=== PATIENT | male | born 1960 | race American Indian/Alaskan Native ===

== ENCOUNTER 2017-01-07 05:43 | Inpatient (IN) | payer MEDICARE ==
--- NOTE | 2017-01-07 07:24 | XRay Report ---
Single view chest: History: Shortness of breath. Findings: Cardiomegaly. Decrease in volume of left lung with airspace opacities left lower lobe. Left CP angle obscured by heart. Tracheostomy tube in normal position the trachea midline. No consolidation right lung. Impression: Probable atelectasis with or without pneumonia left lung.
[2017-01-07] MEDS ORDERED: NACL 0.9% 1000 ML 1,000 ML IV ONE ×2 (07:59→08:00)
[2017-01-07] MEDS ORDERED: PROVENTIL IH ONE (08:01)
[2017-01-07] MEDS ORDERED: VANCOMYCIN VIAL IV ONE (08:02)
--- NOTE | 2017-01-07 08:03 | Emergency Department Report ---
ED General Adult HPI - General Chief complaint: Dyspnea/Respdistress Stated complaint: DIFFICULTY BREATHING Time Seen by Provider: 01/07/17 07:54 Source: EMS Mode of arrival: Stretcher Limitations: Physical Limitation - History of Present Illness Initial comments: Patient is a 56-year-old male has a past medical history of hypertension stroke and diabetes who presents with difficulty breathing. Patient was found at home with difficulty breathing. Patient has a trach and is nonverbal. History is limited due to patient being nonverbal. She was having difficulty breathing his sat was 76% when EMS got there they did some suction and has sat went up to the 90s. Severity scale (0 -10): 0 - Related Data Home Medications Medication Instructions Recorded Confirmed Last Taken Acetaminophen 650 mg NGTUBE Q6H PRN 01/07/17 01/07/17 Unknown Acidophilus Capsule 1 cap NGTUBE BID 01/07/17 01/07/17 Unknown AtorvaSTATin 40 mg NGTUBE HS 01/07/17 01/07/17 Unknown Enoxaparin 40 mg SQ DAILY 01/07/17 01/07/17 Unknown Famotidine 20 mg NGTUBE BID 01/07/17 01/07/17 Unknown Levemir 5 units SQ HS 01/07/17 01/07/17 Unknown Levetiracetam 10 ml NGTUBE BID 01/07/17 01/07/17 Unknown Metoprolol Tartrate 50 mg NGTUBE BID 01/07/17 01/07/17 Unknown NovoLOG Flexpen 0 units SQ AC 01/07/17 01/07/17 Unknown Allergies Allergy/AdvReac Type Severity Reaction Status Date / Time No Known Allergies Allergy Verified 01/07/17 08:08 ED Review of Systems ROS: Stated complaint: DIFFICULTY BREATHING Other details as noted in HPI Comment: Unobtainable due to pts medical conditions (patient is nonverbal) ED Past Medical Hx - Past Medical History Hx Hypertension: Yes Hx CVA: Yes Hx Diabetes: Yes Hx GERD: Yes Hx Seizures: Yes Hx Psychiatric Treatment: Yes (Schizophrenia) Additional medical history: Acute Respiratory Failure, Decubitus Ulcers, Dysphagia, Chronic Pain, Hyperlipidemia - Surgical History Additional Surgical History: Colostomy, PEG, TRACH, - Social History Smoking Status: Never Smoker Substance Use Type: None - Medications Home Medications: Home Medications Medication Instructions Recorded Confirmed Last Taken Type Acetaminophen 650 mg NGTUBE Q6H PRN 01/07/17 01/07/17 Unknown History Acidophilus Capsule 1 cap NGTUBE BID 01/07/17 01/07/17 Unknown History AtorvaSTATin 40 mg NGTUBE HS 01/07/17 01/07/17 Unknown History Enoxaparin 40 mg SQ DAILY 01/07/17 01/07/17 Unknown History Famotidine 20 mg NGTUBE BID 01/07/17 01/07/17 Unknown History Levemir 5 units SQ HS 01/07/17 01/07/17 Unknown History Levetiracetam 10 ml NGTUBE BID 01/07/17 01/07/17 Unknown History Metoprolol Tartrate 50 mg NGTUBE BID 01/07/17 01/07/17 Unknown History NovoLOG Flexpen 0 units SQ AC 01/07/17 01/07/17 Unknown History ED Physical Exam - General Limitations: Physical Limitation General appearance: alert, anxious - Head Head exam: Present: atraumatic - Eye Eye exam: Present: normal appearance - ENT ENT exam: Present: other (trach collar ) - Neck Neck exam: Present: normal inspection - Respiratory Respiratory exam: Present: wheezes, other (decreased lung sounds on left lung. ) . Absent: respiratory distress - Cardiovascular Cardiovascular Exam: Present: regular rate, tachycardia. Absent: systolic murmur, diastolic murmur, rubs, gallop - GI/Abdominal GI/Abdominal exam: Present: soft, normal bowel sounds - Rectal Rectal exam: Present: deferred - Extremities Exam Extremities exam: Present: normal inspection - Back Exam Back exam: Present: normal inspection - Neurological Exam Neurological exam: Present: alert, oriented X3 - Psychiatric Psychiatric exam: Present: normal affect, normal mood - Skin Skin exam: Present: warm, dry, intact, normal color. Absent: rash ED Course Vital Signs 01/07/17 01/07/17 01/07/17 06:12 06:22 06:30 Temperature 99 F Pulse Rate 134 H 130 H 128 H Respiratory 42 H 39 H 37 H Rate Blood Pressure 129/29 Blood Pressure [Left] O2 Sat by Pulse 99 97 96 Oximetry O2 Sat by Pulse Oximetry [ Assessment] 01/07/17 01/07/17 01/07/17 06:42 06:55 07:00 Temperature Pulse Rate 125 H 123 H Respiratory 32 H 32 H Rate Blood Pressure Blood Pressure 119/75 [Left] O2 Sat by Pulse 96 98 100 Oximetry O2 Sat by Pulse Oximetry [ Assessment] 01/07/17 01/07/17 01/07/17 07:30 07:36 07:41 Temperature Pulse Rate 121 H Respiratory 32 H Rate Blood Pressure 120/72 Blood Pressure [Left] O2 Sat by Pulse 99 99 Oximetry O2 Sat by Pulse 96 Oximetry [ Assessment] 01/07/17 01/07/17 01/07/17 07:43 08:00 08:30 Temperature Pulse Rate 122 H 119 H Respiratory 26 H 33 H 31 H Rate Blood Pressure 112/71 119/75 Blood Pressure [Left] O2 Sat by Pulse 100 Oximetry O2 Sat by Pulse Oximetry [ Assessment] 01/07/17 01/07/17 01/07/17 09:00 09:30 10:00 Temperature Pulse Rate 113 H 114 H 116 H Respiratory 27 H 20 30 H Rate Blood Pressure 129/72 146/71 144/77 Blood Pressure [Left] O2 Sat by Pulse 100 100 96 Oximetry O2 Sat by Pulse Oximetry [ Assessment] 01/07/17 01/07/17 01/07/17 10:30 11:00 11:30 Temperature Pulse Rate 113 H 108 H 111 H Respiratory 25 H 25 H 26 H Rate Blood Pressure 154/82 128/73 132/77 Blood Pressure [Left] O2 Sat by Pulse 99 100 Oximetry O2 Sat by Pulse Oximetry [ Assessment] 01/07/17 01/07/17 01/07/17 12:00 12:30 13:00 Temperature Pulse Rate 111 H 107 H 111 H Respiratory 24 24 27 H Rate Blood Pressure 129/69 140/80 127/73 Blood Pressure [Left] O2 Sat by Pulse 98 99 97 Oximetry O2 Sat by Pulse Oximetry [ Assessment] 01/07/17 01/07/17 01/07/17 13:30 14:00 14:30 Temperature Pulse Rate 111 H 117 H 111 H Respiratory 27 H 27 H 31 H Rate Blood Pressure 125/76 124/79 146/86 Blood Pressure [Left] O2 Sat by Pulse 95 97 97 Oximetry O2 Sat by Pulse Oximetry [ Assessment] 01/07/17 14:38 Temperature 99.1 F Pulse Rate Respiratory Rate Blood Pressure Blood Pressure [Left] O2 Sat by Pulse Oximetry O2 Sat by Pulse Oximetry [ Assessment] ED Medical Decision Making - Lab Data Result diagrams: 01/07/17 08:39 01/07/17 08:39 Labs 01/07/17 01/07/17 01/07/17 07:45 08:39 08:39 WBC 13.2 H RBC 3.48 L Hgb 9.2 L Hct 30.2 L MCV 87 MCH 27 L MCHC 31 L RDW 19.0 H Plt Count 628 H Lymph % (Auto) 21.8 [place] % (Auto) 6.3 Eos % (Auto) 0.2 Baso % (Auto) 0.8 Lymph # 2.9 [place] # 0.8 Eos # 0.0 Baso # 0.1 Seg Neutrophils % 70.9 H Seg Neutrophils # 9.4 H Sodium 134 L Potassium 4.3 Chloride 95.2 L Carbon Dioxide 29 Anion Gap 14 BUN 15 Creatinine 0.2 L Estimated GFR > 60 BUN/Creatinine Ratio 75 Glucose 159 H Lactic Acid Calcium 8.6 Troponin T < 0.010 Urine Color Yellow Urine Turbidity Clear Urine pH 6.0 Ur Specific [place] 1.024 Urine Protein <15 mg/dl Urine Glucose (UA) Neg Urine Ketones Neg Urine Blood Neg Urine Nitrite Neg Urine Bilirubin Neg Urine Urobilinogen < 2.0 Ur Leukocyte Esterase Tr Urine WBC (Auto) 1.0 Urine RBC (Auto) 6.0 01/07/17 08:39 WBC RBC Hgb Hct MCV MCH MCHC RDW Plt Count Lymph % (Auto) [place] % (Auto) Eos % (Auto) Baso % (Auto) Lymph # [place] # Eos # Baso # Seg Neutrophils % Seg Neutrophils # Sodium Potassium Chloride Carbon Dioxide Anion Gap BUN Creatinine Estimated GFR BUN/Creatinine Ratio Glucose Lactic Acid 1.50 Calcium Troponin T Urine Color Urine Turbidity Urine pH Ur Specific [place] Urine Protein Urine Glucose (UA) Urine Ketones Urine Blood Urine Nitrite Urine Bilirubin Urine Urobilinogen Ur Leukocyte Esterase Urine WBC (Auto) Urine RBC (Auto) - EKG Data -: EKG Interpreted by Id - EKG Data 01/07/17 15:08 EKG shows sinus tachycardia rate [address] segment elevation and no T-wave inversion normal axis. - Radiology Data Radiology results: report reviewed, image reviewed Chest x-ray: Shows left lower lung pneumonia and atelectasis - Medical Decision Making Chief medical diagnosis: Pneumonia Differential medical diagnosis: Sepsis, UTI, non-STEMI, electrolyte abnormality CHEST x-ray, 30 mL per kilo bolus, blood cultures, broad-spectrum antibiotics, CBC, CMP, troponin, EKG Due to patient having potentially life-threatening condition due to his medical conditions and diagnosis of sepsis patient will be admitted to the hospitalist service. Discussed plan with hospitalist Dr. Clark he agrees with plan. Patient is currently satting 96% on trach collar. Critical Care Time: Yes (40) Critical care time in (mins) excluding proc time.: 40 Critical care attestation.: If time is entered above; I have spent that time in minutes in the direct care of this critically ill patient, excluding procedure time. Critical care time spent at patient's bedside 25 minutes Critical care time spent reviewing patient's lab findings 10 minutes critical care time spent reviewing old medical records 0 minutes Care time speaking with consultants 5 minutes Critical care time spent with patient's family members 0 minutes ED Disposition Clinical Impression: Tachycardia, Tracheostomy dependence Pneumonia Qualifiers: Pneumonia type: due to unspecified organism Laterality: left Lung location: lower lobe of lung Qualified Code(s): J18.1 - Lobar pneumonia, unspecified organism Sepsis Qualifiers: Sepsis type: sepsis due to unspecified organism Qualified Code(s): A41.9 - Sepsis, unspecified organism Disposition: OP ADMIT IP TO THIS HOSP Is pt being admited?: Yes Does the pt Need Aspirin: No Condition: Stable
[2017-01-07 08:08] LABS: Bilirubin,Urine NEG (Negative); Blood,Urine NEG (Negative); Ketones,Urine NEG (Negative); Leukocyte Esterase,Urine TR (Negative); Nitrite,Urine NEG (Negative); Protein,Urine <15 mg/dL mg/dL (Negative); Urobilinogen,Urine < 2.0 mg/dL (<2.0)
[2017-01-07 08:59] LABS: Basophils % (Auto) 0.8 % (0.0-1.8); Eosinophils % (Auto) 0.2 % (0.0-4.3); Hematocrit 30.2 % (35.5-45.6); Hemoglobin 9.2 gm/dl (11.8-15.2); Mean Corpuscular HGB Conc 31 % (32-34); Mean Corpuscular Hemoglobin 27 pg (28-32); Mean Corpuscular Volume 87 fl (84-94); Platelet Count 628 K/mm3 (140-440); Red Blood Count 3.48 M/mm3 (3.65-5.03); White Blood Count 13.2 K/mm3 (4.5-11.0)
[2017-01-07] MEDS ORDERED: VANCOMYCIN PHARMACY TO DOSE IV SCH (09:00)
[2017-01-07] MEDS ORDERED: VANCOMYCIN/NS 1 GM/250 ML 1 GM/250 ML BAG IV ONE ×2 (09:00→12:00)
[2017-01-07 09:15] LABS: Anion Gap 14 mmol/L; BUN/Creatinine Ratio 75; Blood Urea Nitrogen 15 mg/dL (9-20); Calcium 8.6 mg/dL (8.4-10.2); Carbon Dioxide 29 mmol/L (22-30); Chloride 95.2 mmol/L (98-107); Glucose 159 mg/dL (75-100); Potassium 4.3 mmol/L (3.6-5.0); Sodium 134 mmol/L (137-145)
--- NOTE | 2017-01-07 14:26 | History and Physical Report ---
<OWEN SEAMAN - Last Filed: 01/07/17 14:47> History of Present Illness Date of examination: 01/07/17 Date of admission: 01/07/17 12:42 Chief complaint: Difficulty Breathing History of present illness: Patient is a 56-year-old male has a past medical history of hypertension stroke and diabetes who presents with difficulty breathing. Patient was found at home Unable to provide full history due to endotracheal tube Past History Past Medical History: GERD, hypertension, hyperlipidemia, seizures, stroke Past Surgical History: Other (Colostomy, PEG, TRACH,) Social history: other (Never smoked) Medications and Allergies Allergies Allergy/AdvReac Type Severity Reaction Status Date / Time No Known Allergies Allergy Verified 01/07/17 08:08 Home Medications Medication Instructions Recorded Confirmed Last Taken Type Acetaminophen 650 mg NGTUBE Q6H PRN 01/07/17 01/07/17 Unknown History Acidophilus Capsule 1 cap NGTUBE BID 01/07/17 01/07/17 Unknown History AtorvaSTATin 40 mg NGTUBE HS 01/07/17 01/07/17 Unknown History Enoxaparin 40 mg SQ DAILY 01/07/17 01/07/17 Unknown History Famotidine 20 mg NGTUBE BID 01/07/17 01/07/17 Unknown History Levemir 5 units SQ HS 01/07/17 01/07/17 Unknown History Levetiracetam 10 ml NGTUBE BID 01/07/17 01/07/17 Unknown History Metoprolol Tartrate 50 mg NGTUBE BID 01/07/17 01/07/17 Unknown History NovoLOG Flexpen 0 units SQ AC 01/07/17 01/07/17 Unknown History Active Meds: Active Medications Albuterol/Ipratropium (Duoneb *Not For Prn Use*) 1 ampul IH Q3H PRN PRN Reason: Wheezing Enoxaparin Sodium (Lovenox) 50 mg SUB-Q Q12HR BERRY Piperacillin Sod/Tazobactam Sod (Zosyn/Ns 3.375gm/50ml) 3.375 gm in 50 mls @ 100 mls/hr IV Q6HR BERRY Vancomycin HCl (Vancomycin/Ns 1 Gm/250 Ml) 1 gm in 250 mls @ 167.007 mls/hr IV Q12HR B[facility] Levofloxacin/Dextrose (Levaquin 750mg/150ml) 750 mg in 150 mls @ 100 mls/hr IV Q24HR BERRY PRN Reason: Protocol Methylprednisolone Sodium Succinate (Solu-Medrol) 40 mg IV Q6H BERRY Vancomycin HCl (Vancomycin Pharmacy To Dose) 1 each IV PKCONSULT BERRY PRN Reason: Protocol Review of Systems ROS unobtainable: due to endotracheal tube (Difficulty breathing) Exam - Physical Exam Narrative exam: Unable to complete thorough PE due to physical limitations - Constitutional Vitals: Temp Pulse Resp BP Pulse Ox 99 F 119 H 31 H 119/75 100 01/07/17 06:12 01/07/17 08:30 01/07/17 08:30 01/07/17 08:30 01/07/17 08:30 General appearance: Present: no acute distress - EENT Eyes: Present: PERRL, EOM intact - Neck Neck: Present: supple, normal ROM - Respiratory Respiratory effort: normal - Cardiovascular Rhythm: regular Heart Sounds: Present: S1 & S2 - Extremities Extremities: no ischemia, No edema Peripheral Pulses: within normal limits - Abdominal Male genitourinary: Present: deferred - Rectal Rectal Exam: deferred - Integumentary Integumentary: Present: clear, warm, dry - Musculoskeletal Musculoskeletal: other (Unable to evaluate, patient not following command) - Psychiatric Psychiatric: other (Unable to evaluate) - Neurologic Neurologic: moves all extremities - Allied Health Allied health notes reviewed: nursing Results - Labs CBC & Chem 7: 01/07/17 08:39 01/07/17 08:39 Labs: Laboratory Last Values WBC 13.2 K/mm3 (4.5-11.0) H 01/07/17 08:39 RBC 3.48 M/mm3 (3.65-5.03) L 01/07/17 08:39 Hgb 9.2 gm/dl (11.8-15.2) L 01/07/17 08:39 Hct 30.2 % (35.5-45.6) L 01/07/17 08:39 MCV 87 fl (84-94) 01/07/17 08:39 MCH 27 pg (28-32) L 01/07/17 08:39 MCHC 31 % (32-34) L 01/07/17 08:39 RDW 19.0 % (13.2-15.2) H 01/07/17 08:39 Plt Count 628 K/mm3 (140-440) H 01/07/17 08:39 Lymph % (Auto) 21.8 % (13.4-35.0) 01/07/17 08:39 [place] % (Auto) 6.3 % (0.0-7.3) 01/07/17 08:39 Eos % (Auto) 0.2 % (0.0-4.3) 01/07/17 08:39 Baso % (Auto) 0.8 % (0.0-1.8) 01/07/17 08:39 Lymph # 2.9 K/mm3 (1.2-5.4) 01/07/17 08:39 [place] # 0.8 K/mm3 (0.0-0.8) 01/07/17 08:39 Eos # 0.0 K/mm3 (0.0-0.4) 01/07/17 08:39 Baso # 0.1 K/mm3 (0.0-0.1) 01/07/17 08:39 Seg Neutrophils % 70.9 % (40.0-70.0) H 01/07/17 08:39 Seg Neutrophils # 9.4 K/mm3 (1.8-7.7) H 01/07/17 08:39 Sodium 134 mmol/L (137-145) L 01/07/17 08:39 Potassium 4.3 mmol/L (3.6-5.0) 01/07/17 08:39 Chloride 95.2 mmol/L (98-107) L 01/07/17 08:39 Carbon Dioxide 29 mmol/L (22-30) 01/07/17 08:39 Anion Gap 14 mmol/L 01/07/17 08:39 BUN 15 mg/dL (9-20) 01/07/17 08:39 Creatinine 0.2 mg/dL (0.8-1.5) L 01/07/17 08:39 Estimated GFR > 60 ml/min 01/07/17 08:39 BUN/Creatinine Ratio 75 % 01/07/17 08:39 Glucose 159 mg/dL (75-100) H 01/07/17 08:39 Lactic Acid 1.50 mmol/L (0.7-2.0) 01/07/17 08:39 Calcium 8.6 mg/dL (8.4-10.2) 01/07/17 08:39 Troponin T < 0.010 ng/mL (0.00-0.029) 01/07/17 08:39 Urine Color Yellow (Yellow) 01/07/17 07:45 Urine Turbidity Clear (Clear) 01/07/17 07:45 Urine pH 6.0 (5.0-7.0) 01/07/17 07:45 Ur Specific [place] 1.024 (1.003-1.030) 01/07/17 07:45 Urine Protein <15 mg/dl mg/dL (Negative) 01/07/17 07:45 Urine Glucose (UA) Neg mg/dL (Negative) 01/07/17 07:45 Urine Ketones Neg mg/dL (Negative) 01/07/17 07:45 Urine Blood Neg (Negative) 01/07/17 07:45 Urine Nitrite Neg (Negative) 01/07/17 07:45 Urine Bilirubin Neg (Negative) 01/07/17 07:45 Urine Urobilinogen < 2.0 mg/dL (<2.0) 01/07/17 07:45 Ur Leukocyte Esterase Tr (Negative) 01/07/17 07:45 Urine WBC (Auto) 1.0 /HPF (0.0-6.0) 01/07/17 07:45 Urine RBC (Auto) 6.0 /HPF (0.0-6.0) 01/07/17 07:45 - Imaging and Cardiology EKG: report reviewed (Tracheotomy tube midline in trachea, atelectasis L lung with or without pneumonia) Assessment and Plan Assessment and plan: Patient is a 56-year-old male has a past medical history of hypertension stroke and diabetes who presents with difficulty breathing. Acute COPD Exacerbation Start Duoneb, Solumedrol and Levoquin SIRS Elevated WBC, RR, HR Blood cultures pending Epilepsy Continue Keppra Diabetes SSI Advance Directives: Yes VTE prophylaxis?: Chemical Contraindication Mechanical VTE Prophylaxis: Treatment Not Indicated Plan of care discussed with patient/family: Yes - Patient Problems (1) COPD exacerbation Current Visit: Yes Status: Acute <ROBERT ADHIKARI S - Last Filed: 01/08/17 06:14> History of Present Illness Date of admission: 01/07/17 12:42 Medications and Allergies Active Meds: Active Medications Acetaminophen (Tylenol) 650 mg PO Q4H PRN PRN Reason: Pain MILD(1-3)/Fever >100.5/MCCRAY Albuterol/Ipratropium (Duoneb *Not For Prn Use*) 1 ampul IH Q3H PRN PRN Reason: Wheezing Bisacodyl (Dulcolax) 10 mg AL QDAY PRN PRN Reason: Constipation unrelieved by MOM Dextrose (D50w (25gm) Syringe) 50 ml IV PRN PRN PRN Reason: Hypoglycemia Enoxaparin Sodium (Lovenox) 50 mg SUB-Q Q12HR [facility] Last Admin: 01/07/17 21:39 Dose: 50 mg Piperacillin Sod/Tazobactam Sod (Zosyn/Ns 3.375gm/50ml) 3.375 gm in 50 mls @ 100 mls/hr IV Q6HR [facility] Last Admin: 01/08/17 00:19 Dose: 100 mls/hr Vancomycin HCl (Vancomycin/Ns 1 Gm/250 Ml) 1 gm in 250 mls @ 167.007 mls/hr IV Q12HR [facility] Last Admin: 01/07/17 22:58 Dose: 167.007 mls/hr Levofloxacin/Dextrose (Levaquin 750mg/150ml) 750 mg in 150 mls @ 100 mls/hr IV Q24HR [facility] PRN Reason: Protocol Insulin Aspart (Novolog) 0 units SUB-Q AC BERRY PRN Reason: Protocol Last Admin: 01/07/17 18:51 Dose: Not Given Insulin Aspart (Novolog) 0 units SUB-Q QHS BERRY PRN Reason: Protocol Last Admin: 01/08/17 00:27 Dose: Not Given Magnesium Hydroxide (Milk Of Magnesia) 30 ml PO Q4H PRN PRN Reason: Constipation Methylprednisolone Sodium Succinate (Solu-Medrol) 40 mg IV Q6H [facility] Last Admin: 01/08/17 02:59 Dose: 40 mg Ondansetron HCl (Zofran) 4 mg IV Q8H PRN PRN Reason: N/V unrelieved by Reglan Vancomycin HCl (Vancomycin Pharmacy To Dose) 1 each IV PKCONSULT BERRY PRN Reason: Protocol Exam - Constitutional Vitals: Temp Pulse Resp BP Pulse Ox 98.8 F 113 H 18 132/81 95 01/08/17 03:28 01/08/17 03:28 01/08/17 03:28 01/08/17 03:28 01/08/17 03:28 Results - Labs CBC & Chem 7: 01/07/17 08:39 01/07/17 08:39 Labs: Laboratory Last Values WBC 13.2 K/mm3 (4.5-11.0) H 01/07/17 08:39 RBC 3.48 M/mm3 (3.65-5.03) L 01/07/17 08:39 Hgb 9.2 gm/dl (11.8-15.2) L 01/07/17 08:39 Hct 30.2 % (35.5-45.6) L 01/07/17 08:39 MCV 87 fl (84-94) 01/07/17 08:39 MCH 27 pg (28-32) L 01/07/17 08:39 MCHC 31 % (32-34) L 01/07/17 08:39 RDW 19.0 % (13.2-15.2) H 01/07/17 08:39 Plt Count 628 K/mm3 (140-440) H 01/07/17 08:39 Lymph % (Auto) 21.8 % (13.4-35.0) 01/07/17 08:39 [place] % (Auto) 6.3 % (0.0-7.3) 01/07/17 08:39 Eos % (Auto) 0.2 % (0.0-4.3) 01/07/17 08:39 Baso % (Auto) 0.8 % (0.0-1.8) 01/07/17 08:39 Lymph # 2.9 K/mm3 (1.2-5.4) 01/07/17 08:39 [place] # 0.8 K/mm3 (0.0-0.8) 01/07/17 08:39 Eos # 0.0 K/mm3 (0.0-0.4) 01/07/17 08:39 Baso # 0.1 K/mm3 (0.0-0.1) 01/07/17 08:39 Seg Neutrophils % 70.9 % (40.0-70.0) H 01/07/17 08:39 Seg Neutrophils # 9.4 K/mm3 (1.8-7.7) H 01/07/17 08:39 Sodium 134 mmol/L (137-145) L 01/07/17 08:39 Potassium 4.3 mmol/L (3.6-5.0) 01/07/17 08:39 Chloride 95.2 mmol/L (98-107) L 01/07/17 08:39 Carbon Dioxide 29 mmol/L (22-30) 01/07/17 08:39 Anion Gap 14 mmol/L 01/07/17 08:39 BUN 15 mg/dL (9-20) 01/07/17 08:39 Creatinine 0.2 mg/dL (0.8-1.5) L 01/07/17 08:39 Estimated GFR > 60 ml/min 01/07/17 08:39 BUN/Creatinine Ratio 75 % 01/07/17 08:39 Glucose 159 mg/dL (75-100) H 01/07/17 08:39 POC Glucose 170 (70-105) H 01/08/17 05:13 Hemoglobin A1c 6.5 % (4-6) H 01/07/17 16:54 Lactic Acid 1.50 mmol/L (0.7-2.0) 01/07/17 08:39 Calcium 8.6 mg/dL (8.4-10.2) 01/07/17 08:39 Troponin T < 0.010 ng/mL (0.00-0.029) 01/07/17 08:39 Urine Color Yellow (Yellow) 01/07/17 07:45 Urine Turbidity Clear (Clear) 01/07/17 07:45 Urine pH 6.0 (5.0-7.0) 01/07/17 07:45 Ur Specific [place] 1.024 (1.003-1.030) 01/07/17 07:45 Urine Protein <15 mg/dl mg/dL (Negative) 01/07/17 07:45 Urine Glucose (UA) Neg mg/dL (Negative) 01/07/17 07:45 Urine Ketones Neg mg/dL (Negative) 01/07/17 07:45 Urine Blood Neg (Negative) 01/07/17 07:45 Urine Nitrite Neg (Negative) 01/07/17 07:45 Urine Bilirubin Neg (Negative) 01/07/17 07:45 Urine Urobilinogen < 2.0 mg/dL (<2.0) 01/07/17 07:45 Ur Leukocyte Esterase Tr (Negative) 01/07/17 07:45 Urine WBC (Auto) 1.0 /HPF (0.0-6.0) 01/07/17 07:45 Urine RBC (Auto) 6.0 /HPF (0.0-6.0) 01/07/17 07:45 Assessment and Plan Advance Directives: Yes (full code) Plan of care discussed with patient/family: Yes - Patient Problems (1) Anemia Current Visit: Yes Status: Chronic Qualifiers: Anemia type: iron deficiency Plan to address problem: Etio unclear Irom/folic acid /B12 levels ordered (2) T2DM (type 2 diabetes mellitus) Current Visit: Yes Status: Chronic Qualifiers: Diabetes mellitus complication status: without complication Plan to address problem: A1c 6.5 Cont levemir and coverage moderate dose S/S
[2017-01-07] MEDS ORDERED: DULCOLAX PR PRN (14:48)
[2017-01-07] MEDS ORDERED: TYLENOL PO PRN (14:48)
[2017-01-07] MEDS ORDERED: ZOFRAN IV PRN (14:48)
[2017-01-07] MEDS ORDERED: MILK OF MAGNESIA PO PRN (14:48)
[2017-01-07] MEDS ORDERED: D50W (25GM) Syringe IV PRN (14:50)
[2017-01-07] MEDS: ZOSYN/NS 3.375GM/50ML 3.375 GM/50 ML BAG IV SCH ×2 (15:06→18:52)
[2017-01-07] MEDS: NOVOLOG SUB-Q SCH (18:51)
[2017-01-07] MEDS ORDERED: VANCOMYCIN/NS 1 GM/250 ML 1 GM/250 ML BAG IV SCH (22:00)
[2017-01-07] MEDS ORDERED: LOVENOX SUB-Q SCH ×2 (22:00)
[2017-01-08] MEDS: ZOSYN/NS 3.375GM/50ML 3.375 GM/50 ML BAG IV SCH ×2 (00:19→06:21)
[2017-01-08] MEDS: NOVOLOG SUB-Q SCH ×4 (00:27→17:47)
[2017-01-08] MEDS ORDERED: SODIUM BICARBONATE FEEDTUBE PRN (11:35)
[2017-01-08] MEDS ORDERED: SIMPLE SYRUP FEEDTUBE PRN ×2 (11:35)
[2017-01-08] MEDS ORDERED: PANCREAZE DR 10,500 UNIT FEEDTUBE PRN (11:35)
--- NOTE | 2017-01-08 12:47 | Progress Note ---
Assessment and Plan Assessment and plan: Patient is a 56-year-old male has a past medical history of hypertension, stroke and diabetes, chronic Respiratory failure s/p Trach and with chronic Encephalopathy, Admitted with Sepsis and Acute on Chronic Respiratory failure with Hypoxia. EMS sat was 76% Acute COPD Exacerbation * Agonal breathing with increased secretions on admission requiring suctioning. * Continue Duoneb, Solumedrol and Levaquin Left lower lobe Pneumonia * Continue Levaquin IV SIRS * Elevated WBC, RR, HR * Blood cultures pending Anemia * Iron Deficiency * Monitor closely. * Start on Iron supplementation Epilepsy Continue Keppra Chronic Encephalopathy * Awaiting records from facility Diabetes with Hyperglycemia * Controlled * Cont levemir and coverage moderate dose S/S Multiple sacral decubitus pressure Ulcers * Woundcare consult * May need debridement dvt/gi PROPHY Await family to discuss further treatment options. . History Interval history: Patient seen and examined, He is chronically on a trach and with AMS. Nurse and wound care nurse dressing patients wound today. No new complaint from Nursing staff. Hospitalist Physical - Physical exam Narrative exam: VITAL SIGNS: Reviewed. GENERAL: The patient appeared Chronically ill appearing, cachetic. Vital signs as documented. HEAD: No signs of head trauma. marked temporal wasting EYES: Pupils are equal. EARS: Hearing grossly intact. MOUTH: Oropharynx is normal. NECK: No adenopathy, no JVD. CHEST: Chest with crackles breath sounds bilaterally. No wheezes. CARDIAC: Regular rate and rhythm. S1 and S2, without murmurs, gallops, or rubs. VASCULAR: No Edema. Peripheral pulses normal and equal in all extremities. ABDOMEN: Soft, without detectable tenderness. No sign of distention. No rebound or guarding, and no masses palpated. Bowel Sounds normal. MUSCULOSKELETAL: contracted. Extremities without clubbing, cyanosis or edema. NEUROLOGIC EXAM: Confused. PSYCHIATRIC: Mood normal. SKIN: multiple decub unclers present. Unstagable at the right hip. All POA - Constitutional Vitals: Temp Pulse Resp BP Pulse Ox 99.9 F H 124 H 22 132/81 97 01/08/17 12:31 01/08/17 12:31 01/08/17 12:31 01/08/17 12:31 01/08/17 12:31 General appearance: Present: no acute distress Results - Labs CBC & Chem 7: 01/07/17 08:39 01/07/17 08:39 Labs: Laboratory Last Values WBC 13.2 K/mm3 (4.5-11.0) H 01/07/17 08:39 RBC 3.48 M/mm3 (3.65-5.03) L 01/07/17 08:39 Hgb 9.2 gm/dl (11.8-15.2) L 01/07/17 08:39 Hct 30.2 % (35.5-45.6) L 01/07/17 08:39 MCV 87 fl (84-94) 01/07/17 08:39 MCH 27 pg (28-32) L 01/07/17 08:39 MCHC 31 % (32-34) L 01/07/17 08:39 RDW 19.0 % (13.2-15.2) H 01/07/17 08:39 Plt Count 628 K/mm3 (140-440) H 01/07/17 08:39 Lymph % (Auto) 21.8 % (13.4-35.0) 01/07/17 08:39 [place] % (Auto) 6.3 % (0.0-7.3) 01/07/17 08:39 Eos % (Auto) 0.2 % (0.0-4.3) 01/07/17 08:39 Baso % (Auto) 0.8 % (0.0-1.8) 01/07/17 08:39 Lymph # 2.9 K/mm3 (1.2-5.4) 01/07/17 08:39 [place] # 0.8 K/mm3 (0.0-0.8) 01/07/17 08:39 Eos # 0.0 K/mm3 (0.0-0.4) 01/07/17 08:39 Baso # 0.1 K/mm3 (0.0-0.1) 01/07/17 08:39 Seg Neutrophils % 70.9 % (40.0-70.0) H 01/07/17 08:39 Seg Neutrophils # 9.4 K/mm3 (1.8-7.7) H 01/07/17 08:39 Sodium 134 mmol/L (137-145) L 01/07/17 08:39 Potassium 4.3 mmol/L (3.6-5.0) 01/07/17 08:39 Chloride 95.2 mmol/L (98-107) L 01/07/17 08:39 Carbon Dioxide 29 mmol/L (22-30) 01/07/17 08:39 Anion Gap 14 mmol/L 01/07/17 08:39 BUN 15 mg/dL (9-20) 01/07/17 08:39 Creatinine 0.2 mg/dL (0.8-1.5) L 01/07/17 08:39 Estimated GFR > 60 ml/min 01/07/17 08:39 BUN/Creatinine Ratio 75 % 01/07/17 08:39 Glucose 159 mg/dL (75-100) H 01/07/17 08:39 POC Glucose 176 (70-105) H 01/08/17 11:17 Hemoglobin A1c 6.5 % (4-6) H 01/07/17 16:54 Lactic Acid 1.50 mmol/L (0.7-2.0) 01/07/17 08:39 Calcium 8.6 mg/dL (8.4-10.2) 01/07/17 08:39 Iron 24 ug/dL (49-181) L 01/08/17 07:36 TIBC 168 mcg/dL (250-450) L 01/08/17 07:36 % Saturation 14.29 % 01/08/17 07:36 Transferrin 145 mg/dl (180-329) L 01/08/17 07:36 Troponin T < 0.010 ng/mL (0.00-0.029) 01/07/17 08:39 Vitamin B12 1871 pg/mL (211-911) H 01/08/17 07:36 Urine Color Yellow (Yellow) 01/07/17 07:45 Urine Turbidity Clear (Clear) 01/07/17 07:45 Urine pH 6.0 (5.0-7.0) 01/07/17 07:45 Ur Specific [place] 1.024 (1.003-1.030) 01/07/17 07:45 Urine Protein <15 mg/dl mg/dL (Negative) 01/07/17 07:45 Urine Glucose (UA) Neg mg/dL (Negative) 01/07/17 07:45 Urine Ketones Neg mg/dL (Negative) 01/07/17 07:45 Urine Blood Neg (Negative) 01/07/17 07:45 Urine Nitrite Neg (Negative) 01/07/17 07:45 Urine Bilirubin Neg (Negative) 01/07/17 07:45 Urine Urobilinogen < 2.0 mg/dL (<2.0) 01/07/17 07:45 Ur Leukocyte Esterase Tr (Negative) 01/07/17 07:45 Urine WBC (Auto) 1.0 /HPF (0.0-6.0) 01/07/17 07:45 Urine RBC (Auto) 6.0 /HPF (0.0-6.0) 01/07/17 07:45 - Imaging and Cardiology Chest x-ray: image reviewed (left lobe pneumonia)
[2017-01-08] MEDS: LEVAQUIN 750MG/150ML 750 MG/150 ML BAG IV SCH (13:30)
[2017-01-08] MEDS: KEPPRA PO SCH ×2 (13:31→21:11)
[2017-01-08] MEDS: LOPRESSOR PO SCH ×2 (13:31→22:04)
[2017-01-08] MEDS: LOVENOX SUB-Q SCH (13:31)
[2017-01-08] MEDS: PEPCID PO SCH ×2 (13:32→21:11)
[2017-01-09] MEDS: NOVOLOG SUB-Q SCH ×5 (02:59→23:17)
[2017-01-09 07:27] LABS: Hematocrit 28.5 % (35.5-45.6); Hemoglobin 9.3 gm/dl (11.8-15.2); Mean Corpuscular HGB Conc 33 % (32-34); Mean Corpuscular Hemoglobin 28 pg (28-32); Mean Corpuscular Volume 87 fl (84-94); Platelet Count 609 K/mm3 (140-440); Red Blood Count 3.29 M/mm3 (3.65-5.03); Red Cell Distribution Width 19.1 % (13.2-15.2); White Blood Count 9.4 K/mm3 (4.5-11.0)
[2017-01-09 07:43] LABS: Albumin 2.8 g/dL (3.9-5); Anion Gap 18 mmol/L; BUN/Creatinine Ratio 70; Blood Urea Nitrogen 21 mg/dL (9-20); Calcium 8.8 mg/dL (8.4-10.2); Carbon Dioxide 26 mmol/L (22-30); Glucose 274 mg/dL (75-100); Potassium 4.5 mmol/L (3.6-5.0); Sodium 137 mmol/L (137-145)
[2017-01-09] MEDS: LOVENOX SUB-Q SCH (11:08)
[2017-01-09] MEDS: LOPRESSOR PO SCH ×2 (11:09→23:17)
[2017-01-09] MEDS: KEPPRA PO SCH ×2 (11:09→23:18)
[2017-01-09] MEDS: LEVAQUIN 750MG/150ML 750 MG/150 ML BAG IV SCH (11:10)
[2017-01-09] MEDS: PEPCID PO SCH ×2 (11:10→23:19)
--- NOTE | 2017-01-09 11:51 | Progress Note ---
Assessment and Plan Assessment and plan: Patient is a 56-year-old male has a past medical history of hypertension, stroke and diabetes, chronic Respiratory failure s/p Trach and with chronic Encephalopathy, Admitted with Sepsis and Acute on Chronic Respiratory failure with Hypoxia. EMS sat was 76% Acute COPD Exacerbation * Agonal breathing with increased secretions on admission requiring suctioning. Now improved. * Continue Duoneb, and Levaquin. * Change to PO steroids via peg * Discussed with nursing staff about aggressive pulmonary toilet. * Still with Tachycardia, will monitor. No senseless fluid loss noted. Left lower lobe Pneumonia * Continue Levaquin IV SIRS * Elevated WBC, RR, HR * Blood cultures pending Anemia * Iron Deficiency * Monitor closely. * Continue on Iron supplementation Epilepsy Continue Keppra Chronic Metabolic Encephalopathy * Awaiting records from facility Diabetes with Hyperglycemia * Cont levemir added today as it was not reconciled yesterday, and coverage moderate dose S/S Multiple sacral decubitus pressure Ulcers * Woundcare consult * May need debridement dvt/gi PROPHY Await family to discuss further treatment options. . History Interval history: Patient seen and examined, He is chronically on a trach and with AMS. No new complaint from Nursing staff. Hospitalist Physical - Physical exam Narrative exam: VITAL SIGNS: Reviewed. GENERAL: The patient appeared Chronically ill appearing, cachetic. Vital signs as documented. HEAD: No signs of head trauma. marked temporal wasting EYES: Pupils are equal. EARS: Hearing grossly intact. MOUTH: Oropharynx is normal. NECK: No adenopathy, no JVD. CHEST: Chest with crackles breath sounds bilaterally. No wheezes. CARDIAC: Regular rate and rhythm. S1 and S2, without murmurs, gallops, or rubs. VASCULAR: No Edema. Peripheral pulses normal and equal in all extremities. ABDOMEN: Soft, without detectable tenderness. No sign of distention. No rebound or guarding, and no masses palpated. Bowel Sounds normal. MUSCULOSKELETAL: contracted. Extremities without clubbing, cyanosis or edema. NEUROLOGIC EXAM: Confused. PSYCHIATRIC: Mood normal. SKIN: multiple decub unclers present. Unstagable at the right hip. All POA - Constitutional Vitals: Temp Pulse Resp BP Pulse Ox 98.4 F 116 H 22 123/75 87 01/09/17 08:14 01/09/17 08:14 01/09/17 08:14 01/09/17 08:14 01/09/17 08:14 General appearance: Present: no acute distress Results - Labs CBC & Chem 7: 01/09/17 06:53 01/09/17 06:53 Labs: Laboratory Last Values WBC 9.4 K/mm3 (4.5-11.0) 01/09/17 06:53 RBC 3.29 M/mm3 (3.65-5.03) L 01/09/17 06:53 Hgb 9.3 gm/dl (11.8-15.2) L 01/09/17 06:53 Hct 28.5 % (35.5-45.6) L 01/09/17 06:53 MCV 87 fl (84-94) 01/09/17 06:53 MCH 28 pg (28-32) 01/09/17 06:53 MCHC 33 % (32-34) 01/09/17 06:53 RDW 19.1 % (13.2-15.2) H 01/09/17 06:53 Plt Count 609 K/mm3 (140-440) H 01/09/17 06:53 Lymph % (Auto) 21.8 % (13.4-35.0) 01/07/17 08:39 [place] % (Auto) 6.3 % (0.0-7.3) 01/07/17 08:39 Eos % (Auto) 0.2 % (0.0-4.3) 01/07/17 08:39 Baso % (Auto) 0.8 % (0.0-1.8) 01/07/17 08:39 Lymph # 2.9 K/mm3 (1.2-5.4) 01/07/17 08:39 [place] # 0.8 K/mm3 (0.0-0.8) 01/07/17 08:39 Eos # 0.0 K/mm3 (0.0-0.4) 01/07/17 08:39 Baso # 0.1 K/mm3 (0.0-0.1) 01/07/17 08:39 Seg Neutrophils % 70.9 % (40.0-70.0) H 01/07/17 08:39 Seg Neutrophils # 9.4 K/mm3 (1.8-7.7) H 01/07/17 08:39 Sodium 137 mmol/L (137-145) 01/09/17 06:53 Potassium 4.5 mmol/L (3.6-5.0) 01/09/17 06:53 Chloride 98.0 mmol/L (98-107) 01/09/17 06:53 Carbon Dioxide 26 mmol/L (22-30) 01/09/17 06:53 Anion Gap 18 mmol/L 01/09/17 06:53 BUN 21 mg/dL (9-20) H 01/09/17 06:53 Creatinine 0.3 mg/dL (0.8-1.5) L 01/09/17 06:53 Estimated GFR > 60 ml/min 01/09/17 06:53 BUN/Creatinine Ratio 70 % 01/09/17 06:53 Glucose 274 mg/dL (75-100) H 01/09/17 06:53 POC Glucose 312 (70-105) H 01/09/17 06:36 Hemoglobin A1c 6.5 % (4-6) H 01/07/17 16:54 Lactic Acid 1.50 mmol/L (0.7-2.0) 01/07/17 08:39 Calcium 8.8 mg/dL (8.4-10.2) 01/09/17 06:53 Phosphorus 2.60 mg/dL (2.5-4.5) 01/09/17 06:53 Magnesium 1.80 mg/dL (1.7-2.3) 01/09/17 06:53 Iron 24 ug/dL (49-181) L 01/08/17 07:36 TIBC 168 mcg/dL (250-450) L 01/08/17 07:36 % Saturation 14.29 % 01/08/17 07:36 Transferrin 145 mg/dl (180-329) L 01/08/17 07:36 Troponin T < 0.010 ng/mL (0.00-0.029) 01/07/17 08:39 Albumin 2.8 g/dL (3.9-5) L 01/09/17 06:53 Vitamin B12 1871 pg/mL (211-911) H 01/08/17 07:36 Urine Color Yellow (Yellow) 01/07/17 07:45 Urine Turbidity Clear (Clear) 01/07/17 07:45 Urine pH 6.0 (5.0-7.0) 01/07/17 07:45 Ur Specific [place] 1.024 (1.003-1.030) 01/07/17 07:45 Urine Protein <15 mg/dl mg/dL (Negative) 01/07/17 07:45 Urine Glucose (UA) Neg mg/dL (Negative) 01/07/17 07:45 Urine Ketones Neg mg/dL (Negative) 01/07/17 07:45 Urine Blood Neg (Negative) 01/07/17 07:45 Urine Nitrite Neg (Negative) 01/07/17 07:45 Urine Bilirubin Neg (Negative) 01/07/17 07:45 Urine Urobilinogen < 2.0 mg/dL (<2.0) 01/07/17 07:45 Ur Leukocyte Esterase Tr (Negative) 01/07/17 07:45 Urine WBC (Auto) 1.0 /HPF (0.0-6.0) 01/07/17 07:45 Urine RBC (Auto) 6.0 /HPF (0.0-6.0) 01/07/17 07:45
[2017-01-09] MEDS ORDERED: LEVEMIR SUB-Q SCH (22:00)
[2017-01-10] MEDS: NOVOLOG SUB-Q SCH ×4 (07:56→22:26)
[2017-01-10] MEDS: LEVEMIR SUB-Q SCH ×2 (10:30→22:25)
[2017-01-10] MEDS: LEVAQUIN 750MG/150ML 750 MG/150 ML BAG IV SCH (10:47)
[2017-01-10] MEDS: LOVENOX SUB-Q SCH (10:47)
[2017-01-10] MEDS: DELTASONE PO SCH (10:48)
[2017-01-10] MEDS: KEPPRA PO SCH ×2 (10:48→22:27)
[2017-01-10] MEDS: PEPCID PO SCH ×2 (10:48→22:28)
[2017-01-10] MEDS: LOPRESSOR PO SCH ×2 (10:48→22:28)
--- NOTE | 2017-01-10 12:56 | Progress Note ---
Assessment and Plan Assessment and plan: Patient is a 56-year-old male has a past medical history of hypertension, stroke and diabetes, chronic Respiratory failure s/p Trach and with chronic Encephalopathy, Admitted with Sepsis and Acute on Chronic Respiratory failure with Hypoxia. EMS sat was 76% Acute COPD Exacerbation * Agonal breathing with increased secretions on admission requiring suctioning. Now improved. * Continue Duoneb, and Levaquin. * Change to PO steroids via peg * chest physiotherapy * Discussed with nursing staff about aggressive pulmonary toilet. * Still with Tachycardia, will monitor. No senseless fluid loss noted. Left lower lobe Pneumonia * Continue Levaquin IV SIRS * Elevated WBC, RR, HR * Blood cultures pending no growth Anemia * Iron Deficiency * Monitor closely. * Continue on Iron supplementation Epilepsy Continue Keppra Chronic Metabolic Encephalopathy * Awaiting records from facility Diabetes with Hyperglycemia * Cont levemir Increased dose and coverage moderate dose S/S Multiple sacral decubitus pressure Ulcers * Woundcare consult * May need debridement dvt/gi PROPHY Await family to discuss further treatment options. . History Interval history: Patient seen and examined, He is chronically on a trach and with AMS. No new complaint from Nursing staff Except still with copious amount of secretion on suctioning Hospitalist Physical - Physical exam Narrative exam: VITAL SIGNS: Reviewed. GENERAL: The patient appeared Chronically ill appearing, cachetic. Vital signs as documented. HEAD: No signs of head trauma. marked temporal wasting EYES: Pupils are equal. EARS: Hearing grossly intact. MOUTH: Oropharynx is normal. NECK: No adenopathy, no JVD. CHEST: Chest with crackles breath sounds bilaterally. No wheezes. CARDIAC: Regular rate and rhythm. S1 and S2, without murmurs, gallops, or rubs. VASCULAR: No Edema. Peripheral pulses normal and equal in all extremities. ABDOMEN: Soft, without detectable tenderness. No sign of distention. No rebound or guarding, and no masses palpated. Bowel Sounds normal. MUSCULOSKELETAL: contracted. Extremities without clubbing, cyanosis or edema. NEUROLOGIC EXAM: Confused. PSYCHIATRIC: Mood normal. SKIN: multiple decub unclers present. Unstagable at the right hip. All POA - Constitutional Vitals: Temp Pulse Resp BP Pulse Ox 100.4 F H 105 H 26 H 111/72 98 01/10/17 12:08 01/10/17 12:08 01/10/17 12:08 01/10/17 12:08 01/10/17 12:08 General appearance: Present: no acute distress Results - Labs CBC & Chem 7: 01/09/17 06:53 01/09/17 06:53 Labs: Laboratory Last Values WBC 9.4 K/mm3 (4.5-11.0) 01/09/17 06:53 RBC 3.29 M/mm3 (3.65-5.03) L 01/09/17 06:53 Hgb 9.3 gm/dl (11.8-15.2) L 01/09/17 06:53 Hct 28.5 % (35.5-45.6) L 01/09/17 06:53 MCV 87 fl (84-94) 01/09/17 06:53 MCH 28 pg (28-32) 01/09/17 06:53 MCHC 33 % (32-34) 01/09/17 06:53 RDW 19.1 % (13.2-15.2) H 01/09/17 06:53 Plt Count 609 K/mm3 (140-440) H 01/09/17 06:53 Lymph % (Auto) 21.8 % (13.4-35.0) 01/07/17 08:39 [place] % (Auto) 6.3 % (0.0-7.3) 01/07/17 08:39 Eos % (Auto) 0.2 % (0.0-4.3) 01/07/17 08:39 Baso % (Auto) 0.8 % (0.0-1.8) 01/07/17 08:39 Lymph # 2.9 K/mm3 (1.2-5.4) 01/07/17 08:39 [place] # 0.8 K/mm3 (0.0-0.8) 01/07/17 08:39 Eos # 0.0 K/mm3 (0.0-0.4) 01/07/17 08:39 Baso # 0.1 K/mm3 (0.0-0.1) 01/07/17 08:39 Seg Neutrophils % 70.9 % (40.0-70.0) H 01/07/17 08:39 Seg Neutrophils # 9.4 K/mm3 (1.8-7.7) H 01/07/17 08:39 Sodium 137 mmol/L (137-145) 01/09/17 06:53 Potassium 4.5 mmol/L (3.6-5.0) 01/09/17 06:53 Chloride 98.0 mmol/L (98-107) 01/09/17 06:53 Carbon Dioxide 26 mmol/L (22-30) 01/09/17 06:53 Anion Gap 18 mmol/L 01/09/17 06:53 BUN 21 mg/dL (9-20) H 01/09/17 06:53 Creatinine 0.3 mg/dL (0.8-1.5) L 01/09/17 06:53 Estimated GFR > 60 ml/min 01/09/17 06:53 BUN/Creatinine Ratio 70 % 01/09/17 06:53 Glucose 274 mg/dL (75-100) H 01/09/17 06:53 POC Glucose 193 (70-105) H 01/10/17 12:10 Hemoglobin A1c 6.5 % (4-6) H 01/07/17 16:54 Lactic Acid 1.50 mmol/L (0.7-2.0) 01/07/17 08:39 Calcium 8.8 mg/dL (8.4-10.2) 01/09/17 06:53 Phosphorus 2.60 mg/dL (2.5-4.5) 01/09/17 06:53 Magnesium 1.80 mg/dL (1.7-2.3) 01/09/17 06:53 Iron 24 ug/dL (49-181) L 01/08/17 07:36 TIBC 168 mcg/dL (250-450) L 01/08/17 07:36 % Saturation 14.29 % 01/08/17 07:36 Transferrin 145 mg/dl (180-329) L 01/08/17 07:36 Troponin T < 0.010 ng/mL (0.00-0.029) 01/07/17 08:39 Albumin 2.8 g/dL (3.9-5) L 01/09/17 06:53 Vitamin B12 1871 pg/mL (211-911) H 01/08/17 07:36 RBC Folic Acid 886 ng/mL (>280) 01/08/17 07:36 Urine Color Yellow (Yellow) 01/07/17 07:45 Urine Turbidity Clear (Clear) 01/07/17 07:45 Urine pH 6.0 (5.0-7.0) 01/07/17 07:45 Ur Specific [place] 1.024 (1.003-1.030) 01/07/17 07:45 Urine Protein <15 mg/dl mg/dL (Negative) 01/07/17 07:45 Urine Glucose (UA) Neg mg/dL (Negative) 01/07/17 07:45 Urine Ketones Neg mg/dL (Negative) 01/07/17 07:45 Urine Blood Neg (Negative) 01/07/17 07:45 Urine Nitrite Neg (Negative) 01/07/17 07:45 Urine Bilirubin Neg (Negative) 01/07/17 07:45 Urine Urobilinogen < 2.0 mg/dL (<2.0) 01/07/17 07:45 Ur Leukocyte Esterase Tr (Negative) 01/07/17 07:45 Urine WBC (Auto) 1.0 /HPF (0.0-6.0) 01/07/17 07:45 Urine RBC (Auto) 6.0 /HPF (0.0-6.0) 01/07/17 07:45
[2017-01-11 07:35] LABS: Hematocrit 28.7 % (35.5-45.6); Mean Corpuscular HGB Conc 32 % (32-34); Mean Corpuscular Hemoglobin 27 pg (28-32); Mean Corpuscular Volume 87 fl (84-94); Platelet Count 509 K/mm3 (140-440); Red Cell Distribution Width 19.5 % (13.2-15.2); White Blood Count 15.7 K/mm3 (4.5-11.0)
[2017-01-11 07:43] LABS: Anion Gap 14 mmol/L; BUN/Creatinine Ratio 85; Blood Urea Nitrogen 17 mg/dL (9-20); Calcium 8.6 mg/dL (8.4-10.2); Carbon Dioxide 31 mmol/L (22-30); Chloride 98.7 mmol/L (98-107); Glucose 148 mg/dL (75-100); Potassium 3.4 mmol/L (3.6-5.0); Sodium 140 mmol/L (137-145)
[2017-01-11] MEDS: DUONEB *Not for PRN Use IH ×2 (07:58→15:29)
[2017-01-11] MEDS: NOVOLOG SUB-Q SCH ×3 (08:38→17:21)
[2017-01-11] MEDS ORDERED: POTASSIUM CHLORIDE FEEDTUBE ONE (10:21)
[2017-01-11] MEDS: LOVENOX SUB-Q SCH (11:17)
[2017-01-11] MEDS: LEVAQUIN 750MG/150ML 750 MG/150 ML BAG IV SCH (11:50)
[2017-01-11] MEDS: KEPPRA PO SCH (11:51)
[2017-01-11] MEDS: LOPRESSOR PO SCH (11:52)
[2017-01-11] MEDS: PEPCID PO SCH (11:52)
[2017-01-11] MEDS: DELTASONE PO SCH (11:52)
--- NOTE | 2017-01-11 13:34 | Query- Pneumonia Documented ---
Boone Lezama___Tamika Date:_01/11/2017 Slag Mixer/CDS:___Cheryl Phone#:__[phone] Exercise your independent professional judgment when responding to query. Questions asked do not imply a particular answer is desired or expected. We greatly appreciate your clarification on this issue. Clinical Documentation States: 56 Year old male was admitted on 01/07/2017 with Sepsis and Acute on Chronic Respiratory failure with Hypoxia. The Hospitalist (Dr. Lundberg) progress note on 01/10/2017 states "Left lower lobe Pneumonia * Continue Levaquin IV." Please further specify known or suspected Etiology: [ ] Aspiration Pneumonia [ ] Gram Negative Pneumonia [ ] Gram Positive Pneumonia [ ] Pseudomonas Pneumonia [ ] MRSA - related Pneumonia [ ] Viral Pneumonia [ ] Candidal Pneumonia [ ] Other: [ ] Unable to determine Present on Admission: [ ] Yes (Y) [ ] Clinically undeterminable (W) [ ] No (N) Please also document response in your Progress Notes and/or Discharge Summary and indicate if the condition was present on admission. LUISANAD
--- NOTE | 2017-01-11 13:42 | Query-Infection ---
Dear _Tamika Date:__01/11/2017 Wordpress Developer/CDS:___Cheryl Phone#:__[phone] Exercise your independent professional judgment when responding to this query. Questions asked do not imply a particular answer is desired or expected. We greatly appreciate your clarification on this issue. Clinical Documentation States: 56 Year old male was admitted on 01/07/2017 with Sepsis and Acute on Chronic Respiratory failure with Hypoxia. The Hospitalist (Dr. Lundberg) progress note on 01/10/2017 states "-Admitted with Sepsis and Acute on Chronic Respiratory failure with Hypoxia. -SIRS * Elevated WBC, RR, HR * Blood cultures pending no growth." Clinical findings show: (please check applicable parameters) [place]: 134 RR: 42 WBC: 13.2 Infection, known /suspected, with some of the following indicators; Specify the infection: 3 General parameters [ ] Fever (core temp >38.30C or 100.40F) [ ] Hypothermia (core temp <36C) [X] Heart rate >90 bpm [X] Tachypnea: >20 bpm or pCO2 < 32 mmHg [X] Altered mental status [ ] Significant edema / +ve fluid balance (>20 ml/kg 24 h) [ ] Hyperglycemia (Bl. glucose >110 mg/dl) w/o diabetes Inflammatory parameters [X] Leukocytosis (white blood cell count >12,000/l) [ ] Leukopenia (white blood cell count <4,000/l) [ ] Bandemia (immature WBC > 10%) [ ] Leucocyte Left Shift [ ] Plasma procalcitonin>2 SD above the normal value Hemodynamic and tissue perfusion parameters [ ] Arterial hypotension(SBP <90 mmHg, MAP <70 mmHg,or a SBP drop >40 mmHg in adults) [ ] Hyperlactatemia (>3 mmol/l) [ ] Anion Gap (> 11mEG/l) [ ] Decreased capillary refill or mottling Organ dysfunction parameters [ ] Arterial hypoxemia (PaO2/FIO2 <300) [ ] Creatinine increase =0.5 mg/dl [ ] Acute oliguria (urine output <0.5 ml | kg |h or 45 mM/l for at least 2 hrs) [ ] Coagulation abnormalities (INR >1.5 or activated partial thromboplastin time >60 s) [ ] Ileus (absent wan wel sounds) [ ] Thrombocytopenia (platelet count <100,000/l) [ ] Hyperbilirubinemia (plasma total bilirubin >4 mg/dl) According to the clinical indications above, can Bacteremia be further specified? If so, please indicate below and in your Progress Notes and/ or Discharge Summary. Indicate if the condition was present on admission. PHYSICIAN RESPONSE: [ ] Sepsis [ ] Severe Sepsis [ ] Septic Shock [ ] Septicemia [ ] Sepsis now resolved [ ] SIRS due to non-infectious cause with organ dysfunction [ ] SIRS due to non-infectious cause without organ dysfunction [ ] Other: [ ] Comment/Explanation: Present on Admission: [ ] Yes (Y) [ ] Clinically undeterminable (W) [ ] No ( N) [ ] Ruled Out Please also document response in your Progress Notes and/or Discharge Summary and indicate if the condition was present on admission Notes: SIRS/ SIRS WITH ORGAN DYSFUNCTION Systemic inflammatory response syndrome (SIRS) generally refers to the systemic response to trauma/tam or other insult such as Acute Myocardial Infarction, Acute Pancreatitis, and Major Surgery with symptoms including fever, tachycardia , tachypnea, and leukocytosis (1). BACTEREMIA Presence of viable bacteria in the circulating blood (2). This term is reserved for patients that do not manifest above SIRS response. SEPTICEMIA Generally refers to a systemic disease associated with the presence of pathological microorganisms or toxins in the blood, which can include bacteria, viruses, fungi or other organisms (1). SEPSIS Generally refers to SIRS due infection (1). SEVERE SEPSIS Generally refers to sepsis associated with acute organ dysfunction (1). SEPTIC SHOCK Generally refers to circulatory failure associated with severe sepsis (2), and defined as hypotension or hypoperfusion despite adequate fluid resuscitation (1 hour) (3). REFERENCES: 1. [place] [employer]/Society of Critical Care Medicine Consensus Conference. Definitions for sepsis and organ failure and guidelines for the use of innovative therapies in sepsis. Critical Care Med 1992;20:864 - 74. 2. Derek duff MM, Nadira MP, Taran ADAN, Ron E, Bello D, Yosvany D, Herbert J, Alley SM , Tacos JL, Farnaz G; International Sepsis Definitions Conference. 2001 SCCM/ESICM/ACCP/ATS/SIS International Sepsis Definitions Conference. Intensive Care Med. 2002;29(4):530-8. Epub 2002May 19. Review. PubMed PMID:[id number] 3. ICD-9-CM Official Guidelines for Coding and Reporting 4. Medscape Drugs, Diseases and Procedures references 5. [employer] Textbook of Internal Medicine. 18th Edition MTDD
--- NOTE | 2017-01-11 15:49 | Progress Note ---
Assessment and Plan Assessment and plan: Patient is a 56-year-old man from [facility] with a history of stroke with hemiparesis, functional quadriplegia, htn, DM 2, chronic Respiratory failure s/ p Trach Admitted with Sepsis and Acute on Chronic Respiratory failure with Hypoxia. EMS sat was 76% Acute COPD Exacerbation with acute on chronic hypoxic respiratory failure, poa * Agonal breathing with increased secretions on admission requiring suctioning. Now improved. * Continue Duoneb, and Levaquin. * Change to PO steroids via peg * chest physiotherapy * Discussed with nursing staff about aggressive pulmonary toilet. * Still with Tachycardia, will monitor. Left lower lobe Pneumonia * Continue Levaquin IV Sepsis due to pneumonia vs infected sacral decubiti, not SIRS poa * consulted ID * consulted Dr. Stoney Rey if he is available, await wound care recommendations * Blood cultures pending no growth Severe Malnutrition, poa: consult Hand Stamper Anemia * Iron Deficiency * Monitor closely. * Continue on Iron supplementation Epilepsy Continue Keppra Acute oon Chronic Metabolic Encephalopathy, poa * Awaiting records from facility Diabetes with Hyperglycemia * Cont levemir Increased dose and coverage moderate dose S/S Multiple sacral decubitus pressure Ulcers * Woundcare consult * May need debridement dvt/gi PROPHY . Hospitalist Physical - Physical exam Narrative exam: GEN: Chronic debilitated, awake alert, nonverbal HEENT: NCAT, EOMI, PERRL, trach in place NECK: supple, no adenopathy, no thyromegaly, no JVD CVS/HEART: Regular tachycardia, NORMAL S1S2, NO JVD, pulses present bilaterally CHEST/LUNGS: bibasilar crackles, Symmetrical chest expansion, good air entry bilaterally GI/Abdomen: soft, NT, peg in place, colostomy in place, good bowel sounds, no guarding or rebound /Bladder: no suprapubic tenderness, no CVA or paraspinal tenderness EXT/Skin: multiple sacral unstageable decubitus with yellow drainage MSK: quadiplegic Neuro: CN 2-12 grossly intact, no new focal deficits Psych: calm - Constitutional Vitals: Temp Pulse Resp BP Pulse Ox 97.8 F 127 H 20 126/68 98 01/11/17 07:25 01/11/17 07:25 01/11/17 07:25 01/11/17 11:52 01/11/17 09:41 General appearance: Present: no acute distress Results - Labs CBC & Chem 7: 01/11/17 06:40 01/11/17 06:40 Labs: Laboratory Last Values WBC 15.7 K/mm3 (4.5-11.0) H 01/11/17 06:40 RBC 3.30 M/mm3 (3.65-5.03) L 01/11/17 06:40 Hgb 9.0 gm/dl (11.8-15.2) L 01/11/17 06:40 Hct 28.7 % (35.5-45.6) L 01/11/17 06:40 MCV 87 fl (84-94) 01/11/17 06:40 MCH 27 pg (28-32) L 01/11/17 06:40 MCHC 32 % (32-34) 01/11/17 06:40 RDW 19.5 % (13.2-15.2) H 01/11/17 06:40 Plt Count 509 K/mm3 (140-440) H 01/11/17 06:40 Lymph % (Auto) 21.8 % (13.4-35.0) 01/07/17 08:39 [place] % (Auto) 6.3 % (0.0-7.3) 01/07/17 08:39 Eos % (Auto) 0.2 % (0.0-4.3) 01/07/17 08:39 Baso % (Auto) 0.8 % (0.0-1.8) 01/07/17 08:39 Lymph # 2.9 K/mm3 (1.2-5.4) 01/07/17 08:39 [place] # 0.8 K/mm3 (0.0-0.8) 01/07/17 08:39 Eos # 0.0 K/mm3 (0.0-0.4) 01/07/17 08:39 Baso # 0.1 K/mm3 (0.0-0.1) 01/07/17 08:39 Seg Neutrophils % 70.9 % (40.0-70.0) H 01/07/17 08:39 Seg Neutrophils # 9.4 K/mm3 (1.8-7.7) H 01/07/17 08:39 Sodium 140 mmol/L (137-145) 01/11/17 06:40 Potassium 3.4 mmol/L (3.6-5.0) L D 01/11/17 06:40 Chloride 98.7 mmol/L (98-107) 01/11/17 06:40 Carbon Dioxide 31 mmol/L (22-30) H 01/11/17 06:40 Anion Gap 14 mmol/L 01/11/17 06:40 BUN 17 mg/dL (9-20) 01/11/17 06:40 Creatinine 0.2 mg/dL (0.8-1.5) L 01/11/17 06:40 Estimated GFR > 60 ml/min 01/11/17 06:40 BUN/Creatinine Ratio 85 % 01/11/17 06:40 Glucose 148 mg/dL (75-100) H 01/11/17 06:40 POC Glucose 158 (70-105) H 01/11/17 06:39 Hemoglobin A1c 6.5 % (4-6) H 01/07/17 16:54 Lactic Acid 1.50 mmol/L (0.7-2.0) 01/07/17 08:39 Calcium 8.6 mg/dL (8.4-10.2) 01/11/17 06:40 Phosphorus 2.60 mg/dL (2.5-4.5) 01/09/17 06:53 Magnesium 1.80 mg/dL (1.7-2.3) 01/09/17 06:53 Iron 24 ug/dL (49-181) L 01/08/17 07:36 TIBC 168 mcg/dL (250-450) L 01/08/17 07:36 % Saturation 14.29 % 01/08/17 07:36 Transferrin 145 mg/dl (180-329) L 01/08/17 07:36 Troponin T < 0.010 ng/mL (0.00-0.029) 01/07/17 08:39 Albumin 2.8 g/dL (3.9-5) L 01/09/17 06:53 Vitamin B12 1871 pg/mL (211-911) H 01/08/17 07:36 RBC Folic Acid 886 ng/mL (>280) 01/08/17 07:36 Urine Color Yellow (Yellow) 01/07/17 07:45 Urine Turbidity Clear (Clear) 01/07/17 07:45 Urine pH 6.0 (5.0-7.0) 01/07/17 07:45 Ur Specific [place] 1.024 (1.003-1.030) 01/07/17 07:45 Urine Protein <15 mg/dl mg/dL (Negative) 01/07/17 07:45 Urine Glucose (UA) Neg mg/dL (Negative) 01/07/17 07:45 Urine Ketones Neg mg/dL (Negative) 01/07/17 07:45 Urine Blood Neg (Negative) 01/07/17 07:45 Urine Nitrite Neg (Negative) 01/07/17 07:45 Urine Bilirubin Neg (Negative) 01/07/17 07:45 Urine Urobilinogen < 2.0 mg/dL (<2.0) 01/07/17 07:45 Ur Leukocyte Esterase Tr (Negative) 01/07/17 07:45 Urine WBC (Auto) 1.0 /HPF (0.0-6.0) 01/07/17 07:45 Urine RBC (Auto) 6.0 /HPF (0.0-6.0) 01/07/17 07:45
[2017-01-11] MEDS: DUONEB *Not for PRN Use IH SCH (20:30)
[2017-01-12] MEDS: LOPRESSOR PO SCH ×2 (01:00→12:12)
[2017-01-12] MEDS: KEPPRA PO SCH ×2 (01:00→12:12)
[2017-01-12] MEDS: PEPCID PO SCH ×2 (01:00→12:11)
[2017-01-12] MEDS: NOVOLOG SUB-Q SCH ×3 (02:25→16:52)
[2017-01-12] MEDS: DUONEB *Not for PRN Use IH SCH ×4 (02:26→20:01)
[2017-01-12] MEDS: LEVEMIR SUB-Q SCH (02:41)
[2017-01-12 06:03] LABS: Hematocrit 27.9 % (35.5-45.6); Hemoglobin 8.7 gm/dl (11.8-15.2); Mean Corpuscular HGB Conc 31 % (32-34); Mean Corpuscular Hemoglobin 28 pg (28-32); Mean Corpuscular Volume 88 fl (84-94); Platelet Count 444 K/mm3 (140-440); Red Blood Count 3.18 M/mm3 (3.65-5.03); Red Cell Distribution Width 19.6 % (13.2-15.2); White Blood Count 17.5 K/mm3 (4.5-11.0)
[2017-01-12 06:26] LABS: Anion Gap 13 mmol/L; BUN/Creatinine Ratio 80; Blood Urea Nitrogen 16 mg/dL (9-20); Calcium 8.7 mg/dL (8.4-10.2); Carbon Dioxide 29 mmol/L (22-30); Chloride 98.1 mmol/L (98-107); Glucose 144 mg/dL (75-100); Potassium 3.7 mmol/L (3.6-5.0); Sodium 136 mmol/L (137-145)
--- NOTE | 2017-01-12 10:52 | Consultation ---
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 I have been asked to evaluate the pt re his bilateral hip and sacral decubiti. Past History Past Medical History: GERD, hypertension, hyperlipidemia, seizures, stroke Past Surgical History: Other (Colostomy, PEG, TRACH,) Social history: other (Never smoked) Medications and Allergies Allergies Allergy/AdvReac Type Severity Reaction Status Date / Time No Known Allergies Allergy Verified 01/07/17 08:08 Home Medications Medication Instructions Recorded Confirmed Last Taken Type Acetaminophen 650 mg NGTUBE Q6H PRN 01/07/17 01/07/17 Unknown History Acidophilus Capsule 1 cap NGTUBE BID 01/07/17 01/07/17 Unknown History AtorvaSTATin 40 mg NGTUBE HS 01/07/17 01/07/17 Unknown History Enoxaparin 40 mg SQ DAILY 01/07/17 01/07/17 Unknown History Famotidine 20 mg NGTUBE BID 01/07/17 01/07/17 Unknown History Levemir 5 units SQ HS 01/07/17 01/07/17 Unknown History Levetiracetam 10 ml NGTUBE BID 01/07/17 01/07/17 Unknown History Metoprolol Tartrate 50 mg NGTUBE BID 01/07/17 01/07/17 Unknown History NovoLOG Flexpen 0 units SQ AC 01/07/17 01/07/17 Unknown History Active Meds: Active Medications Acetaminophen (Tylenol) 650 mg PO Q4H PRN PRN Reason: Pain MILD(1-3)/Fever >100.5/MCCRAY Last Admin: 01/10/17 14:04 Dose: 650 mg Albuterol/Ipratropium (Duoneb *Not For Prn Use*) 1 ampul IH Q6HRT [facility] Last Admin: 01/12/17 07:38 Dose: 1 ampul Lipase/Protease/Amylase (Pop Gonzalez 10,500 Unit) 1 each FEEDTUBE PRN PRN PRN Reason: For Clogged Feeding Tube Atorvastatin Calcium (Lipitor) 40 mg PO HS [facility] Last Admin: 01/12/17 01:00 Dose: 40 mg Bisacodyl (Dulcolax) 10 mg OK QDAY PRN PRN Reason: Constipation unrelieved by MOM Dextrose (D50w (25gm) Syringe) 50 ml IV PRN PRN PRN Reason: Hypoglycemia Enoxaparin Sodium (Lovenox) 40 mg SUB-Q DAILY [facility] Last Admin: 01/11/17 11:17 Dose: 40 mg Famotidine (Pepcid) 20 mg PO BID [facility] Last Admin: 01/12/17 01:00 Dose: 20 mg Levofloxacin/Dextrose (Levaquin 750mg/150ml) 750 mg in 150 mls @ 100 mls/hr IV Q24HR BERRY PRN Reason: Protocol Stop: 01/17/17 23:59 Last Admin: 01/11/17 11:50 Dose: 100 mls/hr Insulin Aspart (Novolog) 0 units SUB-Q AC [facility] PRN Reason: Protocol Last Admin: 01/11/17 17:21 Dose: 2 units Insulin Aspart (Novolog) 0 units SUB-Q QHS [facility] PRN Reason: Protocol Last Admin: 01/12/17 02:25 Dose: 3 units Insulin Detemir (Levemir) 15 units SUB-Q QHS [facility] Last Admin: 01/12/17 02:41 Dose: 15 units Levetiracetam (Keppra) 1,000 mg PO BID [facility] Last Admin: 01/12/17 01:00 Dose: 1,000 mg Magnesium Hydroxide (Milk Of Magnesia) 30 ml PO Q4H PRN PRN Reason: Constipation Metoprolol Tartrate (Lopressor) 50 mg PO BID [facility] Last Admin: 01/12/17 01:00 Dose: 50 mg Ondansetron HCl (Zofran) 4 mg IV Q8H PRN PRN Reason: N/V unrelieved by Reglan Prednisone (Deltasone) 40 mg PO QDAY [facility] Last Admin: 01/11/17 11:52 Dose: 40 mg Simple Syrup (Simple Syrup) 15 ml FEEDTUBE PRN PRN PRN Reason: Hypoglycemia Simple Syrup (Simple Syrup) 30 ml FEEDTUBE PRN PRN PRN Reason: Hypoglycemia Sodium Bicarbonate (Sodium Bicarbonate) 325 mg FEEDTUBE PRN PRN PRN Reason: For Clogged Feeding Tube Review of Systems ROS unobtainable: due to mental status Exam Vital Signs Temp Pulse Resp BP Pulse Ox 99 F 134 H 42 H 129/29 99 11/16/17 06:12 01/07/17 06:12 01/07/17 06:12 01/07/17 06:12 01/07/17 06:12 - General physical appearance Positive: well developed, well nourished, no distress - Eyes Positive: PERRL, normal occular movement - ENT Positive: normal pinna, normal nares, normal mucosa, no hearing loss, no congestion - Neck Positive: no masses, no bruits, trachea midline, no venous distension, other ( Tracheostomy in place.) - Respiratory Positive: normal expansion, normal respiratory effort, clear to auscultation - Cardiovascular Rhythm: regular Heart Sounds: Present: S1 & S2. Absent: rub, click - Extremities Extremities: no ischemia, pulses symmetrical, No edema - Breasts Breasts: deferred - Abdomen Abdomen: Present: soft, bowel sounds normal, other (PEG and colostomy). Absent : tender, distended Hernia: none - Genitourinary Male Genitourinary: deferred - Integumentary other (There is a stage 4 sacral pressure ulcer measuring 7 X 9 cm with exposed coccyx and necrotic skin, SQ and fascia. His right hip decubitus measures 4.5 X 9 cm and is covered with a moist eschar. His left hip decubitus measures 4.5 X 3 cm and is also covered with a moist eschar.) - Psychiatric Psychiatric: other (unresponsive) Results - Labs 01/12/17 05:46 01/12/17 05:46 Abnormal lab results 01/11/17 01/11/17 01/11/17 Range/Units 12:05 16:29 22:45 WBC (4.5-11.0) K/mm3 RBC (3.65-5.03) M/mm3 Hgb (11.8-15.2) gm/dl Hct (35.5-45.6) % MCHC (32-34) % RDW (13.2-15.2) % Plt Count (140-440) K/mm3 Sodium (137-145) mmol/L Creatinine (0.8-1.5) mg/dL Glucose (75-100) mg/dL POC Glucose 110 H 198 H 229 H (70-105) 01/12/17 01/12/17 01/12/17 Range/Units 05:46 05:46 06:01 WBC 17.5 H (4.5-11.0) K/mm3 RBC 3.18 L (3.65-5.03) M/mm3 Hgb 8.7 L (11.8-15.2) gm/dl Hct 27.9 L (35.5-45.6) % MCHC 31 L (32-34) % RDW 19.6 H (13.2-15.2) % Plt Count 444 H (140-440) K/mm3 Sodium 136 L (137-145) mmol/L Creatinine < 0.2 L (0.8-1.5) mg/dL Glucose 144 H (75-100) mg/dL POC Glucose 142 H (70-105) Diabetes panel 01/12/17 Range/Units 05:46 Sodium 136 L (137-145) mmol/L Potassium 3.7 (3.6-5.0) mmol/L Chloride 98.1 (98-107) mmol/L Carbon Dioxide 29 (22-30) mmol/L BUN 16 (9-20) mg/dL Creatinine < 0.2 L (0.8-1.5) mg/dL Glucose 144 H (75-100) mg/dL Calcium 8.7 (8.4-10.2) mg/dL Calcium panel 01/12/17 Range/Units 05:46 Calcium 8.7 (8.4-10.2) mg/dL Pituitary panel 01/12/17 Range/Units 05:46 Sodium 136 L (137-145) mmol/L Potassium 3.7 (3.6-5.0) mmol/L Chloride 98.1 (98-107) mmol/L Carbon Dioxide 29 (22-30) mmol/L BUN 16 (9-20) mg/dL Creatinine < 0.2 L (0.8-1.5) mg/dL Glucose 144 H (75-100) mg/dL Calcium 8.7 (8.4-10.2) mg/dL Adrenal panel 01/12/17 Range/Units 05:46 Sodium 136 L (137-145) mmol/L Potassium 3.7 (3.6-5.0) mmol/L Chloride 98.1 (98-107) mmol/L Carbon Dioxide 29 (22-30) mmol/L BUN 16 (9-20) mg/dL Creatinine < 0.2 L (0.8-1.5) mg/dL Glucose 144 H (75-100) mg/dL Calcium 8.7 (8.4-10.2) mg/dL Assessment and Plan - Patient Problems (1) Pressure ulcer of sacral region, stage 4 Current Visit: Yes Status: Acute Plan to address problem: 1) Will take pt to the OR today for debridement of his sacral and bilateral hip decubiti. 2) Pressure avoidance 3) Specialty bed 4) Intense nutritional support via his PEG 5) Wound care nurse consult (done) (2) Pressure ulcer of unspecified hip, unstageable Current Visit: Yes Status: Acute
[2017-01-12] MEDS: LEVAQUIN 750MG/150ML 750 MG/150 ML BAG IV SCH (11:53)
--- NOTE | 2017-01-12 12:06 | Progress Note ---
Assessment and Plan Assessment and plan: Patient is a 56-year-old man from [facility] with a history of anoxic brain injury, functional quadriplegia, htn, DM 2, chronic Respiratory failure s/p Trach Admitted with Sepsis and Acute on Chronic Respiratory failure with Hypoxia. EMS sat was 76% Acute COPD Exacerbation with acute on chronic hypoxic respiratory failure, poa * Agonal breathing with increased secretions on admission requiring suctioning. Now improved. * Continue Duoneb, and Levaquin. * Change to PO steroids via peg * chest physiotherapy * Discussed with nursing staff about aggressive pulmonary toilet. * Still with Tachycardia, will monitor. Left lower lobe Pneumonia * Continue Levaquin IV Sepsis due to pneumonia vs infected sacral decubiti, not SIRS poa * consulted ID * consulted Dr. Stoney Rey if he is available, await wound care recommendations * Blood cultures pending no growth Severe Malnutrition, poa: consult Pulley Maintainer Anemia * Iron Deficiency * Monitor closely. * Continue on Iron supplementation Epilepsy Continue Keppra Acute oon Chronic Metabolic Encephalopathy, poa * Awaiting records from facility Diabetes with Hyperglycemia * Cont levemir Increased dose and coverage moderate dose S/S Multiple sacral decubitus pressure Ulcers * Woundcare consult * May need debridement dvt/gi PROPHY Patient for surgery today per Dr. Rey: "Assessment and Plan - Patient Problems (1) Pressure ulcer of sacral region, stage 4 Current Visit: Yes Status: Acute Plan to address problem: 1) Will take pt to the OR today for debridement of his sacral and bilateral hip decubiti. 2) Pressure avoidance 3) Specialty bed 4) Intense nutritional support via his PEG 5) Wound care nurse consult (done) (2) Pressure ulcer of unspecified hip, unstageable Current Visit: Yes Status: Acute " . History Interval history: GEN: Chronic debilitated, awake alert, nonverbal HEENT: NCAT, EOMI, PERRL, trach in place NECK: supple, no adenopathy, no thyromegaly, no JVD CVS/HEART: RRR, NORMAL S1S2, NO JVD, pulses present bilaterally CHEST/LUNGS: CTA B, Symmetrical chest expansion, good air entry bilaterally GI/Abdomen: soft, NTND, peg in place, good bowel sounds, no guarding or rebound /Bladder: no suprapubic tenderness, no CVA or paraspinal tenderness EXT/Skin: no c/c/e, no obvious rash MSK: FROM x 4 Neuro: CN 2-12 grossly intact, no new focal deficits Psych: calm Hospitalist Physical - Physical exam Narrative exam: GEN: Chronic debilitated, awake alert, nonverbal HEENT: NCAT, EOMI, PERRL, trach in place NECK: supple, no adenopathy, no thyromegaly, no JVD CVS/HEART: Regular tachycardia, NORMAL S1S2, NO JVD, pulses present bilaterally CHEST/LUNGS: bibasilar crackles, Symmetrical chest expansion, good air entry bilaterally GI/Abdomen: soft, NT, peg in place, colostomy in place, good bowel sounds, no guarding or rebound /Bladder: no suprapubic tenderness, no CVA or paraspinal tenderness EXT/Skin: There is a stage 4 sacral pressure ulcer measuring 7 X 9 cm with exposed coccyx and necrotic skin, SQ and fascia. His right hip decubitus measures 4.5 X 9 cm and is covered with a moist eschar. His left hip decubitus measures 4.5 X 3 cm and is also covered with a moist eschar.) MSK: quadiplegic Neuro: CN 2-12 grossly intact, no new focal deficits Psych: calm - Constitutional Vitals: Temp Pulse Resp BP Pulse Ox 98.7 F 96 H 17 108/66 95 01/12/17 07:34 01/12/17 07:39 01/12/17 07:39 01/12/17 07:34 01/12/17 07:40 General appearance: Present: no acute distress Results - Labs CBC & Chem 7: 01/12/17 05:46 01/12/17 05:46 Labs: Laboratory Last Values WBC 17.5 K/mm3 (4.5-11.0) H 01/12/17 05:46 RBC 3.18 M/mm3 (3.65-5.03) L 01/12/17 05:46 Hgb 8.7 gm/dl (11.8-15.2) L 01/12/17 05:46 Hct 27.9 % (35.5-45.6) L 01/12/17 05:46 MCV 88 fl (84-94) 01/12/17 05:46 MCH 28 pg (28-32) 01/12/17 05:46 MCHC 31 % (32-34) L 01/12/17 05:46 RDW 19.6 % (13.2-15.2) H 01/12/17 05:46 Plt Count 444 K/mm3 (140-440) H 01/12/17 05:46 Lymph % (Auto) 21.8 % (13.4-35.0) 01/07/17 08:39 [place] % (Auto) 6.3 % (0.0-7.3) 01/07/17 08:39 Eos % (Auto) 0.2 % (0.0-4.3) 01/07/17 08:39 Baso % (Auto) 0.8 % (0.0-1.8) 01/07/17 08:39 Lymph # 2.9 K/mm3 (1.2-5.4) 01/07/17 08:39 [place] # 0.8 K/mm3 (0.0-0.8) 01/07/17 08:39 Eos # 0.0 K/mm3 (0.0-0.4) 01/07/17 08:39 Baso # 0.1 K/mm3 (0.0-0.1) 01/07/17 08:39 Seg Neutrophils % 70.9 % (40.0-70.0) H 01/07/17 08:39 Seg Neutrophils # 9.4 K/mm3 (1.8-7.7) H 01/07/17 08:39 Sodium 136 mmol/L (137-145) L 01/12/17 05:46 Potassium 3.7 mmol/L (3.6-5.0) 01/12/17 05:46 Chloride 98.1 mmol/L (98-107) 01/12/17 05:46 Carbon Dioxide 29 mmol/L (22-30) 01/12/17 05:46 Anion Gap 13 mmol/L 01/12/17 05:46 BUN 16 mg/dL (9-20) 01/12/17 05:46 Creatinine < 0.2 mg/dL (0.8-1.5) L 01/12/17 05:46 Estimated GFR > 60 ml/min 01/12/17 05:46 BUN/Creatinine Ratio 80 % 01/12/17 05:46 Glucose 144 mg/dL (75-100) H 01/12/17 05:46 POC Glucose 142 (70-105) H 01/12/17 06:01 Hemoglobin A1c 6.5 % (4-6) H 01/07/17 16:54 Lactic Acid 1.50 mmol/L (0.7-2.0) 01/07/17 08:39 Calcium 8.7 mg/dL (8.4-10.2) 01/12/17 05:46 Phosphorus 2.60 mg/dL (2.5-4.5) 01/09/17 06:53 Magnesium 1.70 mg/dL (1.7-2.3) 01/12/17 05:46 Iron 24 ug/dL (49-181) L 01/08/17 07:36 TIBC 168 mcg/dL (250-450) L 01/08/17 07:36 % Saturation 14.29 % 01/08/17 07:36 Transferrin 145 mg/dl (180-329) L 01/08/17 07:36 Troponin T < 0.010 ng/mL (0.00-0.029) 01/07/17 08:39 Albumin 2.8 g/dL (3.9-5) L 01/09/17 06:53 Vitamin B12 1871 pg/mL (211-911) H 01/08/17 07:36 RBC Folic Acid 886 ng/mL (>280) 01/08/17 07:36 Urine Color Yellow (Yellow) 01/07/17 07:45 Urine Turbidity Clear (Clear) 01/07/17 07:45 Urine pH 6.0 (5.0-7.0) 01/07/17 07:45 Ur Specific [place] 1.024 (1.003-1.030) 01/07/17 07:45 Urine Protein <15 mg/dl mg/dL (Negative) 01/07/17 07:45 Urine Glucose (UA) Neg mg/dL (Negative) 01/07/17 07:45 Urine Ketones Neg mg/dL (Negative) 01/07/17 07:45 Urine Blood Neg (Negative) 01/07/17 07:45 Urine Nitrite Neg (Negative) 01/07/17 07:45 Urine Bilirubin Neg (Negative) 01/07/17 07:45 Urine Urobilinogen < 2.0 mg/dL (<2.0) 01/07/17 07:45 Ur Leukocyte Esterase Tr (Negative) 01/07/17 07:45 Urine WBC (Auto) 1.0 /HPF (0.0-6.0) 01/07/17 07:45 Urine RBC (Auto) 6.0 /HPF (0.0-6.0) 01/07/17 07:45
--- NOTE | 2017-01-12 12:11 | Consultation ---
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 Patient has a trach, colostomy and Giles catheter in place. He is non verbal. History taken from review of records. Upon admission, initial white count was 13.2, temperature 99. HR 134. Hemoglobin was 9.2. creatinine 0.2. Lactic acid 1.5. Urinalysis was negative. Chest x-ray showed atelectasis with ? left sided infiltrate. He was found to have bilateral hip and sacral decubiti stage IV. Microbiology: Blood cultures: 01/07 ngtd Urine cultures: Respiratory cultures: Other:Current Antimicrobials: Levaquin 01/08 Previous Antimicrobials: Past History Past Medical History: GERD, hypertension, hyperlipidemia, seizures, stroke Past Surgical History: Other (Colostomy, PEG, TRACH,) Social history: other (Never smoked) Medications and Allergies Allergies Allergy/AdvReac Type Severity Reaction Status Date / Time No Known Allergies Allergy Verified 01/07/17 08:08 Home Medications Medication Instructions Recorded Confirmed Last Taken Type Acetaminophen 650 mg NGTUBE Q6H PRN 01/07/17 01/07/17 Unknown History Acidophilus Capsule 1 cap NGTUBE BID 01/07/17 01/07/17 Unknown History AtorvaSTATin 40 mg NGTUBE HS 01/07/17 01/07/17 Unknown History Enoxaparin 40 mg SQ DAILY 01/07/17 01/07/17 Unknown History Famotidine 20 mg NGTUBE BID 01/07/17 01/07/17 Unknown History Levemir 5 units SQ HS 01/07/17 01/07/17 Unknown History Levetiracetam 10 ml NGTUBE BID 01/07/17 01/07/17 Unknown History Metoprolol Tartrate 50 mg NGTUBE BID 01/07/17 01/07/17 Unknown History NovoLOG Flexpen 0 units SQ AC 01/07/17 01/07/17 Unknown History Active Meds: Active Medications Acetaminophen (Tylenol) 650 mg PO Q4H PRN PRN Reason: Pain MILD(1-3)/Fever >100.5/MCCRAY Last Admin: 01/10/17 14:04 Dose: 650 mg Albuterol/Ipratropium (Duoneb *Not For Prn Use*) 1 ampul IH Q6HRT [facility] Last Admin: 01/12/17 07:38 Dose: 1 ampul Lipase/Protease/Amylase (Pop Gonzalez 10,500 Unit) 1 each FEEDTUBE PRN PRN PRN Reason: For Clogged Feeding Tube Atorvastatin Calcium (Lipitor) 40 mg PO HS [facility] Last Admin: 01/12/17 01:00 Dose: 40 mg Bisacodyl (Dulcolax) 10 mg VA QDAY PRN PRN Reason: Constipation unrelieved by MOM Dextrose (D50w (25gm) Syringe) 50 ml IV PRN PRN PRN Reason: Hypoglycemia Enoxaparin Sodium (Lovenox) 40 mg SUB-Q DAILY [facility] Last Admin: 01/11/17 11:17 Dose: 40 mg Famotidine (Pepcid) 20 mg PO BID [facility] Last Admin: 01/12/17 01:00 Dose: 20 mg Levofloxacin/Dextrose (Levaquin 750mg/150ml) 750 mg in 150 mls @ 100 mls/hr IV Q24HR [facility] PRN Reason: Protocol Stop: 01/17/17 23:59 Last Admin: 01/12/17 11:53 Dose: 100 mls/hr Insulin Aspart (Novolog) 0 units SUB-Q AC [facility] PRN Reason: Protocol Last Admin: 01/11/17 17:21 Dose: 2 units Insulin Aspart (Novolog) 0 units SUB-Q QHS [facility] PRN Reason: Protocol Last Admin: 01/12/17 02:25 Dose: 3 units Insulin Detemir (Levemir) 15 units SUB-Q QHS [facility] Last Admin: 01/12/17 02:41 Dose: 15 units Levetiracetam (Keppra) 1,000 mg PO BID [facility] Last Admin: 01/12/17 01:00 Dose: 1,000 mg Magnesium Hydroxide (Milk Of Magnesia) 30 ml PO Q4H PRN PRN Reason: Constipation Metoprolol Tartrate (Lopressor) 50 mg PO BID [facility] Last Admin: 01/12/17 01:00 Dose: 50 mg Ondansetron HCl (Zofran) 4 mg IV Q8H PRN PRN Reason: N/V unrelieved by Reglan Prednisone (Deltasone) 40 mg PO QDAY [facility] Last Admin: 01/11/17 11:52 Dose: 40 mg Simple Syrup (Simple Syrup) 15 ml FEEDTUBE PRN PRN PRN Reason: Hypoglycemia Simple Syrup (Simple Syrup) 30 ml FEEDTUBE PRN PRN PRN Reason: Hypoglycemia Sodium Bicarbonate (Sodium Bicarbonate) 325 mg FEEDTUBE PRN PRN PRN Reason: For Clogged Feeding Tube Review of Systems ROS unobtainable: due to mental status Physical Examination - Physical Exam Narrative exam: General appearance: Alert in NAD, non conversant Eyes: anicteric sclerae, moist conjunctivae; no lid-lag; PERRLA HENT: Atraumatic; oropharynx clear Neck: Trach in place Lungs: CTA CV: RRR Abdomen: Soft,+colostomy Extremities: contracted Skin: sacral decubiti Stage 4 pressure ulcer with some necrotic tissue to the wound bed. Wound measures 9x8x2.7 with yellow drainage and no odor. Right hip unstageable pressure ulcer with an intact eschar. No drainage or odor noted. Wound measures 4.4x7.8x0.2cm. +linda heel eschars. Psych: non verbal. Neuro: non verbal quadriplegic Lines: - Constitutional Vitals: Vital Signs Temp Pulse Resp BP Pulse Ox 98.7 F 96 H 17 108/66 95 01/12/17 07:34 01/12/17 07:39 01/12/17 07:39 01/12/17 07:34 01/12/17 07:40 Temperature -Last 24 Hours Temperature 98.7 F Temperature 98.3 F Temperature 98.4 F Temperature 97.9 F Temperature 97.7 F Results - Labs CBC & Chem 7: 01/12/17 05:46 01/12/17 05:46 Labs: Abnormal lab results 01/11/17 01/11/17 01/11/17 Range/Units 12:05 16:29 22:45 WBC (4.5-11.0) K/mm3 RBC (3.65-5.03) M/mm3 Hgb (11.8-15.2) gm/dl Hct (35.5-45.6) % MCHC (32-34) % RDW (13.2-15.2) % Plt Count (140-440) K/mm3 Sodium (137-145) mmol/L Creatinine (0.8-1.5) mg/dL Glucose (75-100) mg/dL POC Glucose 110 H 198 H 229 H (70-105) 01/12/17 01/12/17 01/12/17 Range/Units 05:46 05:46 06:01 WBC 17.5 H (4.5-11.0) K/mm3 RBC 3.18 L (3.65-5.03) M/mm3 Hgb 8.7 L (11.8-15.2) gm/dl Hct 27.9 L (35.5-45.6) % MCHC 31 L (32-34) % RDW 19.6 H (13.2-15.2) % Plt Count 444 H (140-440) K/mm3 Sodium 136 L (137-145) mmol/L Creatinine < 0.2 L (0.8-1.5) mg/dL Glucose 144 H (75-100) mg/dL POC Glucose 142 H (70-105) Assessment and Plan Assessment: 1) Sepsis: Present on admission, manifested by low grade fever, tachycardia, leukocytosis. Etiology - multifactorial Infected sacral decubiti +/- pneumonia. 2) Infected sacral stage IV decubitus and right hip unstageable pressure ulcer with an intact eschar 3) Presumed Left sided pneumonia 4) DM 5) GERD, 6) Hypertension 7) Anoxic brain injury Plan: -follow-up blood cultures -obtain respiratory cultures, C-reactive protein (CRP) -agree with OR surgical debridement -stop levaquin -start vanco and zosyn -contact isolation until MRSA is r/o -poor prognosis Thank you Dr Gillespie for your consultation, will follow up with you. Carrie Hernandez MD Infectious Diseases Specialist [facility] ([facility]) M [phone] O [phone]
[2017-01-12] MEDS: LOVENOX SUB-Q SCH (12:12)
[2017-01-12] MEDS: DELTASONE PO SCH (12:12)
[2017-01-12] MEDS ORDERED: VANCOMYCIN VIAL 1,000 MG in NACL 0.9% 100 ML IV SCH (13:00)
[2017-01-12] MEDS ORDERED: VANCOMYCIN PHARMACY TO DOSE IV SCH (13:00)
[2017-01-12] MEDS: ZOSYN/NS 4.5GM/100ML 4.5 GM/100 ML VIAL IV SCH (13:59)
[2017-01-12] MEDS: VANCOMYCIN/NS 1 GM/250 ML 1 GM/250 ML BAG IV SCH (16:47)
[2017-01-12] MEDS ORDERED: DIPRIVAN 10 MG/ML IV ONE (18:42)
[2017-01-12] MEDS ORDERED: XYLOCAINE MPF 2% ONE (18:44)
[2017-01-12] MEDS ORDERED: SUBLIMAZE ONE (19:21)
[2017-01-12] MEDS ORDERED: PEPCID IV ONE (19:39)
[2017-01-12] MEDS ORDERED: VERSED ONE (19:39)
[2017-01-12] MEDS ORDERED: NACL 0.9% 1000 ML 1,000 ML ONE ×3 (19:39→22:52)
--- NOTE | 2017-01-12 19:42 | Anesthesia Consultation ---
Anesthesia Consult and Med Hx Date of service: 01/12/17 - Airway Anesthetic Teeth Evaluation: Poor, Edentulous ROM Head & Neck: Adequate Mental/Hyoid Distance: Inadequate Mallampati Class: Class III Intubation Access Assessment: Possibly Difficult - Pulmonary Exam CTA: No - Cardiac Exam Cardiac Exam: RRR - Pre-Operative Health Status ASA Pre-Surgery Classification: ASA4 Proposed Anesthetic Plan: General - Pulmonary Hx Respiratory Symptoms: Yes - Cardiovascular System Hx Hypertension: Yes - Central Nervous System Hx Seizures: Yes - Endocrine Hx Insulin Dependent Diabetes: Yes - Additional Comments Anesthesia Medical History Comments: brain anoxia vagetative state.
[2017-01-12] MEDS ORDERED: NACL 0.9% IR ONE (19:47)
[2017-01-12] MEDS ORDERED: DILAUDID ONE (20:38)
[2017-01-12] MEDS ORDERED: DECADRON ONE (20:39)
[2017-01-12] MEDS ORDERED: ZOFRAN ONE (20:39)
[2017-01-12] MEDS ORDERED: NACL 0.9% 100 ML ONE (20:39)
[2017-01-12] MEDS ORDERED: NEO SYNEPHRINE ONE (20:39)
--- NOTE | 2017-01-12 21:17 | Post Operative Note ---
Pre-op diagnosis: Stage 4 sacral and bilateral hip (unstageable) decubitus ulcers Post-op diagnosis: same (Bilateral hip ulcers were stage 3.) Procedure: 1) Debridement including necrotic bone - sacrum with final wound measurements being 9 X 8 X 3 cm 2) Debridement including necrotic muscle and fascia - bilateral hips with final wound measurements being: right hip 10 X 7.7 X 2 cm and left hip 7 X 6 X 1.8 cm Anesthesia: other (General via tracheostomy tube) Surgeon: LUKASZ HADDAD Estimated blood loss: 50-100ml Pathology: list (C&S of right hip wound) Specimen disposition: to lab Condition: stable Disposition: PACU
[2017-01-12 22:13] LABS: ISTAT Base Excess 4; ISTAT HCO3 28.1; ISTAT PCO2 40.1 (35-45); ISTAT PH 7.454 (7.35-7.45); ISTAT PO2 82 (80-105); ISTAT SO2 97; ISTAT TCO2 29
[2017-01-13] MEDS: NOVOLOG SUB-Q SCH ×6 (00:13→23:15)
[2017-01-13] MEDS: PEPCID PO SCH ×3 (00:14→23:53)
[2017-01-13] MEDS: LEVEMIR SUB-Q SCH ×2 (00:17→23:13)
[2017-01-13] MEDS: LOPRESSOR PO SCH ×3 (00:18→23:15)
[2017-01-13] MEDS: ZOSYN/NS 4.5GM/100ML 4.5 GM/100 ML VIAL IV SCH ×4 (00:25→23:18)
[2017-01-13] MEDS: KEPPRA PO SCH ×3 (00:25→23:16)
[2017-01-13] MEDS ORDERED: PANCREAZE DR 10,500 UNIT FEEDTUBE PRN (02:10)
[2017-01-13] MEDS ORDERED: SIMPLE SYRUP FEEDTUBE PRN ×2 (02:10)
[2017-01-13] MEDS ORDERED: SODIUM BICARBONATE FEEDTUBE PRN (02:10)
[2017-01-13] MEDS: DUONEB *Not for PRN Use IH SCH ×4 (02:20→20:12)
[2017-01-13] MEDS: VANCOMYCIN/NS 1 GM/250 ML 1 GM/250 ML BAG IV SCH ×2 (04:07→18:08)
[2017-01-13 05:41] LABS: Hematocrit 27.1 % (35.5-45.6); Hemoglobin 8.5 gm/dl (11.8-15.2); Mean Corpuscular HGB Conc 31 % (32-34); Mean Corpuscular Hemoglobin 28 pg (28-32); Mean Corpuscular Volume 89 fl (84-94); Platelet Count 437 K/mm3 (140-440); Red Blood Count 3.05 M/mm3 (3.65-5.03); Red Cell Distribution Width 19.6 % (13.2-15.2); White Blood Count 13.8 K/mm3 (4.5-11.0)
[2017-01-13 05:52] LABS: BUN/Creatinine Ratio 70; Blood Urea Nitrogen 14 mg/dL (9-20); Calcium 6.9 mg/dL (8.4-10.2); Carbon Dioxide 22 mmol/L (22-30); Chloride 107.1 mmol/L (98-107); Glucose 99 mg/dL (75-100); Potassium 4.2 mmol/L (3.6-5.0); Sodium 141 mmol/L (137-145)
[2017-01-13 05:55] LABS: Anion Gap 16 mmol/L
--- NOTE | 2017-01-13 09:13 | Procedure Note ---
Date of procedure: 01/12/17 Pre-op diagnosis: 1) Stage 4 sacral decubitus ulcer 2) Bilat hip decubit ulcers , unstageable Post-op diagnosis: same (The bilateral hip decubitus ulcers were stage 3.) Procedure: 1) Debridement of necrotic skin, SQ tissue, muscle and bone, sacral ulcer with a final wound size of 9 X 8 X 3 cm. 2) Debridement of necrotic skin, SQ tissue and muscle, right hip ulcer with a final wound size of 10 X 7.7 X 2 cm. 3) Debridement of necrotic skin, SQ tissue and muscle, left hip ulcer with a final wound size of 7 X 6 X 1.8 cm Description of procedure: Pt was placed supine on his bed in the OR. General anesthesia was administered via his tracheostomy tube. He was repositioned with his right side up. The sacral and right hip areas were prepped and draped. The right hip decubitus ulcer was debrided with the cutting current of the Bovie. Hemostasis was obtained with the coagulating current of the Bovie. The wound was packed open with a dilute Betadine moistened Kerlix roll followed by an ABD. Necrotic skin, SQ tissue and muscle from the sacral ulcer were debrided with the cutting current of the Bovie. The exposed, dessicated coccyx was excised with the curved Adame scissors. Hemostasis was obtained with the coagulating current of the Bovie. The wound was packed open with a dilute, Betadine moistened Kerlix roll followed by an ABD. The sacral and right hip ABD 's were then secured with large sheets of Medipore tape. The pt was repositioned with his left side up. The left hip decubitus ulcer was prepped and draped. Necrotic skin, SQ tissue and muscle was debrided with the cutting current of the Bovie. Hemostasis was obtained with the coagulating current of the Bovie. The left hip wound was packed with a dilute, Betadine moistened Kerlix roll followed by an ABD and a large sheet of Medipore tape. Pt tolerated the procedure well.
[2017-01-13] MEDS: DELTASONE PO SCH (10:38)
[2017-01-13] MEDS: LOVENOX SUB-Q SCH (10:39)
--- NOTE | 2017-01-13 11:21 | Progress Note ---
Assessment and Plan Assessment: 1) Sepsis: better. Etiology - multifactorial - Infected sacral decubiti +/- pneumonia. 2) Infected sacral stage IV decubitus and right hip unstageable pressure ulcer with an intact eschar. -S/P Debridement including necrotic bone - sacrum with final wound measurements being 9 X 8 X 3 cm -S/P Debridement including necrotic muscle and fascia - bilateral hips with final wound measurements being: right hip 10 X 7.7 X 2 cm and left hip 7 X 6 X 1.8 cm -OR cultures so far negative -CRP=15 3) Presumed Left sided pneumonia - tracheal asp poor sample 4) DM 5) GERD, 6) Hypertension 7) Anoxic brain injury Plan: -follow-up OR wound cx -repeat respiratory cultures -continue vanco and zosyn for now -contact isolation until MRSA is r/o -poor prognosis -upon discharge will do zosyn 4.5 g IV q 8h total 6 weeks from 01/[address] Singletary for your consultation, will follow up with you. Carrie Hernandez MD Infectious Diseases Specialist [facility] [place] M [phone] O [phone] Subjective Date of service: 01/13/17 Interval history: Remains non verbal temp 100.7 Microbiology: Blood cultures: 01/07 ngtd Respiratory cultures: 01/12 poor sample Wound culture: 01/12 ngtd Current Antimicrobials: zosyn 01/12 vanco 01/12 Previous Antimicrobials: Levaquin 01/08 Objective - Exam Narrative Exam: General appearance: Alert in NAD, non conversant Eyes: anicteric sclerae, moist conjunctivae; no lid-lag; PERRLA HENT: Atraumatic; oropharynx clear Neck: Trach in place Lungs: CTA CV: RRR Abdomen: Soft,+colostomy Extremities: contracted Skin: sacral decubiti Stage 4 pressure ulcer with some necrotic tissue to the wound bed. Wound measures 9x8x2.7 with yellow drainage and no odor. Right hip unstageable pressure ulcer with an intact eschar. No drainage or odor noted. Wound measures 4.4x7.8x0.2cm. +linda heel eschars. Psych: non verbal. Neuro: non verbal quadriplegic Lines: - Constitutional Vitals: Vital Signs General appearance: Present: no acute distress, well-nourished - Labs CBC & Chem 7: 01/13/17 05:06 01/13/17 05:06 Labs: Abnormal lab results 01/12/17 01/12/17 01/12/17 Range/Units 05:42 11:47 22:03 WBC (4.5-11.0) K/mm3 RBC (3.65-5.03) M/mm3 Hgb (11.8-15.2) gm/dl Hct (35.5-45.6) % MCHC (32-34) % RDW (13.2-15.2) % POC ABG pH 7.454 H (7.35-7.45) Chloride (98-107) mmol/L Creatinine (0.8-1.5) mg/dL POC Glucose 119 H (70-105) Calcium (8.4-10.2) mg/dL C-Reactive Protein 15.40 H (0.00-1.30) mg/dL 01/13/17 01/13/17 01/13/17 Range/Units 05:06 05:06 06:23 WBC 13.8 H (4.5-11.0) K/mm3 RBC 3.05 L (3.65-5.03) M/mm3 Hgb 8.5 L (11.8-15.2) gm/dl Hct 27.1 L (35.5-45.6) % MCHC 31 L (32-34) % RDW 19.6 H (13.2-15.2) % POC ABG pH (7.35-7.45) Chloride 107.1 H (98-107) mmol/L Creatinine < 0.2 L (0.8-1.5) mg/dL POC Glucose 121 H (70-105) Calcium 6.9 L D (8.4-10.2) mg/dL C-Reactive Protein (0.00-1.30) mg/dL
--- NOTE | 2017-01-13 15:13 | Progress Note ---
Assessment and Plan Assessment and plan: Patient is a 56-year-old man from [facility] with a history of anoxic brain injury, functional quadriplegia, htn, DM 2, chronic Respiratory failure s/p Trach Admitted with Sepsis and Acute on Chronic Respiratory failure with Hypoxia. EMS sat was 76% Acute COPD Exacerbation with acute on chronic hypoxic respiratory failure, poa * Agonal breathing with increased secretions on admission requiring suctioning. Now improved. * Continue Duoneb, and Levaquin. * Change to PO steroids via peg * chest physiotherapy * Discussed with nursing staff about aggressive pulmonary toilet. * Still with Tachycardia, will monitor. Left lower lobe Pneumonia * Continue Levaquin IV Sepsis due to pneumonia vs infected sacral decubiti, not SIRS poa * consulted ID * consulted Dr. Stoney Rey if he is available, await wound care recommendations * Blood cultures pending no growth Severe Malnutrition, poa: consult [facility] Worker Anemia * Iron Deficiency * Monitor closely. * Continue on Iron supplementation Epilepsy Continue Keppra Acute oon Chronic Metabolic Encephalopathy, poa * Awaiting records from facility Diabetes with Hyperglycemia * Cont levemir Increased dose and coverage moderate dose S/S Multiple sacral decubitus pressure Ulcers * Woundcare consult * May need debridement dvt/gi PROPHY Patient for surgery 01/12/[address] Rey: "Assessment and Plan - Patient Problems (1) Pressure ulcer of sacral region, stage 4 Current Visit: Yes Status: Acute Plan to address problem: 1) Will take pt to the OR today for debridement of his sacral and bilateral hip decubiti. 2) Pressure avoidance 3) Specialty bed 4) Intense nutritional support via his PEG 5) Wound care nurse consult (done) (2) Pressure ulcer of unspecified hip, unstageable Current Visit: Yes Status: Acute " 01/13/17: The 1 sacral ulcer and 2 bilateral hip ulcers look very good with clean edges and no necrotic tissue anymore, fantastic surgical debridement. I was going to discharge today but wound culture not back and he has mild low grade temp of 100.7 F History Interval history: GEN: Chronic debilitated, awake alert, nonverbal HEENT: NCAT, EOMI, PERRL, trach in place NECK: supple, no adenopathy, no thyromegaly, no JVD CVS/HEART: RRR, NORMAL S1S2, NO JVD, pulses present bilaterally CHEST/LUNGS: CTA B, Symmetrical chest expansion, good air entry bilaterally GI/Abdomen: soft, NTND, peg in place, good bowel sounds, no guarding or rebound /Bladder: no suprapubic tenderness, no CVA or paraspinal tenderness EXT/Skin: no c/c/e, no obvious rash MSK: FROM x 4 Neuro: CN 2-12 grossly intact, no new focal deficits Psych: calm Hospitalist Physical - Physical exam Narrative exam: GEN: Chronic debilitated, awake alert, nonverbal HEENT: NCAT, EOMI, PERRL, trach in place NECK: supple, no adenopathy, no thyromegaly, no JVD CVS/HEART: Regular tachycardia, NORMAL S1S2, NO JVD, pulses present bilaterally CHEST/LUNGS: bibasilar crackles, Symmetrical chest expansion, good air entry bilaterally GI/Abdomen: soft, NT, peg in place, colostomy in place, good bowel sounds, no guarding or rebound /Bladder: no suprapubic tenderness, no CVA or paraspinal tenderness EXT/Skin: There is a stage 4 sacral pressure ulcer measuring 7 X 9 cm with exposed coccyx and necrotic skin, SQ and fascia. His right hip decubitus measures 4.5 X 9 cm and is covered with a moist eschar. His left hip decubitus measures 4.5 X 3 cm and is also covered with a moist eschar.) MSK: quadiplegic Neuro: CN 2-12 grossly intact, no new focal deficits Psych: calm - Constitutional Vitals: Temp Pulse Resp BP Pulse Ox 98.3 F 73 18 106/72 95 01/13/17 11:23 01/13/17 11:23 01/13/17 11:23 01/13/17 11:23 01/13/17 11:23 General appearance: Present: no acute distress, well-nourished Results - Labs CBC & Chem 7: 01/13/17 05:06 01/13/17 05:06 Labs: Laboratory Last Values WBC 13.8 K/mm3 (4.5-11.0) H 01/13/17 05:06 RBC 3.05 M/mm3 (3.65-5.03) L 01/13/17 05:06 Hgb 8.5 gm/dl (11.8-15.2) L 01/13/17 05:06 Hct 27.1 % (35.5-45.6) L 01/13/17 05:06 MCV 89 fl (84-94) 01/13/17 05:06 MCH 28 pg (28-32) 01/13/17 05:06 MCHC 31 % (32-34) L 01/13/17 05:06 RDW 19.6 % (13.2-15.2) H 01/13/17 05:06 Plt Count 437 K/mm3 (140-440) 01/13/17 05:06 Lymph % (Auto) 21.8 % (13.4-35.0) 01/07/17 08:39 Sequoyah % (Auto) 6.3 % (0.0-7.3) 01/07/17 08:39 Eos % (Auto) 0.2 % (0.0-4.3) 01/07/17 08:39 Baso % (Auto) 0.8 % (0.0-1.8) 01/07/17 08:39 Lymph # 2.9 K/mm3 (1.2-5.4) 01/07/17 08:39 Sequoyah # 0.8 K/mm3 (0.0-0.8) 01/07/17 08:39 Eos # 0.0 K/mm3 (0.0-0.4) 01/07/17 08:39 Baso # 0.1 K/mm3 (0.0-0.1) 01/07/17 08:39 Seg Neutrophils % 70.9 % (40.0-70.0) H 01/07/17 08:39 Seg Neutrophils # 9.4 K/mm3 (1.8-7.7) H 01/07/17 08:39 POC ABG pH 7.454 (7.35-7.45) H 01/12/17 22:03 POC ABG pCO2 40.1 (35-45) 01/12/17 22:03 POC ABG pO2 82 (80-105) 01/12/17 22:03 POC ABG HCO3 28.1 01/12/17 22:03 POC ABG Total CO2 29 01/12/17 22:03 POC ABG O2 Sat 97 01/12/17 22:03 POC ABG Base Excess 4 01/12/17 22:03 FiO2 50 % 01/12/17 22:03 Sodium 141 mmol/L (137-145) 01/13/17 05:06 Potassium 4.2 mmol/L (3.6-5.0) 01/13/17 05:06 Chloride 107.1 mmol/L (98-107) H 01/13/17 05:06 Carbon Dioxide 22 mmol/L (22-30) D 01/13/17 05:06 Anion Gap 16 mmol/L 01/13/17 05:06 BUN 14 mg/dL (9-20) 01/13/17 05:06 Creatinine < 0.2 mg/dL (0.8-1.5) L 01/13/17 05:06 Estimated GFR > 60 ml/min 01/13/17 05:06 BUN/Creatinine Ratio 70 % 01/13/17 05:06 Glucose 99 mg/dL (75-100) 01/13/17 05:06 POC Glucose 172 (70-105) H 01/13/17 11:31 Hemoglobin A1c 6.5 % (4-6) H 01/07/17 16:54 Lactic Acid 1.50 mmol/L (0.7-2.0) 01/07/17 08:39 Calcium 6.9 mg/dL (8.4-10.2) L D 01/13/17 05:06 Phosphorus 2.60 mg/dL (2.5-4.5) 01/09/17 06:53 Magnesium 1.70 mg/dL (1.7-2.3) 01/12/17 05:46 Iron 24 ug/dL (49-181) L 01/08/17 07:36 TIBC 168 mcg/dL (250-450) L 01/08/17 07:36 % Saturation 14.29 % 01/08/17 07:36 Transferrin 145 mg/dl (180-329) L 01/08/17 07:36 Troponin T < 0.010 ng/mL (0.00-0.029) 01/07/17 08:39 C-Reactive Protein 15.40 mg/dL (0.00-1.30) H 01/12/17 05:42 Albumin 2.8 g/dL (3.9-5) L 01/09/17 06:53 Vitamin B12 1871 pg/mL (211-911) H 01/08/17 07:36 RBC Folic Acid 886 ng/mL (>280) 01/08/17 07:36 Urine Color Yellow (Yellow) 01/07/17 07:45 Urine Turbidity Clear (Clear) 01/07/17 07:45 Urine pH 6.0 (5.0-7.0) 01/07/17 07:45 Ur Specific [place] 1.024 (1.003-1.030) 01/07/17 07:45 Urine Protein <15 mg/dl mg/dL (Negative) 01/07/17 07:45 Urine Glucose (UA) Neg mg/dL (Negative) 01/07/17 07:45 Urine Ketones Neg mg/dL (Negative) 01/07/17 07:45 Urine Blood Neg (Negative) 01/07/17 07:45 Urine Nitrite Neg (Negative) 01/07/17 07:45 Urine Bilirubin Neg (Negative) 01/07/17 07:45 Urine Urobilinogen < 2.0 mg/dL (<2.0) 01/07/17 07:45 Ur Leukocyte Esterase Tr (Negative) 01/07/17 07:45 Urine WBC (Auto) 1.0 /HPF (0.0-6.0) 01/07/17 07:45 Urine RBC (Auto) 6.0 /HPF (0.0-6.0) 01/07/17 07:45
--- NOTE | 2017-01-13 15:32 | XRay Report ---
AP CHEST: 01/13/17 15:06 CLINICAL: PICC line insertion. FINDINGS: Since 01/07/17, a right PICC line has been inserted and the PICC line tip is in the lower SVC. A tracheostomy tube is satisfactory. Continued left basal lung opacities but improvement since the last exam. The left heart border is now distinct. The right lung is normally expanded and clear. The heart is normal size. Normal pulmonary vessels. No pneumothorax. IMPRESSION: Satisfactory placement of right PICC line. Interval improvement with decrease left lower lobe airspace disease or atelectasis.
[2017-01-14] MEDS: DUONEB *Not for PRN Use IH SCH ×4 (02:51→19:30)
[2017-01-14] MEDS: ZOSYN/NS 4.5GM/100ML 4.5 GM/100 ML VIAL IV SCH ×2 (05:26→13:08)
[2017-01-14] MEDS: VANCOMYCIN/NS 1 GM/250 ML 1 GM/250 ML BAG IV SCH ×2 (05:26→17:11)
[2017-01-14 06:57] LABS: Hematocrit 29.7 % (35.5-45.6); Red Blood Count 3.3 M/mm3 (3.65-5.03)
[2017-01-14 06:58] LABS: Mean Platelet Volume 8.7 fl (6-12)
[2017-01-14 07:10] LABS: Anion Gap 18 mmol/L; BUN/Creatinine Ratio 60; Blood Urea Nitrogen 12 mg/dL (9-20); Calcium 8.2 mg/dL (8.4-10.2); Carbon Dioxide 27 mmol/L (22-30); Chloride 100.9 mmol/L (98-107); Glucose 126 mg/dL (75-100); Potassium 4.6 mmol/L (3.6-5.0); Sodium 141 mmol/L (137-145)
[2017-01-14] MEDS: NOVOLOG SUB-Q SCH ×3 (07:30→17:12)
--- NOTE | 2017-01-14 10:20 | Progress Note ---
Assessment and Plan Assessment: 1) Sepsis: better. Etiology - multifactorial - Infected sacral decubiti +/- pneumonia. 2) Infected sacral stage IV decubitus and right hip unstageable pressure ulcer with an intact eschar. -S/P Debridement including necrotic bone - sacrum with final wound measurements being 9 X 8 X 3 cm -S/P Debridement including necrotic muscle and fascia - bilateral hips with final wound measurements being: right hip 10 X 7.7 X 2 cm and left hip 7 X 6 X 1.8 cm -OR cultures so far negative -CRP=15 3) Presumed Left sided pneumonia - tracheal asp poor sample 4) DM 5) GERD, 6) Hypertension 7) Anoxic brain injury Plan: -follow-up OR wound cx -repeat respiratory cultures -continue vanco and zosyn for now -contact isolation until MRSA is r/o -poor prognosis -upon discharge will do zosyn 4.5 g IV q 8h total 6 weeks from 01/12 until I will be off tomorrow, available on the phone and will be back rounding on the weekend Thank you Dr Singletary for your consultation, will follow up with you. Carrie Henrandez MD Infectious Diseases Specialist [facility] ([facility]) M [phone] O [phone] Subjective Date of service: 01/14/17 Interval history: Remains non verbal no fever Microbiology: Blood cultures: 01/07 ngtd Respiratory cultures: 01/12 poor sample Wound culture: 01/12 ngtd Current Antimicrobials: zosyn 01/12 vanco 01/12 Previous Antimicrobials: Levaquin 01/08 Objective - Exam Narrative Exam: General appearance: Alert in NAD, non conversant Eyes: anicteric sclerae, moist conjunctivae; no lid-lag; PERRLA HENT: Atraumatic; oropharynx clear Neck: Trach in place Lungs: CTA CV: RRR Abdomen: Soft,+colostomy Extremities: contracted Skin: sacral decubiti Stage 4 pressure ulcer with some necrotic tissue to the wound bed. Wound measures 9x8x2.7 with yellow drainage and no odor. Right hip unstageable pressure ulcer with an intact eschar. No drainage or odor noted. Wound measures 4.4x7.8x0.2cm. +linda heel eschars. Psych: non verbal. Neuro: non verbal quadriplegic Lines: - Constitutional Vitals: Vital Signs Temp Pulse Resp BP Pulse Ox 97.8 F 119 H 18 132/71 99 01/14/17 08:37 01/14/17 08:37 01/14/17 08:37 01/14/17 08:37 01/14/17 08:37 Temperature -Last 24 Hours Temperature 97.8 F Temperature 97.5 F Temperature 98.1 F Temperature 98.3 F - Labs CBC & Chem 7: 01/14/17 06:20 01/14/17 06:20 Labs: Abnormal lab results 01/13/17 01/13/17 01/13/17 Range/Units 11:31 16:43 21:55 WBC (4.5-11.0) K/mm3 RBC (3.65-5.03) M/mm3 Hgb (11.8-15.2) gm/dl Hct (35.5-45.6) % MCH (28-32) pg MCHC (32-34) % RDW (13.2-15.2) % Creatinine (0.8-1.5) mg/dL Glucose (75-100) mg/dL POC Glucose 172 H 213 H 236 H (70-105) Calcium (8.4-10.2) mg/dL 01/14/17 01/14/17 01/14/17 Range/Units 06:20 06:20 06:35 WBC 13.0 H (4.5-11.0) K/mm3 RBC 3.30 L (3.65-5.03) M/mm3 Hgb 9.0 L (11.8-15.2) gm/dl Hct 29.7 L (35.5-45.6) % MCH 27 L (28-32) pg MCHC 30 L (32-34) % RDW 20.0 H (13.2-15.2) % Creatinine 0.2 L (0.8-1.5) mg/dL Glucose 126 H (75-100) mg/dL POC Glucose 141 H (70-105) Calcium 8.2 L D (8.4-10.2) mg/dL
[2017-01-14] MEDS: DELTASONE PO SCH (10:24)
[2017-01-14] MEDS: PEPCID PO SCH (10:24)
[2017-01-14] MEDS: LOPRESSOR PO SCH (10:24)
[2017-01-14] MEDS: KEPPRA PO SCH (10:24)
[2017-01-14] MEDS: LOVENOX SUB-Q SCH (10:24)
--- NOTE | 2017-01-14 10:57 | Progress Note ---
Assessment and Plan Assessment and plan: Patient is a 56-year-old man from [facility] with a history of anoxic brain injury, functional quadriplegia, htn, DM 2, chronic Respiratory failure s/p Trach Admitted with Sepsis and Acute on Chronic Respiratory failure with Hypoxia. EMS sat was 76% Acute COPD Exacerbation with acute on chronic hypoxic respiratory failure, poa * Agonal breathing with increased secretions on admission requiring suctioning. Now improved. * Continue Duoneb, and Levaquin. * Change to PO steroids via peg * chest physiotherapy * Discussed with nursing staff about aggressive pulmonary toilet. * Still with Tachycardia, will monitor. Left lower lobe Pneumonia * Continue Levaquin IV Sepsis due to pneumonia vs infected sacral decubiti, not SIRS poa * consulted ID * consulted Dr. Stoney Rey if he is available, await wound care recommendations * Blood cultures pending no growth Severe Malnutrition, poa: consult Fiber Machine Tender Anemia * Iron Deficiency * Monitor closely. * Continue on Iron supplementation Epilepsy Continue Keppra Acute oon Chronic Metabolic Encephalopathy, poa * Awaiting records from facility Diabetes with Hyperglycemia * Cont levemir Increased dose and coverage moderate dose S/S Multiple sacral decubitus pressure Ulcers * Woundcare consult * May need debridement dvt/gi PROPHY Patient for surgery 01/12/[address] Rey: "Assessment and Plan - Patient Problems (1) Pressure ulcer of sacral region, stage 4 Current Visit: Yes Status: Acute Plan to address problem: 1) Will take pt to the OR today for debridement of his sacral and bilateral hip decubiti. 2) Pressure avoidance 3) Specialty bed 4) Intense nutritional support via his PEG 5) Wound care nurse consult (done) (2) Pressure ulcer of unspecified hip, unstageable Current Visit: Yes Status: Acute " 01/13/17: The 1 sacral ulcer and 2 bilateral hip ulcers look very good with clean edges and no necrotic tissue anymore, fantastic surgical debridement. I was going to discharge today but wound culture not back and he has mild low grade temp of 100.7 F 01/14/17: Afebrile now, doing better, [place] facility unable to take patient today b /c Thanksgiving and low staff, possible d/c tomorrow. History Interval history: GEN: Chronic debilitated, awake alert, nonverbal HEENT: NCAT, EOMI, PERRL, trach in place NECK: supple, no adenopathy, no thyromegaly, no JVD CVS/HEART: RRR, NORMAL S1S2, NO JVD, pulses present bilaterally CHEST/LUNGS: CTA B, Symmetrical chest expansion, good air entry bilaterally GI/Abdomen: soft, NTND, peg in place, good bowel sounds, no guarding or rebound /Bladder: no suprapubic tenderness, no CVA or paraspinal tenderness EXT/Skin: no c/c/e, no obvious rash MSK: FROM x 4 Neuro: CN 2-12 grossly intact, no new focal deficits Psych: calm Hospitalist Physical - Physical exam Narrative exam: GEN: Chronic debilitated, awake alert, nonverbal HEENT: NCAT, EOMI, PERRL, trach in place NECK: supple, no adenopathy, no thyromegaly, no JVD CVS/HEART: Regular tachycardia, NORMAL S1S2, NO JVD, pulses present bilaterally CHEST/LUNGS: bibasilar crackles, Symmetrical chest expansion, good air entry bilaterally GI/Abdomen: soft, NT, peg in place, colostomy in place, good bowel sounds, no guarding or rebound /Bladder: no suprapubic tenderness, no CVA or paraspinal tenderness EXT/Skin: There is a stage 4 sacral pressure ulcer measuring 7 X 9 cm with exposed coccyx and necrotic skin, SQ and fascia. His right hip decubitus measures 4.5 X 9 cm and is covered with a moist eschar. His left hip decubitus measures 4.5 X 3 cm and is also covered with a moist eschar.) MSK: quadiplegic Neuro: CN 2-12 grossly intact, no new focal deficits Psych: calm - Constitutional Vitals: Temp Pulse Resp BP Pulse Ox 97.8 F 119 H 18 132/71 99 01/14/17 08:37 01/14/17 08:37 01/14/17 08:37 01/14/17 08:37 01/14/17 08:37 General appearance: Present: no acute distress, well-nourished Results - Labs CBC & Chem 7: 01/14/17 06:20 01/14/17 06:20 Labs: Laboratory Last Values WBC 13.0 K/mm3 (4.5-11.0) H 01/14/17 06:20 RBC 3.30 M/mm3 (3.65-5.03) L 01/14/17 06:20 Hgb 9.0 gm/dl (11.8-15.2) L 01/14/17 06:20 Hct 29.7 % (35.5-45.6) L 01/14/17 06:20 MCV 90 fl (84-94) 01/14/17 06:20 MCH 27 pg (28-32) L 01/14/17 06:20 MCHC 30 % (32-34) L 01/14/17 06:20 RDW 20.0 % (13.2-15.2) H 01/14/17 06:20 Plt Count 200 K/mm3 (140-440) 01/14/17 06:20 Lymph % (Auto) 21.8 % (13.4-35.0) 01/07/17 08:39 Henry % (Auto) 6.3 % (0.0-7.3) 01/07/17 08:39 Eos % (Auto) 0.2 % (0.0-4.3) 01/07/17 08:39 Baso % (Auto) 0.8 % (0.0-1.8) 01/07/17 08:39 Lymph # 2.9 K/mm3 (1.2-5.4) 01/07/17 08:39 Henry # 0.8 K/mm3 (0.0-0.8) 01/07/17 08:39 Eos # 0.0 K/mm3 (0.0-0.4) 01/07/17 08:39 Baso # 0.1 K/mm3 (0.0-0.1) 01/07/17 08:39 Seg Neutrophils % 70.9 % (40.0-70.0) H 01/07/17 08:39 Seg Neutrophils # 9.4 K/mm3 (1.8-7.7) H 01/07/17 08:39 POC ABG pH 7.454 (7.35-7.45) H 01/12/17 22:03 POC ABG pCO2 40.1 (35-45) 01/12/17 22:03 POC ABG pO2 82 (80-105) 01/12/17 22:03 POC ABG HCO3 28.1 01/12/17 22:03 POC ABG Total CO2 29 01/12/17 22:03 POC ABG O2 Sat 97 01/12/17 22:03 POC ABG Base Excess 4 01/12/17 22:03 FiO2 50 % 01/12/17 22:03 Sodium 141 mmol/L (137-145) 01/14/17 06:20 Potassium 4.6 mmol/L (3.6-5.0) 01/14/17 06:20 Chloride 100.9 mmol/L (98-107) 01/14/17 06:20 Carbon Dioxide 27 mmol/L (22-30) 01/14/17 06:20 Anion Gap 18 mmol/L 01/14/17 06:20 BUN 12 mg/dL (9-20) 01/14/17 06:20 Creatinine 0.2 mg/dL (0.8-1.5) L 01/14/17 06:20 Estimated GFR > 60 ml/min 01/14/17 06:20 BUN/Creatinine Ratio 60 % 01/14/17 06:20 Glucose 126 mg/dL (75-100) H 01/14/17 06:20 POC Glucose 141 (70-105) H 01/14/17 06:35 Hemoglobin A1c 6.5 % (4-6) H 01/07/17 16:54 Lactic Acid 1.50 mmol/L (0.7-2.0) 01/07/17 08:39 Calcium 8.2 mg/dL (8.4-10.2) L D 01/14/17 06:20 Phosphorus 2.60 mg/dL (2.5-4.5) 01/09/17 06:53 Magnesium 1.70 mg/dL (1.7-2.3) 01/12/17 05:46 Iron 24 ug/dL (49-181) L 01/08/17 07:36 TIBC 168 mcg/dL (250-450) L 01/08/17 07:36 % Saturation 14.29 % 01/08/17 07:36 Transferrin 145 mg/dl (180-329) L 01/08/17 07:36 Troponin T < 0.010 ng/mL (0.00-0.029) 01/14/17 00:27 C-Reactive Protein 15.40 mg/dL (0.00-1.30) H 01/12/17 05:42 Albumin 2.8 g/dL (3.9-5) L 01/09/17 06:53 Vitamin B12 1871 pg/mL (211-911) H 01/08/17 07:36 RBC Folic Acid 886 ng/mL (>280) 01/08/17 07:36 Urine Color Yellow (Yellow) 01/07/17 07:45 Urine Turbidity Clear (Clear) 01/07/17 07:45 Urine pH 6.0 (5.0-7.0) 01/07/17 07:45 Ur Specific [place] 1.024 (1.003-1.030) 01/07/17 07:45 Urine Protein <15 mg/dl mg/dL (Negative) 01/07/17 07:45 Urine Glucose (UA) Neg mg/dL (Negative) 01/07/17 07:45 Urine Ketones Neg mg/dL (Negative) 01/07/17 07:45 Urine Blood Neg (Negative) 01/07/17 07:45 Urine Nitrite Neg (Negative) 01/07/17 07:45 Urine Bilirubin Neg (Negative) 01/07/17 07:45 Urine Urobilinogen < 2.0 mg/dL (<2.0) 01/07/17 07:45 Ur Leukocyte Esterase Tr (Negative) 01/07/17 07:45 Urine WBC (Auto) 1.0 /HPF (0.0-6.0) 01/07/17 07:45 Urine RBC (Auto) 6.0 /HPF (0.0-6.0) 01/07/17 07:45
[2017-01-15] MEDS: ZOSYN/NS 4.5GM/100ML 4.5 GM/100 ML VIAL IV SCH ×2 (00:08→06:30)
[2017-01-15] MEDS: LOPRESSOR PO SCH ×2 (00:08→10:56)
[2017-01-15] MEDS: KEPPRA PO SCH ×2 (00:08→10:55)
[2017-01-15] MEDS: PEPCID PO SCH ×2 (00:09→10:55)
[2017-01-15] MEDS: LEVEMIR SUB-Q SCH (00:10)
[2017-01-15] MEDS: NOVOLOG SUB-Q SCH ×3 (00:27→11:30)
[2017-01-15] MEDS: DUONEB *Not for PRN Use IH SCH ×3 (02:38→13:38)
[2017-01-15] MEDS: VANCOMYCIN/NS 1 GM/250 ML 1 GM/250 ML BAG IV SCH (04:17)
[2017-01-15 08:29] VITALS: BP 122/74
[2017-01-15] MEDS: LOVENOX SUB-Q SCH (10:55)
[2017-01-15] MEDS: DELTASONE PO SCH (10:56)
--- NOTE | 2017-01-15 13:03 | Discharge Summary ---
Providers - Providers Date of Admission: 01/07/17 12:42 Date of discharge: 01/15/17 Attending physician: ORI GILLESPIE 01/08/17 09:27 Consult to Dietitian/Nutrition [CONS] Routine Physician Instructions: Reason For Exam: Reason for Consult: Write/Manage Tube Feeding 01/08/17 09:30 Consult to Wound/ET Nurse [CONS] Routine Reason For Exam: wound eval 01/11/17 15:56 Consult to Physician [CONS] Routine Consulting Provider: CARRIE BAEZ Reason For Exam: sepsis, infected decubiti Place consult to:: Dr Gannon Notified:: Patti Phone number called:: [phone] If yes, spoke with:: Patti Time called:: 16:30 Comment:: message left with service 01/11/17 15:58 Consult to Physician [CONS] Routine Consulting Provider: LUKASZ REY Reason For Exam: necrotic sacral decubitus Place consult to:: Dr Rey Notified:: Dr Rey Was contact made?: Yes If yes, spoke with:: Dr Rey 01/13/17 02:16 Consult to Dietitian/Nutrition [CONS] Routine Physician Instructions: Assess nutrtn needs, initiate, modify, manage TF Reason For Exam: Reason for Consult: Write/Manage Tube Feeding Reason for Consult: Write/Manage Tube Feeding 01/13/17 11:24 Consult to Case Management [CONS] Stat Services Needed at Discharge: Other Notified:: pianos and organs salesperson Phone number called:: [phone] Was contact made?: Yes If yes, spoke with:: Beatrice Time called:: 11:30 Additional Physician Instructions: [facility] MD Lupis Nunez [phone] O [phone] OUTPATIENT PARENTERAL ANTIBIOTIC THERAPY ORDERS Diagnoses: sacral decubitus infected with sacral osteomyelitis Antimicrobial administration: zosyn 4.5 g IV q 8h total 6 weeks from 01/12 until 02/22/17 Lines: PICC Lab monitoring: CBC, CMP, CRP, once a week preferly on Wednesday morning. Please fax results to [phone] and call [phone] for critical lab results. Carrie Gannon Date: 01/13/17 01/13/17 11:25 Consult to PICC Line RN [CONS] Routine Reason For Exam: iv abx for 6 weeks Type Line:: PICC Primary care physician: LEAD JAVASCRIPT ENGINEER Hospitalization Condition: Fair Hospital course: Patient is a 56-year-old man from [facility] with a history of anoxic brain injury, functional quadriplegia, htn, DM 2, chronic Respiratory failure s/p Trach Admitted with Sepsis and Acute on Chronic Respiratory failure with Hypoxia. EMS sat was 76% Acute COPD Exacerbation with acute on chronic hypoxic respiratory failure, poa * Agonal breathing with increased secretions on admission requiring suctioning. Now improved. * Continue Duoneb, and Levaquin. * Change to PO steroids via peg * chest physiotherapy * Discussed with nursing staff about aggressive pulmonary toilet. * Still with Tachycardia, will monitor. Left lower lobe Pneumonia * Continue Levaquin IV Sepsis due to pneumonia + infected MRSA/GNR sacral decubiti, not SIRS poa * consulted ID * consulted Dr. Lukasz Rey if he is available, await wound care recommendations * Blood cultures pending no growth Severe Malnutrition, poa: consult Associate Technician Anemia * Iron Deficiency * Monitor closely. * Continue on Iron supplementation Epilepsy Continue Keppra Acute oon Chronic Metabolic Encephalopathy, poa * Awaiting records from facility Diabetes with Hyperglycemia * Cont levemir Increased dose and coverage moderate dose S/S Multiple sacral decubitus pressure Ulcers * Woundcare consult * May need debridement dvt/gi PROPHY Patient for surgery 01/12/[address] Rey: "Assessment and Plan - Patient Problems (1) Pressure ulcer of sacral region, stage 4 Current Visit: Yes Status: Acute Plan to address problem: 1) Will take pt to the OR today for debridement of his sacral and bilateral hip decubiti. 2) Pressure avoidance 3) Specialty bed 4) Intense nutritional support via his PEG 5) Wound care nurse consult (done) (2) Pressure ulcer of unspecified hip, unstageable Current Visit: Yes Status: Acute " 01/13/17: The 1 sacral ulcer and 2 bilateral hip ulcers look very good with clean edges and no necrotic tissue anymore, fantastic surgical debridement. I was going to discharge today but wound culture not back and he has mild low grade temp of 100.7 F 01/14/17: Afebrile now, doing better, [place] facility unable to take patient today b /c Thanksgiving and low staff, possible d/c tomorrow. 01/15/17: Wound ctx grewing MRSA and gnr, d.w dr. Gannon. Need iv vanc and iv zosyn. Then I D/w Beatrice, case management Disposition: [id number] SNF W [facility]BEY CERT Time spent for discharge: 36 minutes Core Measure Documentation - Palliative Care Palliative Care/ Comfort Measures: Palliative Care/Comfort Measures - Core Measures Any of the following diagnoses?: none - VTE Discharge Requirements Deep Vein Thrombosis/Pulmonary Embolism Present on Admission: No Has pt received <5 days of overlap therapy or INR<2.0: No Anticoagulant overlap therapy prescribed at discharge: No Contraindication No Overlap Therapy order at DC: Not Indicated Exam - Physical Exam Narrative exam: GEN: Chronic debilitated, awake alert, nonverbal HEENT: NCAT, EOMI, PERRL, trach in place NECK: supple, no adenopathy, no thyromegaly, no JVD CVS/HEART: Regular tachycardia, NORMAL S1S2, NO JVD, pulses present bilaterally CHEST/LUNGS: bibasilar crackles, Symmetrical chest expansion, good air entry bilaterally GI/Abdomen: soft, NT, peg in place, colostomy in place, good bowel sounds, no guarding or rebound /Bladder: no suprapubic tenderness, no CVA or paraspinal tenderness EXT/Skin: There is a stage 4 sacral pressure ulcer measuring 7 X 9 cm with exposed coccyx and necrotic skin, SQ and fascia. His right hip decubitus measures 4.5 X 9 cm and is covered with a moist eschar. His left hip decubitus measures 4.5 X 3 cm and is also covered with a moist eschar.) MSK: quadiplegic Neuro: CN 2-12 grossly intact, no new focal deficits Psych: calm - Constitutional Vitals: Temp Pulse Resp BP Pulse Ox 98.4 F 108 H 20 122/74 97 01/15/17 08:26 01/15/17 08:26 01/15/17 08:26 01/15/17 08:26 01/15/17 08:26 Plan Activity: up only with assistance, fall precautions, other (Q2 hours turns off back. ) Additional Instructions: Patient needs a Zero pressure mattress Follow up with: PRIMARY CARE,MD [Primary Care Provider] - 3-5 Days Prescriptions: oxyCODONE /ACETAMINOPHEN [Percocet 5/325] 1 tab PO Q4HR PRN #30 tab PRN Reason: Pain , Severe (7-10) [id number],Iso [Zosyn 4.5 gm/100 ml Galaxy Bag] 4.5 gm IV Q8H # 1 bag Vancomycin/0.9 % Sod Chloride [Vanco 1 Gram/250 ml-0.9% NaCl] 1 gm IV Q12H #1 plast..bag
== END 2017-01-15 14:15 | disposition home or self-care (01) | DRG 853 ==
LOC: ED 05:43 → 4A 12:42 → 3A 14:15
PROVIDERS: ADMIT Internal Medicine; ATTEND Internal Medicine
PROC: 0QB10ZZ Excision of Sacrum, Open Approach (ICD-10-PCS; principal; 2017-01-12)
PROC: 0KBP0ZZ Excision of Left Hip Muscle, Open Approach (ICD-10-PCS; 2017-01-12)
PROC: 0KBN0ZZ Excision of Right Hip Muscle, Open Approach (ICD-10-PCS; 2017-01-12)
PROC: 5A1935Z Respiratory Ventilation, Less than 24 Consecutive Hours (ICD-10-PCS; 2017-01-12)
PROC: 4A033R1 Measurement of Arterial Saturation, Peripheral, Percutaneous Approach (ICD-10-PCS; 2017-01-12)
PROC: 02HV33Z Insertion of Infusion Device into Superior Vena Cava, Percutaneous Approach (ICD-10-PCS; 2017-01-13)
DX: A41.9 Sepsis, unspecified organism (principal); G93.41 Metabolic encephalopathy; L89.154 Pressure ulcer of sacral region, stage 4; E43 Unspecified severe protein-calorie malnutrition; J96.21 Acute and chronic respiratory failure with hypoxia; J18.1 Lobar pneumonia, unspecified organism; L89.213 Pressure ulcer of right hip, stage 3; L89.223 Pressure ulcer of left hip, stage 3; R53.2 Functional quadriplegia; J44.1 Chronic obstructive pulmonary disease with (acute) exacerbation; J44.0 Chronic obstructive pulmonary disease with (acute) lower respiratory infection; G93.1 Anoxic brain damage, not elsewhere classified; G40.909 Epilepsy, unspecified, not intractable, without status epilepticus; D64.9 Anemia, unspecified; E11.65 Type 2 diabetes mellitus with hyperglycemia; K21.9 Gastro-esophageal reflux disease without esophagitis; F20.9 Schizophrenia, unspecified; E78.5 Hyperlipidemia, unspecified; G89.29 Other chronic pain; Z93.0 Tracheostomy status; Z68.21 Body mass index [BMI] 21.0-21.9, adult; Z86.73 Personal history of transient ischemic attack (TIA), and cerebral infarction without residual deficits; Z79.899 Other long term (current) drug therapy
CPT/HCPCS: 36415; 36600; 71010; 80048; 81001; 82040; 82140; 82607; 82747; 82803; 82962; 83036; 83550; 83735; 84100; 84484; 85025; 85027; 86140; 86403; 87040; 87075; 87076; 87116; 87186; 87205; 93005; 93010; 94002; 94640; 94760; 96361; 96365; A9270-GY; J1100; J1170; J1650; J1815; J1818; J1956; J2250; J2370; J2405; J2543; J2704; J2920; J3010; J3370; J7030; J7512

== ENCOUNTER 2017-01-21 06:57 | Inpatient (IN) | payer MEDICARE ==
[2017-01-21] MEDS ORDERED: NACL 0.9% 1000 ML 1,000 ML ONE (07:17)
[2017-01-21 07:26] LABS: ISTAT Base Excess 2; ISTAT HCO3 26.9; ISTAT PCO2 44.3 (35-45); ISTAT PH 7.391 (7.35-7.45); ISTAT PO2 72 (80-105); ISTAT SO2 94; ISTAT TCO2 28
[2017-01-21] MEDS ORDERED: TYLENOL PR STA (07:34)
[2017-01-21] MEDS ORDERED: NACL 0.9% 1000 ML 1,000 ML IV ONE ×4 (07:36→13:22)
--- NOTE | 2017-01-21 07:50 | XRay Report ---
AP CHEST: HISTORY: Difficulty in breathing Large areas of opacification have developed throughout of the left lung most consistent with near complete left lung atelectasis. Superimposed infiltrate or mass cannot be excluded. The right lung is hyperaerated and generally clear. The cardiac silhouette is obscured by left lung atelectasis. The tracheostomy and right arm PICC remain in adequate position. IMPRESSION: Large areas of opacification have developed in the left lung most consistent with atelectasis since 01/13/17.
[2017-01-21 07:51] LABS: Basophils % (Auto) 0.3 % (0.0-1.8); Eosinophils % (Auto) 1.7 % (0.0-4.3); Mean Corpuscular HGB Conc 30 % (32-34); Mean Corpuscular Hemoglobin 26 pg (28-32); Mean Corpuscular Volume 88 fl (84-94); Platelet Count 386 K/mm3 (140-440); Red Blood Count 4.19 M/mm3 (3.65-5.03); White Blood Count 12.2 K/mm3 (4.5-11.0)
[2017-01-21 07:53] LABS: Red Cell Distribution Width 20.6 % (13.2-15.2)
[2017-01-21 07:59] LABS: INR 1.22 (0.87-1.13)
[2017-01-21 08:00] LABS: Partial Thromboplastin Time 32.1 Sec. (24.2-36.6)
[2017-01-21 08:10] LABS: Anion Gap 19 mmol/L; BUN/Creatinine Ratio 30; Blood Urea Nitrogen 15 mg/dL (9-20); Calcium 8.5 mg/dL (8.4-10.2); Carbon Dioxide 25 mmol/L (22-30); Chloride 96.9 mmol/L (98-107); Glucose 281 mg/dL (75-100); Potassium 4.2 mmol/L (3.6-5.0); Sodium 137 mmol/L (137-145)
[2017-01-21 08:15] LABS: Alanine Aminotransferase 47 units/L (7-56); Albumin 2.3 g/dL (3.9-5); Albumin/Globulin Ratio 0.5 %; Alkaline Phosphatase 117 units/L (35-129); Total Protein 7.2 g/dL (6.3-8.2)
[2017-01-21] MEDS ORDERED: ZOSYN/NS 4.5GM/100ML 4.5 GM/100 ML VIAL IV ONE (08:15)
[2017-01-21] MEDS ORDERED: LEVAQUIN 750MG/150ML 750 MG/150 ML BAG IV ONE (08:15)
--- NOTE | 2017-01-21 08:22 | Emergency Department Report ---
ED General Adult HPI - General Chief complaint: Dyspnea/Respdistress Stated complaint: RESP ARREST Time Seen by Provider: 01/21/17 07:07 Source: EMS Mode of arrival: Stretcher Limitations: Altered Mental Status, Physical Limitation - History of Present Illness Initial comments: The patient presents via EMS from [facility]. Apparently he suffered respiratory distress. He was suctioned on crossing watchman arrival. They state that he improved. He was initially quite hypoxic but arrives without distress and reasonably alert. He is status post tracheotomy. He was here recently. -: unknown - Related Data Home Medications Medication Instructions Recorded Confirmed Last Taken Acetaminophen 650 mg NGTUBE Q6H PRN 01/07/17 01/21/17 Unknown Acidophilus Capsule 1 cap NGTUBE BID 01/07/17 01/21/17 Unknown AtorvaSTATin 40 mg NGTUBE HS 01/07/17 01/21/17 Unknown Famotidine 20 mg NGTUBE BID 01/07/17 01/21/17 Unknown Levemir 5 units SQ HS 01/07/17 01/21/17 Unknown Previous Rx's Medication Instructions Recorded Last Taken Type Bisacodyl [Dulcolax suppos] 10 mg AR QDAY PRN supp.rect 01/15/17 Unknown Rx Ipratropium/Albuterol Sulfate 1 ampul IH Q6HRT #30 ampul.neb 01/15/17 Unknown Rx [DUONEB *Not for PRN Use*] Levetiracetam 10 ml NGTUBE BID #30 01/15/17 Unknown Rx Lipase/Protease/Amylase [Pancreaze 1 each FEEDTUBE PRN PRN #30 capsule 01/15/17 Unknown Rx 10,500 Unit] Metoprolol [Lopressor TAB] 50 mg PO BID tablet 01/15/17 Unknown Rx NovoLOG Flexpen 1 dose SQ AC #30 01/15/17 Unknown Rx Fnbutqxzspaa-Puvb-Atbjbntl,Iso 4.5 gm IV Q8H #1 bag 01/15/17 Unknown Rx [Zosyn 4.5 gm/100 ml Galaxy Bag] Simple Syrup 15 ml FEEDTUBE PRN PRN oral.liqd 01/15/17 Unknown Rx Simple Syrup 30 ml FEEDTUBE PRN PRN oral.liqd 01/15/17 Unknown Rx Sodium Bicarbonate 325 mg FEEDTUBE PRN PRN tablet 01/15/17 Unknown Rx Vancomycin/0.9 % Sod Chloride 1 gm IV Q12H #1 plast..bag 01/15/17 Unknown Rx [Vanco 1 Gram/250 ml-0.9% NaCl] oxyCODONE /ACETAMINOPHEN [Percocet 1 tab PO Q4HR PRN #30 tab 01/15/17 Unknown Rx 5/325] predniSONE [Deltasone] 40 mg PO QDAY tablet 01/15/17 Unknown Rx Allergies Allergy/AdvReac Type Severity Reaction Status Date / Time No Known Allergies Allergy Verified 01/07/17 08:08 ED Review of Systems ROS: Stated complaint: RESP ARREST Other details as noted in HPI Comment: Unobtainable due to pts medical conditions ED Past Medical Hx - Past Medical History Previous Medical History?: Yes Hx Hypertension: Yes Hx CVA: Yes Hx Diabetes: Yes Hx Deep Vein Thrombosis: No Hx GERD: Yes Hx Seizures: Yes Hx Psychiatric Treatment: Yes (Schizophrenia) Additional medical history: Acute Respiratory Failure, Decubitus Ulcers, Dysphagia, Chronic Pain, Hyperlipidemia - Surgical History Past Surgical History?: Yes Hx Pacemaker: No Hx Internal Defibrillator: No Additional Surgical History: Colostomy, PEG, TRACH, - Social History Smoking Status: Unknown if ever smoked - Medications Home Medications: Home Medications Medication Instructions Recorded Confirmed Last Taken Type Acetaminophen 650 mg NGTUBE Q6H PRN 01/07/17 01/21/17 Unknown History Acidophilus Capsule 1 cap NGTUBE BID 01/07/17 01/21/17 Unknown History AtorvaSTATin 40 mg NGTUBE HS 01/07/17 01/21/17 Unknown History Famotidine 20 mg NGTUBE BID 01/07/17 01/21/17 Unknown History Levemir 5 units SQ HS 01/07/17 01/21/17 Unknown History Bisacodyl [Dulcolax suppos] 10 mg AR QDAY PRN supp.rect 01/15/17 01/21/17 Unknown Rx Ipratropium/Albuterol Sulfate 1 ampul IH Q6HRT #30 ampul.neb 01/15/17 01/21/17 Unknown Rx [DUONEB *Not for PRN Use*] Levetiracetam 10 ml NGTUBE BID #30 01/15/17 01/21/17 Unknown Rx Lipase/Protease/Amylase [Pancreaze 1 each FEEDTUBE PRN PRN #30 capsule 01/15/17 01/21/17 Unknown Rx 10,500 Unit] Metoprolol [Lopressor TAB] 50 mg PO BID tablet 01/15/17 01/21/17 Unknown Rx NovoLOG Flexpen 1 dose SQ AC #30 01/15/17 01/21/17 Unknown Rx Soeixknkcpna-Pxrl-Krifqpod,Iso 4.5 gm IV Q8H #1 bag 01/15/17 01/21/17 Unknown Rx [Zosyn 4.5 gm/100 ml Galaxy Bag] Simple Syrup 15 ml FEEDTUBE PRN PRN oral.liqd 01/15/17 01/21/17 Unknown Rx Simple Syrup 30 ml FEEDTUBE PRN PRN oral.liqd 01/15/17 01/21/17 Unknown Rx Sodium Bicarbonate 325 mg FEEDTUBE PRN PRN tablet 01/15/17 01/21/17 Unknown Rx Vancomycin/0.9 % Sod Chloride 1 gm IV Q12H #1 plast..bag 01/15/17 01/21/17 Unknown Rx [Vanco 1 Gram/250 ml-0.9% NaCl] oxyCODONE /ACETAMINOPHEN [Percocet 1 tab PO Q4HR PRN #30 tab 01/15/17 01/21/17 Unknown Rx 5/325] predniSONE [Deltasone] 40 mg PO QDAY tablet 01/15/17 01/21/17 Unknown Rx ED Physical Exam - General Limitations: Altered Mental Status, Physical Limitation General appearance: alert, in no apparent distress - Head Head exam: Present: atraumatic, normocephalic - Eye Eye exam: Present: normal appearance. Absent: scleral icterus - ENT ENT exam: Present: mucous membranes moist - Neck Neck exam: Present: other (tracheostomy without significant secretions) - Respiratory Respiratory exam: Present: normal lung sounds bilaterally. Absent: respiratory distress - Cardiovascular Cardiovascular Exam: Present: regular rate, normal rhythm. Absent: systolic murmur, diastolic murmur, rubs, gallop - GI/Abdominal GI/Abdominal exam: Present: soft, normal bowel sounds. Absent: distended, tenderness, guarding, rebound - Rectal Rectal exam: Present: deferred - Extremities Exam Extremities exam: Present: normal inspection - Back Exam Back exam: Present: normal inspection - Neurological Exam Neurological exam: Present: other (no acute focal deficit) - Psychiatric Psychiatric exam: Present: normal mood, flat affect - Skin Skin exam: Present: warm, dry, intact, normal color. Absent: rash ED Course Vital Signs 01/21/17 01/21/17 01/21/17 07:05 07:11 07:17 Temperature 100.3 F H Pulse Rate 121 H Respiratory 40 H Rate Blood Pressure 81/56 81/56 Blood Pressure [Left] O2 Sat by Pulse 91 80 L 97 Oximetry O2 Sat by Pulse Oximetry [ Assessment] 01/21/17 01/21/17 01/21/17 07:21 07:31 07:41 Temperature Pulse Rate 118 H 123 H 115 H Respiratory 38 H 43 H 39 H Rate Blood Pressure 87/60 87/60 100/63 Blood Pressure [Left] O2 Sat by Pulse 98 Oximetry O2 Sat by Pulse Oximetry [ Assessment] 01/21/17 01/21/17 01/21/17 07:51 08:00 08:08 Temperature Pulse Rate 116 H 114 H Respiratory 22 10 L Rate Blood Pressure 105/67 111/67 Blood Pressure [Left] O2 Sat by Pulse Oximetry O2 Sat by Pulse 95 Oximetry [ Assessment] 01/21/17 01/21/17 01/21/17 08:09 08:11 08:21 Temperature Pulse Rate 112 H 110 H Respiratory 25 H 33 H Rate Blood Pressure 111/67 102/65 Blood Pressure [Left] O2 Sat by Pulse 98 Oximetry O2 Sat by Pulse Oximetry [ Assessment] 01/21/17 01/21/17 01/21/17 08:30 08:41 08:51 Temperature Pulse Rate 108 H 107 H 108 H Respiratory 36 H 35 H 41 H Rate Blood Pressure 100/63 100/63 95/61 Blood Pressure [Left] O2 Sat by Pulse Oximetry O2 Sat by Pulse Oximetry [ Assessment] 01/21/17 01/21/17 01/21/17 09:00 09:11 09:21 Temperature Pulse Rate 103 H 102 H 100 H Respiratory 34 H 32 H 30 H Rate Blood Pressure 94/62 94/62 97/62 Blood Pressure [Left] O2 Sat by Pulse Oximetry O2 Sat by Pulse Oximetry [ Assessment] 01/21/17 01/21/17 01/21/17 09:31 09:41 09:51 Temperature Pulse Rate 101 H 98 H 98 H Respiratory 28 H 30 H 28 H Rate Blood Pressure 97/62 107/63 104/65 Blood Pressure [Left] O2 Sat by Pulse Oximetry O2 Sat by Pulse Oximetry [ Assessment] 01/21/17 01/21/17 01/21/17 10:00 10:04 10:11 Temperature Pulse Rate 102 H 99 H Respiratory 35 H 31 H Rate Blood Pressure 102/58 102/58 Blood Pressure [Left] O2 Sat by Pulse 100 Oximetry O2 Sat by Pulse Oximetry [ Assessment] 01/21/17 01/21/17 01/21/17 10:21 10:30 10:41 Temperature Pulse Rate 99 H 101 H 96 H Respiratory 31 H 30 H 33 H Rate Blood Pressure 100/63 105/67 105/67 Blood Pressure [Left] O2 Sat by Pulse Oximetry O2 Sat by Pulse Oximetry [ Assessment] 01/21/17 01/21/17 01/21/17 10:51 11:00 11:11 Temperature Pulse Rate 97 H 98 H 99 H Respiratory 32 H 33 H 33 H Rate Blood Pressure 100/66 106/67 106/67 Blood Pressure [Left] O2 Sat by Pulse Oximetry O2 Sat by Pulse Oximetry [ Assessment] 01/21/17 01/21/17 01/21/17 11:21 11:30 11:41 Temperature Pulse Rate 98 H 98 H 95 H Respiratory 32 H 29 H 27 H Rate Blood Pressure 103/67 110/66 110/66 Blood Pressure [Left] O2 Sat by Pulse Oximetry O2 Sat by Pulse Oximetry [ Assessment] 01/21/17 01/21/17 01/21/17 11:51 12:00 12:11 Temperature Pulse Rate 87 90 92 H Respiratory 29 H 29 H 29 H Rate Blood Pressure 88/61 85/53 85/53 Blood Pressure [Left] O2 Sat by Pulse Oximetry O2 Sat by Pulse Oximetry [ Assessment] 01/21/17 01/21/17 01/21/17 12:21 12:30 12:41 Temperature Pulse Rate 96 H 96 H 96 H Respiratory 32 H 30 H 30 H Rate Blood Pressure 85/54 83/54 83/54 Blood Pressure [Left] O2 Sat by Pulse Oximetry O2 Sat by Pulse Oximetry [ Assessment] 01/21/17 01/21/17 01/21/17 12:51 13:00 13:11 Temperature Pulse Rate 95 H 97 H 104 H Respiratory 29 H 30 H 27 H Rate Blood Pressure 89/58 87/56 89/58 Blood Pressure [Left] O2 Sat by Pulse Oximetry O2 Sat by Pulse Oximetry [ Assessment] 01/21/17 01/21/17 01/21/17 13:21 13:30 13:41 Temperature Pulse Rate 88 88 91 H Respiratory 34 H 30 H 27 H Rate Blood Pressure 92/52 98/57 98/57 Blood Pressure [Left] O2 Sat by Pulse Oximetry O2 Sat by Pulse Oximetry [ Assessment] 01/21/17 01/21/17 01/21/17 13:51 14:00 14:11 Temperature Pulse Rate 83 90 91 H Respiratory 25 H 26 H 24 Rate Blood Pressure 97/60 103/59 97/60 Blood Pressure [Left] O2 Sat by Pulse Oximetry O2 Sat by Pulse Oximetry [ Assessment] 01/21/17 01/21/17 14:21 14:26 Temperature 97.9 F Pulse Rate 88 89 Respiratory 28 H 26 H Rate Blood Pressure 104/67 Blood Pressure 104/67 [Left] O2 Sat by Pulse 100 Oximetry O2 Sat by Pulse Oximetry [ Assessment] - Reevaluation(s) Reevaluation #1: Patient was suctioned and was stable in the emergency department. He was found to have an elevated lactic acid level. Chest x-ray showed substantial atelectasis I cannot exclude pneumonia. He was treated with intravenous antibiotics and admitted to the hospitalist service. I did drop a consult to pulmonary as I wonder if the patient has substantial mucus plugging or other causes for major atelectasis. 01/21/17 14:42 01/21/17 15:00 ED Medical Decision Making - Lab Data Result diagrams: 01/21/17 Unknown 01/21/17 Unknown Laboratory Results - last 24 hr 01/21/17 01/21/17 01/21/17 07:22 Unknown Unknown WBC RBC Hgb Hct MCV MCH MCHC RDW Plt Count Lymph % (Auto) [place] % (Auto) Eos % (Auto) Baso % (Auto) Lymph # [place] # Eos # Baso # Seg Neutrophils % Seg Neutrophils # PT 16.0 H INR 1.22 H APTT 32.1 POC ABG pH 7.391 POC ABG pCO2 44.3 POC ABG pO2 72 L POC ABG HCO3 26.9 POC ABG Total CO2 28 POC ABG O2 Sat 94 POC ABG Base Excess 2 VBG pH FiO2 60 Sodium 137 Potassium 4.2 Chloride 96.9 L Carbon Dioxide 25 Anion Gap 19 BUN 15 Creatinine 0.5 L Estimated GFR > 60 BUN/Creatinine Ratio 30 Glucose 281 H Lactic Acid Calcium 8.5 Troponin T 0.016 01/21/17 01/21/17 01/21/17 Unknown Unknown Unknown WBC 12.2 H RBC 4.19 Hgb 11.0 L Hct 37.0 MCV 88 MCH 26 L MCHC 30 L RDW 20.6 H Plt Count 386 Lymph % (Auto) 6.9 L [place] % (Auto) 4.9 Eos % (Auto) 1.7 Baso % (Auto) 0.3 Lymph # 0.8 L [place] # 0.6 Eos # 0.2 Baso # 0.0 Seg Neutrophils % 86.2 H Seg Neutrophils # 10.5 H PT INR APTT POC ABG pH POC ABG pCO2 POC ABG pO2 POC ABG HCO3 POC ABG Total CO2 POC ABG O2 Sat POC ABG Base Excess VBG pH 7.386 FiO2 Sodium Potassium Chloride Carbon Dioxide Anion Gap BUN Creatinine Estimated GFR BUN/Creatinine Ratio Glucose Lactic Acid 3.80 H* Calcium Troponin T Laboratory Results - last 24 hr 01/21/17 01/21/17 01/21/17 07:22 08:15 09:43 WBC RBC Hgb Hct MCV MCH MCHC RDW Plt Count Lymph % (Auto) [place] % (Auto) Eos % (Auto) Baso % (Auto) Lymph # [place] # Eos # Baso # Seg Neutrophils % Seg Neutrophils # PT INR APTT POC ABG pH 7.391 POC ABG pCO2 44.3 POC ABG pO2 72 L POC ABG HCO3 26.9 POC ABG Total CO2 28 POC ABG O2 Sat 94 POC ABG Base Excess 2 VBG pH FiO2 60 Sodium Potassium Chloride Carbon Dioxide Anion Gap BUN Creatinine Estimated GFR BUN/Creatinine Ratio Glucose POC Glucose Hemoglobin A1c Lactic Acid 1.20 Calcium Total Bilirubin Direct Bilirubin AST ALT Alkaline Phosphatase Troponin T Total Protein Albumin Albumin/Globulin Ratio Urine Color Yellow Urine Turbidity Clear Urine pH 6.0 Ur Specific [place] 1.016 Urine Protein 30 mg/dl Urine Glucose (UA) 50 Urine Ketones Neg Urine Blood Neg Urine Nitrite Neg Urine Bilirubin Neg Urine Urobilinogen < 2.0 Ur Leukocyte Esterase Sm Urine WBC (Auto) 6.0 Urine RBC (Auto) 5.0 U Epithel Cells (Auto) < 1.0 Urine Bacteria (Auto) 1+ 01/21/17 01/21/17 01/21/17 13:06 13:10 Unknown WBC RBC Hgb Hct MCV MCH MCHC RDW Plt Count Lymph % (Auto) [place] % (Auto) Eos % (Auto) Baso % (Auto) Lymph # [place] # Eos # Baso # Seg Neutrophils % Seg Neutrophils # PT INR APTT POC ABG pH 7.420 POC ABG pCO2 42.0 POC ABG pO2 65 L POC ABG HCO3 27.2 POC ABG Total CO2 28 POC ABG O2 Sat 93 POC ABG Base Excess 3 VBG pH FiO2 60 Sodium 137 Potassium 4.2 Chloride 96.9 L Carbon Dioxide 25 Anion Gap 19 BUN 15 Creatinine 0.5 L Estimated GFR > 60 BUN/Creatinine Ratio 30 Glucose 281 H POC Glucose 206 H Hemoglobin A1c Lactic Acid Calcium 8.5 Total Bilirubin Direct Bilirubin AST ALT Alkaline Phosphatase Troponin T 0.016 Total Protein Albumin Albumin/Globulin Ratio Urine Color Urine Turbidity Urine pH Ur Specific [place] Urine Protein Urine Glucose (UA) Urine Ketones Urine Blood Urine Nitrite Urine Bilirubin Urine Urobilinogen Ur Leukocyte Esterase Urine WBC (Auto) Urine RBC (Auto) U Epithel Cells (Auto) Urine Bacteria (Auto) 01/21/17 01/21/17 01/21/17 Unknown Unknown Unknown WBC 12.2 H RBC 4.19 Hgb 11.0 L Hct 37.0 MCV 88 MCH 26 L MCHC 30 L RDW 20.6 H Plt Count 386 Lymph % (Auto) 6.9 L [place] % (Auto) 4.9 Eos % (Auto) 1.7 Baso % (Auto) 0.3 Lymph # 0.8 L [place] # 0.6 Eos # 0.2 Baso # 0.0 Seg Neutrophils % 86.2 H Seg Neutrophils # 10.5 H PT 16.0 H INR 1.22 H APTT 32.1 POC ABG pH POC ABG pCO2 POC ABG pO2 POC ABG HCO3 POC ABG Total CO2 POC ABG O2 Sat POC ABG Base Excess VBG pH FiO2 Sodium Potassium Chloride Carbon Dioxide Anion Gap BUN Creatinine Estimated GFR BUN/Creatinine Ratio Glucose POC Glucose Hemoglobin A1c Lactic Acid Calcium Total Bilirubin 0.20 Direct Bilirubin < 0.2 AST 53 H ALT 47 Alkaline Phosphatase 117 Troponin T Total Protein 7.2 Albumin 2.3 L Albumin/Globulin Ratio 0.5 Urine Color Urine Turbidity Urine pH Ur Specific [place] Urine Protein Urine Glucose (UA) Urine Ketones Urine Blood Urine Nitrite Urine Bilirubin Urine Urobilinogen Ur Leukocyte Esterase Urine WBC (Auto) Urine RBC (Auto) U Epithel Cells (Auto) Urine Bacteria (Auto) 01/21/17 01/21/17 01/21/17 Unknown Unknown Unknown WBC RBC Hgb Hct MCV MCH MCHC RDW Plt Count Lymph % (Auto) [place] % (Auto) Eos % (Auto) Baso % (Auto) Lymph # [place] # Eos # Baso # Seg Neutrophils % Seg Neutrophils # PT INR APTT POC ABG pH POC ABG pCO2 POC ABG pO2 POC ABG HCO3 POC ABG Total CO2 POC ABG O2 Sat POC ABG Base Excess VBG pH 7.386 FiO2 Sodium Potassium Chloride Carbon Dioxide Anion Gap BUN Creatinine Estimated GFR BUN/Creatinine Ratio Glucose POC Glucose Hemoglobin A1c 6.8 H Lactic Acid 3.80 H* Calcium Total Bilirubin Direct Bilirubin AST ALT Alkaline Phosphatase Troponin T Total Protein Albumin Albumin/Globulin Ratio Urine Color Urine Turbidity Urine pH Ur Specific [place] Urine Protein Urine Glucose (UA) Urine Ketones Urine Blood Urine Nitrite Urine Bilirubin Urine Urobilinogen Ur Leukocyte Esterase Urine WBC (Auto) Urine RBC (Auto) U Epithel Cells (Auto) Urine Bacteria (Auto) - EKG Data -: EKG Interpreted by Me EKG shows normal: sinus rhythm Rate: tachycardia - EKG Data Interpretation: nonspecific ST-T wave jael - Radiology Data interpreted by me: Atelectasis see report Critical care attestation.: If time is entered above; I have spent that time in minutes in the direct care of this critically ill patient, excluding procedure time. ED Disposition Clinical Impression: Tracheostomy malfunction, Atelectasis of left lung, Hypoxia, Elevated lactic acid level Pneumonia Qualifiers: Pneumonia type: due to unspecified organism Laterality: left Lung location: unspecified part of lung Qualified Code(s): J18.9 - Pneumonia, unspecified organism T2DM (type 2 diabetes mellitus) Qualifiers: Diabetes mellitus complication status: with other specified complication Diabetes mellitus [employer] insulin use: unspecified [employer] insulin use status Qualified Code(s): E11.69 - Type 2 diabetes mellitus with other specified complication Disposition: OP ADMIT IP TO THIS HOSP Is pt being admited?: Yes Does the pt Need Aspirin: Yes Condition: Stable Time of Disposition: 14:59
[2017-01-21 08:28] LABS: Bilirubin,Direct < 0.2 mg/dL (0-0.2)
[2017-01-21 08:40] LABS: Bacteria,Urine 1+ /HPF (Negative); Bilirubin,Urine NEG (Negative); Blood,Urine NEG (Negative); Ketones,Urine NEG (Negative); Leukocyte Esterase,Urine SM (Negative); Nitrite,Urine NEG (Negative); Urobilinogen,Urine < 2.0 mg/dL (<2.0)
[2017-01-21] MEDS ORDERED: VANCOMYCIN PHARMACY TO DOSE IV SCH (09:30)
[2017-01-21] MEDS ORDERED: VANCOMYCIN 1,500 MG in NACL 0.9% 500 ML 500 ML IV ONE (09:30)
[2017-01-21] MEDS ORDERED: MILK OF MAGNESIA PO PRN (09:36)
[2017-01-21] MEDS ORDERED: DULCOLAX PR PRN (09:36)
[2017-01-21] MEDS ORDERED: ZOFRAN IV PRN (09:36)
[2017-01-21] MEDS ORDERED: SIMPLE SYRUP FEEDTUBE PRN (09:59)
[2017-01-21] MEDS ORDERED: LEVETIRACETAM NGTUBE SCH (10:00)
[2017-01-21] MEDS ORDERED: NON-FORMULARY (Famotidine 20 MG) NGTUBE SCH (10:00)
[2017-01-21] MEDS ORDERED: D50W (25GM) Syringe IV PRN (10:03)
[2017-01-21] MEDS: NACL 0.9% 1000 ML 1,000 ML IV SCH ×2 (10:53→21:52)
[2017-01-21] MEDS ORDERED: SODIUM BICARBONATE FEEDTUBE PRN (11:51)
[2017-01-21] MEDS ORDERED: LOPRESSOR PO SCH (13:00)
[2017-01-21 13:19] LABS: ISTAT Base Excess 3; ISTAT HCO3 27.2; ISTAT PO2 65 (80-105); ISTAT SO2 93; ISTAT TCO2 28
[2017-01-21] MEDS: NOVOLOG SUB-Q SCH ×3 (13:28→23:06)
[2017-01-21] MEDS: DUONEB *Not for PRN Use IH SCH ×2 (13:55→21:13)
--- NOTE | 2017-01-21 15:04 | Event Note ---
Date: 01/21/17 See H/P for full documentation Septic shock Acute on Chronic Respiratory Failure with Hypoxia Diabetes Mellitus Pneumonia possible secondary to GNR Severe mild protein calorie malnutrition Plan: Admit to [facility] Sepsis protocol Blood Cultures, sputum before Abx Pulmonary and ID consult is Give bolus fluids Insulin sliding scale Nutrition consult DVT/GI prophy
--- NOTE | 2017-01-21 16:09 | History and Physical Report ---
<CELELUIS MANUELLEIDY SCHERER - Last Filed: 01/21/17 17:05> History of Present Illness Date of examination: 01/21/17 Date of admission: 01/21/17 09:36 Chief complaint: Acute on Chronic Respiratory Failure History of present illness: Patient is a 56 year old Male with Past Medical History of COPD, DM 2, CVA, Seizure Disorder, GERD, Hyperlipidemia, Chronic Pain, and Schizophrenia, Peg, Colostomy and Trach who resides in [facility] arrive to the ER via Ambulance after suffering Respiratory Distress. According to EMS, patient was suctioned enrounte to hospital in which distress improved. Patient with Tracheotomy which was recently place here at [facility]. Respiratory Distress noted at [facility]. According to EMS, patient was suctioned enrounte to hospital in which distress improved. Patient with Tracheotomy which was recently place here at [facility]. Patient is unable to participate in history due to mental status and presence of Tracheotomy. No family members present currently. Past History Past Medical History: COPD, diabetes, GERD, hypertension, hyperlipidemia, seizures, stroke, other (Chronic Pain, Schizophrenia, Multiple Decubitus Ulcers) Past Surgical History: Other (Tracheotomy, Peg Tube Placement) Social history: other (Resides in [facility] ([facility])) Family history: other (Unable to answer, Patient Non-Verbal) Medications and Allergies Allergies Allergy/AdvReac Type Severity Reaction Status Date / Time No Known Allergies Allergy Verified 01/07/17 08:08 Home Medications Medication Instructions Recorded Confirmed Last Taken Type Acetaminophen 650 mg NGTUBE Q6H PRN 01/07/17 01/21/17 Unknown History Acidophilus Capsule 1 cap NGTUBE BID 01/07/17 01/21/17 Unknown History AtorvaSTATin 40 mg NGTUBE HS 01/07/17 01/21/17 Unknown History Famotidine 20 mg NGTUBE BID 01/07/17 01/21/17 Unknown History Levemir 5 units SQ HS 01/07/17 01/21/17 Unknown History Bisacodyl [Dulcolax suppos] 10 mg CA QDAY PRN supp.rect 01/15/17 01/21/17 Unknown Rx Ipratropium/Albuterol Sulfate 1 ampul IH Q6HRT #30 ampul.neb 01/15/17 01/21/17 Unknown Rx [DUONEB *Not for PRN Use*] Levetiracetam 10 ml NGTUBE BID #30 01/15/17 01/21/17 Unknown Rx Lipase/Protease/Amylase [Pancreaze 1 each FEEDTUBE PRN PRN #30 capsule 01/15/17 01/21/17 Unknown Rx 10,500 Unit] Metoprolol [Lopressor TAB] 50 mg PO BID tablet 01/15/17 01/21/17 Unknown Rx NovoLOG Flexpen 1 dose SQ AC #30 01/15/17 01/21/17 Unknown Rx Buqkmxkpljgk-Xbrz-Qxsbbemn,Iso 4.5 gm IV Q8H #1 bag 01/15/17 01/21/17 Unknown Rx [Zosyn 4.5 gm/100 ml Galaxy Bag] Simple Syrup 15 ml FEEDTUBE PRN PRN oral.liqd 01/15/17 01/21/17 Unknown Rx Simple Syrup 30 ml FEEDTUBE PRN PRN oral.liqd 01/15/17 01/21/17 Unknown Rx Sodium Bicarbonate 325 mg FEEDTUBE PRN PRN tablet 01/15/17 01/21/17 Unknown Rx Vancomycin/0.9 % Sod Chloride 1 gm IV Q12H #1 plast..bag 01/15/17 01/21/17 Unknown Rx [Vanco 1 Gram/250 ml-0.9% NaCl] oxyCODONE /ACETAMINOPHEN [Percocet 1 tab PO Q4HR PRN #30 tab 01/15/17 01/21/17 Unknown Rx 5/325] predniSONE [Deltasone] 40 mg PO QDAY tablet 01/15/17 01/21/17 Unknown Rx Active Meds: Active Medications Acetaminophen (Tylenol) 650 mg PO Q4H PRN PRN Reason: Pain MILD(1-3)/Fever >100.5/MCCRAY Albuterol/Ipratropium (Duoneb *Not For Prn Use*) 1 ampul IH Q6HRT [facility] Last Admin: 01/21/17 13:55 Dose: 1 ampul Aspirin (Baby Aspirin) 81 mg PO QDAY [facility]Y Atorvastatin Calcium (Lipitor) 40 mg FEEDTUBE QHS BERRY Bisacodyl (Dulcolax) 10 mg CA QDAY PRN PRN Reason: Constipation unrelieved by MOM Dextrose (D50w (25gm) Syringe) 50 ml IV PRN PRN PRN Reason: Hypoglycemia Enoxaparin Sodium (Lovenox) 40 mg SUB-Q QDAY@2200 [facility] Famotidine (Pepcid) 20 mg FEEDTUBE BID B[facility]Y Vancomycin HCl 1,250 mg/ (Sodium Chloride) 262.5 mls @ 166.667 mls/hr IV Q12H [facility] Levofloxacin/Dextrose (Levaquin 750mg/150ml) 750 mg in 150 mls @ 100 mls/hr IV Q24H [facility] PRN Reason: Protocol Sodium Chloride (Nacl 0.9% 1000 Ml) 1,000 mls @ 100 mls/hr IV DIRECT [facility] Last Admin: 01/21/17 10:53 Dose: 100 mls/hr Insulin Aspart (Novolog) 0 units SUB-Q AC [facility] PRN Reason: Protocol Last Admin: 01/21/17 13:28 Dose: Not Given Insulin Aspart (Novolog) 0 units SUB-Q QHS [facility] PRN Reason: Protocol Insulin Detemir (Levemir) 5 units SUB-Q QHS [facility] Magnesium Hydroxide (Milk Of Magnesia) 30 ml PO Q4H PRN PRN Reason: Constipation Methylprednisolone Sodium Succinate (Solu-Medrol) 40 mg IV Q8H [facility] Last Admin: 01/21/17 15:03 Dose: Not Given Miscellaneous Medication (Levetiracetam) 10 ml NGTUBE BID B[facility]Y Ondansetron HCl (Zofran) 4 mg IV Q8H PRN PRN Reason: N/V unrelieved by Reglan Simple Syrup (Simple Syrup) 15 ml FEEDTUBE PRN PRN PRN Reason: Hypoglycemia Sodium Bicarbonate (Sodium Bicarbonate) 325 mg FEEDTUBE PRN PRN PRN Reason: For Clogged Feeding Tube Vancomycin HCl (Vancomycin Pharmacy To Dose) 1 each IV PKCONSULT [facility] PRN Reason: Protocol Review of Systems ROS unobtainable: due to mental status (and presence of trach) Constitutional: anorexia, weakness (Peg and Trach), other Exam - Constitutional Vitals: Temp Pulse Resp BP Pulse Ox 97.6 F 94 H 18 108/65 98 01/21/17 15:32 01/21/17 15:32 01/21/17 15:32 01/21/17 15:32 01/21/17 15:32 General appearance: Present: no acute distress (Appears comfortable, no acute distress. With Trach with FiO2 40%), cachectic (and contracted) - EENT Eyes: Present: PERRL ENT: other (Patient open eyes to voice) - Neck Neck: Present: supple, other (Trach Present, No JVD Noted or adenopathy). Absent: masses or JVD - Respiratory Respiratory effort: normal, other (Currently no apparent distress, appears comfortable. FiO2 40%) Respiratory: bilateral: rhonchi (Upper lobes and diminished in the bases) - Cardiovascular Rhythm: regular Heart Sounds: Present: S1 & S2. Absent: gallop, systolic murmur, diastolic murmur, rub - Extremities Extremities: No edema, normal temperature, abnormal (Bilateral lower extremities contracted) - Abdominal General gastrointestinal: Present: soft, non-distended, hypoactive bowel sounds , other (PEG noted to Mid-Abdomen, and Rt Quadrant Colostomy) Male genitourinary: Present: deferred - Rectal Rectal Exam: deferred - Integumentary Integumentary: Present: warm, decreased turgor (multiple Decubitus Ulcers) - Musculoskeletal Musculoskeletal: generalized weakness - Psychiatric Psychiatric: no agitated, other (is awake) Results - Labs CBC & Chem 7: 01/21/17 Unknown 01/21/17 Unknown Labs: Laboratory Last Values WBC 12.2 K/mm3 (4.5-11.0) H 01/21/17 Unknown RBC 4.19 M/mm3 (3.65-5.03) 01/21/17 Unknown Hgb 11.0 gm/dl (11.8-15.2) L 01/21/17 Unknown Hct 37.0 % (35.5-45.6) 01/21/17 Unknown MCV 88 fl (84-94) 01/21/17 Unknown MCH 26 pg (28-32) L 01/21/17 Unknown MCHC 30 % (32-34) L 01/21/17 Unknown RDW 20.6 % (13.2-15.2) H 01/21/17 Unknown Plt Count 386 K/mm3 (140-440) 01/21/17 Unknown Lymph % (Auto) 6.9 % (13.4-35.0) L 01/21/17 Unknown [place] % (Auto) 4.9 % (0.0-7.3) 01/21/17 Unknown Eos % (Auto) 1.7 % (0.0-4.3) 01/21/17 Unknown Baso % (Auto) 0.3 % (0.0-1.8) 01/21/17 Unknown Lymph # 0.8 K/mm3 (1.2-5.4) L 01/21/17 Unknown [place] # 0.6 K/mm3 (0.0-0.8) 01/21/17 Unknown Eos # 0.2 K/mm3 (0.0-0.4) 01/21/17 Unknown Baso # 0.0 K/mm3 (0.0-0.1) 01/21/17 Unknown Seg Neutrophils % 86.2 % (40.0-70.0) H 01/21/17 Unknown Seg Neutrophils # 10.5 K/mm3 (1.8-7.7) H 01/21/17 Unknown PT 16.0 Sec. (12.2-14.9) H 01/21/17 Unknown INR 1.22 (0.87-1.13) H 01/21/17 Unknown APTT 32.1 Sec. (24.2-36.6) 01/21/17 Unknown POC ABG pH 7.420 (7.35-7.45) 01/21/17 13:10 POC ABG pCO2 42.0 (35-45) 01/21/17 13:10 POC ABG pO2 65 (80-105) L 01/21/17 13:10 POC ABG HCO3 27.2 01/21/17 13:10 POC ABG Total CO2 28 01/21/17 13:10 POC ABG O2 Sat 93 01/21/17 13:10 POC ABG Base Excess 3 01/21/17 13:10 VBG pH 7.386 (7.320-7.420) 01/21/17 Unknown FiO2 60 % 01/21/17 13:10 Sodium 137 mmol/L (137-145) 01/21/17 Unknown Potassium 4.2 mmol/L (3.6-5.0) 01/21/17 Unknown Chloride 96.9 mmol/L (98-107) L 01/21/17 Unknown Carbon Dioxide 25 mmol/L (22-30) 01/21/17 Unknown Anion Gap 19 mmol/L 01/21/17 Unknown BUN 15 mg/dL (9-20) 01/21/17 Unknown Creatinine 0.5 mg/dL (0.8-1.5) L 01/21/17 Unknown Estimated GFR > 60 ml/min 01/21/17 Unknown BUN/Creatinine Ratio 30 % 01/21/17 Unknown Glucose 281 mg/dL (75-100) H 01/21/17 Unknown POC Glucose 206 (70-105) H 01/21/17 13:06 Hemoglobin A1c 6.8 % (4-6) H 01/21/17 Unknown Lactic Acid 3.80 mmol/L (0.7-2.0) H* 01/21/17 Unknown Calcium 8.5 mg/dL (8.4-10.2) 01/21/17 Unknown Total Bilirubin 0.20 mg/dL (0.1-1.2) 01/21/17 Unknown Direct Bilirubin < 0.2 mg/dL (0-0.2) 01/21/17 Unknown AST 53 units/L (5-40) H 01/21/17 Unknown ALT 47 units/L (7-56) 01/21/17 Unknown Alkaline Phosphatase 117 units/L (35-129) 01/21/17 Unknown Troponin T 0.016 ng/mL (0.00-0.029) 01/21/17 Unknown Total Protein 7.2 g/dL (6.3-8.2) 01/21/17 Unknown Albumin 2.3 g/dL (3.9-5) L 01/21/17 Unknown Albumin/Globulin Ratio 0.5 % 01/21/17 Unknown Urine Color Yellow (Yellow) 01/21/17 08:15 Urine Turbidity Clear (Clear) 01/21/17 08:15 Urine pH 6.0 (5.0-7.0) 01/21/17 08:15 Ur Specific [place] 1.016 (1.003-1.030) 01/21/17 08:15 Urine Protein 30 mg/dl mg/dL (Negative) 01/21/17 08:15 Urine Glucose (UA) 50 mg/dL (Negative) 01/21/17 08:15 Urine Ketones Neg mg/dL (Negative) 01/21/17 08:15 Urine Blood Neg (Negative) 01/21/17 08:15 Urine Nitrite Neg (Negative) 01/21/17 08:15 Urine Bilirubin Neg (Negative) 01/21/17 08:15 Urine Urobilinogen < 2.0 mg/dL (<2.0) 01/21/17 08:15 Ur Leukocyte Esterase Sm (Negative) 01/21/17 08:15 Urine WBC (Auto) 6.0 /HPF (0.0-6.0) 01/21/17 08:15 Urine RBC (Auto) 5.0 /HPF (0.0-6.0) 01/21/17 08:15 U Epithel Cells (Auto) < 1.0 /HPF (0-13.0) 01/21/17 08:15 Urine Bacteria (Auto) 1+ /HPF (Negative) 01/21/17 08:15 Assessment and Plan Assessment and plan: Assessment: Patient is a 56 year old Male with Past Medical History of COPD , DM 2, CVA, Seizure Disorder, GERD, Hyperlipidemia, Chronic Pain, and Schizophrenia, Peg, Colostomy and Trach who resides in [facility] arrive to the ER via Ambulance after suffering Respiratory Distress. According to EMS, patient was suctioned enrounte to hospital in which distress improved. Patient with Tracheotomy which was recently place here at [facility]. Respiratory Distress noted at [facility]. According to EMS, patient was suctioned enrounte to hospital in which distress improved. Patient with Tracheotomy which was recently place here at [facility]. Patient seen and evaluated in the ER, appears malnourished with dry mucous membranes and cachexic. Is awake and open eyes to voice but no verbal response due to presence of trach. Patient is no acute distress. Pupils equal and reactive to light and accommodation. Neck is without jugular vein distension and adenopathy but Trach present with FiO2 40%, O2 Sat 96%. Lungs auscultated and noted with Rhonchi in the upper lobes and diminished in the bases. Noted with normal heart sound, regular with S1 S2, no murmur or gallop noted. No edema noted to extremities. Abdomen noted to be soft, non-distended, and non-tender with active bowel sounds throughout. Colostomy noted to right lower quadrant in which clean and intact. Skin warm to touch but noted with multiple decubitus ulcers. Plan: Acute on Chronic Respiratory failure with Hypoxia Oxygen supplement via Trach Monitor O2 Sat Malicious Suctioning Solumedrol 40 mg Monitor ABGs Nebulizer Treatments Septic Shock Antibiotic Therapy Monitor lactic Acid Fluid Resuscitation Monitor Temp Blood Cultures and Urine Cultures Diabetes Mellitus Accuchecks Q6H Sliding Scale Insulin/Novolog-Low Tube Feeds with Glucerna HgA1C Malnutrition Nutrition Consult Tube Feeds Decubitus Ulcers Wound care Consult Turn and Position q2h Padding to bony prominences DVT Prophylaxis Lovenox 40 mg PUD Prophylaxis Famotidine 20 mg Patient has been seen in conjunction with Dr. Lundberg who agree with treatment regimen and current plan of care. VTE prophylaxis?: Chemical Plan of care discussed with patient/family: Yes <KSENIA LUNDBERG - Last Filed: 01/22/17 11:14> History of Present Illness Date of admission: 01/21/17 09:36 Medications and Allergies Active Meds: Active Medications Acetaminophen (Tylenol) 650 mg PO Q4H PRN PRN Reason: Pain MILD(1-3)/Fever >100.5/MCCRAY Albuterol/Ipratropium (Duoneb *Not For Prn Use*) 1 ampul IH Q6HRT [facility] Last Admin: 01/22/17 10:33 Dose: 1 ampul Aspirin (Baby Aspirin) 81 mg PO QDAY [facility] Last Admin: 01/22/17 09:42 Dose: 81 mg Atorvastatin Calcium (Lipitor) 40 mg FEEDTUBE QHS [facility] Last Admin: 01/21/17 21:46 Dose: 40 mg Bisacodyl (Dulcolax) 10 mg CA QDAY PRN PRN Reason: Constipation unrelieved by MOM Dextrose (D50w (25gm) Syringe) 50 ml IV PRN PRN PRN Reason: Hypoglycemia Enoxaparin Sodium (Lovenox) 40 mg SUB-Q QDAY@2200 [facility] Last Admin: 01/21/17 21:44 Dose: 40 mg Famotidine (Pepcid) 20 mg FEEDTUBE BID [facility] Last Admin: 01/22/17 09:42 Dose: 20 mg Vancomycin HCl 1,250 mg/ (Sodium Chloride) 262.5 mls @ 166.667 mls/hr IV Q12H [facility] Last Admin: 01/21/17 22:02 Dose: 166.667 mls/hr Levofloxacin/Dextrose (Levaquin 750mg/150ml) 750 mg in 150 mls @ 100 mls/hr IV Q24H [facility] PRN Reason: Protocol Last Admin: 01/22/17 09:42 Dose: 100 mls/hr Sodium Chloride (Nacl 0.9% 1000 Ml) 1,000 mls @ 100 mls/hr IV DIRECT [facility] Last Admin: 01/22/17 09:42 Dose: 100 mls/hr Sodium Chloride (Nacl 0.9% 500 Ml) 500 mls @ 0 mls/hr IV ONCE ONE PRN Reason: As Directed Stop: 01/22/17 14:01 Influenza Virus Vaccine Quadrival (Fluarix Quad [id number](36 Mos+) 0.5 ml IM .ONCE ONE Stop: 01/22/17 12:01 Insulin Aspart (Novolog) 0 units SUB-Q AC [facility] PRN Reason: Protocol Last Admin: 01/22/17 09:43 Dose: 1 units Insulin Aspart (Novolog) 0 units SUB-Q QHS [facility] PRN Reason: Protocol Last Admin: 01/21/17 23:06 Dose: Not Given Insulin Detemir (Levemir) 5 units SUB-Q QHS [facility] Last Admin: 01/21/17 23:05 Dose: Not Given Levetiracetam (Keppra) 1,000 mg PO BID [facility] Last Admin: 01/22/17 09:42 Dose: 1,000 mg Magnesium Hydroxide (Milk Of Magnesia) 30 ml PO Q4H PRN PRN Reason: Constipation Methylprednisolone Sodium Succinate (Solu-Medrol) 40 mg IV Q8H [facility] Last Admin: 01/22/17 06:04 Dose: 40 mg Ondansetron HCl (Zofran) 4 mg IV Q8H PRN PRN Reason: N/V unrelieved by Reglan Pneumococcal Polyvalent Vaccine (Pneumovax 23) 0.5 ml IM .ONCE ONE Stop: 01/22/17 12:01 Simple Syrup (Simple Syrup) 15 ml FEEDTUBE PRN PRN PRN Reason: Hypoglycemia Sodium Bicarbonate (Sodium Bicarbonate) 325 mg FEEDTUBE PRN PRN PRN Reason: For Clogged Feeding Tube Vancomycin HCl (Vancomycin Pharmacy To Dose) 1 each IV PKCONSULT [facility] PRN Reason: Protocol Exam - Constitutional Vitals: Temp Pulse Resp BP Pulse Ox 98.1 F 86 18 112/70 98 01/22/17 08:51 01/22/17 10:45 01/22/17 10:45 01/22/17 08:51 01/22/17 10:43 Results - Labs CBC & Chem 7: 01/22/17 09:37 01/22/17 05:00 Labs: Laboratory Last Values WBC 11.4 K/mm3 (4.5-11.0) H 01/22/17 09:37 RBC 2.39 M/mm3 (3.65-5.03) L 01/22/17 09:37 Hgb 6.3 gm/dl (11.8-15.2) L D 01/22/17 09:37 Hct 21.1 % (35.5-45.6) L D 01/22/17 09:37 MCV 88 fl (84-94) 01/22/17 09:37 MCH 27 pg (28-32) L 01/22/17 09:37 MCHC 30 % (32-34) L 01/22/17 09:37 RDW 19.1 % (13.2-15.2) H 01/22/17 09:37 Plt Count 402 K/mm3 (140-440) 01/22/17 09:37 Lymph % (Auto) 10.4 % (13.4-35.0) L 01/22/17 09:37 [place] % (Auto) 1.2 % (0.0-7.3) 01/22/17 09:37 Eos % (Auto) 0.0 % (0.0-4.3) 01/22/17 09:37 Baso % (Auto) 0.1 % (0.0-1.8) 01/22/17 09:37 Lymph # 1.2 K/mm3 (1.2-5.4) 01/22/17 09:37 [place] # 0.1 K/mm3 (0.0-0.8) 01/22/17 09:37 Eos # 0.0 K/mm3 (0.0-0.4) 01/22/17 09:37 Baso # 0.0 K/mm3 (0.0-0.1) 01/22/17 09:37 Add Manual Diff TNR 01/22/17 05:00 Seg Neutrophils % 88.3 % (40.0-70.0) H 01/22/17 09:37 Seg Neutrophils # 10.1 K/mm3 (1.8-7.7) H 01/22/17 09:37 PT 16.0 Sec. (12.2-14.9) H 01/21/17 Unknown INR 1.22 (0.87-1.13) H 01/21/17 Unknown APTT 32.1 Sec. (24.2-36.6) 01/21/17 Unknown POC ABG pH 7.420 (7.35-7.45) 01/21/17 13:10 POC ABG pCO2 42.0 (35-45) 01/21/17 13:10 POC ABG pO2 65 (80-105) L 01/21/17 13:10 POC ABG HCO3 27.2 01/21/17 13:10 POC ABG Total CO2 28 01/21/17 13:10 POC ABG O2 Sat 93 01/21/17 13:10 POC ABG Base Excess 3 01/21/17 13:10 VBG pH 7.386 (7.320-7.420) 01/21/17 Unknown FiO2 60 % 01/21/17 13:10 Sodium 137 mmol/L (137-145) 01/22/17 05:00 Potassium 3.8 mmol/L (3.6-5.0) 01/22/17 05:00 Chloride 104.1 mmol/L (98-107) 01/22/17 05:00 Carbon Dioxide 23 mmol/L (22-30) 01/22/17 05:00 Anion Gap 14 mmol/L 01/22/17 05:00 BUN 12 mg/dL (9-20) 01/22/17 05:00 Creatinine 0.3 mg/dL (0.8-1.5) L 01/22/17 05:00 Estimated GFR > 60 ml/min 01/22/17 05:00 BUN/Creatinine Ratio 40 % 01/22/17 05:00 Glucose 154 mg/dL (75-100) H 01/22/17 05:00 POC Glucose 186 (70-105) H 01/22/17 06:31 Hemoglobin A1c 6.8 % (4-6) H 01/21/17 Unknown Lactic Acid 0.80 mmol/L (0.7-2.0) 01/22/17 09:37 Calcium 8.0 mg/dL (8.4-10.2) L 01/22/17 05:00 Total Bilirubin 0.20 mg/dL (0.1-1.2) 01/21/17 Unknown Direct Bilirubin < 0.2 mg/dL (0-0.2) 01/21/17 Unknown AST 53 units/L (5-40) H 01/21/17 Unknown ALT 47 units/L (7-56) 01/21/17 Unknown Alkaline Phosphatase 117 units/L (35-129) 01/21/17 Unknown Troponin T 0.016 ng/mL (0.00-0.029) 01/21/17 Unknown Total Protein 7.2 g/dL (6.3-8.2) 01/21/17 Unknown Albumin 2.3 g/dL (3.9-5) L 01/21/17 Unknown Albumin/Globulin Ratio 0.5 % 01/21/17 Unknown Urine Color Yellow (Yellow) 01/21/17 08:15 Urine Turbidity Clear (Clear) 01/21/17 08:15 Urine pH 6.0 (5.0-7.0) 01/21/17 08:15 Ur Specific [place] 1.016 (1.003-1.030) 01/21/17 08:15 Urine Protein 30 mg/dl mg/dL (Negative) 01/21/17 08:15 Urine Glucose (UA) 50 mg/dL (Negative) 01/21/17 08:15 Urine Ketones Neg mg/dL (Negative) 01/21/17 08:15 Urine Blood Neg (Negative) 01/21/17 08:15 Urine Nitrite Neg (Negative) 01/21/17 08:15 Urine Bilirubin Neg (Negative) 01/21/17 08:15 Urine Urobilinogen < 2.0 mg/dL (<2.0) 01/21/17 08:15 Ur Leukocyte Esterase Sm (Negative) 01/21/17 08:15 Urine WBC (Auto) 6.0 /HPF (0.0-6.0) 01/21/17 08:15 Urine RBC (Auto) 5.0 /HPF (0.0-6.0) 01/21/17 08:15 U Epithel Cells (Auto) < 1.0 /HPF (0-13.0) 01/21/17 08:15 Urine Bacteria (Auto) 1+ /HPF (Negative) 01/21/17 08:15 Assessment and Plan Assessment and plan: I saw and evaluated the patient. I agree with the findings and the plan of care as documented in the Nurse Practitioner's~note, with the following corrections and additions. Advance Directives: Yes
[2017-01-21] MEDS: BABY ASPIRIN PO SCH (17:21)
[2017-01-21] MEDS: KEPPRA PO SCH (21:46)
[2017-01-21] MEDS ORDERED: LOVENOX SUB-Q SCH (22:00)
[2017-01-21] MEDS ORDERED: NON-FORMULARY (Atorvastatin 40 MG) NGTUBE SCH (22:00)
[2017-01-21] MEDS ORDERED: LEVEMIR SQ SCH (22:00)
[2017-01-21] MEDS: VANCOMYCIN 1,250 MG in NACL 0.9% 250ML 250 ML IV SCH (22:02)
[2017-01-21] MEDS: LEVEMIR SUB-Q SCH (23:05)
[2017-01-21] MEDS: PEPCID FEEDTUBE SCH (23:24)
[2017-01-22] MEDS: DUONEB *Not for PRN Use IH SCH ×4 (02:20→20:06)
[2017-01-22 05:40] LABS: Mean Corpuscular Volume TNR fl (84-94); Red Blood Count TNR M/mm3 (3.65-5.03); White Blood Count TNR K/mm3 (4.5-11.0)
[2017-01-22 05:41] LABS: Hematocrit TNR % (35.5-45.6); Hemoglobin TNR gm/dl (11.8-15.2); Mean Corpuscular HGB Conc TNR % (32-34); Mean Corpuscular Hemoglobin TNR pg (28-32); Mean Platelet Volume TNR fl (6-12); Platelet Count TNR K/mm3 (140-440); Red Cell Distribution Width TNR % (13.2-15.2)
[2017-01-22 05:42] LABS: Basophils % (Auto) TNR % (0.0-1.8); Eosinophils % (Auto) TNR % (0.0-4.3)
[2017-01-22 05:43] LABS: Diff Status TNR
[2017-01-22 05:54] LABS: Anion Gap 14 mmol/L; BUN/Creatinine Ratio 40; Blood Urea Nitrogen 12 mg/dL (9-20); Carbon Dioxide 23 mmol/L (22-30); Chloride 104.1 mmol/L (98-107); Glucose 154 mg/dL (75-100); Potassium 3.8 mmol/L (3.6-5.0); Sodium 137 mmol/L (137-145)
--- NOTE | 2017-01-22 08:27 | Progress Note ---
<IBETH SHANNON - Last Filed: 01/22/17 11:05> Assessment and Plan Assessment and plan: Patient is a 56 year old Male with Past Medical History of COPD, DM 2, CVA, Seizure Disorder, GERD, Hyperlipidemia, Chronic Pain, and Schizophrenia, Peg, colostomy and Trach who resides in [facility] who presents to the Emergency department for respiratory distress and found to have septic shock. Acute on chronic respiratory failure with hypoxia Patient oxygen saturation improved Trach with FiO2 28%; currently on Trach collar FiO2 28% with SPO2 98%. No acute respiratory distress noted. Aggressive Nebulizers/Inhalers Steroids ABG when necessary Oxygen supplement Supportive care Acute blood loss Anemia Etiology unknown Most likely upper GI Patient drop H&H from 11.0/37 to 6.3/21.1 Transfuse Stat 2 units of PRBC Consult GI for possible EGD Closely monitor H&H Septic Shock improved with treatment of antibiotic and IV fluid Follow blood cultures Continue on IV fluid Continue on empiric IV Levaquin and Vancomycin Diabetes mellitus Accu-Chek Every 6 hours Sliding scale insulin/NovoLog Nutrition consult for tube feeding Severe malnutrition Nutrition consulted Possible tube feeding toady Decubitus Ulcers Wound care Consulted DVT/PUD prophylaxis Lovenox History Interval history: Patient nonverbal with trach, no sign of respiratory distress. Labs and nursing notes reviewed. Hospitalist Physical - Constitutional Vitals: Temp Pulse Resp BP Pulse Ox 98.6 F 102 H 21 108/68 94 01/22/17 04:46 01/22/17 04:46 01/22/17 04:46 01/22/17 04:46 01/22/17 04:46 General appearance: Present: no acute distress (, no acute distress. With Trach with FiO2 28%), cachectic (and contracted) - EENT Eyes: Present: PERRL ENT: hearing intact - Neck Neck: Present: supple - Respiratory Respiratory effort: normal Respiratory: bilateral: CTA, rhonchi - Cardiovascular Rhythm: regular Heart Sounds: Present: S1 & S2 - Extremities Extremity abnormal: other (bilateral LE contracted) - Abdominal General gastrointestinal: soft, non-tender, other (PEG RQ colostomy) - Integumentary Integumentary: Present: clear (multiple decubitus ulcers), warm, dry - Psychiatric Psychiatric: other (impaired judgment ) - Neurologic Neurologic: moves all extremities - Allied Health Allied health notes reviewed: nursing Results - Labs CBC & Chem 7: 01/22/17 09:37 01/22/17 05:00 Labs: Laboratory Last Values WBC TNR 01/22/17 05:00 RBC TNR 01/22/17 05:00 Hgb TNR 01/22/17 05:00 Hct TNR 01/22/17 05:00 MCV TNR 01/22/17 05:00 MCH TNR 01/22/17 05:00 MCHC TNR 01/22/17 05:00 RDW TNR 01/22/17 05:00 Plt Count TNR 01/22/17 05:00 Lymph % (Auto) TNR 01/22/17 05:00 Henderson % (Auto) TNR 01/22/17 05:00 Eos % (Auto) TNR 01/22/17 05:00 Baso % (Auto) TNR 01/22/17 05:00 Lymph # TNR 01/22/17 05:00 Henderson # TNR 01/22/17 05:00 Eos # TNR 01/22/17 05:00 Baso # TNR 01/22/17 05:00 Add Manual Diff TNR 01/22/17 05:00 Seg Neutrophils % TNR 01/22/17 05:00 Seg Neutrophils # TNR 01/22/17 05:00 PT 16.0 Sec. (12.2-14.9) H 01/21/17 Unknown INR 1.22 (0.87-1.13) H 01/21/17 Unknown APTT 32.1 Sec. (24.2-36.6) 01/21/17 Unknown POC ABG pH 7.420 (7.35-7.45) 01/21/17 13:10 POC ABG pCO2 42.0 (35-45) 01/21/17 13:10 POC ABG pO2 65 (80-105) L 01/21/17 13:10 POC ABG HCO3 27.2 01/21/17 13:10 POC ABG Total CO2 28 01/21/17 13:10 POC ABG O2 Sat 93 01/21/17 13:10 POC ABG Base Excess 3 01/21/17 13:10 VBG pH 7.386 (7.320-7.420) 01/21/17 Unknown FiO2 60 % 01/21/17 13:10 Sodium 137 mmol/L (137-145) 01/22/17 05:00 Potassium 3.8 mmol/L (3.6-5.0) 01/22/17 05:00 Chloride 104.1 mmol/L (98-107) 01/22/17 05:00 Carbon Dioxide 23 mmol/L (22-30) 01/22/17 05:00 Anion Gap 14 mmol/L 01/22/17 05:00 BUN 12 mg/dL (9-20) 01/22/17 05:00 Creatinine 0.3 mg/dL (0.8-1.5) L 01/22/17 05:00 Estimated GFR > 60 ml/min 01/22/17 05:00 BUN/Creatinine Ratio 40 % 01/22/17 05:00 Glucose 154 mg/dL (75-100) H 01/22/17 05:00 POC Glucose 186 (70-105) H 01/22/17 06:31 Hemoglobin A1c 6.8 % (4-6) H 01/21/17 Unknown Lactic Acid 3.80 mmol/L (0.7-2.0) H* 01/21/17 Unknown Calcium 8.0 mg/dL (8.4-10.2) L 01/22/17 05:00 Total Bilirubin 0.20 mg/dL (0.1-1.2) 01/21/17 Unknown Direct Bilirubin < 0.2 mg/dL (0-0.2) 01/21/17 Unknown AST 53 units/L (5-40) H 01/21/17 Unknown ALT 47 units/L (7-56) 01/21/17 Unknown Alkaline Phosphatase 117 units/L (35-129) 01/21/17 Unknown Troponin T 0.016 ng/mL (0.00-0.029) 01/21/17 Unknown Total Protein 7.2 g/dL (6.3-8.2) 01/21/17 Unknown Albumin 2.3 g/dL (3.9-5) L 01/21/17 Unknown Albumin/Globulin Ratio 0.5 % 01/21/17 Unknown Urine Color Yellow (Yellow) 01/21/17 08:15 Urine Turbidity Clear (Clear) 01/21/17 08:15 Urine pH 6.0 (5.0-7.0) 01/21/17 08:15 Ur Specific Prospect 1.016 (1.003-1.030) 01/21/17 08:15 Urine Protein 30 mg/dl mg/dL (Negative) 01/21/17 08:15 Urine Glucose (UA) 50 mg/dL (Negative) 01/21/17 08:15 Urine Ketones Neg mg/dL (Negative) 01/21/17 08:15 Urine Blood Neg (Negative) 01/21/17 08:15 Urine Nitrite Neg (Negative) 01/21/17 08:15 Urine Bilirubin Neg (Negative) 01/21/17 08:15 Urine Urobilinogen < 2.0 mg/dL (<2.0) 01/21/17 08:15 Ur Leukocyte Esterase Sm (Negative) 01/21/17 08:15 Urine WBC (Auto) 6.0 /HPF (0.0-6.0) 01/21/17 08:15 Urine RBC (Auto) 5.0 /HPF (0.0-6.0) 01/21/17 08:15 U Epithel Cells (Auto) < 1.0 /HPF (0-13.0) 01/21/17 08:15 Urine Bacteria (Auto) 1+ /HPF (Negative) 01/21/17 08:15 <KSENIA NAZARIO E - Last Filed: 01/23/17 09:25> Assessment and Plan Assessment and plan: I saw and evaluated the patient. I agree with the findings and the plan of care as documented in the Nurse Practitioner's~note, with the following corrections and additions. Hospitalist Physical - Constitutional Vitals: Temp Pulse Resp BP Pulse Ox 98.3 F 102 H 18 134/69 100 01/23/17 06:37 01/23/17 09:05 01/23/17 09:05 01/23/17 06:37 01/23/17 09:04 Results - Labs CBC & Chem 7: 01/22/17 20:00 01/22/17 05:00 Labs: Laboratory Last Values WBC 11.4 K/mm3 (4.5-11.0) H 01/22/17 09:37 RBC 2.39 M/mm3 (3.65-5.03) L 01/22/17 09:37 Hgb 7.2 gm/dl (11.8-15.2) L 01/22/17 20:00 Hct 23.4 % (35.5-45.6) L 01/22/17 20:00 MCV 88 fl (84-94) 01/22/17 09:37 MCH 27 pg (28-32) L 01/22/17 09:37 MCHC 30 % (32-34) L 01/22/17 09:37 RDW 19.1 % (13.2-15.2) H 01/22/17 09:37 Plt Count 402 K/mm3 (140-440) 01/22/17 09:37 Lymph % (Auto) 10.4 % (13.4-35.0) L 01/22/17 09:37 Henderson % (Auto) 1.2 % (0.0-7.3) 01/22/17 09:37 Eos % (Auto) 0.0 % (0.0-4.3) 01/22/17 09:37 Baso % (Auto) 0.1 % (0.0-1.8) 01/22/17 09:37 Lymph # 1.2 K/mm3 (1.2-5.4) 01/22/17 09:37 Henderson # 0.1 K/mm3 (0.0-0.8) 01/22/17 09:37 Eos # 0.0 K/mm3 (0.0-0.4) 01/22/17 09:37 Baso # 0.0 K/mm3 (0.0-0.1) 01/22/17 09:37 Add Manual Diff TNR 01/22/17 05:00 Seg Neutrophils % 88.3 % (40.0-70.0) H 01/22/17 09:37 Seg Neutrophils # 10.1 K/mm3 (1.8-7.7) H 01/22/17 09:37 PT 16.0 Sec. (12.2-14.9) H 01/21/17 Unknown INR 1.22 (0.87-1.13) H 01/21/17 Unknown APTT 32.1 Sec. (24.2-36.6) 01/21/17 Unknown POC ABG pH 7.420 (7.35-7.45) 01/21/17 13:10 POC ABG pCO2 42.0 (35-45) 01/21/17 13:10 POC ABG pO2 65 (80-105) L 01/21/17 13:10 POC ABG HCO3 27.2 01/21/17 13:10 POC ABG Total CO2 28 01/21/17 13:10 POC ABG O2 Sat 93 01/21/17 13:10 POC ABG Base Excess 3 01/21/17 13:10 VBG pH 7.386 (7.320-7.420) 01/21/17 Unknown FiO2 60 % 01/21/17 13:10 Sodium 137 mmol/L (137-145) 01/22/17 05:00 Potassium 3.8 mmol/L (3.6-5.0) 01/22/17 05:00 Chloride 104.1 mmol/L (98-107) 01/22/17 05:00 Carbon Dioxide 23 mmol/L (22-30) 01/22/17 05:00 Anion Gap 14 mmol/L 01/22/17 05:00 BUN 12 mg/dL (9-20) 01/22/17 05:00 Creatinine 0.3 mg/dL (0.8-1.5) L 01/22/17 05:00 Estimated GFR > 60 ml/min 01/22/17 05:00 BUN/Creatinine Ratio 40 % 01/22/17 05:00 Glucose 154 mg/dL (75-100) H 01/22/17 05:00 POC Glucose 105 (70-105) 01/23/17 05:30 Hemoglobin A1c 6.8 % (4-6) H 01/21/17 Unknown Lactic Acid 0.80 mmol/L (0.7-2.0) 01/22/17 09:37 Calcium 8.0 mg/dL (8.4-10.2) L 01/22/17 05:00 Total Bilirubin 0.20 mg/dL (0.1-1.2) 01/21/17 Unknown Direct Bilirubin < 0.2 mg/dL (0-0.2) 01/21/17 Unknown AST 53 units/L (5-40) H 01/21/17 Unknown ALT 47 units/L (7-56) 01/21/17 Unknown Alkaline Phosphatase 117 units/L (35-129) 01/21/17 Unknown Troponin T 0.016 ng/mL (0.00-0.029) 01/21/17 Unknown Total Protein 7.2 g/dL (6.3-8.2) 01/21/17 Unknown Albumin 2.3 g/dL (3.9-5) L 01/21/17 Unknown Albumin/Globulin Ratio 0.5 % 01/21/17 Unknown Urine Color Yellow (Yellow) 01/21/17 08:15 Urine Turbidity Clear (Clear) 01/21/17 08:15 Urine pH 6.0 (5.0-7.0) 01/21/17 08:15 Ur Specific Prospect 1.016 (1.003-1.030) 01/21/17 08:15 Urine Protein 30 mg/dl mg/dL (Negative) 01/21/17 08:15 Urine Glucose (UA) 50 mg/dL (Negative) 01/21/17 08:15 Urine Ketones Neg mg/dL (Negative) 01/21/17 08:15 Urine Blood Neg (Negative) 01/21/17 08:15 Urine Nitrite Neg (Negative) 01/21/17 08:15 Urine Bilirubin Neg (Negative) 01/21/17 08:15 Urine Urobilinogen < 2.0 mg/dL (<2.0) 01/21/17 08:15 Ur Leukocyte Esterase Sm (Negative) 01/21/17 08:15 Urine WBC (Auto) 6.0 /HPF (0.0-6.0) 01/21/17 08:15 Urine RBC (Auto) 5.0 /HPF (0.0-6.0) 01/21/17 08:15 U Epithel Cells (Auto) < 1.0 /HPF (0-13.0) 01/21/17 08:15 Urine Bacteria (Auto) 1+ /HPF (Negative) 01/21/17 08:15 Blood Type O POSITIVE 01/22/17 12:06 Antibody Screen Negative 01/22/17 12:06 Crossmatch See Detail 01/22/17 12:06
[2017-01-22] MEDS: BABY ASPIRIN PO SCH (09:42)
[2017-01-22] MEDS: KEPPRA PO SCH ×2 (09:42→21:58)
[2017-01-22] MEDS: NACL 0.9% 1000 ML 1,000 ML IV SCH (09:42)
[2017-01-22] MEDS: PEPCID FEEDTUBE SCH ×2 (09:42→21:58)
[2017-01-22] MEDS: LEVAQUIN 750MG/150ML 750 MG/150 ML BAG IV SCH (09:42)
[2017-01-22] MEDS: NOVOLOG SUB-Q SCH ×4 (09:43→22:02)
[2017-01-22 09:53] LABS: Basophils % (Auto) 0.1 % (0.0-1.8); Mean Corpuscular HGB Conc 30 % (32-34); Mean Corpuscular Hemoglobin 27 pg (28-32); Mean Corpuscular Volume 88 fl (84-94); Platelet Count 402 K/mm3 (140-440); Red Blood Count 2.39 M/mm3 (3.65-5.03); Red Cell Distribution Width 19.1 % (13.2-15.2); White Blood Count 11.4 K/mm3 (4.5-11.0)
[2017-01-22 09:59] LABS: Hematocrit 21.1 % (35.5-45.6); Hemoglobin 6.3 gm/dl (11.8-15.2)
[2017-01-22] MEDS: VANCOMYCIN 1,250 MG in NACL 0.9% 250ML 250 ML IV SCH ×2 (11:41→22:04)
[2017-01-22] MEDS ORDERED: Fluarix Quad 2017-2018(36 MOS+ IM ONE (12:00)
[2017-01-22] MEDS ORDERED: PNEUMOVAX 23 IM ONE (12:00)
[2017-01-22 12:40] LABS: Hematocrit 20.8 % (35.5-45.6); Hemoglobin 6.5 gm/dl (11.8-15.2)
--- NOTE | 2017-01-22 13:33 | Consultation ---
History of Present Illness Consult date: 01/22/17 Requesting physician: KSENIA NAZARIO Reason for consult: pneumonia History of present illness: 56 yo with hx of CVA and chronic trach, developed increased work of breathing and hypoxia at [place], improved with suctioning by EMS en route. Had some hypotension and low-grade fevers on admit as well, better now s/p IVF boluses. His eyes are open and he is nonverbal, not following commands, so hx is not obtainable except via chart review. Active Medications Acetaminophen (Tylenol) 650 mg PO Q4H PRN PRN Reason: Pain MILD(1-3)/Fever >100.5/MCCRAY Acetylcysteine (Mucomyst Inhalation) 200 mg INHALATION Q12HRT [facility] Albuterol/Ipratropium (Duoneb *Not For Prn Use*) 1 ampul IH Q6HRT [facility] Last Admin: 01/22/17 10:33 Dose: 1 ampul Aspirin (Baby Aspirin) 81 mg PO QDAY [facility] Last Admin: 01/22/17 09:42 Dose: 81 mg Atorvastatin Calcium (Lipitor) 40 mg FEEDTUBE QHS [facility] Last Admin: 01/21/17 21:46 Dose: 40 mg Bisacodyl (Dulcolax) 10 mg [place] QDAY PRN PRN Reason: Constipation unrelieved by MOM Dextrose (D50w (25gm) Syringe) 50 ml IV PRN PRN PRN Reason: Hypoglycemia Enoxaparin Sodium (Lovenox) 40 mg SUB-Q QDAY@2200 [facility] Last Admin: 01/21/17 21:44 Dose: 40 mg Famotidine (Pepcid) 20 mg FEEDTUBE BID [facility] Last Admin: 01/22/17 09:42 Dose: 20 mg Guaifenesin (Robitussin) 200 mg PO Q4H [facility] Vancomycin HCl 1,250 mg/ (Sodium Chloride) 262.5 mls @ 166.667 mls/hr IV Q12H [facility] Last Admin: 01/22/17 11:41 Dose: 166.667 mls/hr Levofloxacin/Dextrose (Levaquin 750mg/150ml) 750 mg in 150 mls @ 100 mls/hr IV Q24H [facility] PRN Reason: Protocol Last Admin: 01/22/17 09:42 Dose: 100 mls/hr Sodium Chloride (Nacl 0.9% 1000 Ml) 1,000 mls @ 100 mls/hr IV DIRECT [facility] Last Admin: 01/22/17 09:42 Dose: 100 mls/hr Sodium Chloride (Nacl 0.9% 500 Ml) 500 mls @ 0 mls/hr IV ONCE ONE PRN Reason: As Directed Stop: 01/22/17 14:01 Insulin Aspart (Novolog) 0 units SUB-Q AC [facility] PRN Reason: Protocol Last Admin: 01/22/17 09:43 Dose: 1 units Insulin Aspart (Novolog) 0 units SUB-Q QHS [facility] PRN Reason: Protocol Last Admin: 01/21/17 23:06 Dose: Not Given Insulin Detemir (Levemir) 5 units SUB-Q QHS [facility] Last Admin: 01/21/17 23:05 Dose: Not Given Levetiracetam (Keppra) 1,000 mg PO BID [facility] Last Admin: 01/22/17 09:42 Dose: 1,000 mg Magnesium Hydroxide (Milk Of Magnesia) 30 ml PO Q4H PRN PRN Reason: Constipation Methylprednisolone Sodium Succinate (Solu-Medrol) 20 mg IV Q8H [facility] Ondansetron HCl (Zofran) 4 mg IV Q8H PRN PRN Reason: N/V unrelieved by Reglan Simple Syrup (Simple Syrup) 15 ml FEEDTUBE PRN PRN PRN Reason: Hypoglycemia Sodium Bicarbonate (Sodium Bicarbonate) 325 mg FEEDTUBE PRN PRN PRN Reason: For Clogged Feeding Tube Vancomycin HCl (Vancomycin Pharmacy To Dose) 1 each IV PKCONSULT [facility] PRN Reason: Protocol Past History Past Medical History: COPD, diabetes, GERD, hypertension, hyperlipidemia, seizures, stroke, other (Chronic Pain, Schizophrenia, Multiple Decubitus Ulcers) Past Surgical History: Other (Tracheotomy, Peg Tube Placement) Social history: other (Resides in [place] ([facility] Family history: other (Unable to answer, Patient Non-Verbal) Medications and Allergies Allergies Allergy/AdvReac Type Severity Reaction Status Date / Time No Known Allergies Allergy Verified 01/07/17 08:08 Home Medications Medication Instructions Recorded Confirmed Last Taken Type Acetaminophen 650 mg NGTUBE Q6H PRN 01/07/17 01/21/17 Unknown History Acidophilus Capsule 1 cap NGTUBE BID 01/07/17 01/21/17 Unknown History AtorvaSTATin 40 mg NGTUBE HS 01/07/17 01/21/17 Unknown History Famotidine 20 mg NGTUBE BID 01/07/17 01/21/17 Unknown History Levemir 5 units SQ HS 01/07/17 01/21/17 Unknown History Bisacodyl [Dulcolax suppos] 10 mg [place] QDAY PRN supp.rect 01/15/17 01/21/17 Unknown Rx Ipratropium/Albuterol Sulfate 1 ampul IH Q6HRT #30 ampul.neb 01/15/17 01/21/17 Unknown Rx [DUONEB *Not for PRN Use*] Levetiracetam 10 ml NGTUBE BID #30 01/15/17 01/21/17 Unknown Rx Lipase/Protease/Amylase [Pancreaze 1 each FEEDTUBE PRN PRN #30 capsule 01/15/17 01/21/[address] 10,500 Unit] Metoprolol [Lopressor TAB] 50 mg PO BID tablet 01/15/17 01/21/17 Unknown Rx NovoLOG Flexpen 1 dose SQ AC #30 01/15/17 01/21/17 Unknown Rx Fmbbtezuikuc-Opvr-Ynztdmiy,Iso 4.5 gm IV Q8H #1 bag 01/15/17 01/21/17 Unknown Rx [Zosyn 4.5 gm/100 ml Galaxy Bag] Simple Syrup 15 ml FEEDTUBE PRN PRN oral.liqd 01/15/17 01/21/17 Unknown Rx Simple Syrup 30 ml FEEDTUBE PRN PRN oral.liqd 01/15/17 01/21/17 Unknown Rx Sodium Bicarbonate 325 mg FEEDTUBE PRN PRN tablet 01/15/17 01/21/17 Unknown Rx Vancomycin/0.9 % Sod Chloride 1 gm IV Q12H #1 plast..bag 01/15/17 01/21/17 Unknown Rx [Vanco 1 Gram/250 ml-0.9% NaCl] oxyCODONE /ACETAMINOPHEN [Percocet 1 tab PO Q4HR PRN #30 tab 01/15/17 01/21/17 Unknown Rx 5/325] predniSONE [Deltasone] 40 mg PO QDAY tablet 01/15/17 01/21/17 Unknown Rx Active Meds: Active Medications Acetaminophen (Tylenol) 650 mg PO Q4H PRN PRN Reason: Pain MILD(1-3)/Fever >100.5/MCCRAY Acetylcysteine (Mucomyst Inhalation) 200 mg INHALATION Q12HRT [facility] Albuterol/Ipratropium (Duoneb *Not For Prn Use*) 1 ampul IH Q6HRT [facility] Last Admin: 01/22/17 10:33 Dose: 1 ampul Aspirin (Baby Aspirin) 81 mg PO QDAY [facility] Last Admin: 01/22/17 09:42 Dose: 81 mg Atorvastatin Calcium (Lipitor) 40 mg FEEDTUBE QHS [facility] Last Admin: 01/21/17 21:46 Dose: 40 mg Bisacodyl (Dulcolax) 10 mg [place] QDAY PRN PRN Reason: Constipation unrelieved by MOM Dextrose (D50w (25gm) Syringe) 50 ml IV PRN PRN PRN Reason: Hypoglycemia Enoxaparin Sodium (Lovenox) 40 mg SUB-Q QDAY@2200 [facility] Last Admin: 01/21/17 21:44 Dose: 40 mg Famotidine (Pepcid) 20 mg FEEDTUBE BID [facility] Last Admin: 01/22/17 09:42 Dose: 20 mg Guaifenesin (Robitussin) 200 mg PO Q4H [facility] Vancomycin HCl 1,250 mg/ (Sodium Chloride) 262.5 mls @ 166.667 mls/hr IV Q12H [facility] Last Admin: 01/22/17 11:41 Dose: 166.667 mls/hr Levofloxacin/Dextrose (Levaquin 750mg/150ml) 750 mg in 150 mls @ 100 mls/hr IV Q24H [facility] PRN Reason: Protocol Last Admin: 01/22/17 09:42 Dose: 100 mls/hr Sodium Chloride (Nacl 0.9% 1000 Ml) 1,000 mls @ 100 mls/hr IV DIRECT [facility] Last Admin: 01/22/17 09:42 Dose: 100 mls/hr Sodium Chloride (Nacl 0.9% 500 Ml) 500 mls @ 0 mls/hr IV ONCE ONE PRN Reason: As Directed Stop: 01/22/17 14:01 Insulin Aspart (Novolog) 0 units SUB-Q AC [facility] PRN Reason: Protocol Last Admin: 01/22/17 09:43 Dose: 1 units Insulin Aspart (Novolog) 0 units SUB-Q QHS [facility] PRN Reason: Protocol Last Admin: 01/21/17 23:06 Dose: Not Given Insulin Detemir (Levemir) 5 units SUB-Q QHS [facility] Last Admin: 01/21/17 23:05 Dose: Not Given Levetiracetam (Keppra) 1,000 mg PO BID [facility] Last Admin: 01/22/17 09:42 Dose: 1,000 mg Magnesium Hydroxide (Milk Of Magnesia) 30 ml PO Q4H PRN PRN Reason: Constipation Methylprednisolone Sodium Succinate (Solu-Medrol) 20 mg IV Q8H [facility] Ondansetron HCl (Zofran) 4 mg IV Q8H PRN PRN Reason: N/V unrelieved by Reglan Simple Syrup (Simple Syrup) 15 ml FEEDTUBE PRN PRN PRN Reason: Hypoglycemia Sodium Bicarbonate (Sodium Bicarbonate) 325 mg FEEDTUBE PRN PRN PRN Reason: For Clogged Feeding Tube Vancomycin HCl (Vancomycin Pharmacy To Dose) 1 each IV PKCONSULT [facility] PRN Reason: Protocol Review of Systems ROS unobtainable: due to mental status Physical Examination Vital signs: Vital Signs Pulse Ox 91 01/21/17 07:05 General appearance: no acute distress, other (eyes open, appears to be comatose and nonresponsive, NAD) Eyes: non-icteric ENT: oropharynx moist Neck: supple Effort: normal Ascultation: Right: clear, Left: diminished breath sounds (hemithorax) Cardiovascular: regular rate and rhythm (no mrg) Gastrointestinal: normoactive bowel sounds, soft, non-tender, non-distended Integumentary: normal (did not examine sacrum) Extremities: no cyanosis, no edema, pink and warm CN II-XII normal, other (nonverbal, not responsive, no spontaneous movements) other (unable to assess) Results - Laboratory Findings CBC and BMP: 01/22/17 12:06 01/22/17 05:00 ABG POC ABG pH 7.420 (7.35-7.45) 01/21/17 13:10 POC ABG pCO2 42.0 (35-45) 01/21/17 13:10 POC ABG pO2 65 (80-105) L 01/21/17 13:10 POC ABG HCO3 27.2 01/21/17 13:10 POC ABG Total CO2 28 01/21/17 13:10 POC ABG O2 Sat 93 01/21/17 13:10 PT/INR, D-dimer PT 16.0 Sec. (12.2-14.9) H 01/21/17 Unknown INR 1.22 (0.87-1.13) H 01/21/17 Unknown Abnormal lab findings: Abnormal Labs 01/21/17 01/21/17 01/21/17 07:22 13:06 13:10 WBC RBC Hgb Hct MCH MCHC RDW Lymph % (Auto) Lymph # Seg Neutrophils % Seg Neutrophils # PT INR POC ABG pO2 72 L 65 L Chloride Creatinine Glucose POC Glucose 206 H Hemoglobin A1c Lactic Acid Calcium AST Albumin Crossmatch 01/21/17 01/21/17 01/21/17 16:43 21:06 Unknown WBC RBC Hgb Hct MCH MCHC RDW Lymph % (Auto) Lymph # Seg Neutrophils % Seg Neutrophils # PT INR POC ABG pO2 Chloride 96.9 L Creatinine 0.5 L Glucose 281 H POC Glucose 146 H 180 H Hemoglobin A1c Lactic Acid Calcium AST Albumin Crossmatch 01/21/17 01/21/17 01/21/17 Unknown Unknown Unknown WBC 12.2 H RBC Hgb 11.0 L Hct MCH 26 L MCHC 30 L RDW 20.6 H Lymph % (Auto) 6.9 L Lymph # 0.8 L Seg Neutrophils % 86.2 H Seg Neutrophils # 10.5 H PT 16.0 H INR 1.22 H POC ABG pO2 Chloride Creatinine Glucose POC Glucose Hemoglobin A1c Lactic Acid Calcium AST 53 H Albumin 2.3 L Crossmatch 01/21/17 01/21/17 01/22/17 Unknown Unknown 05:00 WBC RBC Hgb Hct MCH MCHC RDW Lymph % (Auto) Lymph # Seg Neutrophils % Seg Neutrophils # PT INR POC ABG pO2 Chloride Creatinine 0.3 L Glucose 154 H POC Glucose Hemoglobin A1c 6.8 H Lactic Acid 3.80 H* Calcium 8.0 L AST Albumin Crossmatch 01/22/17 01/22/17 01/22/17 06:31 09:37 12:06 WBC 11.4 H RBC 2.39 L Hgb 6.3 L D Hct 21.1 L D MCH 27 L MCHC 30 L RDW 19.1 H Lymph % (Auto) 10.4 L Lymph # Seg Neutrophils % 88.3 H Seg Neutrophils # 10.1 H PT INR POC ABG pO2 Chloride Creatinine Glucose POC Glucose 186 H Hemoglobin A1c Lactic Acid Calcium AST Albumin Crossmatch See Detail 01/22/17 01/22/17 12:06 12:23 WBC RBC Hgb 6.5 L Hct 20.8 L MCH MCHC RDW Lymph % (Auto) Lymph # Seg Neutrophils % Seg Neutrophils # PT INR POC ABG pO2 Chloride Creatinine Glucose POC Glucose 212 H Hemoglobin A1c Lactic Acid Calcium AST Albumin Crossmatch - Diagnostic Findings Chest x-ray: report reviewed, image reviewed (near complete atelectasis on L) Assessment and Plan Imp: 1. HCAP 2. L Lung atelectasis due to mucous plugging 3. A/C respiratory failure, hypoxia 2/2 above 4. Sepsis 5. S/p Trach 6. Normocytic anemia; drop in H/H may in part be dilutional from IVFs Rec: 1. Chest PT, Mucinex, and Mucomyst nebs; CXR again in AM; if unable to aerate L lung with conservative measures consider bronch next week 2. Cont. current ABX; re-send sputum culture 3. Transfusion of PRBCs per primary 4. No bronchospasm on exam; stop steroids 5. SCDs and Pepcid 6. No family present Thanks for the consult. Will follow closely.
[2017-01-22] MEDS ORDERED: NACL 0.9% 500 ML 500 ML IV ONE (14:00)
--- NOTE | 2017-01-22 15:24 | Event Note ---
Date: 01/22/17 Patient seen and examined today remains nonverbal and not following commands although spontaneous breathing which she, in place no wheezing on exam. Hemoglobin is 6. 1 repeat 6.5. We'll check stool for occult blood were transfuse 2 units prb Cells were also obtain a GI evaluation. will hold ASA, LOVONEX, I did speak to the sister who stated that the patient has not truly been able to follow commands since the original insult and anytime the patient begins to improve he will have a recurrent problem leading to hospitalization and appears to start fro "square one" Use SCD for Dvt prophy
--- NOTE | 2017-01-22 17:17 | Gastroenterology Consultation ---
History of Present Illness - Reason for Consult Consult date: 01/22/17 anemia Requesting physician: KSENIA NAZARIO - History of Present Illness Mr Womack is a 56 yo male with h/o respiratory failure/CVA s/p trach/peg who GI has been consulted for acute on chronic anemia. [facility] admitted [facility] with respiratory distress and concern for possible sepsis. Pt noted to have significant drop in H/H since yesterday. Labs were repeated which showed similar decreased levels. He has a colostomy and G-tube for feedings. His ostomy has light brown stool and there have been no signs of overt gi bleeding. Pt non-verbal, unable to provide history (gathered from pt's nurse and chart review). Past History Past Medical History: COPD, diabetes, GERD, hypertension, hyperlipidemia, seizures, stroke, other (Chronic Pain, Schizophrenia, Multiple Decubitus Ulcers) Past Surgical History: Other (Tracheotomy, Peg Tube Placement) Social history: other (Resides in [place] ([facility] Family history: other (Unable to answer, Patient Non-Verbal) Medications and Allergies Allergies Allergy/AdvReac Type Severity Reaction Status Date / Time No Known Allergies Allergy Verified 01/07/17 08:08 Home Medications Medication Instructions Recorded Confirmed Last Taken Type Acetaminophen 650 mg NGTUBE Q6H PRN 01/07/17 01/21/17 Unknown History Acidophilus Capsule 1 cap NGTUBE BID 01/07/17 01/21/17 Unknown History AtorvaSTATin 40 mg NGTUBE HS 01/07/17 01/21/17 Unknown History Famotidine 20 mg NGTUBE BID 01/07/17 01/21/17 Unknown History Levemir 5 units SQ HS 01/07/17 01/21/17 Unknown History Bisacodyl [Dulcolax suppos] 10 mg [place] QDAY PRN supp.rect 01/15/17 01/21/17 Unknown Rx Ipratropium/Albuterol Sulfate 1 ampul IH Q6HRT #30 ampul.neb 01/15/17 01/21/17 Unknown Rx [DUONEB *Not for PRN Use*] Levetiracetam 10 ml NGTUBE BID #30 01/15/17 01/21/17 Unknown Rx Lipase/Protease/Amylase [Pancreaze 1 each FEEDTUBE PRN PRN #30 capsule 01/15/17 01/21/17 Unknown Rx 10,500 Unit] Metoprolol [Lopressor TAB] 50 mg PO BID tablet 01/15/17 01/21/17 Unknown Rx NovoLOG Flexpen 1 dose SQ AC #30 01/15/17 01/21/17 Unknown Rx Pvckyswsmlxa-Ryqh-Zhgugyrr,Iso 4.5 gm IV Q8H #1 bag 01/15/17 01/21/17 Unknown Rx [Zosyn 4.5 gm/100 ml Galaxy Bag] Simple Syrup 15 ml FEEDTUBE PRN PRN oral.liqd 01/15/17 01/21/17 Unknown Rx Simple Syrup 30 ml FEEDTUBE PRN PRN oral.liqd 01/15/17 01/21/17 Unknown Rx Sodium Bicarbonate 325 mg FEEDTUBE PRN PRN tablet 01/15/17 01/21/17 Unknown Rx Vancomycin/0.9 % Sod Chloride 1 gm IV Q12H #1 plast..bag 01/15/17 01/21/17 Unknown Rx [Vanco 1 Gram/250 ml-0.9% NaCl] oxyCODONE /ACETAMINOPHEN [Percocet 1 tab PO Q4HR PRN #30 tab 01/15/17 01/21/17 Unknown Rx 5/325] predniSONE [Deltasone] 40 mg PO QDAY tablet 01/15/17 01/21/17 Unknown Rx Active Meds: Active Medications Acetaminophen (Tylenol) 650 mg PO Q4H PRN PRN Reason: Pain MILD(1-3)/Fever >100.5/MCCRAY Acetylcysteine (Mucomyst Inhalation) 200 mg INHALATION Q12HRT [facility] Albuterol/Ipratropium (Duoneb *Not For Prn Use*) 1 ampul IH Q6HRT [facility] Last Admin: 01/22/17 16:02 Dose: 1 ampul Atorvastatin Calcium (Lipitor) 40 mg FEEDTUBE QHS [facility] Last Admin: 01/21/17 21:46 Dose: 40 mg Bisacodyl (Dulcolax) 10 mg [place] QDAY PRN PRN Reason: Constipation unrelieved by MOM Dextrose (D50w (25gm) Syringe) 50 ml IV PRN PRN PRN Reason: Hypoglycemia Famotidine (Pepcid) 20 mg FEEDTUBE BID [facility] Last Admin: 01/22/17 09:42 Dose: 20 mg Guaifenesin (Robitussin) 200 mg PO Q4H [facility] Vancomycin HCl 1,250 mg/ (Sodium Chloride) 262.5 mls @ 166.667 mls/hr IV Q12H [facility] Last Admin: 01/22/17 11:41 Dose: 166.667 mls/hr Levofloxacin/Dextrose (Levaquin 750mg/150ml) 750 mg in 150 mls @ 100 mls/hr IV Q24H [facility] PRN Reason: Protocol Last Admin: 01/22/17 09:42 Dose: 100 mls/hr Sodium Chloride (Nacl 0.9% 1000 Ml) 1,000 mls @ 100 mls/hr IV DIRECT [facility] Last Admin: 01/22/17 09:42 Dose: 100 mls/hr Insulin Aspart (Novolog) 0 units SUB-Q AC [facility] PRN Reason: Protocol Last Admin: 01/22/17 09:43 Dose: 1 units Insulin Aspart (Novolog) 0 units SUB-Q QHS [facility] PRN Reason: Protocol Last Admin: 01/21/17 23:06 Dose: Not Given Insulin Detemir (Levemir) 5 units SUB-Q QHS [facility] Last Admin: 01/21/17 23:05 Dose: Not Given Levetiracetam (Keppra) 1,000 mg PO BID [facility] Last Admin: 01/22/17 09:42 Dose: 1,000 mg Magnesium Hydroxide (Milk Of Magnesia) 30 ml PO Q4H PRN PRN Reason: Constipation Ondansetron HCl (Zofran) 4 mg IV Q8H PRN PRN Reason: N/V unrelieved by Reglan Pantoprazole Sodium (Protonix) 40 mg PO BID [facility] Simple Syrup (Simple Syrup) 15 ml FEEDTUBE PRN PRN PRN Reason: Hypoglycemia Sodium Bicarbonate (Sodium Bicarbonate) 325 mg FEEDTUBE PRN PRN PRN Reason: For Clogged Feeding Tube Vancomycin HCl (Vancomycin Pharmacy To Dose) 1 each IV PKCONSULT [facility] PRN Reason: Protocol Review of Systems - Review of Systems ROS unobtainable: due to mental status Exam - Exam Narrative Exam: Gen: chronically ill appearing, non verbal Head: nc/at Mouth: dry mucous membranes Neck: + trach CV: RRR lungs: CTAB, non labored Abd: soft, nt, nd, + ostomy with brown stool, + g tube site c/d/i Neuro: oriented x 0 - Constitutional Vital Signs: Temp Pulse Resp BP Pulse Ox 98.5 F 80 18 113/68 98 01/22/17 16:30 01/22/17 16:30 01/22/17 16:30 01/22/17 16:30 01/22/17 16:30 - Labs CBC & Chem 7: 01/22/17 20:00 01/22/17 05:00 Lab Results: Laboratory Results - last 24 hr 01/21/17 01/22/17 01/22/17 21:06 05:00 05:00 WBC TNR RBC TNR Hgb TNR Hct TNR MCV TNR MCH TNR MCHC TNR RDW TNR Plt Count TNR Lymph % (Auto) TNR [place] % (Auto) TNR Eos % (Auto) TNR Baso % (Auto) TNR Lymph # TNR [place] # TNR Eos # TNR Baso # TNR Add Manual Diff TNR Seg Neutrophils % TNR Seg Neutrophils # TNR Sodium 137 Potassium 3.8 Chloride 104.1 Carbon Dioxide 23 Anion Gap 14 BUN 12 Creatinine 0.3 L Estimated GFR > 60 BUN/Creatinine Ratio 40 Glucose 154 H POC Glucose 180 H Lactic Acid Calcium 8.0 L Blood Type Antibody Screen Crossmatch 01/22/17 01/22/17 01/22/17 06:31 09:37 09:37 WBC 11.4 H RBC 2.39 L Hgb 6.3 L D Hct 21.1 L D MCV 88 MCH 27 L MCHC 30 L RDW 19.1 H Plt Count 402 Lymph % (Auto) 10.4 L [place] % (Auto) 1.2 Eos % (Auto) 0.0 Baso % (Auto) 0.1 Lymph # 1.2 [place] # 0.1 Eos # 0.0 Baso # 0.0 Add Manual Diff Seg Neutrophils % 88.3 H Seg Neutrophils # 10.1 H Sodium Potassium Chloride Carbon Dioxide Anion Gap BUN Creatinine Estimated GFR BUN/Creatinine Ratio Glucose POC Glucose 186 H Lactic Acid 0.80 Calcium Blood Type Antibody Screen Crossmatch 01/22/17 01/22/17 01/22/17 12:06 12:06 12:23 WBC RBC Hgb 6.5 L Hct 20.8 L MCV MCH MCHC RDW Plt Count Lymph % (Auto) [place] % (Auto) Eos % (Auto) Baso % (Auto) Lymph # [place] # Eos # Baso # Add Manual Diff Seg Neutrophils % Seg Neutrophils # Sodium Potassium Chloride Carbon Dioxide Anion Gap BUN Creatinine Estimated GFR BUN/Creatinine Ratio Glucose POC Glucose 212 H Lactic Acid Calcium Blood Type O POSITIVE Antibody Screen Negative Crossmatch See Detail Assessment and Plan 1. Acute on chronic anemia - unclear etiology but no signs of overt gi bleeding (ostomy with light brown stool). given significant drop in 24 hours, would be difficult to explain by GI source without overt bleeding, although will need to monitor closely for signs of bleeding. -hold off on endoscopy unless overt bleeding develops -work-up for other causes of worsening anemia per primary team -PPI daily for ppx.
[2017-01-22] MEDS: ROBITUSSIN PO SCH ×3 (18:10→22:09)
[2017-01-22] MEDS: MUCOMYST INHALATION INHALATION SCH (20:06)
[2017-01-22 20:21] LABS: Hematocrit 23.4 % (35.5-45.6); Hemoglobin 7.2 gm/dl (11.8-15.2)
[2017-01-22] MEDS: PROTONIX PO SCH (21:58)
[2017-01-22] MEDS: LEVEMIR SUB-Q SCH (22:02)
[2017-01-23] MEDS: DUONEB *Not for PRN Use IH SCH ×4 (01:46→20:22)
[2017-01-23] MEDS: ROBITUSSIN PO SCH ×7 (02:28→22:20)
[2017-01-23] MEDS: NACL 0.9% 1000 ML 1,000 ML IV SCH (07:25)
[2017-01-23] MEDS: NOVOLOG SUB-Q SCH ×4 (07:32→22:00)
--- NOTE | 2017-01-23 09:11 | XRay Report ---
AP CHEST: HISTORY: Followup atelectasis Resolution of the left upper lobe atelectasis is demonstrated since 01/21/17. Partial atelectasis in the left lower lobe remains. The right lung remains mildly hyperexpanded but clear. Heart size is at the upper limits of normal. IMPRESSION: 50% decrease in the left lung atelectasis since 01/21/17.
[2017-01-23] MEDS: MUCOMYST INHALATION INHALATION SCH (10:32)
[2017-01-23] MEDS: PEPCID FEEDTUBE SCH (10:35)
[2017-01-23] MEDS: KEPPRA PO SCH ×2 (10:35→22:21)
[2017-01-23] MEDS: LEVAQUIN 750MG/150ML 750 MG/150 ML BAG IV SCH (10:35)
[2017-01-23] MEDS: VANCOMYCIN 1,250 MG in NACL 0.9% 250ML 250 ML IV SCH (10:40)
--- NOTE | 2017-01-23 10:54 | Progress Note ---
Assessment and Plan Assessment and plan: Patient is a 56 year old Male with Past Medical History of COPD , DM 2, CVA, Seizure Disorder, GERD, Hyperlipidemia, Chronic Pain, and Schizophrenia, Peg, colostomy and Trach who resides in [facility] who presents to the Emergency department for respiratory distress, fever at the facility prior to transfer. Of note patient is chronically non verbal per family. Acute on chronic respiratory failure with hypoxia Patient oxygen saturation improved Trach with FiO2 28%; currently on Trach collar FiO2 28% with SPO2 98%. No acute respiratory distress noted. Aggressive Nebulizers/Inhalers Steroids ABG when necessary Oxygen supplement Supportive care Acute blood loss Anemia Etiology unknown Most likely upper GI Patient drop H&H from 11.0/37 to 6.3/21.1 Transfused Stat 2 units of PRBC Occult blood negative. GI eval noted MVI AND Protonix Septic Shock improved with treatment of antibiotic and IV fluid Follow blood cultures Continue on IV fluid Noted very loose stool. Patient with recent abx prior to this admission Will switch to PO flagyl Check stool for C.diff Probiotic Diabetes mellitus Accu-Chek Every 6 hours Sliding scale insulin/NovoLog Nutrition consult for tube feeding Severe malnutrition Nutrition consulted Possible tube feeding toady Atalaectasis Aggressive pulmonary toilet Decubitus Ulcers Wound care Consulted DVT/PUD prophylaxis Lovenox History Interval history: Patient seen and examined this morning, remains non verbal, this is echoed as chronic per family. Continues to have increased fluid output from the ostomy site. No fever documented by Nursing staff. No family at bedside at this time. Hospitalist Physical - Physical exam Narrative exam: General appearance: Present: no acute distress, no acute distress. With Trach with FiO2 28%, cachectic (and contracted) - EENT Eyes: Present: PERRL ENT: hearing intact - Neck Neck: Present: supple - Respiratory Respiratory effort: normal Respiratory: bilateral: CTA, rhonchi - Cardiovascular Rhythm: regular Heart Sounds: Present: S1 & S2 - Extremities Extremity abnormal: other (bilateral LE contracted) - Abdominal General gastrointestinal: soft, non-tender, other (PEG RQ colostomy) - Integumentary Integumentary: Present: clear (multiple decubitus ulcers), warm, dry - Psychiatric Psychiatric: unable to assess) - Neurologic Neurologic: moves all extremities, non verbal - Allied Health Allied health notes reviewed: nursing - Constitutional Vitals: Temp Pulse Resp BP Pulse Ox 98.5 F 102 H 18 137/77 100 01/23/17 07:56 01/23/17 09:05 01/23/17 09:05 01/23/17 07:56 01/23/17 09:04 General appearance: Present: no acute distress (, no acute distress. With Trach with FiO2 28%), cachectic (and contracted) Results - Labs CBC & Chem 7: 01/23/17 04:00 01/23/17 04:00 Labs: Laboratory Last Values WBC 11.4 K/mm3 (4.5-11.0) H 01/22/17 09:37 RBC 2.39 M/mm3 (3.65-5.03) L 01/22/17 09:37 Hgb 7.2 gm/dl (11.8-15.2) L 01/22/17 20:00 Hct 23.4 % (35.5-45.6) L 01/22/17 20:00 MCV 88 fl (84-94) 01/22/17 09:37 MCH 27 pg (28-32) L 01/22/17 09:37 MCHC 30 % (32-34) L 01/22/17 09:37 RDW 19.1 % (13.2-15.2) H 01/22/17 09:37 Plt Count 402 K/mm3 (140-440) 01/22/17 09:37 Lymph % (Auto) 10.4 % (13.4-35.0) L 01/22/17 09:37 [place] % (Auto) 1.2 % (0.0-7.3) 01/22/17 09:37 Eos % (Auto) 0.0 % (0.0-4.3) 01/22/17 09:37 Baso % (Auto) 0.1 % (0.0-1.8) 01/22/17 09:37 Lymph # 1.2 K/mm3 (1.2-5.4) 01/22/17 09:37 [place] # 0.1 K/mm3 (0.0-0.8) 01/22/17 09:37 Eos # 0.0 K/mm3 (0.0-0.4) 01/22/17 09:37 Baso # 0.0 K/mm3 (0.0-0.1) 01/22/17 09:37 Add Manual Diff TNR 01/22/17 05:00 Seg Neutrophils % 88.3 % (40.0-70.0) H 01/22/17 09:37 Seg Neutrophils # 10.1 K/mm3 (1.8-7.7) H 01/22/17 09:37 PT 16.0 Sec. (12.2-14.9) H 01/21/17 Unknown INR 1.22 (0.87-1.13) H 01/21/17 Unknown APTT 32.1 Sec. (24.2-36.6) 01/21/17 Unknown POC ABG pH 7.420 (7.35-7.45) 01/21/17 13:10 POC ABG pCO2 42.0 (35-45) 01/21/17 13:10 POC ABG pO2 65 (80-105) L 01/21/17 13:10 POC ABG HCO3 27.2 01/21/17 13:10 POC ABG Total CO2 28 01/21/17 13:10 POC ABG O2 Sat 93 01/21/17 13:10 POC ABG Base Excess 3 01/21/17 13:10 VBG pH 7.386 (7.320-7.420) 01/21/17 Unknown FiO2 60 % 01/21/17 13:10 Sodium 137 mmol/L (137-145) 01/22/17 05:00 Potassium 3.8 mmol/L (3.6-5.0) 01/22/17 05:00 Chloride 104.1 mmol/L (98-107) 01/22/17 05:00 Carbon Dioxide 23 mmol/L (22-30) 01/22/17 05:00 Anion Gap 14 mmol/L 01/22/17 05:00 BUN 12 mg/dL (9-20) 01/22/17 05:00 Creatinine 0.3 mg/dL (0.8-1.5) L 01/22/17 05:00 Estimated GFR > 60 ml/min 01/22/17 05:00 BUN/Creatinine Ratio 40 % 01/22/17 05:00 Glucose 154 mg/dL (75-100) H 01/22/17 05:00 POC Glucose 105 (70-105) 01/23/17 05:30 Hemoglobin A1c 6.8 % (4-6) H 01/21/17 Unknown Lactic Acid 0.80 mmol/L (0.7-2.0) 01/22/17 09:37 Calcium 8.0 mg/dL (8.4-10.2) L 01/22/17 05:00 Total Bilirubin 0.20 mg/dL (0.1-1.2) 01/21/17 Unknown Direct Bilirubin < 0.2 mg/dL (0-0.2) 01/21/17 Unknown AST 53 units/L (5-40) H 01/21/17 Unknown ALT 47 units/L (7-56) 01/21/17 Unknown Alkaline Phosphatase 117 units/L (35-129) 01/21/17 Unknown Troponin T 0.016 ng/mL (0.00-0.029) 01/21/17 Unknown Total Protein 7.2 g/dL (6.3-8.2) 01/21/17 Unknown Albumin 2.3 g/dL (3.9-5) L 01/21/17 Unknown Albumin/Globulin Ratio 0.5 % 01/21/17 Unknown Urine Color Yellow (Yellow) 01/21/17 08:15 Urine Turbidity Clear (Clear) 01/21/17 08:15 Urine pH 6.0 (5.0-7.0) 01/21/17 08:15 Ur Specific [place] 1.016 (1.003-1.030) 01/21/17 08:15 Urine Protein 30 mg/dl mg/dL (Negative) 01/21/17 08:15 Urine Glucose (UA) 50 mg/dL (Negative) 01/21/17 08:15 Urine Ketones Neg mg/dL (Negative) 01/21/17 08:15 Urine Blood Neg (Negative) 01/21/17 08:15 Urine Nitrite Neg (Negative) 01/21/17 08:15 Urine Bilirubin Neg (Negative) 01/21/17 08:15 Urine Urobilinogen < 2.0 mg/dL (<2.0) 01/21/17 08:15 Ur Leukocyte Esterase Sm (Negative) 01/21/17 08:15 Urine WBC (Auto) 6.0 /HPF (0.0-6.0) 01/21/17 08:15 Urine RBC (Auto) 5.0 /HPF (0.0-6.0) 01/21/17 08:15 U Epithel Cells (Auto) < 1.0 /HPF (0-13.0) 01/21/17 08:15 Urine Bacteria (Auto) 1+ /HPF (Negative) 01/21/17 08:15 Blood Type O POSITIVE 01/22/17 12:06 Antibody Screen Negative 01/22/17 12:06 Crossmatch See Detail 01/22/17 12:06 - Imaging and Cardiology Chest x-ray: image reviewed (atalectasis)
[2017-01-23] MEDS ORDERED: PROTONIX FEEDTUBE SCH (11:00)
[2017-01-23 11:05] LABS: Hematocrit 28.5 % (35.5-45.6); Hemoglobin 8.9 gm/dl (11.8-15.2); Mean Corpuscular HGB Conc 31 % (32-34); Mean Corpuscular Hemoglobin 27 pg (28-32); Mean Corpuscular Volume 88 fl (84-94); Platelet Count 420 K/mm3 (140-440); Red Blood Count 3.24 M/mm3 (3.65-5.03); White Blood Count 12.2 K/mm3 (4.5-11.0)
--- NOTE | 2017-01-23 11:07 | Gastroenterology Progress Note ---
Assessment and Plan - Patient Problems (1) Diarrhea Current Visit: Yes Status: Acute Plan to address problem: - Recent treatment last month with abx, and persistent elevated WBC/ institutional living status. - Agree with C diff check, and empiric flagyl. - Avoid other abx unless culture proven data. - Will add probiotics. (2) Anemia Current Visit: No Status: Chronic Qualifiers: Anemia type: iron deficiency Plan to address problem: - Chronic anemia, and no gross bleeding. - Will add MVI, and protonix. - Endoscopy if overt bleeding, but avoid at present due to other medical issues including possible C diff. - Avoid excess NSAIDs, but daily ASA or DVT PPY is OK unless gross bleeding. - Add liquid MVI. Subjective Date of service: 01/23/17 Principal diagnosis: Anemia, Diarrhea Interval history: The patient has had no gross bleeding in the ostomy bag (yellow brown stool only ; he has had increased ostomy output with very liquid stool). No fevers, but mild elevation of WBC. No obvious distress, but generally nonverbal. Objective - Constitutional Vitals: Temp Pulse Resp BP Pulse Ox 98.5 F 102 H 18 137/77 100 01/23/17 07:56 01/23/17 09:05 01/23/17 09:05 01/23/17 07:56 01/23/17 09:04 General appearance: no acute distress - EENT Eyes: PERRL, EOM intact - Neck Neck: other (Trach) - Respiratory Respiratory effort: normal Respiratory: bilateral: CTA - Cardiovascular Rhythm: regular Heart Sounds: Present: S1 & S2 - Gastrointestinal General gastrointestinal: Present: soft, non-tender, other (PEG tube ( functioning well) and ostomy RLQ (yellow liquid stool)) - Labs CBC & Chem 7: 01/22/17 20:00 01/22/17 05:00 Labs: Laboratory Results - last 24 hr 01/22/17 01/22/17 01/22/17 12:06 12:06 12:23 Hgb 6.5 L Hct 20.8 L POC Glucose 212 H Blood Type O POSITIVE Antibody Screen Negative Crossmatch See Detail 01/22/17 01/22/17 01/22/17 17:26 20:00 22:02 Hgb 7.2 L Hct 23.4 L POC Glucose 140 H 138 H Blood Type Antibody Screen Crossmatch 01/23/17 05:30 Hgb Hct POC Glucose 105 Blood Type Antibody Screen Crossmatch
[2017-01-23 11:22] LABS: Anion Gap 16 mmol/L; BUN/Creatinine Ratio 33; Blood Urea Nitrogen 13 mg/dL (9-20); Calcium 8.3 mg/dL (8.4-10.2); Carbon Dioxide 24 mmol/L (22-30); Chloride 109.5 mmol/L (98-107); Glucose 90 mg/dL (75-100); Potassium 3.1 mmol/L (3.6-5.0); Sodium 146 mmol/L (137-145)
--- NOTE | 2017-01-23 11:50 | Progress Note ---
Assessment and Plan - Patient Problems (1) Chronic respiratory failure Current Visit: Yes Status: Acute (2) Atelectasis of left lung Current Visit: Yes Status: Acute (3) T2DM (type 2 diabetes mellitus) Current Visit: Yes Status: Chronic Qualifiers: Diabetes mellitus complication status: with other specified complication Diabetes mellitus correction insulin use: unspecified terminal system operator insulin use status Qualified Code(s): E11.69 - Type 2 diabetes mellitus with other specified complication (4) COPD exacerbation Current Visit: No Status: Acute (5) Pressure ulcer of sacral region, stage 4 Current Visit: No Status: Acute (6) Tracheostomy dependence Current Visit: No Status: Acute Subjective Principal diagnosis: Anemia, Diarrhea Interval history: no change Objective Vital Signs - 12hr 01/23/17 01/23/17 01/23/17 00:00 00:24 01:46 Temperature 98.3 F Pulse Rate 93 H Pulse Rate [ 85 Anterior Bilateral Throughout] Respiratory 16 22 Rate Respiratory 20 Rate [Anterior Bilateral Throughout] Blood Pressure 126/72 O2 Sat by Pulse 95 Oximetry 01/23/17 01/23/17 01/23/17 01:54 03:07 03:22 Temperature 97.8 F 97.6 F Pulse Rate 80 94 H Pulse Rate [ 87 Anterior Bilateral Throughout] Respiratory 16 18 Rate Respiratory 20 Rate [Anterior Bilateral Throughout] Blood Pressure 127/74 122/67 O2 Sat by Pulse 96 100 Oximetry 01/23/17 01/23/17 01/23/17 03:52 03:55 04:22 Temperature 98.3 F 98.3 F 98.2 F Pulse Rate 83 83 80 Pulse Rate [ Anterior Bilateral Throughout] Respiratory 16 16 18 Rate Respiratory Rate [Anterior Bilateral Throughout] Blood Pressure 123/69 123/69 127/73 O2 Sat by Pulse 94 94 100 Oximetry 01/23/17 01/23/17 01/23/17 04:52 05:22 05:52 Temperature 98.0 F 98.4 F 97.6 F Pulse Rate 74 72 67 Pulse Rate [ Anterior Bilateral Throughout] Respiratory 18 18 18 Rate Respiratory Rate [Anterior Bilateral Throughout] Blood Pressure 127/73 126/70 134/69 O2 Sat by Pulse 100 100 100 Oximetry 01/23/17 01/23/17 01/23/17 06:22 06:37 07:56 Temperature 97.8 F 98.3 F 98.5 F Pulse Rate 92 H 84 96 H Pulse Rate [ Anterior Bilateral Throughout] Respiratory 20 16 18 Rate Respiratory Rate [Anterior Bilateral Throughout] Blood Pressure 132/75 134/69 137/77 O2 Sat by Pulse 100 100 95 Oximetry 01/23/17 01/23/17 01/23/17 08:45 09:04 09:05 Temperature Pulse Rate Pulse Rate [ 89 102 H Anterior Bilateral Throughout] Respiratory Rate Respiratory 20 18 Rate [Anterior Bilateral Throughout] Blood Pressure O2 Sat by Pulse 100 Oximetry Constitutional: no acute distress, other (eyes open, appears to be comatose and nonresponsive, NAD) Eyes: non-icteric ENT: oropharynx moist Neck: supple Effort: normal Ascultation: Right: clear, Left: diminished breath sounds (hemithorax) Cardiovascular: regular rate and rhythm (no mrg) Gastrointestinal: normoactive bowel sounds, soft, non-tender, non-distended Integumentary: normal (did not examine sacrum) Extremities: no cyanosis, no edema, pink and warm Neurologic: CN II-XII normal, other (nonverbal, not responsive, no spontaneous movements) Psychiatric: other (unable to assess) CBC and BMP: 01/23/17 04:00 01/23/17 04:00 ABG, PT/INR, D-dimer: ABG POC ABG pH 7.420 (7.35-7.45) 01/21/17 13:10 POC ABG pCO2 42.0 (35-45) 01/21/17 13:10 POC ABG pO2 65 (80-105) L 01/21/17 13:10 POC ABG HCO3 27.2 01/21/17 13:10 POC ABG Total CO2 28 01/21/17 13:10 POC ABG O2 Sat 93 01/21/17 13:10 PT/INR, D-dimer PT 16.0 Sec. (12.2-14.9) H 01/21/17 Unknown INR 1.22 (0.87-1.13) H 01/21/17 Unknown Abnormal lab findings: Abnormal Labs 01/21/17 01/21/17 01/21/17 07:22 13:06 13:10 WBC RBC Hgb Hct MCH MCHC RDW Lymph % (Auto) Lymph # Seg Neutrophils % Seg Neutrophils # PT INR POC ABG pO2 72 L 65 L Sodium Potassium Chloride Creatinine Glucose POC Glucose 206 H Hemoglobin A1c Lactic Acid Calcium AST Albumin Crossmatch 01/21/17 01/21/17 01/21/17 16:43 21:06 Unknown WBC RBC Hgb Hct MCH MCHC RDW Lymph % (Auto) Lymph # Seg Neutrophils % Seg Neutrophils # PT INR POC ABG pO2 Sodium Potassium Chloride 96.9 L Creatinine 0.5 L Glucose 281 H POC Glucose 146 H 180 H Hemoglobin A1c Lactic Acid Calcium AST Albumin Crossmatch 01/21/17 01/21/17 01/21/17 Unknown Unknown Unknown WBC 12.2 H RBC Hgb 11.0 L Hct MCH 26 L MCHC 30 L RDW 20.6 H Lymph % (Auto) 6.9 L Lymph # 0.8 L Seg Neutrophils % 86.2 H Seg Neutrophils # 10.5 H PT 16.0 H INR 1.22 H POC ABG pO2 Sodium Potassium Chloride Creatinine Glucose POC Glucose Hemoglobin A1c Lactic Acid Calcium AST 53 H Albumin 2.3 L Crossmatch 01/21/17 01/21/17 01/22/17 Unknown Unknown 05:00 WBC RBC Hgb Hct MCH MCHC RDW Lymph % (Auto) Lymph # Seg Neutrophils % Seg Neutrophils # PT INR POC ABG pO2 Sodium Potassium Chloride Creatinine 0.3 L Glucose 154 H POC Glucose Hemoglobin A1c 6.8 H Lactic Acid 3.80 H* Calcium 8.0 L AST Albumin Crossmatch 01/22/17 01/22/17 01/22/17 06:31 09:37 12:06 WBC 11.4 H RBC 2.39 L Hgb 6.3 L D Hct 21.1 L D MCH 27 L MCHC 30 L RDW 19.1 H Lymph % (Auto) 10.4 L Lymph # Seg Neutrophils % 88.3 H Seg Neutrophils # 10.1 H PT INR POC ABG pO2 Sodium Potassium Chloride Creatinine Glucose POC Glucose 186 H Hemoglobin A1c Lactic Acid Calcium AST Albumin Crossmatch See Detail 01/22/17 01/22/17 01/22/17 12:06 12:23 17:26 WBC RBC Hgb 6.5 L Hct 20.8 L MCH MCHC RDW Lymph % (Auto) Lymph # Seg Neutrophils % Seg Neutrophils # PT INR POC ABG pO2 Sodium Potassium Chloride Creatinine Glucose POC Glucose 212 H 140 H Hemoglobin A1c Lactic Acid Calcium AST Albumin Crossmatch 01/22/17 01/22/17 01/23/17 20:00 22:02 04:00 WBC 12.2 H RBC 3.24 L Hgb 7.2 L 8.9 L Hct 23.4 L 28.5 L MCH 27 L MCHC 31 L RDW 18.0 H Lymph % (Auto) Lymph # Seg Neutrophils % Seg Neutrophils # PT INR POC ABG pO2 Sodium Potassium Chloride Creatinine Glucose POC Glucose 138 H Hemoglobin A1c Lactic Acid Calcium AST Albumin Crossmatch 01/23/17 04:00 WBC RBC Hgb Hct MCH MCHC RDW Lymph % (Auto) Lymph # Seg Neutrophils % Seg Neutrophils # PT INR POC ABG pO2 Sodium 146 H D Potassium 3.1 L Chloride 109.5 H Creatinine 0.4 L Glucose POC Glucose Hemoglobin A1c Lactic Acid Calcium 8.3 L AST Albumin Crossmatch
[2017-01-23] MEDS ORDERED: FLAGYL 250 MG/50 ML 250 MG in VIAFLEX EMPTY CONTAINER 0 ML IV SCH (14:00)
[2017-01-23] MEDS ORDERED: POTASSIUM CHLORIDE FEEDTUBE ONE (15:45)
[2017-01-23 16:30] LABS: Iron 35 ug/dL (49-181); Total Iron Binding Capacity 133 mcg/dL (250-450)
[2017-01-23] MEDS: Centrum Liq PO SCH (16:32)
[2017-01-23] MEDS: PROTONIX FEEDTUBE SCH (16:32)
[2017-01-23] MEDS: FLAGYL PO SCH ×2 (16:33→22:21)
[2017-01-23] MEDS: PROTONIX PO SCH (21:30)
[2017-01-23] MEDS: LEVEMIR SUB-Q SCH (22:23)
[2017-01-24] MEDS: MUCOMYST INHALATION INHALATION SCH ×3 (02:17→20:22)
[2017-01-24] MEDS: DUONEB *Not for PRN Use IH SCH ×4 (02:21→20:20)
[2017-01-24] MEDS: ROBITUSSIN PO SCH ×6 (02:40→21:35)
[2017-01-24] MEDS: FLAGYL PO SCH ×3 (06:12→21:31)
[2017-01-24] MEDS: NOVOLOG SUB-Q SCH ×4 (07:31→23:47)
[2017-01-24] MEDS: Centrum Liq PO SCH (09:03)
[2017-01-24] MEDS: KEPPRA PO SCH ×2 (09:03→21:30)
[2017-01-24] MEDS: PROTONIX FEEDTUBE SCH (09:03)
[2017-01-24] MEDS: NACL 0.9% 1000 ML 1,000 ML IV SCH (09:03)
[2017-01-24 09:36] LABS: Basophils % (Auto) 0.5 % (0.0-1.8); Eosinophils % (Auto) 0.3 % (0.0-4.3); Hematocrit 26.9 % (35.5-45.6); Hemoglobin 8.7 gm/dl (11.8-15.2); Mean Corpuscular HGB Conc 32 % (32-34); Mean Corpuscular Hemoglobin 28 pg (28-32); Mean Corpuscular Volume 87 fl (84-94); Platelet Count 380 K/mm3 (140-440); Red Blood Count 3.08 M/mm3 (3.65-5.03); Red Cell Distribution Width 18.2 % (13.2-15.2); White Blood Count 10.8 K/mm3 (4.5-11.0)
[2017-01-24 09:52] LABS: Anion Gap 15 mmol/L; BUN/Creatinine Ratio 33; Blood Urea Nitrogen 13 mg/dL (9-20); Calcium 8.2 mg/dL (8.4-10.2); Carbon Dioxide 26 mmol/L (22-30); Chloride 110.4 mmol/L (98-107); Glucose 121 mg/dL (75-100); Potassium 3.4 mmol/L (3.6-5.0); Sodium 148 mmol/L (137-145)
--- NOTE | 2017-01-24 13:24 | Progress Note ---
Assessment and Plan - Patient Problems (1) Chronic respiratory failure Current Visit: Yes Status: Acute (2) Atelectasis of left lung Current Visit: Yes Status: Acute (3) T2DM (type 2 diabetes mellitus) Current Visit: Yes Status: Chronic Qualifiers: Diabetes mellitus complication status: with other specified complication Diabetes mellitus care home insulin use: unspecified oil heaterman insulin use status Qualified Code(s): E11.69 - Type 2 diabetes mellitus with other specified complication (4) COPD exacerbation Current Visit: No Status: Acute (5) Pressure ulcer of sacral region, stage 4 Current Visit: No Status: Acute (6) Tracheostomy dependence Current Visit: No Status: Acute Subjective Principal diagnosis: Anemia, Diarrhea Interval history: no change, tpiece Objective Vital Signs - 12hr 01/24/17 01/24/17 01/24/17 02:22 02:33 05:13 Temperature 98.5 F Pulse Rate 79 Pulse Rate [ 79 86 Anterior Bilateral Throughout] Respiratory 20 Rate Respiratory 15 19 Rate [Anterior Bilateral Throughout] Blood Pressure 132/74 O2 Sat by Pulse 99 Oximetry O2 Sat by Pulse Oximetry [ Assessment] 01/24/17 01/24/17 01/24/17 07:17 07:27 07:31 Temperature 98.1 F Pulse Rate 86 Pulse Rate [ 90 88 Anterior Bilateral Throughout] Respiratory 20 Rate Respiratory 20 20 Rate [Anterior Bilateral Throughout] Blood Pressure 138/76 O2 Sat by Pulse 99 98 Oximetry O2 Sat by Pulse Oximetry [ Assessment] 01/24/17 01/24/17 08:00 12:31 Temperature 98.6 F Pulse Rate 92 H Pulse Rate [ Anterior Bilateral Throughout] Respiratory 20 Rate Respiratory Rate [Anterior Bilateral Throughout] Blood Pressure 142/81 O2 Sat by Pulse 92 Oximetry O2 Sat by Pulse 99 Oximetry [ Assessment] Constitutional: no acute distress, other (eyes open, appears to be comatose and nonresponsive, NAD) Eyes: non-icteric ENT: oropharynx moist Neck: supple Effort: normal Ascultation: Right: clear, Left: diminished breath sounds (hemithorax), rhonchi Cardiovascular: regular rate and rhythm (no mrg) Gastrointestinal: normoactive bowel sounds, soft, non-tender, non-distended Integumentary: normal (did not examine sacrum) Extremities: no cyanosis, no edema, pink and warm Neurologic: CN II-XII normal, other (nonverbal, not responsive, no spontaneous movements) Psychiatric: other (unable to assess) CBC and BMP: 01/24/17 09:22 01/24/17 09:22 ABG, PT/INR, D-dimer: ABG POC ABG pH 7.420 (7.35-7.45) 01/21/17 13:10 POC ABG pCO2 42.0 (35-45) 01/21/17 13:10 POC ABG pO2 65 (80-105) L 01/21/17 13:10 POC ABG HCO3 27.2 01/21/17 13:10 POC ABG Total CO2 28 01/21/17 13:10 POC ABG O2 Sat 93 01/21/17 13:10 PT/INR, D-dimer PT 16.0 Sec. (12.2-14.9) H 01/21/17 Unknown INR 1.22 (0.87-1.13) H 01/21/17 Unknown Abnormal lab findings: Abnormal Labs 01/21/17 01/21/17 01/21/17 07:22 13:06 13:10 WBC RBC Hgb Hct MCH MCHC RDW Lymph % (Auto) Lymph # Seg Neutrophils % Seg Neutrophils # PT INR POC ABG pO2 72 L 65 L Sodium Potassium Chloride Creatinine Glucose POC Glucose 206 H Hemoglobin A1c Lactic Acid Calcium Iron TIBC AST Albumin Crossmatch 01/21/17 01/21/17 01/21/17 16:43 21:06 Unknown WBC RBC Hgb Hct MCH MCHC RDW Lymph % (Auto) Lymph # Seg Neutrophils % Seg Neutrophils # PT INR POC ABG pO2 Sodium Potassium Chloride 96.9 L Creatinine 0.5 L Glucose 281 H POC Glucose 146 H 180 H Hemoglobin A1c Lactic Acid Calcium Iron TIBC AST Albumin Crossmatch 01/21/17 01/21/17 01/21/17 Unknown Unknown Unknown WBC 12.2 H RBC Hgb 11.0 L Hct MCH 26 L MCHC 30 L RDW 20.6 H Lymph % (Auto) 6.9 L Lymph # 0.8 L Seg Neutrophils % 86.2 H Seg Neutrophils # 10.5 H PT 16.0 H INR 1.22 H POC ABG pO2 Sodium Potassium Chloride Creatinine Glucose POC Glucose Hemoglobin A1c Lactic Acid Calcium Iron TIBC AST 53 H Albumin 2.3 L Crossmatch 01/21/17 01/21/17 01/22/17 Unknown Unknown 05:00 WBC RBC Hgb Hct MCH MCHC RDW Lymph % (Auto) Lymph # Seg Neutrophils % Seg Neutrophils # PT INR POC ABG pO2 Sodium Potassium Chloride Creatinine 0.3 L Glucose 154 H POC Glucose Hemoglobin A1c 6.8 H Lactic Acid 3.80 H* Calcium 8.0 L Iron TIBC AST Albumin Crossmatch 01/22/17 01/22/17 01/22/17 06:31 09:37 12:06 WBC 11.4 H RBC 2.39 L Hgb 6.3 L D Hct 21.1 L D MCH 27 L MCHC 30 L RDW 19.1 H Lymph % (Auto) 10.4 L Lymph # Seg Neutrophils % 88.3 H Seg Neutrophils # 10.1 H PT INR POC ABG pO2 Sodium Potassium Chloride Creatinine Glucose POC Glucose 186 H Hemoglobin A1c Lactic Acid Calcium Iron TIBC AST Albumin Crossmatch See Detail 01/22/17 01/22/17 01/22/17 12:06 12:23 17:26 WBC RBC Hgb 6.5 L Hct 20.8 L MCH MCHC RDW Lymph % (Auto) Lymph # Seg Neutrophils % Seg Neutrophils # PT INR POC ABG pO2 Sodium Potassium Chloride Creatinine Glucose POC Glucose 212 H 140 H Hemoglobin A1c Lactic Acid Calcium Iron TIBC AST Albumin Crossmatch 01/22/17 01/22/17 01/23/17 20:00 22:02 04:00 WBC 12.2 H RBC 3.24 L Hgb 7.2 L 8.9 L Hct 23.4 L 28.5 L MCH 27 L MCHC 31 L RDW 18.0 H Lymph % (Auto) Lymph # Seg Neutrophils % Seg Neutrophils # PT INR POC ABG pO2 Sodium Potassium Chloride Creatinine Glucose POC Glucose 138 H Hemoglobin A1c Lactic Acid Calcium Iron TIBC AST Albumin Crossmatch 01/23/17 01/23/17 01/23/17 04:00 09:24 12:12 WBC RBC Hgb Hct MCH MCHC RDW Lymph % (Auto) Lymph # Seg Neutrophils % Seg Neutrophils # PT INR POC ABG pO2 Sodium 146 H D Potassium 3.1 L Chloride 109.5 H Creatinine 0.4 L Glucose POC Glucose 124 H Hemoglobin A1c Lactic Acid Calcium 8.3 L Iron 35 L TIBC 133 L AST Albumin Crossmatch 01/23/17 01/24/17 01/24/17 23:49 05:49 09:22 WBC RBC 3.08 L Hgb 8.7 L Hct 26.9 L MCH MCHC RDW 18.2 H Lymph % (Auto) Lymph # Seg Neutrophils % 75.0 H Seg Neutrophils # 8.1 H PT INR POC ABG pO2 Sodium Potassium Chloride Creatinine Glucose POC Glucose 126 H 115 H Hemoglobin A1c Lactic Acid Calcium Iron TIBC AST Albumin Crossmatch 01/24/17 01/24/17 09:22 11:27 WBC RBC Hgb Hct MCH MCHC RDW Lymph % (Auto) Lymph # Seg Neutrophils % Seg Neutrophils # PT INR POC ABG pO2 Sodium 148 H Potassium 3.4 L Chloride 110.4 H Creatinine 0.4 L Glucose 121 H POC Glucose 135 H Hemoglobin A1c Lactic Acid Calcium 8.2 L Iron TIBC AST Albumin Crossmatch
--- NOTE | 2017-01-24 18:53 | Gastroenterology Progress Note ---
Assessment and Plan - Patient Problems (1) Diarrhea Current Visit: Yes Status: Acute Plan to address problem: - Recent treatment last month with abx, and persistent elevated WBC/ institutional living status. - Agree with C diff check, and empiric flagyl. - Avoid other abx unless culture proven data. - Will add probiotics. (2) Anemia Current Visit: No Status: Chronic Qualifiers: Anemia type: iron deficiency Plan to address problem: - Chronic anemia, and no gross bleeding. - Will add MVI, and protonix. - Endoscopy if overt bleeding, but avoid at present due to other medical issues including possible C diff. - Avoid excess NSAIDs, but daily ASA or DVT PPY is OK unless gross bleeding. - Add liquid MVI. Subjective Date of service: 01/24/17 Principal diagnosis: Anemia, Diarrhea Interval history: The patient is tolerating tube feeds without N/V/abdominal pain. Still no blood via the ostomy. Sacral wound not oozing blood per the nurses. No fevers and chills, and the diarrhea is much less prominant in ostomy. Objective - Constitutional Vitals: Temp Pulse Resp BP Pulse Ox 98.8 F 114 H 20 129/82 100 01/24/17 15:34 01/24/17 15:34 01/24/17 15:34 01/24/17 15:34 01/24/17 17:30 General appearance: no acute distress - Respiratory Respiratory effort: normal Respiratory: bilateral: CTA (Trach) - Cardiovascular Rhythm: regular Heart Sounds: Present: S1 & S2 - Gastrointestinal General gastrointestinal: Present: soft, non-tender, non-distended, other (PEG/ Ostomy without change) - Labs CBC & Chem 7: 01/24/17 09:22 01/24/17 09:22 Labs: Laboratory Results - last 24 hr 01/23/17 01/24/17 01/24/17 23:49 05:49 09:22 WBC 10.8 RBC 3.08 L Hgb 8.7 L Hct 26.9 L MCV 87 MCH 28 MCHC 32 RDW 18.2 H Plt Count 380 Lymph % (Auto) 17.4 [place] % (Auto) 6.8 Eos % (Auto) 0.3 Baso % (Auto) 0.5 Lymph # 1.9 [place] # 0.7 Eos # 0.0 Baso # 0.0 Seg Neutrophils % 75.0 H Seg Neutrophils # 8.1 H Sodium Potassium Chloride Carbon Dioxide Anion Gap BUN Creatinine Estimated GFR BUN/Creatinine Ratio Glucose POC Glucose 126 H 115 H Calcium 01/24/17 01/24/17 01/24/17 09:22 11:27 16:31 WBC RBC Hgb Hct MCV MCH MCHC RDW Plt Count Lymph % (Auto) [place] % (Auto) Eos % (Auto) Baso % (Auto) Lymph # [place] # Eos # Baso # Seg Neutrophils % Seg Neutrophils # Sodium 148 H Potassium 3.4 L Chloride 110.4 H Carbon Dioxide 26 Anion Gap 15 BUN 13 Creatinine 0.4 L Estimated GFR > 60 BUN/Creatinine Ratio 33 Glucose 121 H POC Glucose 135 H 143 H Calcium 8.2 L
[2017-01-24] MEDS: FLORANEX PO SCH (21:31)
[2017-01-24] MEDS: TYLENOL PO PRN (21:31)
[2017-01-24] MEDS: LEVEMIR SUB-Q SCH (21:36)
--- NOTE | 2017-01-24 21:37 | Progress Note ---
Assessment and Plan Assessment and Plan Assessment and plan: Patient is a 56 year old Male with Past Medical History of COPD , DM 2, CVA, Seizure Disorder, GERD, Hyperlipidemia, Chronic Pain, and Schizophrenia, Peg, colostomy and Trach who resides in [facility] who presents to the Emergency department for respiratory distress, fever at the facility prior to transfer. Of note patient is chronically non verbal per family. Acute on chronic respiratory failure with hypoxia Patient oxygen saturation improved Trach with FiO2 28%; currently on Trach collar FiO2 28% with SPO2 98%. No acute respiratory distress noted. Aggressive Nebulizers/Inhalers Steroids ABG when necessary Oxygen supplement Supportive care Acute blood loss Anemia Etiology unknown Most likely upper GI Patient drop H&H from 11.0/37 to 6.3/21.1 Transfused Stat 2 units of PRBC Occult blood negative. GI eval noted MVI AND Protonix Septic Shock improved with treatment of antibiotic and IV fluid Follow blood cultures Continue on IV fluid Noted very loose stool. Patient with recent abx prior to this admission Will switch to PO flagyl Check stool for C.diff Probiotic Diabetes mellitus Accu-Chek Every 6 hours Sliding scale insulin/NovoLog Nutrition consult for tube feeding Severe malnutrition Nutrition consulted Possible tube feeding toady Atalaectasis Aggressive pulmonary toilet Decubitus Ulcers Wound care Consulted DVT/PUD prophylaxis Lovenox From [facility]-St[facility].Nearly baseline. Probable discharge in 1 to 2 days Subjective Date of service: 01/24/17 Principal diagnosis: Anemia, Diarrhea Objective - Constitutional Vitals: Vital Signs - 12hr 01/24/17 01/24/17 01/24/17 12:31 13:11 13:22 Temperature 98.6 F Pulse Rate 92 H Pulse Rate [ 87 89 Anterior Bilateral Throughout] Respiratory 20 Rate Respiratory 20 20 Rate [Anterior Bilateral Throughout] Blood Pressure 142/81 O2 Sat by Pulse 92 Oximetry O2 Sat by Pulse Oximetry [ Assessment] 01/24/17 01/24/17 01/24/17 15:34 17:30 19:45 Temperature 98.8 F 100.4 F H Pulse Rate 114 H 111 H Pulse Rate [ Anterior Bilateral Throughout] Respiratory 20 22 Rate Respiratory Rate [Anterior Bilateral Throughout] Blood Pressure 129/82 142/83 O2 Sat by Pulse 92 90 Oximetry O2 Sat by Pulse 100 Oximetry [ Assessment] 01/24/17 01/24/17 01/24/17 20:23 20:24 20:56 Temperature Pulse Rate Pulse Rate [ 75 89 Anterior Bilateral Throughout] Respiratory Rate Respiratory 16 25 H Rate [Anterior Bilateral Throughout] Blood Pressure O2 Sat by Pulse 99 Oximetry O2 Sat by Pulse Oximetry [ Assessment] General appearance: Present: mild distress, well-nourished - EENT Eyes: PERRL, EOM intact ENT: hearing intact, clear oral mucosa Ears: bilateral: normal - Neck Neck: supple, normal ROM, other (Trach in place) - Respiratory Respiratory effort: normal Respiratory: bilateral: CTA - Breasts Breasts: normal - Cardiovascular Heart rate: 80 Rhythm: regular Heart Sounds: Present: S1 & S2. Absent: gallop, rub Extremities: no ischemia, pulses intact, No edema, normal color, Full ROM - Gastrointestinal General gastrointestinal: Present: soft, non-tender, non-distended, normal bowel sounds - Genitourinary Male genitourinary: normal - Integumentary Integumentary: clear, warm, dry - Musculoskeletal Musculoskeletal: 1, strength equal bilaterally - Neurologic Neurologic: moves all extremities - Psychiatric Psychiatric: memory intact, appropriate mood/affect, intact judgment & insight - Labs CBC & Chem 7: 01/24/17 09:22 01/24/17 09:22 Labs: Abnormal lab results 01/23/17 01/24/17 01/24/17 Range/Units 23:49 05:49 09:22 RBC 3.08 L (3.65-5.03) M/mm3 Hgb 8.7 L (11.8-15.2) gm/dl Hct 26.9 L (35.5-45.6) % RDW 18.2 H (13.2-15.2) % Seg Neutrophils % 75.0 H (40.0-70.0) % Seg Neutrophils # 8.1 H (1.8-7.7) K/mm3 Sodium (137-145) mmol/L Potassium (3.6-5.0) mmol/L Chloride (98-107) mmol/L Creatinine (0.8-1.5) mg/dL Glucose (75-100) mg/dL POC Glucose 126 H 115 H (70-105) Calcium (8.4-10.2) mg/dL 01/24/17 01/24/17 01/24/17 Range/Units 09:22 11:27 16:31 RBC (3.65-5.03) M/mm3 Hgb (11.8-15.2) gm/dl Hct (35.5-45.6) % RDW (13.2-15.2) % Seg Neutrophils % (40.0-70.0) % Seg Neutrophils # (1.8-7.7) K/mm3 Sodium 148 H (137-145) mmol/L Potassium 3.4 L (3.6-5.0) mmol/L Chloride 110.4 H (98-107) mmol/L Creatinine 0.4 L (0.8-1.5) mg/dL Glucose 121 H (75-100) mg/dL POC Glucose 135 H 143 H (70-105) Calcium 8.2 L (8.4-10.2) mg/dL
[2017-01-25] MEDS: DUONEB *Not for PRN Use IH SCH ×4 (02:18→20:57)
[2017-01-25] MEDS: ROBITUSSIN PO SCH ×6 (03:00→22:22)
[2017-01-25] MEDS: NACL 0.9% 1000 ML 1,000 ML IV SCH (04:44)
[2017-01-25] MEDS: FLAGYL PO SCH ×3 (06:25→22:03)
[2017-01-25] MEDS: MUCOMYST INHALATION INHALATION SCH ×2 (07:29→20:57)
[2017-01-25] MEDS: NOVOLOG SUB-Q SCH ×4 (07:30→22:10)
--- NOTE | 2017-01-25 08:47 | XRay Report ---
AP CHEST: HISTORY: Followup atelectasis Increased left lung atelectasis is demonstrated since 01/23/17. Only a small area in the left upper lobe is aerated. The right lung is hyperexpanded but clear. Heart size is grossly normal. Lines and tubes remain in adequate position. IMPRESSION: Increased left lung atelectasis.
[2017-01-25] MEDS: KEPPRA PO SCH ×2 (10:00→22:03)
[2017-01-25] MEDS: FLORANEX PO SCH ×2 (10:00→22:03)
[2017-01-25] MEDS: Centrum Liq PO SCH (10:00)
[2017-01-25] MEDS: PROTONIX FEEDTUBE SCH (11:16)
--- NOTE | 2017-01-25 12:07 | Progress Note ---
Assessment and Plan 56 y/o male with chronic respiratory failure secondary to left lung atelectasis , likely inability to clear secretions 1. Will attempt to contact relatives for consent for bronch 2. Attempt bronch with airway inspection 3. Continue bronchodilator therapy Subjective Date of service: 01/25/17 Principal diagnosis: Anemia, Diarrhea Interval history: Still on T-Piece. Rpt CXR shows left lung atelectasis, still not improved. Objective Vital Signs - 12hr 01/25/17 01/25/17 01/25/17 04:45 07:29 07:34 Temperature 98.7 F Pulse Rate 99 H Pulse Rate [ 106 H Anterior Bilateral Throughout] Respiratory 24 Rate Respiratory 18 Rate [Anterior Bilateral Throughout] Blood Pressure 142/80 Blood Pressure [Left] O2 Sat by Pulse 85 96 Oximetry O2 Sat by Pulse Oximetry [ Assessment] 01/25/17 01/25/17 01/25/17 07:51 08:46 11:28 Temperature 97.4 F L 98.9 F Pulse Rate 109 H 72 Pulse Rate [ 108 H Anterior Bilateral Throughout] Respiratory 26 H 18 Rate Respiratory 20 Rate [Anterior Bilateral Throughout] Blood Pressure Blood Pressure 137/82 132/93 [Left] O2 Sat by Pulse 96 98 Oximetry O2 Sat by Pulse Oximetry [ Assessment] 01/25/17 01/25/17 11:40 11:51 Temperature 98.5 F Pulse Rate 129 H Pulse Rate [ Anterior Bilateral Throughout] Respiratory 18 Rate Respiratory Rate [Anterior Bilateral Throughout] Blood Pressure 146/90 Blood Pressure [Left] O2 Sat by Pulse 94 Oximetry O2 Sat by Pulse 98 Oximetry [ Assessment] Constitutional: no acute distress, other (eyes open, appears to be comatose and nonresponsive, NAD) Eyes: non-icteric ENT: oropharynx moist Neck: supple Effort: normal Ascultation: Right: clear, Left: diminished breath sounds (hemithorax), rhonchi Cardiovascular: regular rate and rhythm (no mrg) Gastrointestinal: normoactive bowel sounds, soft, non-tender, non-distended Integumentary: normal (did not examine sacrum) Extremities: no cyanosis, no edema, pink and warm Neurologic: CN II-XII normal, other (nonverbal, not responsive, no spontaneous movements) Psychiatric: other (unable to assess) CBC and BMP: 01/24/17 09:22 01/24/17 09:22 ABG, PT/INR, D-dimer: ABG POC ABG pH 7.420 (7.35-7.45) 01/21/17 13:10 POC ABG pCO2 42.0 (35-45) 01/21/17 13:10 POC ABG pO2 65 (80-105) L 01/21/17 13:10 POC ABG HCO3 27.2 01/21/17 13:10 POC ABG Total CO2 28 01/21/17 13:10 POC ABG O2 Sat 93 01/21/17 13:10 PT/INR, D-dimer PT 16.0 Sec. (12.2-14.9) H 01/21/17 Unknown INR 1.22 (0.87-1.13) H 01/21/17 Unknown Abnormal lab findings: Abnormal Labs 01/21/17 01/21/17 01/21/17 07:22 13:06 13:10 WBC RBC Hgb Hct MCH MCHC RDW Lymph % (Auto) Lymph # Seg Neutrophils % Seg Neutrophils # PT INR POC ABG pO2 72 L 65 L Sodium Potassium Chloride Creatinine Glucose POC Glucose 206 H Hemoglobin A1c Lactic Acid Calcium Iron TIBC AST Albumin Crossmatch 01/21/17 01/21/17 01/21/17 16:43 21:06 Unknown WBC RBC Hgb Hct MCH MCHC RDW Lymph % (Auto) Lymph # Seg Neutrophils % Seg Neutrophils # PT INR POC ABG pO2 Sodium Potassium Chloride 96.9 L Creatinine 0.5 L Glucose 281 H POC Glucose 146 H 180 H Hemoglobin A1c Lactic Acid Calcium Iron TIBC AST Albumin Crossmatch 01/21/17 01/21/17 01/21/17 Unknown Unknown Unknown WBC 12.2 H RBC Hgb 11.0 L Hct MCH 26 L MCHC 30 L RDW 20.6 H Lymph % (Auto) 6.9 L Lymph # 0.8 L Seg Neutrophils % 86.2 H Seg Neutrophils # 10.5 H PT 16.0 H INR 1.22 H POC ABG pO2 Sodium Potassium Chloride Creatinine Glucose POC Glucose Hemoglobin A1c Lactic Acid Calcium Iron TIBC AST 53 H Albumin 2.3 L Crossmatch 01/21/17 01/21/17 01/22/17 Unknown Unknown 05:00 WBC RBC Hgb Hct MCH MCHC RDW Lymph % (Auto) Lymph # Seg Neutrophils % Seg Neutrophils # PT INR POC ABG pO2 Sodium Potassium Chloride Creatinine 0.3 L Glucose 154 H POC Glucose Hemoglobin A1c 6.8 H Lactic Acid 3.80 H* Calcium 8.0 L Iron TIBC AST Albumin Crossmatch 01/22/17 01/22/17 01/22/17 06:31 09:37 12:06 WBC 11.4 H RBC 2.39 L Hgb 6.3 L D Hct 21.1 L D MCH 27 L MCHC 30 L RDW 19.1 H Lymph % (Auto) 10.4 L Lymph # Seg Neutrophils % 88.3 H Seg Neutrophils # 10.1 H PT INR POC ABG pO2 Sodium Potassium Chloride Creatinine Glucose POC Glucose 186 H Hemoglobin A1c Lactic Acid Calcium Iron TIBC AST Albumin Crossmatch See Detail 01/22/17 01/22/17 01/22/17 12:06 12:23 17:26 WBC RBC Hgb 6.5 L Hct 20.8 L MCH MCHC RDW Lymph % (Auto) Lymph # Seg Neutrophils % Seg Neutrophils # PT INR POC ABG pO2 Sodium Potassium Chloride Creatinine Glucose POC Glucose 212 H 140 H Hemoglobin A1c Lactic Acid Calcium Iron TIBC AST Albumin Crossmatch 01/22/17 01/22/17 01/23/17 20:00 22:02 04:00 WBC 12.2 H RBC 3.24 L Hgb 7.2 L 8.9 L Hct 23.4 L 28.5 L MCH 27 L MCHC 31 L RDW 18.0 H Lymph % (Auto) Lymph # Seg Neutrophils % Seg Neutrophils # PT INR POC ABG pO2 Sodium Potassium Chloride Creatinine Glucose POC Glucose 138 H Hemoglobin A1c Lactic Acid Calcium Iron TIBC AST Albumin Crossmatch 01/23/17 01/23/17 01/23/17 04:00 09:24 12:12 WBC RBC Hgb Hct MCH MCHC RDW Lymph % (Auto) Lymph # Seg Neutrophils % Seg Neutrophils # PT INR POC ABG pO2 Sodium 146 H D Potassium 3.1 L Chloride 109.5 H Creatinine 0.4 L Glucose POC Glucose 124 H Hemoglobin A1c Lactic Acid Calcium 8.3 L Iron 35 L TIBC 133 L AST Albumin Crossmatch 01/23/17 01/24/17 01/24/17 23:49 05:49 09:22 WBC RBC 3.08 L Hgb 8.7 L Hct 26.9 L MCH MCHC RDW 18.2 H Lymph % (Auto) Lymph # Seg Neutrophils % 75.0 H Seg Neutrophils # 8.1 H PT INR POC ABG pO2 Sodium Potassium Chloride Creatinine Glucose POC Glucose 126 H 115 H Hemoglobin A1c Lactic Acid Calcium Iron TIBC AST Albumin Crossmatch 01/24/17 01/24/17 01/24/17 09:22 11:27 16:31 WBC RBC Hgb Hct MCH MCHC RDW Lymph % (Auto) Lymph # Seg Neutrophils % Seg Neutrophils # PT INR POC ABG pO2 Sodium 148 H Potassium 3.4 L Chloride 110.4 H Creatinine 0.4 L Glucose 121 H POC Glucose 135 H 143 H Hemoglobin A1c Lactic Acid Calcium 8.2 L Iron TIBC AST Albumin Crossmatch 01/24/17 01/25/17 23:48 06:12 WBC RBC Hgb Hct MCH MCHC RDW Lymph % (Auto) Lymph # Seg Neutrophils % Seg Neutrophils # PT INR POC ABG pO2 Sodium Potassium Chloride Creatinine Glucose POC Glucose 136 H 133 H Hemoglobin A1c Lactic Acid Calcium Iron TIBC AST Albumin Crossmatch
--- NOTE | 2017-01-25 19:57 | Gastroenterology Progress Note ---
Assessment and Plan - Patient Problems (1) Diarrhea Current Visit: Yes Status: Acute Plan to address problem: - Recent treatment last month with abx, and persistent elevated WBC/ institutional living status. - Agree with C diff check, and empiric flagyl (OK to stop after 10 days). - Avoid other abx unless culture proven data. - Will continue probiotics. (2) Anemia Current Visit: No Status: Chronic Qualifiers: Anemia type: iron deficiency Plan to address problem: - Chronic anemia, and no gross bleeding. - Will add MVI, and protonix. - Endoscopy if overt bleeding, but avoid at present due to other medical issues including possible C diff. - Avoid excess NSAIDs, but daily ASA or DVT PPY is OK unless gross bleeding. - Will sign off since no gross bleeding; please call if needed. Subjective Date of service: 01/25/17 Principal diagnosis: Anemia, Diarrhea Interval history: The patient is without clinical change. Awaiting placement back to facility. No blood in stool, no N/V, and tolerating tube feeds. Objective - Constitutional Vitals: Temp Pulse Resp BP Pulse Ox 99.9 F H 121 H 18 121/79 90 01/25/17 17:13 01/25/17 17:13 01/25/17 17:13 01/25/17 17:13 01/25/17 17:13 General appearance: no acute distress - Respiratory Respiratory effort: normal Respiratory: bilateral: CTA (Trach) - Cardiovascular Rhythm: regular Heart Sounds: Present: S1 & S2 - Gastrointestinal General gastrointestinal: Present: soft, non-tender, non-distended (Ostomy and PEG) - Labs CBC & Chem 7: 01/24/17 09:22 01/24/17 09:22 Labs: Laboratory Results - last 24 hr 01/24/17 01/25/17 01/25/17 23:48 06:12 12:00 POC Glucose 136 H 133 H 107 H 01/25/17 16:01 POC Glucose 143 H
[2017-01-25] MEDS ORDERED: NACL 0.9% 500 ML 500 ML IV SCH (20:00)
[2017-01-25] MEDS: LEVEMIR SUB-Q SCH (22:03)
[2017-01-26] MEDS: DUONEB *Not for PRN Use IH SCH ×4 (02:05→20:29)
[2017-01-26] MEDS: ROBITUSSIN PO SCH ×6 (02:53→22:28)
[2017-01-26] MEDS: FLAGYL PO SCH ×3 (05:59→22:29)
[2017-01-26] MEDS: NACL 0.9% 1000 ML 1,000 ML IV SCH (06:03)
[2017-01-26 06:25] LABS: Basophils % (Auto) 0.4 % (0.0-1.8); Eosinophils % (Auto) 0.3 % (0.0-4.3); Hematocrit 28.5 % (35.5-45.6); Hemoglobin 8.8 gm/dl (11.8-15.2); Mean Corpuscular HGB Conc 31 % (32-34); Mean Corpuscular Hemoglobin 27 pg (28-32); Mean Corpuscular Volume 86 fl (84-94); Platelet Count 369 K/mm3 (140-440); Red Blood Count 3.31 M/mm3 (3.65-5.03); Red Cell Distribution Width 18.5 % (13.2-15.2); White Blood Count 14.4 K/mm3 (4.5-11.0)
[2017-01-26 06:49] LABS: Anion Gap 15 mmol/L; BUN/Creatinine Ratio 33; Blood Urea Nitrogen 13 mg/dL (9-20); Carbon Dioxide 28 mmol/L (22-30); Glucose 153 mg/dL (75-100); Sodium 144 mmol/L (137-145)
[2017-01-26 07:09] LABS: Potassium 2.6 mmol/L (3.6-5.0)
[2017-01-26] MEDS: NOVOLOG SUB-Q SCH ×3 (08:18→19:15)
[2017-01-26] MEDS: MUCOMYST INHALATION INHALATION SCH ×2 (08:50→20:29)
[2017-01-26] MEDS: KEPPRA PO SCH ×2 (09:28→22:29)
[2017-01-26] MEDS: FLORANEX PO SCH ×2 (09:28→22:29)
[2017-01-26] MEDS: Centrum Liq PO SCH (09:28)
[2017-01-26] MEDS: PROTONIX FEEDTUBE SCH (09:30)
[2017-01-26] MEDS ORDERED: MAGNESIUM SULFATE 2GM/50ML 2 GM/50 ML BAG IV ONE (10:00)
[2017-01-26] MEDS: KCL 10MEQ/100ML 10 MEQ/100 ML BAG IV SCH ×4 (10:32→18:23)
--- NOTE | 2017-01-26 12:04 | Progress Note ---
Assessment and Plan 56 y/o male with chronic respiratory failure secondary to left lung atelectasis , likely inability to clear secretions 1. bronch for tomorrow. May do today if I can perform at the bedside Subjective Date of service: 01/26/17 Principal diagnosis: Anemia, Diarrhea Interval history: obtained phone consent from sister for bronch with mucous plug removal. Objective Vital Signs - 12hr 01/26/17 01/26/17 01/26/17 00:19 02:00 02:08 Temperature 99.1 F Pulse Rate 114 H Pulse Rate [ 82 100 H Anterior Bilateral Throughout] Respiratory 20 Rate Respiratory 18 18 Rate [Anterior Bilateral Throughout] Blood Pressure 143/83 Blood Pressure [Left] O2 Sat by Pulse 94 Oximetry O2 Sat by Pulse Oximetry [ Assessment] 01/26/17 01/26/17 01/26/17 02:30 04:02 07:35 Temperature 98.0 F 98.0 F Pulse Rate 114 H 122 H Pulse Rate [ Anterior Bilateral Throughout] Respiratory 20 18 Rate Respiratory Rate [Anterior Bilateral Throughout] Blood Pressure 112/71 Blood Pressure 123/70 [Left] O2 Sat by Pulse 94 87 Oximetry O2 Sat by Pulse 98 Oximetry [ Assessment] 01/26/17 08:58 Temperature 97.7 F Pulse Rate 129 H Pulse Rate [ Anterior Bilateral Throughout] Respiratory 18 Rate Respiratory Rate [Anterior Bilateral Throughout] Blood Pressure Blood Pressure 112/71 [Left] O2 Sat by Pulse 88 Oximetry O2 Sat by Pulse Oximetry [ Assessment] Constitutional: no acute distress, other (eyes open, appears to be comatose and nonresponsive, NAD) Eyes: non-icteric ENT: oropharynx moist Neck: supple Effort: normal Ascultation: Right: clear, Left: diminished breath sounds (hemithorax), rhonchi Cardiovascular: regular rate and rhythm (no mrg) Gastrointestinal: normoactive bowel sounds, soft, non-tender, non-distended Integumentary: normal (did not examine sacrum) Extremities: no cyanosis, no edema, pink and warm Neurologic: CN II-XII normal, other (nonverbal, not responsive, no spontaneous movements) Psychiatric: other (unable to assess) CBC and BMP: 01/26/17 Unknown 01/26/17 Unknown ABG, PT/INR, D-dimer: ABG POC ABG pH 7.420 (7.35-7.45) 01/21/17 13:10 POC ABG pCO2 42.0 (35-45) 01/21/17 13:10 POC ABG pO2 65 (80-105) L 01/21/17 13:10 POC ABG HCO3 27.2 01/21/17 13:10 POC ABG Total CO2 28 01/21/17 13:10 POC ABG O2 Sat 93 01/21/17 13:10 PT/INR, D-dimer PT 16.0 Sec. (12.2-14.9) H 01/21/17 Unknown INR 1.22 (0.87-1.13) H 01/21/17 Unknown Abnormal lab findings: Abnormal Labs 01/21/17 01/21/17 01/21/17 07:22 13:06 13:10 WBC RBC Hgb Hct MCH MCHC RDW Lymph % (Auto) Lymph # Seg Neutrophils % Seg Neutrophils # PT INR POC ABG pO2 72 L 65 L Sodium Potassium Chloride Creatinine Glucose POC Glucose 206 H Hemoglobin A1c Lactic Acid Calcium Magnesium Iron TIBC AST Albumin Crossmatch 01/21/17 01/21/17 01/21/17 16:43 21:06 Unknown WBC RBC Hgb Hct MCH MCHC RDW Lymph % (Auto) Lymph # Seg Neutrophils % Seg Neutrophils # PT INR POC ABG pO2 Sodium Potassium Chloride 96.9 L Creatinine 0.5 L Glucose 281 H POC Glucose 146 H 180 H Hemoglobin A1c Lactic Acid Calcium Magnesium Iron TIBC AST Albumin Crossmatch 01/21/17 01/21/17 01/21/17 Unknown Unknown Unknown WBC 12.2 H RBC Hgb 11.0 L Hct MCH 26 L MCHC 30 L RDW 20.6 H Lymph % (Auto) 6.9 L Lymph # 0.8 L Seg Neutrophils % 86.2 H Seg Neutrophils # 10.5 H PT 16.0 H INR 1.22 H POC ABG pO2 Sodium Potassium Chloride Creatinine Glucose POC Glucose Hemoglobin A1c Lactic Acid Calcium Magnesium Iron TIBC AST 53 H Albumin 2.3 L Crossmatch 01/21/17 01/21/17 01/22/17 Unknown Unknown 05:00 WBC RBC Hgb Hct MCH MCHC RDW Lymph % (Auto) Lymph # Seg Neutrophils % Seg Neutrophils # PT INR POC ABG pO2 Sodium Potassium Chloride Creatinine 0.3 L Glucose 154 H POC Glucose Hemoglobin A1c 6.8 H Lactic Acid 3.80 H* Calcium 8.0 L Magnesium Iron TIBC AST Albumin Crossmatch 01/22/17 01/22/17 01/22/17 06:31 09:37 12:06 WBC 11.4 H RBC 2.39 L Hgb 6.3 L D Hct 21.1 L D MCH 27 L MCHC 30 L RDW 19.1 H Lymph % (Auto) 10.4 L Lymph # Seg Neutrophils % 88.3 H Seg Neutrophils # 10.1 H PT INR POC ABG pO2 Sodium Potassium Chloride Creatinine Glucose POC Glucose 186 H Hemoglobin A1c Lactic Acid Calcium Magnesium Iron TIBC AST Albumin Crossmatch See Detail 01/22/17 01/22/17 01/22/17 12:06 12:23 17:26 WBC RBC Hgb 6.5 L Hct 20.8 L MCH MCHC RDW Lymph % (Auto) Lymph # Seg Neutrophils % Seg Neutrophils # PT INR POC ABG pO2 Sodium Potassium Chloride Creatinine Glucose POC Glucose 212 H 140 H Hemoglobin A1c Lactic Acid Calcium Magnesium Iron TIBC AST Albumin Crossmatch 01/22/17 01/22/17 01/23/17 20:00 22:02 04:00 WBC 12.2 H RBC 3.24 L Hgb 7.2 L 8.9 L Hct 23.4 L 28.5 L MCH 27 L MCHC 31 L RDW 18.0 H Lymph % (Auto) Lymph # Seg Neutrophils % Seg Neutrophils # PT INR POC ABG pO2 Sodium Potassium Chloride Creatinine Glucose POC Glucose 138 H Hemoglobin A1c Lactic Acid Calcium Magnesium Iron TIBC AST Albumin Crossmatch 01/23/17 01/23/17 01/23/17 04:00 09:24 12:12 WBC RBC Hgb Hct MCH MCHC RDW Lymph % (Auto) Lymph # Seg Neutrophils % Seg Neutrophils # PT INR POC ABG pO2 Sodium 146 H D Potassium 3.1 L Chloride 109.5 H Creatinine 0.4 L Glucose POC Glucose 124 H Hemoglobin A1c Lactic Acid Calcium 8.3 L Magnesium Iron 35 L TIBC 133 L AST Albumin Crossmatch 01/23/17 01/24/17 01/24/17 23:49 05:49 09:22 WBC RBC 3.08 L Hgb 8.7 L Hct 26.9 L MCH MCHC RDW 18.2 H Lymph % (Auto) Lymph # Seg Neutrophils % 75.0 H Seg Neutrophils # 8.1 H PT INR POC ABG pO2 Sodium Potassium Chloride Creatinine Glucose POC Glucose 126 H 115 H Hemoglobin A1c Lactic Acid Calcium Magnesium Iron TIBC AST Albumin Crossmatch 01/24/17 01/24/17 01/24/17 09:22 11:27 16:31 WBC RBC Hgb Hct MCH MCHC RDW Lymph % (Auto) Lymph # Seg Neutrophils % Seg Neutrophils # PT INR POC ABG pO2 Sodium 148 H Potassium 3.4 L Chloride 110.4 H Creatinine 0.4 L Glucose 121 H POC Glucose 135 H 143 H Hemoglobin A1c Lactic Acid Calcium 8.2 L Magnesium Iron TIBC AST Albumin Crossmatch 01/24/17 01/25/17 01/25/17 23:48 06:12 12:00 WBC RBC Hgb Hct MCH MCHC RDW Lymph % (Auto) Lymph # Seg Neutrophils % Seg Neutrophils # PT INR POC ABG pO2 Sodium Potassium Chloride Creatinine Glucose POC Glucose 136 H 133 H 107 H Hemoglobin A1c Lactic Acid Calcium Magnesium Iron TIBC AST Albumin Crossmatch 01/25/17 01/25/17 01/26/17 16:01 22:05 Unknown WBC 14.4 H RBC 3.31 L Hgb 8.8 L Hct 28.5 L MCH 27 L MCHC 31 L RDW 18.5 H Lymph % (Auto) 12.6 L Lymph # Seg Neutrophils % 81.8 H Seg Neutrophils # 11.8 H PT INR POC ABG pO2 Sodium Potassium Chloride Creatinine Glucose POC Glucose 143 H 168 H Hemoglobin A1c Lactic Acid Calcium Magnesium Iron TIBC AST Albumin Crossmatch 01/26/17 Unknown WBC RBC Hgb Hct MCH MCHC RDW Lymph % (Auto) Lymph # Seg Neutrophils % Seg Neutrophils # PT INR POC ABG pO2 Sodium Potassium 2.6 L* D Chloride Creatinine 0.4 L Glucose 153 H POC Glucose Hemoglobin A1c Lactic Acid Calcium 8.0 L Magnesium 1.40 L Iron TIBC AST Albumin Crossmatch
--- NOTE | 2017-01-26 22:26 | Progress Note ---
Assessment and Plan Assessment and plan: 56 yo AAM with COPD, DM, HPL, CVA, nonverbal, bedbound, s/p trach and PEG, SZ, admitted from custodial for respiratory distress, fever Acute on chronic respiratory failure with hypoxia Currently on Trach collar Inhaled bronchodilators, Mucomyst, supplemental oxygen Due to atelectasis and inability to clear secretions Atelectasis Aggressive pulmonary toilet Pulmonary plans bronchoscopy Sepsis Completed antibiotic course and IV fluids, then started to have loose stools; C. difficile obtained and started empirically on Flagyl Anemia Transfused 2 units PRBCs Chronic, with no obvious bleeding Evaluated by GI; no procedure planned Started on Protonix and vitamins Monitor H&H Hypokalemia Replete, monitor Diabetes mellitus Accu-Cheks and SSI CVA Nonverbal, bedbound On antiplatelet and statin Seizure disorder On Keppra Severe malnutrition Acoustics Teacher consulted for tube feeding adjustments Decubitus Ulcers Wound care consulted DVT/PUD prophylaxis History Interval history: tolerating tube feeds, no clinical change; having thick, yellow secretions Hospitalist Physical - Constitutional Vitals: Temp Pulse Resp BP Pulse Ox 97.6 F 115 H 20 111/69 94 01/26/17 21:52 01/26/17 21:52 01/26/17 21:52 01/26/17 21:52 01/26/17 21:52 General appearance: Present: mild distress - EENT Eyes: Present: PERRL, EOM intact ENT: other (trach) - Neck Neck: Present: supple. Absent: masses or JVD, carotid bruits - Respiratory Respiratory effort: other (trach collar) Respiratory: bilateral: diminished, rhonchi, negative: wheezing - Cardiovascular Rhythm: regular Heart Sounds: Present: S1 & S2. Absent: systolic murmur - Extremities Extremities: no ischemia - Abdominal General gastrointestinal: soft, non-tender, non-distended, normal bowel sounds, other (PEG) - Neurologic Neurologic: other Results - Labs CBC & Chem 7: 01/28/17 05:30 01/29/17 05:45 Labs: Laboratory Last Values WBC 14.4 K/mm3 (4.5-11.0) H 01/26/17 Unknown RBC 3.31 M/mm3 (3.65-5.03) L 01/26/17 Unknown Hgb 8.8 gm/dl (11.8-15.2) L 01/26/17 Unknown Hct 28.5 % (35.5-45.6) L 01/26/17 Unknown MCV 86 fl (84-94) 01/26/17 Unknown MCH 27 pg (28-32) L 01/26/17 Unknown MCHC 31 % (32-34) L 01/26/17 Unknown RDW 18.5 % (13.2-15.2) H 01/26/17 Unknown Plt Count 369 K/mm3 (140-440) 01/26/17 Unknown Lymph % (Auto) 12.6 % (13.4-35.0) L 01/26/17 Unknown [place] % (Auto) 4.9 % (0.0-7.3) 01/26/17 Unknown Eos % (Auto) 0.3 % (0.0-4.3) 01/26/17 Unknown Baso % (Auto) 0.4 % (0.0-1.8) 01/26/17 Unknown Lymph # 1.8 K/mm3 (1.2-5.4) 01/26/17 Unknown [place] # 0.7 K/mm3 (0.0-0.8) 01/26/17 Unknown Eos # 0.0 K/mm3 (0.0-0.4) 01/26/17 Unknown Baso # 0.1 K/mm3 (0.0-0.1) 01/26/17 Unknown Add Manual Diff TNR 01/22/17 05:00 Seg Neutrophils % 81.8 % (40.0-70.0) H 01/26/17 Unknown Seg Neutrophils # 11.8 K/mm3 (1.8-7.7) H 01/26/17 Unknown PT 16.0 Sec. (12.2-14.9) H 01/21/17 Unknown INR 1.22 (0.87-1.13) H 01/21/17 Unknown APTT 32.1 Sec. (24.2-36.6) 01/21/17 Unknown POC ABG pH 7.420 (7.35-7.45) 01/21/17 13:10 POC ABG pCO2 42.0 (35-45) 01/21/17 13:10 POC ABG pO2 65 (80-105) L 01/21/17 13:10 POC ABG HCO3 27.2 01/21/17 13:10 POC ABG Total CO2 28 01/21/17 13:10 POC ABG O2 Sat 93 01/21/17 13:10 POC ABG Base Excess 3 01/21/17 13:10 VBG pH 7.386 (7.320-7.420) 01/21/17 Unknown FiO2 60 % 01/21/17 13:10 Sodium 144 mmol/L (137-145) 01/26/17 Unknown Potassium 2.6 mmol/L (3.6-5.0) L* D 01/26/17 Unknown Chloride 104.0 mmol/L (98-107) 01/26/17 Unknown Carbon Dioxide 28 mmol/L (22-30) 01/26/17 Unknown Anion Gap 15 mmol/L 01/26/17 Unknown BUN 13 mg/dL (9-20) 01/26/17 Unknown Creatinine 0.4 mg/dL (0.8-1.5) L 01/26/17 Unknown Estimated GFR > 60 ml/min 01/26/17 Unknown BUN/Creatinine Ratio 33 % 01/26/17 Unknown Glucose 153 mg/dL (75-100) H 01/26/17 Unknown POC Glucose 133 (70-105) H 01/26/17 16:59 Hemoglobin A1c 6.8 % (4-6) H 01/21/17 Unknown Lactic Acid 0.80 mmol/L (0.7-2.0) 01/22/17 09:37 Calcium 8.0 mg/dL (8.4-10.2) L 01/26/17 Unknown Magnesium 1.40 mg/dL (1.7-2.3) L 01/26/17 Unknown Iron 35 ug/dL (49-181) L 01/23/17 09:24 TIBC 133 mcg/dL (250-450) L 01/23/17 09:24 Total Bilirubin 0.20 mg/dL (0.1-1.2) 01/21/17 Unknown Direct Bilirubin < 0.2 mg/dL (0-0.2) 01/21/17 Unknown AST 53 units/L (5-40) H 01/21/17 Unknown ALT 47 units/L (7-56) 01/21/17 Unknown Alkaline Phosphatase 117 units/L (35-129) 01/21/17 Unknown Troponin T 0.016 ng/mL (0.00-0.029) 01/21/17 Unknown Total Protein 7.2 g/dL (6.3-8.2) 01/21/17 Unknown Albumin 2.3 g/dL (3.9-5) L 01/21/17 Unknown Albumin/Globulin Ratio 0.5 % 01/21/17 Unknown Urine Color Yellow (Yellow) 01/21/17 08:15 Urine Turbidity Clear (Clear) 01/21/17 08:15 Urine pH 6.0 (5.0-7.0) 01/21/17 08:15 Ur Specific [place] 1.016 (1.003-1.030) 01/21/17 08:15 Urine Protein 30 mg/dl mg/dL (Negative) 01/21/17 08:15 Urine Glucose (UA) 50 mg/dL (Negative) 01/21/17 08:15 Urine Ketones Neg mg/dL (Negative) 01/21/17 08:15 Urine Blood Neg (Negative) 01/21/17 08:15 Urine Nitrite Neg (Negative) 01/21/17 08:15 Urine Bilirubin Neg (Negative) 01/21/17 08:15 Urine Urobilinogen < 2.0 mg/dL (<2.0) 01/21/17 08:15 Ur Leukocyte Esterase Sm (Negative) 01/21/17 08:15 Urine WBC (Auto) 6.0 /HPF (0.0-6.0) 01/21/17 08:15 Urine RBC (Auto) 5.0 /HPF (0.0-6.0) 01/21/17 08:15 U Epithel Cells (Auto) < 1.0 /HPF (0-13.0) 01/21/17 08:15 Urine Bacteria (Auto) 1+ /HPF (Negative) 01/21/17 08:15 Blood Type O POSITIVE 01/22/17 12:06 Antibody Screen Negative 01/22/17 12:06 Crossmatch See Detail 01/22/17 12:06
--- NOTE | 2017-01-26 22:26 | Progress Note ---
Assessment and Plan Assessment and plan: 56 yo AAM with COPD, DM, HPL, CVA, nonverbal, bedbound, s/p trach and PEG, SZ, admitted from snf for respiratory distress, fever Acute on chronic respiratory failure with hypoxia Currently on Trach collar Inhaled bronchodilators, Mucomyst, supplemental oxygen Due to atelectasis and inability to clear secretions Atelectasis Aggressive pulmonary toilet Pulmonary plans bronchoscopy Sepsis Completed antibiotic course and IV fluids, then started to have loose stools; C. difficile obtained and started empirically on Flagyl Anemia Transfused 2 units PRBCs Chronic, with no obvious bleeding Evaluated by GI; no procedure planned Started on Protonix and vitamins Monitor H&H Hypokalemia Replete, monitor Diabetes mellitus Accu-Cheks and SSI CVA On antiplatelet and statin Seizure disorder On Keppra Severe malnutrition Trust Mail Clerk consulted for tube feeding adjustments Decubitus Ulcers Wound care consulted DVT/PUD prophylaxis History Interval history: tolerating tube feeds, no clinical change Hospitalist Physical - Constitutional Vitals: Temp Pulse Resp BP Pulse Ox 97.6 F 115 H 20 111/69 94 01/26/17 21:52 01/26/17 21:52 01/26/17 21:52 01/26/17 21:52 01/26/17 21:52 General appearance: Present: mild distress - EENT Eyes: Present: PERRL, EOM intact - Neck Neck: Present: supple, other (trach). Absent: masses or JVD - Respiratory Respiratory: bilateral: diminished, rhonchi, negative: wheezing - Cardiovascular Rhythm: other (tachycardic) Heart Sounds: Present: S1 & S2. Absent: systolic murmur - Extremities Extremities: no ischemia - Abdominal General gastrointestinal: soft, non-tender, non-distended, normal bowel sounds Results - Labs CBC & Chem 7: 01/28/17 05:30 01/29/17 05:45 Labs: Laboratory Last Values WBC 14.4 K/mm3 (4.5-11.0) H 01/26/17 Unknown RBC 3.31 M/mm3 (3.65-5.03) L 01/26/17 Unknown Hgb 8.8 gm/dl (11.8-15.2) L 01/26/17 Unknown Hct 28.5 % (35.5-45.6) L 01/26/17 Unknown MCV 86 fl (84-94) 01/26/17 Unknown MCH 27 pg (28-32) L 01/26/17 Unknown MCHC 31 % (32-34) L 01/26/17 Unknown RDW 18.5 % (13.2-15.2) H 01/26/17 Unknown Plt Count 369 K/mm3 (140-440) 01/26/17 Unknown Lymph % (Auto) 12.6 % (13.4-35.0) L 01/26/17 Unknown [place] % (Auto) 4.9 % (0.0-7.3) 01/26/17 Unknown Eos % (Auto) 0.3 % (0.0-4.3) 01/26/17 Unknown Baso % (Auto) 0.4 % (0.0-1.8) 01/26/17 Unknown Lymph # 1.8 K/mm3 (1.2-5.4) 01/26/17 Unknown [place] # 0.7 K/mm3 (0.0-0.8) 01/26/17 Unknown Eos # 0.0 K/mm3 (0.0-0.4) 01/26/17 Unknown Baso # 0.1 K/mm3 (0.0-0.1) 01/26/17 Unknown Add Manual Diff TNR 01/22/17 05:00 Seg Neutrophils % 81.8 % (40.0-70.0) H 01/26/17 Unknown Seg Neutrophils # 11.8 K/mm3 (1.8-7.7) H 01/26/17 Unknown PT 16.0 Sec. (12.2-14.9) H 01/21/17 Unknown INR 1.22 (0.87-1.13) H 01/21/17 Unknown APTT 32.1 Sec. (24.2-36.6) 01/21/17 Unknown POC ABG pH 7.420 (7.35-7.45) 01/21/17 13:10 POC ABG pCO2 42.0 (35-45) 01/21/17 13:10 POC ABG pO2 65 (80-105) L 01/21/17 13:10 POC ABG HCO3 27.2 01/21/17 13:10 POC ABG Total CO2 28 01/21/17 13:10 POC ABG O2 Sat 93 01/21/17 13:10 POC ABG Base Excess 3 01/21/17 13:10 VBG pH 7.386 (7.320-7.420) 01/21/17 Unknown FiO2 60 % 01/21/17 13:10 Sodium 144 mmol/L (137-145) 01/26/17 Unknown Potassium 2.6 mmol/L (3.6-5.0) L* D 01/26/17 Unknown Chloride 104.0 mmol/L (98-107) 01/26/17 Unknown Carbon Dioxide 28 mmol/L (22-30) 01/26/17 Unknown Anion Gap 15 mmol/L 01/26/17 Unknown BUN 13 mg/dL (9-20) 01/26/17 Unknown Creatinine 0.4 mg/dL (0.8-1.5) L 01/26/17 Unknown Estimated GFR > 60 ml/min 01/26/17 Unknown BUN/Creatinine Ratio 33 % 01/26/17 Unknown Glucose 153 mg/dL (75-100) H 01/26/17 Unknown POC Glucose 133 (70-105) H 01/26/17 16:59 Hemoglobin A1c 6.8 % (4-6) H 01/21/17 Unknown Lactic Acid 0.80 mmol/L (0.7-2.0) 01/22/17 09:37 Calcium 8.0 mg/dL (8.4-10.2) L 01/26/17 Unknown Magnesium 1.40 mg/dL (1.7-2.3) L 01/26/17 Unknown Iron 35 ug/dL (49-181) L 01/23/17 09:24 TIBC 133 mcg/dL (250-450) L 01/23/17 09:24 Total Bilirubin 0.20 mg/dL (0.1-1.2) 01/21/17 Unknown Direct Bilirubin < 0.2 mg/dL (0-0.2) 01/21/17 Unknown AST 53 units/L (5-40) H 01/21/17 Unknown ALT 47 units/L (7-56) 01/21/17 Unknown Alkaline Phosphatase 117 units/L (35-129) 01/21/17 Unknown Troponin T 0.016 ng/mL (0.00-0.029) 01/21/17 Unknown Total Protein 7.2 g/dL (6.3-8.2) 01/21/17 Unknown Albumin 2.3 g/dL (3.9-5) L 01/21/17 Unknown Albumin/Globulin Ratio 0.5 % 01/21/17 Unknown Urine Color Yellow (Yellow) 01/21/17 08:15 Urine Turbidity Clear (Clear) 01/21/17 08:15 Urine pH 6.0 (5.0-7.0) 01/21/17 08:15 Ur Specific [place] 1.016 (1.003-1.030) 01/21/17 08:15 Urine Protein 30 mg/dl mg/dL (Negative) 01/21/17 08:15 Urine Glucose (UA) 50 mg/dL (Negative) 01/21/17 08:15 Urine Ketones Neg mg/dL (Negative) 01/21/17 08:15 Urine Blood Neg (Negative) 01/21/17 08:15 Urine Nitrite Neg (Negative) 01/21/17 08:15 Urine Bilirubin Neg (Negative) 01/21/17 08:15 Urine Urobilinogen < 2.0 mg/dL (<2.0) 01/21/17 08:15 Ur Leukocyte Esterase Sm (Negative) 01/21/17 08:15 Urine WBC (Auto) 6.0 /HPF (0.0-6.0) 01/21/17 08:15 Urine RBC (Auto) 5.0 /HPF (0.0-6.0) 01/21/17 08:15 U Epithel Cells (Auto) < 1.0 /HPF (0-13.0) 01/21/17 08:15 Urine Bacteria (Auto) 1+ /HPF (Negative) 01/21/17 08:15 Blood Type O POSITIVE 01/22/17 12:06 Antibody Screen Negative 01/22/17 12:06 Crossmatch See Detail 01/22/17 12:06
[2017-01-26] MEDS: LEVEMIR SUB-Q SCH (22:51)
[2017-01-27] MEDS: NOVOLOG SUB-Q SCH ×4 (00:04→18:54)
[2017-01-27] MEDS: DUONEB *Not for PRN Use IH SCH ×4 (02:23→20:13)
[2017-01-27] MEDS: ROBITUSSIN PO SCH ×6 (02:27→23:37)
[2017-01-27] MEDS: FLAGYL PO SCH ×3 (06:12→22:32)
[2017-01-27] MEDS: NACL 0.9% 1000 ML 1,000 ML IV SCH (06:13)
[2017-01-27 08:40] LABS: Basophils % (Auto) 0.2 % (0.0-1.8); Eosinophils % (Auto) 1.4 % (0.0-4.3); Hematocrit 27.3 % (35.5-45.6); Hemoglobin 8.7 gm/dl (11.8-15.2); Mean Corpuscular HGB Conc 32 % (32-34); Mean Corpuscular Hemoglobin 28 pg (28-32); Mean Corpuscular Volume 87 fl (84-94); Platelet Count 342 K/mm3 (140-440); Red Blood Count 3.12 M/mm3 (3.65-5.03); Red Cell Distribution Width 18.5 % (13.2-15.2)
[2017-01-27 08:53] LABS: Anion Gap 13 mmol/L; BUN/Creatinine Ratio 33; Blood Urea Nitrogen 13 mg/dL (9-20); Calcium 7.6 mg/dL (8.4-10.2); Carbon Dioxide 29 mmol/L (22-30); Glucose 106 mg/dL (75-100); Sodium 143 mmol/L (137-145)
[2017-01-27] MEDS: PROTONIX FEEDTUBE SCH (09:17)
[2017-01-27] MEDS: KEPPRA PO SCH ×2 (09:17→22:31)
[2017-01-27] MEDS: FLORANEX PO SCH ×2 (09:17→22:31)
[2017-01-27] MEDS: Centrum Liq PO SCH (09:18)
[2017-01-27] MEDS: MUCOMYST INHALATION INHALATION SCH ×2 (09:25→20:13)
[2017-01-27] MEDS: KCL 10MEQ/100ML 10 MEQ/100 ML BAG IV SCH ×4 (11:21→16:40)
--- NOTE | 2017-01-27 12:33 | Progress Note ---
Assessment and Plan 56 y/o male with chronic respiratory failure secondary to left lung atelectasis , likely inability to clear secretions 1. patient will not require much if any sedation. Does not need MAC. Tube feeding will not be an issue 2. Plan for bronch this afternoon Subjective Date of service: 01/27/17 Principal diagnosis: Anemia, Diarrhea Interval history: No acute events. Called by Endo about eating and low K Objective Vital Signs - 12hr 01/27/17 01/27/17 01/27/17 02:00 02:17 02:27 Temperature 99.2 F Pulse Rate 114 H Pulse Rate [ 111 H 101 H Anterior Bilateral Throughout] Respiratory 20 Rate Respiratory 20 22 Rate [Anterior Bilateral Throughout] Blood Pressure 109/64 O2 Sat by Pulse 92 Oximetry 01/27/17 01/27/17 04:53 07:47 Temperature 99.0 F 98.3 F Pulse Rate 109 H 100 H Pulse Rate [ Anterior Bilateral Throughout] Respiratory 20 18 Rate Respiratory Rate [Anterior Bilateral Throughout] Blood Pressure 121/71 136/80 O2 Sat by Pulse 98 97 Oximetry Constitutional: no acute distress, other (eyes open, appears to be comatose and nonresponsive, NAD) Eyes: non-icteric ENT: oropharynx moist Neck: supple Effort: normal Ascultation: Right: clear, Left: diminished breath sounds (hemithorax), rhonchi Cardiovascular: regular rate and rhythm (no mrg) Gastrointestinal: normoactive bowel sounds, soft, non-tender, non-distended Integumentary: normal (did not examine sacrum) Extremities: no cyanosis, no edema, pink and warm Neurologic: CN II-XII normal, other (nonverbal, not responsive, no spontaneous movements) Psychiatric: other (unable to assess) CBC and BMP: 01/27/17 08:00 01/27/17 08:00 ABG, PT/INR, D-dimer: ABG POC ABG pH 7.420 (7.35-7.45) 01/21/17 13:10 POC ABG pCO2 42.0 (35-45) 01/21/17 13:10 POC ABG pO2 65 (80-105) L 01/21/17 13:10 POC ABG HCO3 27.2 01/21/17 13:10 POC ABG Total CO2 28 01/21/17 13:10 POC ABG O2 Sat 93 01/21/17 13:10 PT/INR, D-dimer PT 16.0 Sec. (12.2-14.9) H 01/21/17 Unknown INR 1.22 (0.87-1.13) H 01/21/17 Unknown Abnormal lab findings: Abnormal Labs 01/21/17 01/21/17 01/21/17 07:22 13:06 13:10 WBC RBC Hgb Hct MCH MCHC RDW Lymph % (Auto) Lymph # Seg Neutrophils % Seg Neutrophils # PT INR POC ABG pO2 72 L 65 L Sodium Potassium Chloride Creatinine Glucose POC Glucose 206 H Hemoglobin A1c Lactic Acid Calcium Magnesium Iron TIBC AST Albumin Crossmatch 01/21/17 01/21/17 01/21/17 16:43 21:06 Unknown WBC RBC Hgb Hct MCH MCHC RDW Lymph % (Auto) Lymph # Seg Neutrophils % Seg Neutrophils # PT INR POC ABG pO2 Sodium Potassium Chloride 96.9 L Creatinine 0.5 L Glucose 281 H POC Glucose 146 H 180 H Hemoglobin A1c Lactic Acid Calcium Magnesium Iron TIBC AST Albumin Crossmatch 01/21/17 01/21/17 01/21/17 Unknown Unknown Unknown WBC 12.2 H RBC Hgb 11.0 L Hct MCH 26 L MCHC 30 L RDW 20.6 H Lymph % (Auto) 6.9 L Lymph # 0.8 L Seg Neutrophils % 86.2 H Seg Neutrophils # 10.5 H PT 16.0 H INR 1.22 H POC ABG pO2 Sodium Potassium Chloride Creatinine Glucose POC Glucose Hemoglobin A1c Lactic Acid Calcium Magnesium Iron TIBC AST 53 H Albumin 2.3 L Crossmatch 01/21/17 01/21/17 01/22/17 Unknown Unknown 05:00 WBC RBC Hgb Hct MCH MCHC RDW Lymph % (Auto) Lymph # Seg Neutrophils % Seg Neutrophils # PT INR POC ABG pO2 Sodium Potassium Chloride Creatinine 0.3 L Glucose 154 H POC Glucose Hemoglobin A1c 6.8 H Lactic Acid 3.80 H* Calcium 8.0 L Magnesium Iron TIBC AST Albumin Crossmatch 01/22/17 01/22/17 01/22/17 06:31 09:37 12:06 WBC 11.4 H RBC 2.39 L Hgb 6.3 L D Hct 21.1 L D MCH 27 L MCHC 30 L RDW 19.1 H Lymph % (Auto) 10.4 L Lymph # Seg Neutrophils % 88.3 H Seg Neutrophils # 10.1 H PT INR POC ABG pO2 Sodium Potassium Chloride Creatinine Glucose POC Glucose 186 H Hemoglobin A1c Lactic Acid Calcium Magnesium Iron TIBC AST Albumin Crossmatch See Detail 01/22/17 01/22/17 01/22/17 12:06 12:23 17:26 WBC RBC Hgb 6.5 L Hct 20.8 L MCH MCHC RDW Lymph % (Auto) Lymph # Seg Neutrophils % Seg Neutrophils # PT INR POC ABG pO2 Sodium Potassium Chloride Creatinine Glucose POC Glucose 212 H 140 H Hemoglobin A1c Lactic Acid Calcium Magnesium Iron TIBC AST Albumin Crossmatch 01/22/17 01/22/17 01/23/17 20:00 22:02 04:00 WBC 12.2 H RBC 3.24 L Hgb 7.2 L 8.9 L Hct 23.4 L 28.5 L MCH 27 L MCHC 31 L RDW 18.0 H Lymph % (Auto) Lymph # Seg Neutrophils % Seg Neutrophils # PT INR POC ABG pO2 Sodium Potassium Chloride Creatinine Glucose POC Glucose 138 H Hemoglobin A1c Lactic Acid Calcium Magnesium Iron TIBC AST Albumin Crossmatch 01/23/17 01/23/17 01/23/17 04:00 09:24 12:12 WBC RBC Hgb Hct MCH MCHC RDW Lymph % (Auto) Lymph # Seg Neutrophils % Seg Neutrophils # PT INR POC ABG pO2 Sodium 146 H D Potassium 3.1 L Chloride 109.5 H Creatinine 0.4 L Glucose POC Glucose 124 H Hemoglobin A1c Lactic Acid Calcium 8.3 L Magnesium Iron 35 L TIBC 133 L AST Albumin Crossmatch 01/23/17 01/24/17 01/24/17 23:49 05:49 09:22 WBC RBC 3.08 L Hgb 8.7 L Hct 26.9 L MCH MCHC RDW 18.2 H Lymph % (Auto) Lymph # Seg Neutrophils % 75.0 H Seg Neutrophils # 8.1 H PT INR POC ABG pO2 Sodium Potassium Chloride Creatinine Glucose POC Glucose 126 H 115 H Hemoglobin A1c Lactic Acid Calcium Magnesium Iron TIBC AST Albumin Crossmatch 01/24/17 01/24/17 01/24/17 09:22 11:27 16:31 WBC RBC Hgb Hct MCH MCHC RDW Lymph % (Auto) Lymph # Seg Neutrophils % Seg Neutrophils # PT INR POC ABG pO2 Sodium 148 H Potassium 3.4 L Chloride 110.4 H Creatinine 0.4 L Glucose 121 H POC Glucose 135 H 143 H Hemoglobin A1c Lactic Acid Calcium 8.2 L Magnesium Iron TIBC AST Albumin Crossmatch 01/24/17 01/25/17 01/25/17 23:48 06:12 12:00 WBC RBC Hgb Hct MCH MCHC RDW Lymph % (Auto) Lymph # Seg Neutrophils % Seg Neutrophils # PT INR POC ABG pO2 Sodium Potassium Chloride Creatinine Glucose POC Glucose 136 H 133 H 107 H Hemoglobin A1c Lactic Acid Calcium Magnesium Iron TIBC AST Albumin Crossmatch 01/25/17 01/25/17 01/26/17 16:01 22:05 12:16 WBC RBC Hgb Hct MCH MCHC RDW Lymph % (Auto) Lymph # Seg Neutrophils % Seg Neutrophils # PT INR POC ABG pO2 Sodium Potassium Chloride Creatinine Glucose POC Glucose 143 H 168 H 180 H Hemoglobin A1c Lactic Acid Calcium Magnesium Iron TIBC AST Albumin Crossmatch 01/26/17 01/26/17 01/26/17 16:59 22:47 Unknown WBC 14.4 H RBC 3.31 L Hgb 8.8 L Hct 28.5 L MCH 27 L MCHC 31 L RDW 18.5 H Lymph % (Auto) 12.6 L Lymph # Seg Neutrophils % 81.8 H Seg Neutrophils # 11.8 H PT INR POC ABG pO2 Sodium Potassium Chloride Creatinine Glucose POC Glucose 133 H 138 H Hemoglobin A1c Lactic Acid Calcium Magnesium Iron TIBC AST Albumin Crossmatch 01/26/17 01/27/17 01/27/17 Unknown 05:21 08:00 WBC 12.0 H RBC 3.12 L Hgb 8.7 L Hct 27.3 L MCH MCHC RDW 18.5 H Lymph % (Auto) Lymph # Seg Neutrophils % 74.5 H Seg Neutrophils # 8.9 H PT INR POC ABG pO2 Sodium Potassium 2.6 L* D Chloride Creatinine 0.4 L Glucose 153 H POC Glucose 157 H Hemoglobin A1c Lactic Acid Calcium 8.0 L Magnesium 1.40 L Iron TIBC AST Albumin Crossmatch 01/27/17 01/27/17 08:00 11:45 WBC RBC Hgb Hct MCH MCHC RDW Lymph % (Auto) Lymph # Seg Neutrophils % Seg Neutrophils # PT INR POC ABG pO2 Sodium Potassium 3.0 L Chloride Creatinine 0.4 L Glucose 106 H POC Glucose 106 H Hemoglobin A1c Lactic Acid Calcium 7.6 L Magnesium Iron TIBC AST Albumin Crossmatch
[2017-01-27] MEDS ORDERED: WATER FOR IRRIG STERILE IR ONE (12:52)
[2017-01-27] MEDS ORDERED: NACL 0.9% 1000 ML 2,000 ML ONE (12:53)
[2017-01-27] MEDS ORDERED: SUBLIMAZE ONE (12:53)
[2017-01-27] MEDS ORDERED: VERSED ONE (12:54)
--- NOTE | 2017-01-27 14:23 | Procedure Note ---
Date of procedure: 01/27/17 Pre-op diagnosis: Mucous Plugging Post-op diagnosis: same Procedure: Flexible bronchoscopy with removal of mucous plugs. Informed consent obtained from the sister over the phone with 2 witnesses. Pt brought to Endo and prepped. Fent 25 used and scope passed through #8 trach. Thick yellow secretions seen within the airway and in the left mainstem. Using multiple rounds of saline lavage, left side was completely cleared out. Airways were visualized and all patent. No evidence of endobronchial lesion. Patient coughed a large amount of mucous through the trach during procedure as well. Tolerated procedure with no immediate post-op complications. Anesthesia: MAC Surgeon: WILLIS BAR Estimated blood loss: none Pathology: none Specimen disposition: other (none) Condition: stable Disposition: floor
--- NOTE | 2017-01-27 14:48 | XRay Report ---
AP CHEST: HISTORY: Recent bronchoscopy with removal of mucous plugs There is decreased atelectasis in the left upper lobe. Partial atelectasis in the left lower lobe remains. The right lung is clear. Heart size is stable. Lines and tubes are unchanged. IMPRESSION: Mild improvement in the left upper lobe atelectasis. Persistent left lower lobe atelectasis.
--- NOTE | 2017-01-27 19:02 | Progress Note ---
Assessment and Plan Assessment and plan: 56 yo AAM with COPD, DM, HPL, CVA, nonverbal, bedbound, s/p trach and PEG, SZ, admitted from [facility] for respiratory distress, fever Acute on chronic respiratory failure with hypoxia Currently on Trach collar Inhaled bronchodilators, Mucomyst, supplemental oxygen Due to atelectasis and inability to clear secretions Atelectasis Status post bronchoscopy with lavage today Sepsis Completed antibiotic course and IV fluids, then started to have loose stools; C. difficile obtained (results still pending) and started empirically on Flagyl Anemia Transfused 2 units PRBCs Chronic, with no obvious bleeding Evaluated by GI; no procedure planned Started on Protonix and vitamins Monitor H&H Hypokalemia Repleted; continue to monitor Diabetes mellitus Accu-Cheks and SSI CVA Nonverbal, bedbound On antiplatelet and statin Seizure disorder On Keppra Severe malnutrition Flue Cleaner consulted for tube feeding adjustments Decubitus Ulcers Wound care consulted DVT/PUD prophylaxis History Interval history: Status post bronchoscopy today Hospitalist Physical - Constitutional Vitals: Temp Pulse Resp BP Pulse Ox 97.6 F 98 H 22 119/68 98 01/27/17 14:16 01/27/17 14:46 01/27/17 13:30 01/27/17 14:46 01/27/17 15:45 General appearance: Present: no acute distress - EENT Eyes: Present: PERRL - Neck Neck: Present: supple, other (trach). Absent: masses or JVD - Respiratory Respiratory effort: normal Respiratory: bilateral: diminished, rhonchi, negative: wheezing - Cardiovascular Rhythm: regular Heart Sounds: Present: S1 & S2. Absent: systolic murmur - Extremities Extremities: no ischemia - Abdominal General gastrointestinal: soft, non-tender, non-distended, normal bowel sounds Results - Labs CBC & Chem 7: 01/28/17 05:30 01/29/17 05:45 Labs: Laboratory Last Values WBC 12.0 K/mm3 (4.5-11.0) H 01/27/17 08:00 RBC 3.12 M/mm3 (3.65-5.03) L 01/27/17 08:00 Hgb 8.7 gm/dl (11.8-15.2) L 01/27/17 08:00 Hct 27.3 % (35.5-45.6) L 01/27/17 08:00 MCV 87 fl (84-94) 01/27/17 08:00 MCH 28 pg (28-32) 01/27/17 08:00 MCHC 32 % (32-34) 01/27/17 08:00 RDW 18.5 % (13.2-15.2) H 01/27/17 08:00 Plt Count 342 K/mm3 (140-440) 01/27/17 08:00 Lymph % (Auto) 17.5 % (13.4-35.0) 01/27/17 08:00 [place] % (Auto) 6.4 % (0.0-7.3) 01/27/17 08:00 Eos % (Auto) 1.4 % (0.0-4.3) 01/27/17 08:00 Baso % (Auto) 0.2 % (0.0-1.8) 01/27/17 08:00 Lymph # 2.1 K/mm3 (1.2-5.4) 01/27/17 08:00 [place] # 0.8 K/mm3 (0.0-0.8) 01/27/17 08:00 Eos # 0.2 K/mm3 (0.0-0.4) 01/27/17 08:00 Baso # 0.0 K/mm3 (0.0-0.1) 01/27/17 08:00 Add Manual Diff TNR 01/22/17 05:00 Seg Neutrophils % 74.5 % (40.0-70.0) H 01/27/17 08:00 Seg Neutrophils # 8.9 K/mm3 (1.8-7.7) H 01/27/17 08:00 PT 16.0 Sec. (12.2-14.9) H 01/21/17 Unknown INR 1.22 (0.87-1.13) H 01/21/17 Unknown APTT 32.1 Sec. (24.2-36.6) 01/21/17 Unknown POC ABG pH 7.420 (7.35-7.45) 01/21/17 13:10 POC ABG pCO2 42.0 (35-45) 01/21/17 13:10 POC ABG pO2 65 (80-105) L 01/21/17 13:10 POC ABG HCO3 27.2 01/21/17 13:10 POC ABG Total CO2 28 01/21/17 13:10 POC ABG O2 Sat 93 01/21/17 13:10 POC ABG Base Excess 3 01/21/17 13:10 VBG pH 7.386 (7.320-7.420) 01/21/17 Unknown FiO2 60 % 01/21/17 13:10 Sodium 143 mmol/L (137-145) 01/27/17 08:00 Potassium 3.0 mmol/L (3.6-5.0) L 01/27/17 08:00 Chloride 104.0 mmol/L (98-107) 01/27/17 08:00 Carbon Dioxide 29 mmol/L (22-30) 01/27/17 08:00 Anion Gap 13 mmol/L 01/27/17 08:00 BUN 13 mg/dL (9-20) 01/27/17 08:00 Creatinine 0.4 mg/dL (0.8-1.5) L 01/27/17 08:00 Estimated GFR > 60 ml/min 01/27/17 08:00 BUN/Creatinine Ratio 33 % 01/27/17 08:00 Glucose 106 mg/dL (75-100) H 01/27/17 08:00 POC Glucose 82 (70-105) 01/27/17 16:19 Hemoglobin A1c 6.8 % (4-6) H 01/21/17 Unknown Lactic Acid 0.80 mmol/L (0.7-2.0) 01/22/17 09:37 Calcium 7.6 mg/dL (8.4-10.2) L 01/27/17 08:00 Magnesium 1.80 mg/dL (1.7-2.3) 01/27/17 08:00 Iron 35 ug/dL (49-181) L 01/23/17 09:24 TIBC 133 mcg/dL (250-450) L 01/23/17 09:24 Total Bilirubin 0.20 mg/dL (0.1-1.2) 01/21/17 Unknown Direct Bilirubin < 0.2 mg/dL (0-0.2) 01/21/17 Unknown AST 53 units/L (5-40) H 01/21/17 Unknown ALT 47 units/L (7-56) 01/21/17 Unknown Alkaline Phosphatase 117 units/L (35-129) 01/21/17 Unknown Troponin T 0.016 ng/mL (0.00-0.029) 01/21/17 Unknown Total Protein 7.2 g/dL (6.3-8.2) 01/21/17 Unknown Albumin 2.3 g/dL (3.9-5) L 01/21/17 Unknown Albumin/Globulin Ratio 0.5 % 01/21/17 Unknown Urine Color Yellow (Yellow) 01/21/17 08:15 Urine Turbidity Clear (Clear) 01/21/17 08:15 Urine pH 6.0 (5.0-7.0) 01/21/17 08:15 Ur Specific [place] 1.016 (1.003-1.030) 01/21/17 08:15 Urine Protein 30 mg/dl mg/dL (Negative) 01/21/17 08:15 Urine Glucose (UA) 50 mg/dL (Negative) 01/21/17 08:15 Urine Ketones Neg mg/dL (Negative) 01/21/17 08:15 Urine Blood Neg (Negative) 01/21/17 08:15 Urine Nitrite Neg (Negative) 01/21/17 08:15 Urine Bilirubin Neg (Negative) 01/21/17 08:15 Urine Urobilinogen < 2.0 mg/dL (<2.0) 01/21/17 08:15 Ur Leukocyte Esterase Sm (Negative) 01/21/17 08:15 Urine WBC (Auto) 6.0 /HPF (0.0-6.0) 01/21/17 08:15 Urine RBC (Auto) 5.0 /HPF (0.0-6.0) 01/21/17 08:15 U Epithel Cells (Auto) < 1.0 /HPF (0-13.0) 01/21/17 08:15 Urine Bacteria (Auto) 1+ /HPF (Negative) 01/21/17 08:15 Blood Type O POSITIVE 01/22/17 12:06 Antibody Screen Negative 01/22/17 12:06 Crossmatch See Detail 01/22/17 12:06
[2017-01-27] MEDS: LEVEMIR SUB-Q SCH (22:32)
[2017-01-28] MEDS: NOVOLOG SUB-Q SCH ×4 (00:30→18:41)
[2017-01-28] MEDS: DUONEB *Not for PRN Use IH SCH ×4 (02:36→20:28)
[2017-01-28] MEDS: ROBITUSSIN PO SCH ×6 (04:33→23:52)
[2017-01-28 05:45] LABS: Basophils % (Auto) 0.3 % (0.0-1.8); Eosinophils % (Auto) 1.8 % (0.0-4.3); Hemoglobin 8.4 gm/dl (11.8-15.2); Mean Corpuscular HGB Conc 32 % (32-34); Mean Corpuscular Hemoglobin 28 pg (28-32); Mean Corpuscular Volume 87 fl (84-94); Platelet Count 337 K/mm3 (140-440); Red Blood Count 2.98 M/mm3 (3.65-5.03); Red Cell Distribution Width 18.1 % (13.2-15.2); White Blood Count 9.9 K/mm3 (4.5-11.0)
[2017-01-28] MEDS: FLAGYL PO SCH ×3 (05:53→22:37)
[2017-01-28 06:06] LABS: Anion Gap 14 mmol/L; BUN/Creatinine Ratio 37; Blood Urea Nitrogen 11 mg/dL (9-20); Calcium 7.9 mg/dL (8.4-10.2); Carbon Dioxide 29 mmol/L (22-30); Chloride 102.6 mmol/L (98-107); Glucose 104 mg/dL (75-100); Potassium 3.5 mmol/L (3.6-5.0); Sodium 142 mmol/L (137-145)
[2017-01-28] MEDS: MUCOMYST INHALATION INHALATION SCH ×2 (07:56→20:28)
[2017-01-28] MEDS: KEPPRA PO SCH ×2 (09:41→22:45)
[2017-01-28] MEDS: FLORANEX PO SCH ×2 (09:41→22:37)
[2017-01-28] MEDS: PROTONIX FEEDTUBE SCH (09:41)
[2017-01-28] MEDS: Centrum Liq PO SCH (09:44)
--- NOTE | 2017-01-28 11:27 | Progress Note ---
Assessment and Plan 56 y/o male with chronic respiratory failure secondary to left lung atelectasis , likely inability to clear secretions 1. Continue scheduled nebs 2. ADD CPT therapy. Subjective Date of service: 01/28/17 Principal diagnosis: Anemia, Diarrhea Interval history: Tolerated bronch. Although all airways including lower lobes looked clear, still some atelectasis as the left base. Still coughing up thick yellow secretions. Objective Vital Signs - 12hr 01/28/17 01/28/17 01/28/17 00:29 00:35 02:37 Temperature 99.6 F Pulse Rate 109 H Pulse Rate [ 99 H Anterior Bilateral Throughout] Respiratory 24 Rate Respiratory 20 Rate [Anterior Bilateral Throughout] Blood Pressure 117/70 O2 Sat by Pulse 95 Oximetry O2 Sat by Pulse 100 Oximetry [ Assessment] 01/28/17 01/28/17 01/28/17 02:47 07:35 07:56 Temperature 100.2 F H Pulse Rate 107 H Pulse Rate [ 103 H Anterior Bilateral Throughout] Respiratory 22 Rate Respiratory 20 Rate [Anterior Bilateral Throughout] Blood Pressure 119/73 O2 Sat by Pulse 96 98 Oximetry O2 Sat by Pulse Oximetry [ Assessment] 01/28/17 08:00 Temperature Pulse Rate Pulse Rate [ Anterior Bilateral Throughout] Respiratory Rate Respiratory Rate [Anterior Bilateral Throughout] Blood Pressure O2 Sat by Pulse Oximetry O2 Sat by Pulse 98 Oximetry [ Assessment] Constitutional: no acute distress, other (eyes open, appears to be comatose and nonresponsive, NAD) Eyes: non-icteric ENT: oropharynx moist Neck: supple Effort: normal Ascultation: Right: clear, Left: diminished breath sounds (hemithorax), rhonchi Cardiovascular: regular rate and rhythm (no mrg) Gastrointestinal: normoactive bowel sounds, soft, non-tender, non-distended Integumentary: normal (did not examine sacrum) Extremities: no cyanosis, no edema, pink and warm Neurologic: CN II-XII normal, other (nonverbal, not responsive, no spontaneous movements) Psychiatric: other (unable to assess) CBC and BMP: 01/28/17 05:30 01/28/17 05:30 ABG, PT/INR, D-dimer: ABG POC ABG pH 7.420 (7.35-7.45) 01/21/17 13:10 POC ABG pCO2 42.0 (35-45) 01/21/17 13:10 POC ABG pO2 65 (80-105) L 01/21/17 13:10 POC ABG HCO3 27.2 01/21/17 13:10 POC ABG Total CO2 28 01/21/17 13:10 POC ABG O2 Sat 93 01/21/17 13:10 PT/INR, D-dimer PT 16.0 Sec. (12.2-14.9) H 01/21/17 Unknown INR 1.22 (0.87-1.13) H 01/21/17 Unknown Abnormal lab findings: Abnormal Labs 01/21/17 01/21/17 01/21/17 07:22 13:06 13:10 WBC RBC Hgb Hct MCH MCHC RDW Lymph % (Auto) [place] % (Auto) Lymph # Seg Neutrophils % Seg Neutrophils # PT INR POC ABG pO2 72 L 65 L Sodium Potassium Chloride Creatinine Glucose POC Glucose 206 H Hemoglobin A1c Lactic Acid Calcium Magnesium Iron TIBC AST Albumin Crossmatch 01/21/17 01/21/17 01/21/17 16:43 21:06 Unknown WBC RBC Hgb Hct MCH MCHC RDW Lymph % (Auto) [place] % (Auto) Lymph # Seg Neutrophils % Seg Neutrophils # PT INR POC ABG pO2 Sodium Potassium Chloride 96.9 L Creatinine 0.5 L Glucose 281 H POC Glucose 146 H 180 H Hemoglobin A1c Lactic Acid Calcium Magnesium Iron TIBC AST Albumin Crossmatch 01/21/17 01/21/17 01/21/17 Unknown Unknown Unknown WBC 12.2 H RBC Hgb 11.0 L Hct MCH 26 L MCHC 30 L RDW 20.6 H Lymph % (Auto) 6.9 L [place] % (Auto) Lymph # 0.8 L Seg Neutrophils % 86.2 H Seg Neutrophils # 10.5 H PT 16.0 H INR 1.22 H POC ABG pO2 Sodium Potassium Chloride Creatinine Glucose POC Glucose Hemoglobin A1c Lactic Acid Calcium Magnesium Iron TIBC AST 53 H Albumin 2.3 L Crossmatch 01/21/17 01/21/17 01/22/17 Unknown Unknown 05:00 WBC RBC Hgb Hct MCH MCHC RDW Lymph % (Auto) [place] % (Auto) Lymph # Seg Neutrophils % Seg Neutrophils # PT INR POC ABG pO2 Sodium Potassium Chloride Creatinine 0.3 L Glucose 154 H POC Glucose Hemoglobin A1c 6.8 H Lactic Acid 3.80 H* Calcium 8.0 L Magnesium Iron TIBC AST Albumin Crossmatch 01/22/17 01/22/17 01/22/17 06:31 09:37 12:06 WBC 11.4 H RBC 2.39 L Hgb 6.3 L D Hct 21.1 L D MCH 27 L MCHC 30 L RDW 19.1 H Lymph % (Auto) 10.4 L [place] % (Auto) Lymph # Seg Neutrophils % 88.3 H Seg Neutrophils # 10.1 H PT INR POC ABG pO2 Sodium Potassium Chloride Creatinine Glucose POC Glucose 186 H Hemoglobin A1c Lactic Acid Calcium Magnesium Iron TIBC AST Albumin Crossmatch See Detail 01/22/17 01/22/17 01/22/17 12:06 12:23 17:26 WBC RBC Hgb 6.5 L Hct 20.8 L MCH MCHC RDW Lymph % (Auto) [place] % (Auto) Lymph # Seg Neutrophils % Seg Neutrophils # PT INR POC ABG pO2 Sodium Potassium Chloride Creatinine Glucose POC Glucose 212 H 140 H Hemoglobin A1c Lactic Acid Calcium Magnesium Iron TIBC AST Albumin Crossmatch 01/22/17 01/22/17 01/23/17 20:00 22:02 04:00 WBC 12.2 H RBC 3.24 L Hgb 7.2 L 8.9 L Hct 23.4 L 28.5 L MCH 27 L MCHC 31 L RDW 18.0 H Lymph % (Auto) [place] % (Auto) Lymph # Seg Neutrophils % Seg Neutrophils # PT INR POC ABG pO2 Sodium Potassium Chloride Creatinine Glucose POC Glucose 138 H Hemoglobin A1c Lactic Acid Calcium Magnesium Iron TIBC AST Albumin Crossmatch 01/23/17 01/23/17 01/23/17 04:00 09:24 12:12 WBC RBC Hgb Hct MCH MCHC RDW Lymph % (Auto) [place] % (Auto) Lymph # Seg Neutrophils % Seg Neutrophils # PT INR POC ABG pO2 Sodium 146 H D Potassium 3.1 L Chloride 109.5 H Creatinine 0.4 L Glucose POC Glucose 124 H Hemoglobin A1c Lactic Acid Calcium 8.3 L Magnesium Iron 35 L TIBC 133 L AST Albumin Crossmatch 01/23/17 01/24/17 01/24/17 23:49 05:49 09:22 WBC RBC 3.08 L Hgb 8.7 L Hct 26.9 L MCH MCHC RDW 18.2 H Lymph % (Auto) [place] % (Auto) Lymph # Seg Neutrophils % 75.0 H Seg Neutrophils # 8.1 H PT INR POC ABG pO2 Sodium Potassium Chloride Creatinine Glucose POC Glucose 126 H 115 H Hemoglobin A1c Lactic Acid Calcium Magnesium Iron TIBC AST Albumin Crossmatch 01/24/17 01/24/17 01/24/17 09:22 11:27 16:31 WBC RBC Hgb Hct MCH MCHC RDW Lymph % (Auto) [place] % (Auto) Lymph # Seg Neutrophils % Seg Neutrophils # PT INR POC ABG pO2 Sodium 148 H Potassium 3.4 L Chloride 110.4 H Creatinine 0.4 L Glucose 121 H POC Glucose 135 H 143 H Hemoglobin A1c Lactic Acid Calcium 8.2 L Magnesium Iron TIBC AST Albumin Crossmatch 01/24/17 01/25/17 01/25/17 23:48 06:12 12:00 WBC RBC Hgb Hct MCH MCHC RDW Lymph % (Auto) [place] % (Auto) Lymph # Seg Neutrophils % Seg Neutrophils # PT INR POC ABG pO2 Sodium Potassium Chloride Creatinine Glucose POC Glucose 136 H 133 H 107 H Hemoglobin A1c Lactic Acid Calcium Magnesium Iron TIBC AST Albumin Crossmatch 01/25/17 01/25/17 01/26/17 16:01 22:05 12:16 WBC RBC Hgb Hct MCH MCHC RDW Lymph % (Auto) [place] % (Auto) Lymph # Seg Neutrophils % Seg Neutrophils # PT INR POC ABG pO2 Sodium Potassium Chloride Creatinine Glucose POC Glucose 143 H 168 H 180 H Hemoglobin A1c Lactic Acid Calcium Magnesium Iron TIBC AST Albumin Crossmatch 01/26/17 01/26/17 01/26/17 16:59 22:47 Unknown WBC 14.4 H RBC 3.31 L Hgb 8.8 L Hct 28.5 L MCH 27 L MCHC 31 L RDW 18.5 H Lymph % (Auto) 12.6 L [place] % (Auto) Lymph # Seg Neutrophils % 81.8 H Seg Neutrophils # 11.8 H PT INR POC ABG pO2 Sodium Potassium Chloride Creatinine Glucose POC Glucose 133 H 138 H Hemoglobin A1c Lactic Acid Calcium Magnesium Iron TIBC AST Albumin Crossmatch 01/26/17 01/27/17 01/27/17 Unknown 05:21 08:00 WBC 12.0 H RBC 3.12 L Hgb 8.7 L Hct 27.3 L MCH MCHC RDW 18.5 H Lymph % (Auto) [place] % (Auto) Lymph # Seg Neutrophils % 74.5 H Seg Neutrophils # 8.9 H PT INR POC ABG pO2 Sodium Potassium 2.6 L* D Chloride Creatinine 0.4 L Glucose 153 H POC Glucose 157 H Hemoglobin A1c Lactic Acid Calcium 8.0 L Magnesium 1.40 L Iron TIBC AST Albumin Crossmatch 01/27/17 01/27/17 01/27/17 08:00 11:45 21:42 WBC RBC Hgb Hct MCH MCHC RDW Lymph % (Auto) [place] % (Auto) Lymph # Seg Neutrophils % Seg Neutrophils # PT INR POC ABG pO2 Sodium Potassium 3.0 L Chloride Creatinine 0.4 L Glucose 106 H POC Glucose 106 H 114 H Hemoglobin A1c Lactic Acid Calcium 7.6 L Magnesium Iron TIBC AST Albumin Crossmatch 01/28/17 01/28/17 01/28/17 05:30 05:30 06:34 WBC RBC 2.98 L Hgb 8.4 L Hct 26.0 L MCH MCHC RDW 18.1 H Lymph % (Auto) [place] % (Auto) 7.4 H Lymph # Seg Neutrophils % Seg Neutrophils # PT INR POC ABG pO2 Sodium Potassium 3.5 L Chloride Creatinine 0.3 L Glucose 104 H POC Glucose 112 H Hemoglobin A1c Lactic Acid Calcium 7.9 L Magnesium 1.60 L Iron TIBC AST Albumin Crossmatch 01/28/17 10:57 WBC RBC Hgb Hct MCH MCHC RDW Lymph % (Auto) [place] % (Auto) Lymph # Seg Neutrophils % Seg Neutrophils # PT INR POC ABG pO2 Sodium Potassium Chloride Creatinine Glucose POC Glucose 140 H Hemoglobin A1c Lactic Acid Calcium Magnesium Iron TIBC AST Albumin Crossmatch
[2017-01-28] MEDS ORDERED: MAGNESIUM SULFATE 1 GM in NACL 0.9% 50 ML IV ONE (15:11)
[2017-01-28] MEDS: KCL 10MEQ/100ML 10 MEQ/100 ML BAG IV SCH ×2 (17:45→19:17)
--- NOTE | 2017-01-28 20:46 | Progress Note ---
Assessment and Plan Assessment and plan: 56 yo AAM with COPD, DM, HPL, CVA, nonverbal, bedbound, s/p trach and PEG, SZ, admitted from longterm for respiratory distress, fever Acute on chronic respiratory failure with hypoxia Currently on Trach collar Inhaled bronchodilators, Mucomyst, supplemental oxygen Due to atelectasis and inability to clear secretions Status post bronchoscopy, but still having secretions Atelectasis Status post bronchoscopy with lavage 01/27 Sepsis Completed antibiotic course and IV fluids, then started to have loose stools; C. difficile obtained (results still pending) and started empirically on Flagyl Anemia Transfused 2 units PRBCs Chronic, with no obvious bleeding Evaluated by GI; no procedure planned Started on Protonix and vitamins Monitor H&H Hypokalemia Repleted; continue to monitor Diabetes mellitus Accu-Cheks and SSI CVA Nonverbal, bedbound On antiplatelet and statin Seizure disorder On Keppra Severe malnutrition [employer] Technician consulted for tube feeding adjustments Decubitus Ulcers Wound care DVT/PUD prophylaxis History Interval history: Status post bronchoscopy yesterday, but still having significant amount of secretions Hospitalist Physical - Constitutional Vitals: Temp Pulse Resp BP Pulse Ox 100.0 F H 102 H 18 122/76 98 01/28/17 20:20 01/28/17 20:20 01/28/17 20:20 01/28/17 20:20 01/28/17 20:27 General appearance: Present: mild distress, well-nourished - EENT Eyes: Present: PERRL - Neck Neck: Present: supple, other (trach). Absent: masses or JVD - Cardiovascular Rhythm: regular Heart Sounds: Present: S1 & S2. Absent: systolic murmur - Extremities Extremities: no ischemia - Abdominal General gastrointestinal: soft, non-tender, non-distended, normal bowel sounds, other (PEG) - Neurologic Neurologic: other (hemiplegia) Results - Labs CBC & Chem 7: 01/28/17 05:30 01/29/17 05:45 Labs: Laboratory Last Values WBC 9.9 K/mm3 (4.5-11.0) 01/28/17 05:30 RBC 2.98 M/mm3 (3.65-5.03) L 01/28/17 05:30 Hgb 8.4 gm/dl (11.8-15.2) L 01/28/17 05:30 Hct 26.0 % (35.5-45.6) L 01/28/17 05:30 MCV 87 fl (84-94) 01/28/17 05:30 MCH 28 pg (28-32) 01/28/17 05:30 MCHC 32 % (32-34) 01/28/17 05:30 RDW 18.1 % (13.2-15.2) H 01/28/17 05:30 Plt Count 337 K/mm3 (140-440) 01/28/17 05:30 Lymph % (Auto) 21.4 % (13.4-35.0) 01/28/17 05:30 [place] % (Auto) 7.4 % (0.0-7.3) H 01/28/17 05:30 Eos % (Auto) 1.8 % (0.0-4.3) 01/28/17 05:30 Baso % (Auto) 0.3 % (0.0-1.8) 01/28/17 05:30 Lymph # 2.1 K/mm3 (1.2-5.4) 01/28/17 05:30 [place] # 0.7 K/mm3 (0.0-0.8) 01/28/17 05:30 Eos # 0.2 K/mm3 (0.0-0.4) 01/28/17 05:30 Baso # 0.0 K/mm3 (0.0-0.1) 01/28/17 05:30 Add Manual Diff TNR 01/22/17 05:00 Seg Neutrophils % 69.1 % (40.0-70.0) 01/28/17 05:30 Seg Neutrophils # 6.8 K/mm3 (1.8-7.7) 01/28/17 05:30 PT 16.0 Sec. (12.2-14.9) H 01/21/17 Unknown INR 1.22 (0.87-1.13) H 01/21/17 Unknown APTT 32.1 Sec. (24.2-36.6) 01/21/17 Unknown POC ABG pH 7.420 (7.35-7.45) 01/21/17 13:10 POC ABG pCO2 42.0 (35-45) 01/21/17 13:10 POC ABG pO2 65 (80-105) L 01/21/17 13:10 POC ABG HCO3 27.2 01/21/17 13:10 POC ABG Total CO2 28 01/21/17 13:10 POC ABG O2 Sat 93 01/21/17 13:10 POC ABG Base Excess 3 01/21/17 13:10 VBG pH 7.386 (7.320-7.420) 01/21/17 Unknown FiO2 60 % 01/21/17 13:10 Sodium 142 mmol/L (137-145) 01/28/17 05:30 Potassium 3.5 mmol/L (3.6-5.0) L 01/28/17 05:30 Chloride 102.6 mmol/L (98-107) 01/28/17 05:30 Carbon Dioxide 29 mmol/L (22-30) 01/28/17 05:30 Anion Gap 14 mmol/L 01/28/17 05:30 BUN 11 mg/dL (9-20) 01/28/17 05:30 Creatinine 0.3 mg/dL (0.8-1.5) L 01/28/17 05:30 Estimated GFR > 60 ml/min 01/28/17 05:30 BUN/Creatinine Ratio 37 % 01/28/17 05:30 Glucose 104 mg/dL (75-100) H 01/28/17 05:30 POC Glucose 106 (70-105) H 01/28/17 17:06 Hemoglobin A1c 6.8 % (4-6) H 01/21/17 Unknown Lactic Acid 0.80 mmol/L (0.7-2.0) 01/22/17 09:37 Calcium 7.9 mg/dL (8.4-10.2) L 01/28/17 05:30 Magnesium 1.60 mg/dL (1.7-2.3) L 01/28/17 05:30 Iron 35 ug/dL (49-181) L 01/23/17 09:24 TIBC 133 mcg/dL (250-450) L 01/23/17 09:24 Total Bilirubin 0.20 mg/dL (0.1-1.2) 01/21/17 Unknown Direct Bilirubin < 0.2 mg/dL (0-0.2) 01/21/17 Unknown AST 53 units/L (5-40) H 01/21/17 Unknown ALT 47 units/L (7-56) 01/21/17 Unknown Alkaline Phosphatase 117 units/L (35-129) 01/21/17 Unknown Troponin T 0.016 ng/mL (0.00-0.029) 01/21/17 Unknown Total Protein 7.2 g/dL (6.3-8.2) 01/21/17 Unknown Albumin 2.3 g/dL (3.9-5) L 01/21/17 Unknown Albumin/Globulin Ratio 0.5 % 01/21/17 Unknown Urine Color Yellow (Yellow) 01/21/17 08:15 Urine Turbidity Clear (Clear) 01/21/17 08:15 Urine pH 6.0 (5.0-7.0) 01/21/17 08:15 Ur Specific [place] 1.016 (1.003-1.030) 01/21/17 08:15 Urine Protein 30 mg/dl mg/dL (Negative) 01/21/17 08:15 Urine Glucose (UA) 50 mg/dL (Negative) 01/21/17 08:15 Urine Ketones Neg mg/dL (Negative) 01/21/17 08:15 Urine Blood Neg (Negative) 01/21/17 08:15 Urine Nitrite Neg (Negative) 01/21/17 08:15 Urine Bilirubin Neg (Negative) 01/21/17 08:15 Urine Urobilinogen < 2.0 mg/dL (<2.0) 01/21/17 08:15 Ur Leukocyte Esterase Sm (Negative) 01/21/17 08:15 Urine WBC (Auto) 6.0 /HPF (0.0-6.0) 01/21/17 08:15 Urine RBC (Auto) 5.0 /HPF (0.0-6.0) 01/21/17 08:15 U Epithel Cells (Auto) < 1.0 /HPF (0-13.0) 01/21/17 08:15 Urine Bacteria (Auto) 1+ /HPF (Negative) 01/21/17 08:15 Blood Type O POSITIVE 01/22/17 12:06 Antibody Screen Negative 01/22/17 12:06 Crossmatch See Detail 01/22/17 12:06
[2017-01-28] MEDS: TYLENOL PO PRN (22:36)
[2017-01-28] MEDS: LEVEMIR SUB-Q SCH (22:37)
[2017-01-29] MEDS: NOVOLOG SUB-Q SCH ×4 (00:43→18:01)
[2017-01-29] MEDS: ROBITUSSIN PO SCH ×5 (02:31→21:47)
[2017-01-29 06:18] LABS: BUN/Creatinine Ratio 37; Blood Urea Nitrogen 11 mg/dL (9-20); Carbon Dioxide 30 mmol/L (22-30); Glucose 117 mg/dL (75-100)
[2017-01-29 06:19] LABS: Anion Gap 13 mmol/L; Chloride 103.7 mmol/L (98-107); Potassium 3.7 mmol/L (3.6-5.0); Sodium 143 mmol/L (137-145)
[2017-01-29] MEDS: FLAGYL PO SCH (06:35)
[2017-01-29] MEDS: MUCOMYST INHALATION INHALATION SCH ×2 (08:56→19:52)
[2017-01-29] MEDS: DUONEB *Not for PRN Use IH SCH ×4 (08:57→19:52)
[2017-01-29] MEDS: NACL 0.9% 1000 ML 1,000 ML IV SCH (10:00)
[2017-01-29] MEDS: KEPPRA PO SCH ×2 (11:58→21:46)
[2017-01-29] MEDS: PROTONIX FEEDTUBE SCH (11:58)
[2017-01-29] MEDS: Centrum Liq PO SCH (11:58)
--- NOTE | 2017-01-29 12:06 | Progress Note ---
Assessment and Plan 56 y/o male with chronic respiratory failure secondary to left lung atelectasis , likely inability to clear secretions 1. Continue scheduled nebs 2. ADD CPT therapy. 3. Only repeat CXR if clinically indicated. Subjective Date of service: 01/29/17 Principal diagnosis: Anemia, Diarrhea Interval history: No changes clinically Objective Vital Signs - 12hr 01/29/17 01/29/17 01/29/17 00:20 01:53 02:35 Temperature 99.5 F Pulse Rate 95 H Pulse Rate [ 87 Anterior Bilateral Throughout] Respiratory 18 Rate Respiratory 22 Rate [Anterior Bilateral Throughout] Blood Pressure 117/74 O2 Sat by Pulse 99 Oximetry O2 Sat by Pulse 99 Oximetry [ Assessment] 01/29/17 01/29/17 01/29/17 02:45 07:50 08:00 Temperature 99.2 F Pulse Rate 101 H Pulse Rate [ 91 H Anterior Bilateral Throughout] Respiratory 22 Rate Respiratory 20 Rate [Anterior Bilateral Throughout] Blood Pressure 134/76 O2 Sat by Pulse 95 Oximetry O2 Sat by Pulse 98 Oximetry [ Assessment] 01/29/17 08:57 Temperature Pulse Rate Pulse Rate [ Anterior Bilateral Throughout] Respiratory Rate Respiratory Rate [Anterior Bilateral Throughout] Blood Pressure O2 Sat by Pulse 98 Oximetry O2 Sat by Pulse Oximetry [ Assessment] Constitutional: no acute distress, other (eyes open, appears to be comatose and nonresponsive, NAD) Eyes: non-icteric ENT: oropharynx moist Neck: supple Effort: normal Ascultation: Right: clear, Left: diminished breath sounds (hemithorax), rhonchi Cardiovascular: regular rate and rhythm (no mrg) Gastrointestinal: normoactive bowel sounds, soft, non-tender, non-distended Integumentary: normal (did not examine sacrum) Extremities: no cyanosis, no edema, pink and warm Neurologic: CN II-XII normal, other (nonverbal, not responsive, no spontaneous movements) Psychiatric: other (unable to assess) CBC and BMP: 01/28/17 05:30 01/29/17 05:45 ABG, PT/INR, D-dimer: ABG POC ABG pH 7.420 (7.35-7.45) 01/21/17 13:10 POC ABG pCO2 42.0 (35-45) 01/21/17 13:10 POC ABG pO2 65 (80-105) L 01/21/17 13:10 POC ABG HCO3 27.2 01/21/17 13:10 POC ABG Total CO2 28 01/21/17 13:10 POC ABG O2 Sat 93 01/21/17 13:10 PT/INR, D-dimer PT 16.0 Sec. (12.2-14.9) H 01/21/17 Unknown INR 1.22 (0.87-1.13) H 01/21/17 Unknown Abnormal lab findings: Abnormal Labs 01/21/17 01/21/17 01/21/17 07:22 13:06 13:10 WBC RBC Hgb Hct MCH MCHC RDW Lymph % (Auto) [place] % (Auto) Lymph # Seg Neutrophils % Seg Neutrophils # PT INR POC ABG pO2 72 L 65 L Sodium Potassium Chloride Creatinine Glucose POC Glucose 206 H Hemoglobin A1c Lactic Acid Calcium Magnesium Iron TIBC AST Albumin Crossmatch 01/21/17 01/21/17 01/21/17 16:43 21:06 Unknown WBC RBC Hgb Hct MCH MCHC RDW Lymph % (Auto) [place] % (Auto) Lymph # Seg Neutrophils % Seg Neutrophils # PT INR POC ABG pO2 Sodium Potassium Chloride 96.9 L Creatinine 0.5 L Glucose 281 H POC Glucose 146 H 180 H Hemoglobin A1c Lactic Acid Calcium Magnesium Iron TIBC AST Albumin Crossmatch 01/21/17 01/21/17 01/21/17 Unknown Unknown Unknown WBC 12.2 H RBC Hgb 11.0 L Hct MCH 26 L MCHC 30 L RDW 20.6 H Lymph % (Auto) 6.9 L [place] % (Auto) Lymph # 0.8 L Seg Neutrophils % 86.2 H Seg Neutrophils # 10.5 H PT 16.0 H INR 1.22 H POC ABG pO2 Sodium Potassium Chloride Creatinine Glucose POC Glucose Hemoglobin A1c Lactic Acid Calcium Magnesium Iron TIBC AST 53 H Albumin 2.3 L Crossmatch 01/21/17 01/21/17 01/22/17 Unknown Unknown 05:00 WBC RBC Hgb Hct MCH MCHC RDW Lymph % (Auto) [place] % (Auto) Lymph # Seg Neutrophils % Seg Neutrophils # PT INR POC ABG pO2 Sodium Potassium Chloride Creatinine 0.3 L Glucose 154 H POC Glucose Hemoglobin A1c 6.8 H Lactic Acid 3.80 H* Calcium 8.0 L Magnesium Iron TIBC AST Albumin Crossmatch 01/22/17 01/22/17 01/22/17 06:31 09:37 12:06 WBC 11.4 H RBC 2.39 L Hgb 6.3 L D Hct 21.1 L D MCH 27 L MCHC 30 L RDW 19.1 H Lymph % (Auto) 10.4 L [place] % (Auto) Lymph # Seg Neutrophils % 88.3 H Seg Neutrophils # 10.1 H PT INR POC ABG pO2 Sodium Potassium Chloride Creatinine Glucose POC Glucose 186 H Hemoglobin A1c Lactic Acid Calcium Magnesium Iron TIBC AST Albumin Crossmatch See Detail 01/22/17 01/22/17 01/22/17 12:06 12:23 17:26 WBC RBC Hgb 6.5 L Hct 20.8 L MCH MCHC RDW Lymph % (Auto) [place] % (Auto) Lymph # Seg Neutrophils % Seg Neutrophils # PT INR POC ABG pO2 Sodium Potassium Chloride Creatinine Glucose POC Glucose 212 H 140 H Hemoglobin A1c Lactic Acid Calcium Magnesium Iron TIBC AST Albumin Crossmatch 01/22/17 01/22/17 01/23/17 20:00 22:02 04:00 WBC 12.2 H RBC 3.24 L Hgb 7.2 L 8.9 L Hct 23.4 L 28.5 L MCH 27 L MCHC 31 L RDW 18.0 H Lymph % (Auto) [place] % (Auto) Lymph # Seg Neutrophils % Seg Neutrophils # PT INR POC ABG pO2 Sodium Potassium Chloride Creatinine Glucose POC Glucose 138 H Hemoglobin A1c Lactic Acid Calcium Magnesium Iron TIBC AST Albumin Crossmatch 01/23/17 01/23/17 01/23/17 04:00 09:24 12:12 WBC RBC Hgb Hct MCH MCHC RDW Lymph % (Auto) [place] % (Auto) Lymph # Seg Neutrophils % Seg Neutrophils # PT INR POC ABG pO2 Sodium 146 H D Potassium 3.1 L Chloride 109.5 H Creatinine 0.4 L Glucose POC Glucose 124 H Hemoglobin A1c Lactic Acid Calcium 8.3 L Magnesium Iron 35 L TIBC 133 L AST Albumin Crossmatch 01/23/17 01/24/17 01/24/17 23:49 05:49 09:22 WBC RBC 3.08 L Hgb 8.7 L Hct 26.9 L MCH MCHC RDW 18.2 H Lymph % (Auto) [place] % (Auto) Lymph # Seg Neutrophils % 75.0 H Seg Neutrophils # 8.1 H PT INR POC ABG pO2 Sodium Potassium Chloride Creatinine Glucose POC Glucose 126 H 115 H Hemoglobin A1c Lactic Acid Calcium Magnesium Iron TIBC AST Albumin Crossmatch 01/24/17 01/24/17 01/24/17 09:22 11:27 16:31 WBC RBC Hgb Hct MCH MCHC RDW Lymph % (Auto) [place] % (Auto) Lymph # Seg Neutrophils % Seg Neutrophils # PT INR POC ABG pO2 Sodium 148 H Potassium 3.4 L Chloride 110.4 H Creatinine 0.4 L Glucose 121 H POC Glucose 135 H 143 H Hemoglobin A1c Lactic Acid Calcium 8.2 L Magnesium Iron TIBC AST Albumin Crossmatch 01/24/17 01/25/17 01/25/17 23:48 06:12 12:00 WBC RBC Hgb Hct MCH MCHC RDW Lymph % (Auto) [place] % (Auto) Lymph # Seg Neutrophils % Seg Neutrophils # PT INR POC ABG pO2 Sodium Potassium Chloride Creatinine Glucose POC Glucose 136 H 133 H 107 H Hemoglobin A1c Lactic Acid Calcium Magnesium Iron TIBC AST Albumin Crossmatch 01/25/17 01/25/17 01/26/17 16:01 22:05 12:16 WBC RBC Hgb Hct MCH MCHC RDW Lymph % (Auto) [place] % (Auto) Lymph # Seg Neutrophils % Seg Neutrophils # PT INR POC ABG pO2 Sodium Potassium Chloride Creatinine Glucose POC Glucose 143 H 168 H 180 H Hemoglobin A1c Lactic Acid Calcium Magnesium Iron TIBC AST Albumin Crossmatch 01/26/17 01/26/17 01/26/17 16:59 22:47 Unknown WBC 14.4 H RBC 3.31 L Hgb 8.8 L Hct 28.5 L MCH 27 L MCHC 31 L RDW 18.5 H Lymph % (Auto) 12.6 L [place] % (Auto) Lymph # Seg Neutrophils % 81.8 H Seg Neutrophils # 11.8 H PT INR POC ABG pO2 Sodium Potassium Chloride Creatinine Glucose POC Glucose 133 H 138 H Hemoglobin A1c Lactic Acid Calcium Magnesium Iron TIBC AST Albumin Crossmatch 01/26/17 01/27/17 01/27/17 Unknown 05:21 08:00 WBC 12.0 H RBC 3.12 L Hgb 8.7 L Hct 27.3 L MCH MCHC RDW 18.5 H Lymph % (Auto) [place] % (Auto) Lymph # Seg Neutrophils % 74.5 H Seg Neutrophils # 8.9 H PT INR POC ABG pO2 Sodium Potassium 2.6 L* D Chloride Creatinine 0.4 L Glucose 153 H POC Glucose 157 H Hemoglobin A1c Lactic Acid Calcium 8.0 L Magnesium 1.40 L Iron TIBC AST Albumin Crossmatch 01/27/17 01/27/17 01/27/17 08:00 11:45 21:42 WBC RBC Hgb Hct MCH MCHC RDW Lymph % (Auto) [place] % (Auto) Lymph # Seg Neutrophils % Seg Neutrophils # PT INR POC ABG pO2 Sodium Potassium 3.0 L Chloride Creatinine 0.4 L Glucose 106 H POC Glucose 106 H 114 H Hemoglobin A1c Lactic Acid Calcium 7.6 L Magnesium Iron TIBC AST Albumin Crossmatch 01/28/17 01/28/17 01/28/17 05:30 05:30 06:34 WBC RBC 2.98 L Hgb 8.4 L Hct 26.0 L MCH MCHC RDW 18.1 H Lymph % (Auto) [place] % (Auto) 7.4 H Lymph # Seg Neutrophils % Seg Neutrophils # PT INR POC ABG pO2 Sodium Potassium 3.5 L Chloride Creatinine 0.3 L Glucose 104 H POC Glucose 112 H Hemoglobin A1c Lactic Acid Calcium 7.9 L Magnesium 1.60 L Iron TIBC AST Albumin Crossmatch 01/28/17 01/28/17 01/28/17 10:57 17:06 22:39 WBC RBC Hgb Hct MCH MCHC RDW Lymph % (Auto) [place] % (Auto) Lymph # Seg Neutrophils % Seg Neutrophils # PT INR POC ABG pO2 Sodium Potassium Chloride Creatinine Glucose POC Glucose 140 H 106 H 116 H Hemoglobin A1c Lactic Acid Calcium Magnesium Iron TIBC AST Albumin Crossmatch 01/29/17 01/29/17 01/29/17 05:45 05:56 11:30 WBC RBC Hgb Hct MCH MCHC RDW Lymph % (Auto) [place] % (Auto) Lymph # Seg Neutrophils % Seg Neutrophils # PT INR POC ABG pO2 Sodium Potassium Chloride Creatinine 0.3 L Glucose 117 H POC Glucose 129 H 108 H Hemoglobin A1c Lactic Acid Calcium 8.0 L Magnesium 1.60 L Iron TIBC AST Albumin Crossmatch
[2017-01-29] MEDS ORDERED: MAGNESIUM SULFATE 1 GM in NACL 0.9% 50 ML IV ONE (13:57)
[2017-01-29] MEDS: FLORANEX PO SCH ×2 (15:23→21:46)
--- NOTE | 2017-01-29 22:07 | Progress Note ---
Assessment and Plan Assessment and plan: 56 yo AAM with COPD, DM, HPL, CVA, nonverbal, bedbound, s/p trach and PEG, SZ, admitted from senior living for respiratory distress, fever Acute on chronic respiratory failure with hypoxia Due to atelectasis and inability to clear secretions Currently on Trach collar Inhaled bronchodilators, Mucomyst, supplemental oxygen Status post bronchoscopy Atelectasis Status post bronchoscopy with lavage 01/27 Sepsis Completed antibiotic course and IV fluids, then started to have loose stools; C. difficile obtained and started empirically on Flagyl; came back negative, so will discontinue Flagyl Anemia Transfused 2 units PRBCs Chronic, with no obvious bleeding Evaluated by GI; no procedure planned Started on Protonix and vitamins Monitor H&H Hypokalemia Repleted; continue to monitor Diabetes mellitus Accu-Cheks and SSI CVA Nonverbal, bedbound On antiplatelet and statin Seizure disorder On Keppra Severe malnutrition Bookstore Manager consulted for tube feeding adjustments Decubitus Ulcers Wound care DVT/PUD prophylaxis History Interval history: Status post bronchoscopy, slightly better Hospitalist Physical - Constitutional Vitals: Temp Pulse Resp BP Pulse Ox 99.7 F H 106 H 18 129/71 96 01/29/17 21:40 01/29/17 21:40 01/29/17 21:40 01/29/17 21:40 01/29/17 21:40 General appearance: Present: no acute distress - EENT Eyes: Present: PERRL - Neck Neck: Present: supple, other (trach). Absent: masses or JVD - Respiratory Respiratory effort: other (on trach colar) Respiratory: bilateral: diminished, rhonchi, negative: wheezing - Cardiovascular Rhythm: regular Heart Sounds: Present: S1 & S2. Absent: systolic murmur - Extremities Extremities: no ischemia - Abdominal General gastrointestinal: soft, non-tender, non-distended, normal bowel sounds, other (PEG) - Psychiatric Psychiatric: other (nonverbal) - Neurologic Neurologic: other Results - Labs CBC & Chem 7: 01/28/17 05:30 01/29/17 05:45 Labs: Laboratory Last Values WBC 9.9 K/mm3 (4.5-11.0) 01/28/17 05:30 RBC 2.98 M/mm3 (3.65-5.03) L 01/28/17 05:30 Hgb 8.4 gm/dl (11.8-15.2) L 01/28/17 05:30 Hct 26.0 % (35.5-45.6) L 01/28/17 05:30 MCV 87 fl (84-94) 01/28/17 05:30 MCH 28 pg (28-32) 01/28/17 05:30 MCHC 32 % (32-34) 01/28/17 05:30 RDW 18.1 % (13.2-15.2) H 01/28/17 05:30 Plt Count 337 K/mm3 (140-440) 01/28/17 05:30 Lymph % (Auto) 21.4 % (13.4-35.0) 01/28/17 05:30 [place] % (Auto) 7.4 % (0.0-7.3) H 01/28/17 05:30 Eos % (Auto) 1.8 % (0.0-4.3) 01/28/17 05:30 Baso % (Auto) 0.3 % (0.0-1.8) 01/28/17 05:30 Lymph # 2.1 K/mm3 (1.2-5.4) 01/28/17 05:30 [place] # 0.7 K/mm3 (0.0-0.8) 01/28/17 05:30 Eos # 0.2 K/mm3 (0.0-0.4) 01/28/17 05:30 Baso # 0.0 K/mm3 (0.0-0.1) 01/28/17 05:30 Add Manual Diff TNR 01/22/17 05:00 Seg Neutrophils % 69.1 % (40.0-70.0) 01/28/17 05:30 Seg Neutrophils # 6.8 K/mm3 (1.8-7.7) 01/28/17 05:30 PT 16.0 Sec. (12.2-14.9) H 01/21/17 Unknown INR 1.22 (0.87-1.13) H 01/21/17 Unknown APTT 32.1 Sec. (24.2-36.6) 01/21/17 Unknown POC ABG pH 7.420 (7.35-7.45) 01/21/17 13:10 POC ABG pCO2 42.0 (35-45) 01/21/17 13:10 POC ABG pO2 65 (80-105) L 01/21/17 13:10 POC ABG HCO3 27.2 01/21/17 13:10 POC ABG Total CO2 28 01/21/17 13:10 POC ABG O2 Sat 93 01/21/17 13:10 POC ABG Base Excess 3 01/21/17 13:10 VBG pH 7.386 (7.320-7.420) 01/21/17 Unknown FiO2 60 % 01/21/17 13:10 Sodium 143 mmol/L (137-145) 01/29/17 05:45 Potassium 3.7 mmol/L (3.6-5.0) 01/29/17 05:45 Chloride 103.7 mmol/L (98-107) 01/29/17 05:45 Carbon Dioxide 30 mmol/L (22-30) 01/29/17 05:45 Anion Gap 13 mmol/L 01/29/17 05:45 BUN 11 mg/dL (9-20) 01/29/17 05:45 Creatinine 0.3 mg/dL (0.8-1.5) L 01/29/17 05:45 Estimated GFR > 60 ml/min 01/29/17 05:45 BUN/Creatinine Ratio 37 % 01/29/17 05:45 Glucose 117 mg/dL (75-100) H 01/29/17 05:45 POC Glucose 128 (70-105) H 01/29/17 21:17 Hemoglobin A1c 6.8 % (4-6) H 01/21/17 Unknown Lactic Acid 0.80 mmol/L (0.7-2.0) 01/22/17 09:37 Calcium 8.0 mg/dL (8.4-10.2) L 01/29/17 05:45 Magnesium 1.60 mg/dL (1.7-2.3) L 01/29/17 05:45 Iron 35 ug/dL (49-181) L 01/23/17 09:24 TIBC 133 mcg/dL (250-450) L 01/23/17 09:24 Total Bilirubin 0.20 mg/dL (0.1-1.2) 01/21/17 Unknown Direct Bilirubin < 0.2 mg/dL (0-0.2) 01/21/17 Unknown AST 53 units/L (5-40) H 01/21/17 Unknown ALT 47 units/L (7-56) 01/21/17 Unknown Alkaline Phosphatase 117 units/L (35-129) 01/21/17 Unknown Troponin T 0.016 ng/mL (0.00-0.029) 01/21/17 Unknown Total Protein 7.2 g/dL (6.3-8.2) 01/21/17 Unknown Albumin 2.3 g/dL (3.9-5) L 01/21/17 Unknown Albumin/Globulin Ratio 0.5 % 01/21/17 Unknown Urine Color Yellow (Yellow) 01/21/17 08:15 Urine Turbidity Clear (Clear) 01/21/17 08:15 Urine pH 6.0 (5.0-7.0) 01/21/17 08:15 Ur Specific [place] 1.016 (1.003-1.030) 01/21/17 08:15 Urine Protein 30 mg/dl mg/dL (Negative) 01/21/17 08:15 Urine Glucose (UA) 50 mg/dL (Negative) 01/21/17 08:15 Urine Ketones Neg mg/dL (Negative) 01/21/17 08:15 Urine Blood Neg (Negative) 01/21/17 08:15 Urine Nitrite Neg (Negative) 01/21/17 08:15 Urine Bilirubin Neg (Negative) 01/21/17 08:15 Urine Urobilinogen < 2.0 mg/dL (<2.0) 01/21/17 08:15 Ur Leukocyte Esterase Sm (Negative) 01/21/17 08:15 Urine WBC (Auto) 6.0 /HPF (0.0-6.0) 01/21/17 08:15 Urine RBC (Auto) 5.0 /HPF (0.0-6.0) 01/21/17 08:15 U Epithel Cells (Auto) < 1.0 /HPF (0-13.0) 01/21/17 08:15 Urine Bacteria (Auto) 1+ /HPF (Negative) 01/21/17 08:15 Blood Type O POSITIVE 01/22/17 12:06 Antibody Screen Negative 01/22/17 12:06 Crossmatch See Detail 01/22/17 12:06
[2017-01-29] MEDS: LEVEMIR SUB-Q SCH (23:05)
[2017-01-30] MEDS: NOVOLOG SUB-Q SCH ×4 (00:26→19:01)
[2017-01-30] MEDS: ROBITUSSIN PO SCH ×6 (02:05→21:41)
[2017-01-30] MEDS: DUONEB *Not for PRN Use IH SCH ×4 (03:47→19:50)
[2017-01-30] MEDS: NACL 0.9% 1000 ML 1,000 ML IV SCH (07:18)
--- NOTE | 2017-01-30 07:50 | Progress Note ---
Assessment and Plan Assessment and plan: 56 yo AAM with COPD, DM, HPL, CVA, nonverbal, bedbound, s/p trach and PEG, SZ, admitted from [facility] for respiratory distress, fever --Acute on chronic respiratory failure with hypoxia Due to atelectasis and inability to clear secretions Continue oxygen, nebulizers, Mucomyst, pulmonary following Chest PT, supportive care --Atelectasis Status post bronchoscopy with lavage 01/27 Tracheal cultures negative to date --Sepsis Completed antibiotic course , C. difficile negative, --Anemia s/p 2 units PRBCs, no evidence of bleeding Evaluated by GI; no procedure planned, Continue Protonix --Hypokalemia; corrected --Diabetes mellitus Well controlled ,Accu-Cheks and SSI ADA diet, long-acting insulin --CVA Nonverbal, bedbound, On antiplatelet and statin PT as needed --Seizure disorder Seizure precautions , continue Keppra --Severe malnutrition Play Reader consulted for tube feeding supportive care --Decubitus Ulcers Continue Wound care --DVT prophylaxis: Lovenox --discharge planning Case management --full code History Interval history: Patient seen and examined medical records reviewed No new events reported by the nursing staff Patient is noncommunicative, status post trach and PEG Vital signs reviewed Hospitalist Physical - Constitutional Vitals: Temp Pulse Resp BP Pulse Ox 99.2 F 134 H 18 133/75 94 01/30/17 07:11 01/30/17 07:11 01/30/17 07:11 01/30/17 07:11 01/30/17 07:11 General appearance: Present: no acute distress, cachectic, other (unresponse) - EENT Eyes: Present: PERRL, EOM intact - Neck Neck: Present: supple, normal ROM, other (status post tracheostomy) - Respiratory Respiratory effort: normal Respiratory: bilateral: diminished, rhonchi, negative: rales, wheezing - Cardiovascular Rhythm: regular Heart Sounds: Present: S1 & S2 - Extremities Extremities: no ischemia, No edema - Abdominal General gastrointestinal: soft, non-tender, non-distended, normal bowel sounds, other (PEG tube in place) - Integumentary Integumentary: Present: clear, warm - Psychiatric Psychiatric: other (unresponsive) - Neurologic Neurologic: other (unresponsive) Results - Labs CBC & Chem 7: 01/30/17 07:50 01/30/17 07:50 Labs: Laboratory Last Values WBC 9.9 K/mm3 (4.5-11.0) 01/28/17 05:30 RBC 2.98 M/mm3 (3.65-5.03) L 01/28/17 05:30 Hgb 8.4 gm/dl (11.8-15.2) L 01/28/17 05:30 Hct 26.0 % (35.5-45.6) L 01/28/17 05:30 MCV 87 fl (84-94) 01/28/17 05:30 MCH 28 pg (28-32) 01/28/17 05:30 MCHC 32 % (32-34) 01/28/17 05:30 RDW 18.1 % (13.2-15.2) H 01/28/17 05:30 Plt Count 337 K/mm3 (140-440) 01/28/17 05:30 Lymph % (Auto) 21.4 % (13.4-35.0) 01/28/17 05:30 [place] % (Auto) 7.4 % (0.0-7.3) H 01/28/17 05:30 Eos % (Auto) 1.8 % (0.0-4.3) 01/28/17 05:30 Baso % (Auto) 0.3 % (0.0-1.8) 01/28/17 05:30 Lymph # 2.1 K/mm3 (1.2-5.4) 01/28/17 05:30 [place] # 0.7 K/mm3 (0.0-0.8) 01/28/17 05:30 Eos # 0.2 K/mm3 (0.0-0.4) 01/28/17 05:30 Baso # 0.0 K/mm3 (0.0-0.1) 01/28/17 05:30 Add Manual Diff TNR 01/22/17 05:00 Seg Neutrophils % 69.1 % (40.0-70.0) 01/28/17 05:30 Seg Neutrophils # 6.8 K/mm3 (1.8-7.7) 01/28/17 05:30 PT 16.0 Sec. (12.2-14.9) H 01/21/17 Unknown INR 1.22 (0.87-1.13) H 01/21/17 Unknown APTT 32.1 Sec. (24.2-36.6) 01/21/17 Unknown POC ABG pH 7.420 (7.35-7.45) 01/21/17 13:10 POC ABG pCO2 42.0 (35-45) 01/21/17 13:10 POC ABG pO2 65 (80-105) L 01/21/17 13:10 POC ABG HCO3 27.2 01/21/17 13:10 POC ABG Total CO2 28 01/21/17 13:10 POC ABG O2 Sat 93 01/21/17 13:10 POC ABG Base Excess 3 01/21/17 13:10 VBG pH 7.386 (7.320-7.420) 01/21/17 Unknown FiO2 60 % 01/21/17 13:10 Sodium 143 mmol/L (137-145) 01/29/17 05:45 Potassium 3.7 mmol/L (3.6-5.0) 01/29/17 05:45 Chloride 103.7 mmol/L (98-107) 01/29/17 05:45 Carbon Dioxide 30 mmol/L (22-30) 01/29/17 05:45 Anion Gap 13 mmol/L 01/29/17 05:45 BUN 11 mg/dL (9-20) 01/29/17 05:45 Creatinine 0.3 mg/dL (0.8-1.5) L 01/29/17 05:45 Estimated GFR > 60 ml/min 01/29/17 05:45 BUN/Creatinine Ratio 37 % 01/29/17 05:45 Glucose 117 mg/dL (75-100) H 01/29/17 05:45 POC Glucose 156 (70-105) H 01/30/17 06:19 Hemoglobin A1c 6.8 % (4-6) H 01/21/17 Unknown Lactic Acid 0.80 mmol/L (0.7-2.0) 01/22/17 09:37 Calcium 8.0 mg/dL (8.4-10.2) L 01/29/17 05:45 Magnesium 1.60 mg/dL (1.7-2.3) L 01/29/17 05:45 Iron 35 ug/dL (49-181) L 01/23/17 09:24 TIBC 133 mcg/dL (250-450) L 01/23/17 09:24 Total Bilirubin 0.20 mg/dL (0.1-1.2) 01/21/17 Unknown Direct Bilirubin < 0.2 mg/dL (0-0.2) 01/21/17 Unknown AST 53 units/L (5-40) H 01/21/17 Unknown ALT 47 units/L (7-56) 01/21/17 Unknown Alkaline Phosphatase 117 units/L (35-129) 01/21/17 Unknown Troponin T 0.016 ng/mL (0.00-0.029) 01/21/17 Unknown Total Protein 7.2 g/dL (6.3-8.2) 01/21/17 Unknown Albumin 2.3 g/dL (3.9-5) L 01/21/17 Unknown Albumin/Globulin Ratio 0.5 % 01/21/17 Unknown Urine Color Yellow (Yellow) 01/21/17 08:15 Urine Turbidity Clear (Clear) 01/21/17 08:15 Urine pH 6.0 (5.0-7.0) 01/21/17 08:15 Ur Specific [place] 1.016 (1.003-1.030) 01/21/17 08:15 Urine Protein 30 mg/dl mg/dL (Negative) 01/21/17 08:15 Urine Glucose (UA) 50 mg/dL (Negative) 01/21/17 08:15 Urine Ketones Neg mg/dL (Negative) 01/21/17 08:15 Urine Blood Neg (Negative) 01/21/17 08:15 Urine Nitrite Neg (Negative) 01/21/17 08:15 Urine Bilirubin Neg (Negative) 01/21/17 08:15 Urine Urobilinogen < 2.0 mg/dL (<2.0) 01/21/17 08:15 Ur Leukocyte Esterase Sm (Negative) 01/21/17 08:15 Urine WBC (Auto) 6.0 /HPF (0.0-6.0) 01/21/17 08:15 Urine RBC (Auto) 5.0 /HPF (0.0-6.0) 01/21/17 08:15 U Epithel Cells (Auto) < 1.0 /HPF (0-13.0) 01/21/17 08:15 Urine Bacteria (Auto) 1+ /HPF (Negative) 01/21/17 08:15 Blood Type O POSITIVE 01/22/17 12:06 Antibody Screen Negative 01/22/17 12:06 Crossmatch See Detail 01/22/17 12:06
[2017-01-30] MEDS: MUCOMYST INHALATION INHALATION SCH ×2 (07:52→19:51)
[2017-01-30 08:38] LABS: Anion Gap 13 mmol/L; BUN/Creatinine Ratio 33; Basophils % (Auto) 0.2 % (0.0-1.8); Blood Urea Nitrogen 10 mg/dL (9-20); Calcium 7.8 mg/dL (8.4-10.2); Carbon Dioxide 29 mmol/L (22-30); Chloride 101.9 mmol/L (98-107); Eosinophils % (Auto) 0.8 % (0.0-4.3); Glucose 153 mg/dL (75-100); Hematocrit 27.3 % (35.5-45.6); Hemoglobin 8.8 gm/dl (11.8-15.2); Mean Corpuscular HGB Conc 32 % (32-34); Mean Corpuscular Hemoglobin 28 pg (28-32); Mean Corpuscular Volume 87 fl (84-94); Platelet Count 359 K/mm3 (140-440); Potassium 3.5 mmol/L (3.6-5.0); Red Blood Count 3.13 M/mm3 (3.65-5.03); Red Cell Distribution Width 17.9 % (13.2-15.2); Sodium 140 mmol/L (137-145); White Blood Count 11.2 K/mm3 (4.5-11.0)
[2017-01-30] MEDS ORDERED: POTASSIUM CHLORIDE FEEDTUBE ONE (09:26)
[2017-01-30] MEDS: FLORANEX PO SCH (11:39)
[2017-01-30] MEDS: PROTONIX FEEDTUBE SCH (11:39)
[2017-01-30] MEDS: Centrum Liq PO SCH (11:40)
[2017-01-30] MEDS: KEPPRA PO SCH ×2 (11:40→21:41)
[2017-01-30] MEDS: MAG-OX PO SCH (11:40)
[2017-01-30] MEDS: LOVENOX SUB-Q SCH (21:41)
[2017-01-30] MEDS: LEVEMIR SUB-Q SCH (21:42)
[2017-01-31] MEDS: DUONEB *Not for PRN Use IH SCH ×4 (03:00→20:58)
[2017-01-31] MEDS: NOVOLOG SUB-Q SCH ×3 (03:11→12:36)
[2017-01-31] MEDS: FLORANEX PO SCH ×3 (03:12→21:42)
[2017-01-31] MEDS: ROBITUSSIN PO SCH ×5 (03:13→18:41)
[2017-01-31] MEDS: NACL 0.9% 1000 ML 1,000 ML IV SCH ×2 (03:42→23:27)
[2017-01-31] MEDS: MUCOMYST INHALATION INHALATION SCH ×2 (08:41→20:58)
[2017-01-31] MEDS: PROTONIX FEEDTUBE SCH (11:10)
[2017-01-31] MEDS: Centrum Liq PO SCH (11:10)
[2017-01-31] MEDS: KEPPRA PO SCH ×2 (11:10→21:42)
[2017-01-31] MEDS: MAG-OX PO SCH (11:11)
--- NOTE | 2017-01-31 13:36 | Progress Note ---
Assessment and Plan Assessment and Plan 56 yo AAM with COPD, DM, HPL, CVA, nonverbal, bedbound, s/p trach and PEG, SZ, [facility] for [facility], fever --Acute on chronic respiratory failure with hypoxia Due to atelectasis and inability to clear secretions Continue oxygen, nebulizers, Mucomyst, pulmonary following Chest PT, supportive care --Atelectasis Status post bronchoscopy with lavage 01/27 Tracheal cultures negative to date --Sepsis Completed antibiotic course , C. difficile negative, --Anemia s/p 2 units PRBCs, no evidence of bleeding Evaluated by GI; no procedure planned, Continue Protonix --Hypokalemia; corrected --Diabetes mellitus Well controlled ,Accu-Cheks and SSI ADA diet, long-acting insulin --CVA Nonverbal, bedbound, On antiplatelet and statin PT as needed --Seizure disorder Seizure precautions , continue Keppra --Severe malnutrition Service Porter consulted for tube feeding supportive care --Decubitus Ulcers Continue Wound care --DVT prophylaxis: Lovenox --discharge planning Case management --full code Discharge back to SNF Subjective Date of service: 01/31/17 Principal diagnosis: Anemia, Diarrhea Interval history: Lying comfortably Trach in place Objective - Constitutional Vitals: Vital Signs - 12hr 01/31/17 01/31/17 01/31/17 02:00 02:10 04:18 Temperature 97.5 F L Pulse Rate 98 H Pulse Rate [ 99 H 100 H Anterior Bilateral Throughout] Respiratory 20 Rate Respiratory 20 20 Rate [Anterior Bilateral Throughout] Blood Pressure 127/79 O2 Sat by Pulse 100 Oximetry O2 Sat by Pulse Oximetry [ Assessment] 01/31/17 01/31/17 01/31/17 07:32 08:40 08:41 Temperature 98.5 F Pulse Rate 98 H Pulse Rate [ 95 H Anterior Bilateral Throughout] Respiratory 28 H Rate Respiratory 16 Rate [Anterior Bilateral Throughout] Blood Pressure 126/77 O2 Sat by Pulse 98 98 Oximetry O2 Sat by Pulse Oximetry [ Assessment] 01/31/17 01/31/17 01/31/17 08:53 11:51 13:11 Temperature 98.8 F Pulse Rate 101 H Pulse Rate [ 98 H 101 H Anterior Bilateral Throughout] Respiratory 24 Rate Respiratory 18 Rate [Anterior Bilateral Throughout] Blood Pressure 116/71 O2 Sat by Pulse 100 Oximetry O2 Sat by Pulse Oximetry [ Assessment] 01/31/17 01/31/17 13:21 13:22 Temperature Pulse Rate Pulse Rate [ 105 H Anterior Bilateral Throughout] Respiratory Rate Respiratory 16 Rate [Anterior Bilateral Throughout] Blood Pressure O2 Sat by Pulse Oximetry O2 Sat by Pulse 99 Oximetry [ Assessment] General appearance: Present: no acute distress, well-nourished - EENT Eyes: PERRL, EOM intact ENT: hearing intact, clear oral mucosa Ears: bilateral: normal - Neck Neck: supple, normal ROM - Respiratory Respiratory effort: normal Respiratory: bilateral: CTA - Breasts Breasts: normal - Cardiovascular Rhythm: regular Heart Sounds: Present: S1 & S2. Absent: gallop, rub Extremities: pulses intact, No edema, normal color, Full ROM - Gastrointestinal General gastrointestinal: Present: soft, non-tender, non-distended, normal bowel sounds - Genitourinary Male genitourinary: normal - Integumentary Integumentary: clear, warm, dry - Musculoskeletal Musculoskeletal: 1, strength equal bilaterally - Neurologic Neurologic: moves all extremities - Psychiatric Psychiatric: depressed - Allied health notes Allied health notes reviewed: nursing, case management - Labs CBC & Chem 7: 01/30/17 07:50 01/30/17 07:50 Labs: Abnormal lab results 01/30/17 01/31/17 01/31/17 Range/Units 22:37 07:01 12:23 POC Glucose 146 H 154 H 139 H (70-105)
[2017-01-31] MEDS: LOVENOX SUB-Q SCH ×2 (21:43→21:44)
[2017-01-31] MEDS: LEVEMIR SUB-Q SCH (21:47)
[2017-02-01] MEDS: DUONEB *Not for PRN Use IH SCH ×4 (02:00→19:45)
[2017-02-01 06:49] LABS: Basophils % (Auto) 0.5 % (0.0-1.8); Eosinophils % (Auto) 1.5 % (0.0-4.3); Hematocrit 27.9 % (35.5-45.6); Hemoglobin 8.7 gm/dl (11.8-15.2); Mean Corpuscular HGB Conc 31 % (32-34); Mean Corpuscular Hemoglobin 27 pg (28-32); Mean Corpuscular Volume 86 fl (84-94); Platelet Count 446 K/mm3 (140-440); Red Blood Count 3.24 M/mm3 (3.65-5.03); Red Cell Distribution Width 17.8 % (13.2-15.2); White Blood Count 11.1 K/mm3 (4.5-11.0)
[2017-02-01 07:10] LABS: Anion Gap 14 mmol/L; BUN/Creatinine Ratio 40; Blood Urea Nitrogen 8 mg/dL (9-20); Calcium 8.2 mg/dL (8.4-10.2); Carbon Dioxide 29 mmol/L (22-30); Chloride 101.4 mmol/L (98-107); Glucose 123 mg/dL (75-100); Potassium 3.4 mmol/L (3.6-5.0); Sodium 141 mmol/L (137-145)
[2017-02-01] MEDS: NOVOLOG SUB-Q SCH ×5 (07:36→17:07)
[2017-02-01] MEDS: ROBITUSSIN PO SCH ×8 (07:36→22:44)
[2017-02-01] MEDS: Centrum Liq PO SCH (09:03)
[2017-02-01] MEDS: KEPPRA PO SCH ×2 (09:03→22:45)
[2017-02-01] MEDS: PROTONIX FEEDTUBE SCH (09:03)
[2017-02-01] MEDS: MAG-OX PO SCH (09:04)
[2017-02-01] MEDS: MUCOMYST INHALATION INHALATION SCH ×2 (09:51→19:45)
--- NOTE | 2017-02-01 11:09 | Progress Note ---
Assessment and Plan Assessment and plan: 56 yo AAM with COPD, DM, HPL, CVA, nonverbal, bedbound, s/p trach and PEG, SZ, admitted from [facility] for respiratory distress, fever --Hypokalemia replace per protocol monitor levels --Hypocalcemia --replacement with calcium supplements --Acute on chronic respiratory failure with hypoxia Oxygen nebulizers and chest PT, pulmonary following --Atelectasis Status post bronchoscopy with lavage 01/27 Tracheal cultures negative to date --Sepsis Completed antibiotic course , C. difficile negative, --Anemia s/p 2 units PRBCs, no evidence of bleeding Evaluated by GI; no procedure planned, Continue Protonix --Diabetes mellitus Well controlled ,Accu-Cheks and SSI ADA diet, long-acting insulin --CVA Nonverbal, bedbound, On antiplatelet and statin --Seizure disorder Seizure precautions , continue Keppra --Severe malnutrition Staff Internist Office Based Only consulted for tube feeding supportive care --Decubitus Ulcers Continue Wound care --DVT prophylaxis: Lovenox --discharge planning Possible discharge to [facility] tomorrow if stable History Interval history: Patient seen and examined medical records reviewed No new events reported by the nursing staff Vital signs reviewed stable Hospitalist Physical - Constitutional Vitals: Temp Pulse Resp BP Pulse Ox 98.2 F 103 H 18 144/86 99 02/01/17 07:43 02/01/17 09:51 02/01/17 09:51 02/01/17 07:43 02/01/17 09:52 General appearance: Present: no acute distress, well-nourished, other ( tracheostomy on T piece) - EENT Eyes: Present: PERRL, EOM intact - Neck Neck: Present: supple - Respiratory Respiratory effort: normal Respiratory: bilateral: diminished, rhonchi (conducted sounds), negative: rales , wheezing - Cardiovascular Rhythm: regular Heart Sounds: Present: S1 & S2 - Extremities Extremities: no ischemia, No edema - Abdominal General gastrointestinal: soft, non-tender, non-distended, normal bowel sounds, other (PEG tube in place) - Integumentary Integumentary: Present: clear, warm - Psychiatric Psychiatric: other (unresponsive) - Neurologic Neurologic: other (unresponsive) Results - Labs CBC & Chem 7: 02/01/17 06:30 02/01/17 06:30 Labs: Laboratory Last Values WBC 11.1 K/mm3 (4.5-11.0) H 02/01/17 06:30 RBC 3.24 M/mm3 (3.65-5.03) L 02/01/17 06:30 Hgb 8.7 gm/dl (11.8-15.2) L 02/01/17 06:30 Hct 27.9 % (35.5-45.6) L 02/01/17 06:30 MCV 86 fl (84-94) 02/01/17 06:30 MCH 27 pg (28-32) L 02/01/17 06:30 MCHC 31 % (32-34) L 02/01/17 06:30 RDW 17.8 % (13.2-15.2) H 02/01/17 06:30 Plt Count 446 K/mm3 (140-440) H 02/01/17 06:30 Lymph % (Auto) 24.7 % (13.4-35.0) 02/01/17 06:30 [place] % (Auto) 8.0 % (0.0-7.3) H 02/01/17 06:30 Eos % (Auto) 1.5 % (0.0-4.3) 02/01/17 06:30 Baso % (Auto) 0.5 % (0.0-1.8) 02/01/17 06:30 Lymph # 2.7 K/mm3 (1.2-5.4) 02/01/17 06:30 [place] # 0.9 K/mm3 (0.0-0.8) H 02/01/17 06:30 Eos # 0.2 K/mm3 (0.0-0.4) 02/01/17 06:30 Baso # 0.1 K/mm3 (0.0-0.1) 02/01/17 06:30 Add Manual Diff TNR 01/22/17 05:00 Seg Neutrophils % 65.3 % (40.0-70.0) 02/01/17 06:30 Seg Neutrophils # 7.2 K/mm3 (1.8-7.7) 02/01/17 06:30 PT 16.0 Sec. (12.2-14.9) H 01/21/17 Unknown INR 1.22 (0.87-1.13) H 01/21/17 Unknown APTT 32.1 Sec. (24.2-36.6) 01/21/17 Unknown POC ABG pH 7.420 (7.35-7.45) 01/21/17 13:10 POC ABG pCO2 42.0 (35-45) 01/21/17 13:10 POC ABG pO2 65 (80-105) L 01/21/17 13:10 POC ABG HCO3 27.2 01/21/17 13:10 POC ABG Total CO2 28 01/21/17 13:10 POC ABG O2 Sat 93 01/21/17 13:10 POC ABG Base Excess 3 01/21/17 13:10 VBG pH 7.386 (7.320-7.420) 01/21/17 Unknown FiO2 60 % 01/21/17 13:10 Sodium 141 mmol/L (137-145) 02/01/17 06:30 Potassium 3.4 mmol/L (3.6-5.0) L 02/01/17 06:30 Chloride 101.4 mmol/L (98-107) 02/01/17 06:30 Carbon Dioxide 29 mmol/L (22-30) 02/01/17 06:30 Anion Gap 14 mmol/L 02/01/17 06:30 BUN 8 mg/dL (9-20) L 02/01/17 06:30 Creatinine 0.2 mg/dL (0.8-1.5) L 02/01/17 06:30 Estimated GFR > 60 ml/min 02/01/17 06:30 BUN/Creatinine Ratio 40 % 02/01/17 06:30 Glucose 123 mg/dL (75-100) H 02/01/17 06:30 POC Glucose 129 (70-105) H 02/01/17 05:45 Hemoglobin A1c 6.8 % (4-6) H 01/21/17 Unknown Lactic Acid 0.80 mmol/L (0.7-2.0) 01/22/17 09:37 Calcium 8.2 mg/dL (8.4-10.2) L 02/01/17 06:30 Magnesium 1.60 mg/dL (1.7-2.3) L 01/30/17 07:50 Iron 35 ug/dL (49-181) L 01/23/17 09:24 TIBC 133 mcg/dL (250-450) L 01/23/17 09:24 Total Bilirubin 0.20 mg/dL (0.1-1.2) 01/21/17 Unknown Direct Bilirubin < 0.2 mg/dL (0-0.2) 01/21/17 Unknown AST 53 units/L (5-40) H 01/21/17 Unknown ALT 47 units/L (7-56) 01/21/17 Unknown Alkaline Phosphatase 117 units/L (35-129) 01/21/17 Unknown Troponin T 0.016 ng/mL (0.00-0.029) 01/21/17 Unknown Total Protein 7.2 g/dL (6.3-8.2) 01/21/17 Unknown Albumin 2.3 g/dL (3.9-5) L 01/21/17 Unknown Albumin/Globulin Ratio 0.5 % 01/21/17 Unknown Urine Color Yellow (Yellow) 01/21/17 08:15 Urine Turbidity Clear (Clear) 01/21/17 08:15 Urine pH 6.0 (5.0-7.0) 01/21/17 08:15 Ur Specific [place] 1.016 (1.003-1.030) 01/21/17 08:15 Urine Protein 30 mg/dl mg/dL (Negative) 01/21/17 08:15 Urine Glucose (UA) 50 mg/dL (Negative) 01/21/17 08:15 Urine Ketones Neg mg/dL (Negative) 01/21/17 08:15 Urine Blood Neg (Negative) 01/21/17 08:15 Urine Nitrite Neg (Negative) 01/21/17 08:15 Urine Bilirubin Neg (Negative) 01/21/17 08:15 Urine Urobilinogen < 2.0 mg/dL (<2.0) 01/21/17 08:15 Ur Leukocyte Esterase Sm (Negative) 01/21/17 08:15 Urine WBC (Auto) 6.0 /HPF (0.0-6.0) 01/21/17 08:15 Urine RBC (Auto) 5.0 /HPF (0.0-6.0) 01/21/17 08:15 U Epithel Cells (Auto) < 1.0 /HPF (0-13.0) 01/21/17 08:15 Urine Bacteria (Auto) 1+ /HPF (Negative) 01/21/17 08:15 Blood Type O POSITIVE 01/22/17 12:06 Antibody Screen Negative 01/22/17 12:06 Crossmatch See Detail 01/22/17 12:06
[2017-02-01] MEDS: FLORANEX PO SCH ×2 (12:05→22:44)
[2017-02-01] MEDS ORDERED: POTASSIUM CHLORIDE FEEDTUBE ONE (13:00)
[2017-02-01] MEDS: NACL 0.9% 1000 ML 1,000 ML IV SCH (16:04)
[2017-02-01] MEDS: LEVEMIR SUB-Q SCH ×2 (22:45→23:22)
[2017-02-01] MEDS: LOVENOX SUB-Q SCH (22:45)
[2017-02-01] MEDS: CALCIUM CARBONATE FEEDTUBE SCH (23:23)
[2017-02-02] MEDS: NOVOLOG SUB-Q SCH ×3 (00:57→12:56)
[2017-02-02] MEDS: DUONEB *Not for PRN Use IH SCH ×4 (01:55→19:36)
[2017-02-02] MEDS: ROBITUSSIN PO SCH ×3 (02:56→11:05)
[2017-02-02] MEDS: MUCOMYST INHALATION INHALATION SCH ×2 (10:00→19:36)
[2017-02-02] MEDS: Centrum Liq PO SCH (11:04)
[2017-02-02] MEDS: KEPPRA PO SCH (11:04)
[2017-02-02] MEDS: PROTONIX FEEDTUBE SCH (11:04)
[2017-02-02] MEDS: FLORANEX PO SCH (11:04)
[2017-02-02] MEDS: CALCIUM CARBONATE FEEDTUBE SCH (11:05)
[2017-02-02] MEDS ORDERED: SODIUM BICARBONATE FEEDTUBE PRN (11:58)
[2017-02-02] MEDS ORDERED: PANCREAZE DR 10,500 UNIT FEEDTUBE PRN (11:58)
[2017-02-02] MEDS ORDERED: SIMPLE SYRUP FEEDTUBE PRN ×2 (11:58)
--- NOTE | 2017-02-02 12:50 | Discharge Summary ---
Providers - Providers Date of Admission: 01/21/17 09:36 Date of discharge: 02/02/17 Attending physician: LONG GODFREY 01/21/17 09:35 Consult to Physician [CONS] Routine Consulting Provider: STARLA QUINTERO Reason For Exam: active bleeding Place consult to:: DR. HERRERA Notified:: DR. HERRERA Time called:: 15:38 01/21/17 10:40 Consult to Wound/ET Nurse [CONS] Routine Reason For Exam: wound eval, multiple wounds 01/21/17 14:14 Consult to Physician [CONS] Urgent Consulting Provider: TERENCE CALDWELL Reason For Exam: atlectasis maybe needs bronch Notified:: no 01/21/17 17:31 Consult to Dietitian/Nutrition [CONS] Routine Physician Instructions: Reason For Exam: Reason for Consult: Malnutrition Consult to Wound/ET Nurse [CONS] Routine Reason For Exam: wound eval Primary care physician: SUPERVISOR [employer] Hospitalization Reason for admission: worsening shortness of breath/acute on chronic respiratory failure Condition: Stable Pertinent studies: Bronchoscopy with lavage, negative cultures Hospital course: 56 yo AAM with COPD, DM, HPL, CVA, nonverbal, bedbound, s/p trach and PEG, SZ, [facility] from [facility], fever Patient was evaluated and managed symptomatically, status post tracheostomy on T piece Multiple elevated blood imbalances were corrected Symptoms significantly improved Today's comfortable, no new changes Physical examination is unremarkable, hemodynamically and clinically stable for discharge and [facility] Discharge diagnosis and management; --Hypokalemia replaced per protocol , [place] potassium levels --Hypocalcemia --replacement with calcium supplements --Acute on chronic respiratory failure with hypoxia Received Oxygen nebulizers and chest PT, pulmonary evaluated the patient --Atelectasis Status post bronchoscopy with lavage 01/27 Tracheal cultures negative to date --Sepsis Completed antibiotic course , C. difficile negative, --Anemia s/p 2 units PRBCs, no evidence of bleeding Evaluated by GI; no procedure planned, on Protonix --Diabetes mellitus Well controlled ,Accu-Cheks and SSI ADA diet, long-acting insulin --CVA Nonverbal, bedbound, On antiplatelet and statin --Seizure disorder Seizure precautions , on Keppra --Severe malnutrition Logistics Planning Engineer consulted , tube feeding and supplements --Decubitus Ulcers Received Wound care Disposition: TO HOME OR SELFCARE Time spent for discharge: 33 min Core Measure Documentation - Palliative Care Palliative Care/ Comfort Measures: Not Applicable - Core Measures Any of the following diagnoses?: none Exam - Constitutional Vitals: Temp Pulse Resp BP Pulse Ox 99.6 F 120 H 20 149/96 97 02/02/17 08:15 02/02/17 10:02 02/02/17 10:02 02/02/17 08:15 02/02/17 10:00 General appearance: Present: no acute distress, other (s/p tracheostomy) - EENT Eyes: Present: PERRL - Neck Neck: Present: supple - Respiratory Respiratory effort: normal Respiratory: bilateral: diminished, rhonchi, negative: rales, wheezing - Cardiovascular Rhythm: regular Heart Sounds: Present: S1 & S2 - Extremities Extremities: no ischemia, No edema - Abdominal General gastrointestinal: Present: soft, non-tender, non-distended, normal bowel sounds - Integumentary Integumentary: Present: clear, warm - Musculoskeletal Musculoskeletal: other (unresponsive) - Psychiatric Psychiatric: other (unresponsive) - Neurologic Neurologic: other (unresponsive) Plan Activity: other (Bed bound) Diet: other (Tube feeding per protocol) Additional Instructions: aspiration precautions Follow up with: PRIMARY CAREMD [Primary Care Provider] - 3-5 Days TERENCE CALDWELL MD [Staff Physician] - 7 Days
[2017-02-02 14:17] VITALS: BP 134/86
[2017-02-02] MEDS ORDERED: TRIPLE ANTIBIOTIC TP ONE (14:23)
== END 2017-02-02 15:30 | disposition home or self-care (01) | DRG 871 ==
LOC: ED 06:57 → 3A 09:36
PROVIDERS: ADMIT Internal Medicine; ATTEND Internal Medicine
PROC: 4A033R1 Measurement of Arterial Saturation, Peripheral, Percutaneous Approach (ICD-10-PCS; 2017-01-21)
PROC: 30233N1 Transfusion of Nonautologous Red Blood Cells into Peripheral Vein, Percutaneous Approach (ICD-10-PCS; 2017-01-22)
PROC: 3E0234Z Introduction of Serum, Toxoid and Vaccine into Muscle, Percutaneous Approach (ICD-10-PCS; 2017-01-22)
PROC: 0BC78ZZ Extirpation of Matter from Left Main Bronchus, Via Natural or Artificial Opening Endoscopic (ICD-10-PCS; principal; 2017-01-27)
DX: A41.9 Sepsis, unspecified organism (principal); R65.21 Severe sepsis with septic shock; J96.21 Acute and chronic respiratory failure with hypoxia; J15.6 Pneumonia due to other Gram-negative bacteria; E43 Unspecified severe protein-calorie malnutrition; L89.154 Pressure ulcer of sacral region, stage 4; J44.0 Chronic obstructive pulmonary disease with (acute) lower respiratory infection; D62 Acute posthemorrhagic anemia; J44.1 Chronic obstructive pulmonary disease with (acute) exacerbation; T17.590A Other foreign object in bronchus causing asphyxiation, initial encounter; F20.9 Schizophrenia, unspecified; K21.9 Gastro-esophageal reflux disease without esophagitis; G40.909 Epilepsy, unspecified, not intractable, without status epilepticus; E87.6 Hypokalemia; E78.5 Hyperlipidemia, unspecified; E11.9 Type 2 diabetes mellitus without complications; I10 Essential (primary) hypertension; G89.29 Other chronic pain; Z68.22 Body mass index [BMI] 22.0-22.9, adult; Z23 Encounter for immunization; Z79.899 Other long term (current) drug therapy; Z86.73 Personal history of transient ischemic attack (TIA), and cerebral infarction without residual deficits
CPT/HCPCS: 31720; 36415; 36600; 71010; 80048; 80074; 81001; 82140; 82270; 82803; 82805; 82962; 83036; 83550; 83735; 84132; 84484; 85014; 85018; 85025; 85027; 85610; 85730; 86850; 86900; 86901; 86920; 87040; 87086; 87205; 87493; 90471; 90686; 90732; 93005; 93010; 94640; 94667; 94668; 94669; 94760; 96365; 96375; 99285; A6250; A9270-GY; G0008; G0009; J1650; J1815; J1818; J1956; J2250; J2543; J2930; J3010; J3370; J3475; J3480; J7030; J7040; J7050; P9016

== ENCOUNTER 2017-02-27 22:58 | Emergency (ER) | payer MEDICARE ==
[~2017-02-27 22:58] MED LIST: ADRENALIN ONE
--- NOTE | 2017-02-27 23:31 | Emergency Department Report ---
ED CPR HPI - General Chief Complaint: Cardiac Arrest/CPR Stated Complaint: CARDIAC ARREST Time Seen by Provider: 02/27/17 23:31 Source: EMS Mode of arrival: Stretcher Limitations: Altered Mental Status, Physical Limitation - History of Present Illness Initial Comments: Patient is a 56-year-old [place] male who is presenting status post cardiac arrest. Patient is in a senior living and has a trach in place. Further history is unknown at this time. Patient was found unresponsive. There is a unknown down time. Is unknown whether the patient recently had chest pain shortness of breath fevers chills. Patient was transported via paramedics. There is about 25 minute downtime with paramedics. Patient is what has been given 3 rounds of epinephrine. Patient was intubated. MD Complaint: found unresponsive Place: NH/SNF Bystander CPR Performed: Yes (senior living staff was performing CPR at the time of medical apparatus model maker arrival) AED Applied by Bystander/Area Attendant: No Shock Advised: No Initial Findings in the Field: no respirations, no pulse, systole Treatments Prior to Arrival: intubation, chest compressions, epinephrine mgs # ( 3), sodium bicarbonate - Related Data Home Medications Medication Instructions Recorded Confirmed Last Taken Acetaminophen 650 mg NGTUBE Q6H PRN 01/07/17 01/21/17 Unknown Acidophilus Capsule 1 cap NGTUBE BID 01/07/17 01/21/17 Unknown AtorvaSTATin 40 mg NGTUBE HS 01/07/17 01/21/17 Unknown Famotidine 20 mg NGTUBE BID 01/07/17 01/21/17 Unknown Levemir 5 units SQ HS 01/07/17 01/21/17 Unknown Previous Rx's Medication Instructions Recorded Last Taken Type Bisacodyl [Dulcolax suppos] 10 mg MI QDAY PRN supp.rect 01/15/17 Unknown Rx Ipratropium/Albuterol Sulfate 1 ampul IH Q6HRT #30 ampul.neb 01/15/17 Unknown Rx [DUONEB *Not for PRN Use*] Levetiracetam 10 ml NGTUBE BID #30 01/15/17 Unknown Rx Lipase/Protease/Amylase [Pancreaze 1 each FEEDTUBE PRN PRN #30 capsule 01/15/[address] 10,500 Unit] Metoprolol [Lopressor TAB] 50 mg PO BID tablet 01/15/17 Unknown Rx NovoLOG Flexpen 1 dose SQ AC #30 01/15/17 Unknown Rx Simple Syrup 15 ml FEEDTUBE PRN PRN oral.liqd 01/15/17 Unknown Rx Simple Syrup 30 ml FEEDTUBE PRN PRN oral.liqd 01/15/17 Unknown Rx Sodium Bicarbonate 325 mg FEEDTUBE PRN PRN tablet 01/15/17 Unknown Rx predniSONE [Deltasone] 40 mg PO QDAY tablet 01/15/17 Unknown Rx Multivitamins Liq [Multiple 5 ml PO QDAY oral.liqd 02/02/17 Unknown Rx Vitamin Liq (Theragran)] Allergies Allergy/AdvReac Type Severity Reaction Status Date / Time No Known Allergies Allergy Verified 01/07/17 08:08 ED Review of Systems ROS: Stated complaint: CARDIAC ARREST Other details as noted in HPI Comment: Unobtainable due to pts medical conditions ED Past Medical Hx - Past Medical History Previous Medical History?: Yes Hx Hypertension: Yes Hx CVA: Yes Hx Diabetes: Yes Hx Deep Vein Thrombosis: No Hx GERD: Yes Hx Seizures: Yes Hx Psychiatric Treatment: Yes (Schizophrenia) Additional medical history: Acute Respiratory Failure, Decubitus Ulcers, Dysphagia, Chronic Pain, Hyperlipidemia - Surgical History Past Surgical History?: Yes Hx Pacemaker: No Hx Internal Defibrillator: No Additional Surgical History: Colostomy, PEG, TRACH, - Social History Smoking Status: Unknown if ever smoked - Medications Home Medications: Home Medications Medication Instructions Recorded Confirmed Last Taken Type Acetaminophen 650 mg NGTUBE Q6H PRN 01/07/17 01/21/17 Unknown History Acidophilus Capsule 1 cap NGTUBE BID 01/07/17 01/21/17 Unknown History AtorvaSTATin 40 mg NGTUBE HS 01/07/17 01/21/17 Unknown History Famotidine 20 mg NGTUBE BID 01/07/17 01/21/17 Unknown History Levemir 5 units SQ HS 01/07/17 01/21/17 Unknown History Bisacodyl [Dulcolax suppos] 10 mg MI QDAY PRN supp.rect 01/15/17 01/21/17 Unknown Rx Ipratropium/Albuterol Sulfate 1 ampul IH Q6HRT #30 ampul.neb 01/15/17 01/21/17 Unknown Rx [DUONEB *Not for PRN Use*] Levetiracetam 10 ml NGTUBE BID #30 01/15/17 01/21/17 Unknown Rx Lipase/Protease/Amylase [Pancreaze 1 each FEEDTUBE PRN PRN #30 capsule 01/15/17 01/21/17 Unknown Rx 10,500 Unit] Metoprolol [Lopressor TAB] 50 mg PO BID tablet 01/15/17 01/21/17 Unknown Rx NovoLOG Flexpen 1 dose SQ AC #30 01/15/17 01/21/17 Unknown Rx Simple Syrup 15 ml FEEDTUBE PRN PRN oral.liqd 01/15/17 01/21/17 Unknown Rx Simple Syrup 30 ml FEEDTUBE PRN PRN oral.liqd 01/15/17 01/21/17 Unknown Rx Sodium Bicarbonate 325 mg FEEDTUBE PRN PRN tablet 01/15/17 01/21/17 Unknown Rx predniSONE [Deltasone] 40 mg PO QDAY tablet 01/15/17 01/21/17 Unknown Rx Multivitamins Liq [Multiple 5 ml PO QDAY oral.liqd 02/02/17 Unknown Rx Vitamin Liq (Theragran)] ED Physical Exam - General Limitations: Altered Mental Status, Physical Limitation General appearance: obtunded - Head Head exam: Present: atraumatic - Eye Eye exam: Present: other (pupils are fixed and dilated) - ENT ENT exam: Present: other (trach collar is in place. There is purulent drainage surrounding the trach) - Respiratory Respiratory exam: Present: normal lung sounds bilaterally, other (with bagging only. There are no spontaneous respirations) - Cardiovascular Cardiovascular Exam: Present: other (no spontaneous heart tones are noted. No spontaneous pulses noted) - GI/Abdominal GI/Abdominal exam: Present: soft. Absent: distended - Neurological Exam Neurological exam: Present: other (GCS of 3) - Skin Skin exam: Present: other (cool to touch) ED Medical Decision Making - Medical Decision Making Patient is a 56-year-old [place] male who is presenting status post cardiac arrest patient was pronounced in the hospital Critical care attestation.: If time is entered above; I have spent that time in minutes in the direct care of this critically ill patient, excluding procedure time. ED Disposition Clinical Impression: Cardiac arrest Disposition: [id number] Is pt being admited?: No Does the pt Need Aspirin: No Condition: Stable
== END 2017-02-28 00:35 ==
LOC: ED 22:58
DX: I46.9 Cardiac arrest, cause unspecified (principal); I10 Essential (primary) hypertension; Z86.73 Personal history of transient ischemic attack (TIA), and cerebral infarction without residual deficits; E11.9 Type 2 diabetes mellitus without complications; F20.9 Schizophrenia, unspecified; K21.9 Gastro-esophageal reflux disease without esophagitis
CPT/HCPCS: 99285; J0171